=== PATIENT | female | born 1965 | race Caucasian/White ===

== ENCOUNTER 2024-01-05 16:17 | Inpatient (IN) | payer SELFPAY ==
[2024-01-05] VITALS (20 sets, daily range): BP systolic 107–159; BP diastolic 61–99
[~2024-01-05] VITALS: Ht 170.2 cm; Wt 88.8 kg
--- NOTE | 2024-01-05 16:17 | NUR ---
PT TO ER ROOM 10 VIA EMS. PT IS VERY DROWNY. PT RESPONDS TO VERBAL STIMULI AND ANSWERS YES OR NO. PT IS COVED IN FECES, HAS A TOILET BRUSH IN HER HAIR, AND FECES IN HER MOUTH. EMS STATES PT WAS FOUND IN THE BATHROOM FLOOR. FULL BED BATH GIVEN TO PATIENT. VSS. UPON PALPATION PT WINCES WHEN RLQ IS PRESSED ON.
[2024-01-05] MEDS ORDERED: SODIUM CHLORIDE 0.9% 1,000 ML IV ONE ×3 (16:30→19:05)
[2024-01-05] MEDS ORDERED: INSULIN REGULAR (HUMAN) 100 UNIT/ML INJ IV ONE (16:30)
[2024-01-05] MEDS ORDERED: ONDANSETRON HCl 4 MG/2 ML SDV IV ONE (17:00)
[2024-01-05] MEDS ORDERED: NALOXONE HCL 1 MG/ML SYR IV ONE (17:00)
[2024-01-05 17:06] LABS: HEMATOCRIT 51.4 % (37.0-47.0); HEMOGLOBIN 17.9 g/dl (12.0-16.0); IMMATURE GRANULOCYTES 0.3 % (0.0-5.0); LYMPH% 5.4 % (15-41); MEAN CELL VOLUME 87.1 fL CALC (80.0-100.0); MEAN CORPUSCULAR HGB 30.3 pG CALC (26.0-32.0); MEAN CORPUSCULAR HGB CONC 34.8 g/dL CAL (32.0-36.0); MONO% 8.3 % (2-13); NEUT# 21.52 thou/uL (2.00-7.15); RED BLOOD COUNT 5.9 mill/uL (4.20-5.60); RED CELL DISTRI WIDTH 12.4 % (11.5-15.5)
--- NOTE | 2024-01-05 17:21 | NUR ---
PTS SON AT SIDE. PT SON NOTIFIES THIS NURSE THAT PT IS SEVER FOOD ALLERGY TO SEAFOOD. SON STATES PT GOES INTO ANAPHYLLACSIS JUST BY TOUCHING SEAFOOD. MD IS MADE AWARE.
[2024-01-05 17:54] LABS: ALBUMIN 4.6 g/dL (3.2-5.0); BILIRUBIN, TOTAL 0.9 mg/dL (0.02-1.3); CREATININE 1.1 mg/dL (0.5-1.0)
[2024-01-05 18:07] LABS: URINE BILIRUBIN - DIPSTICK Negative (NEGATIVE); URINE BLOOD DIPSTICK Trace-lysed (NEGATIVE); URINE GLUCOSE - DIPSTICK >=1000 mg/dL (NEGATIVE); URINE KETONE Trace mg/dL (NEGATIVE); URINE LEUK ESTERASE Negative (NEGATIVE); URINE NITRITE - DIPSTICK Negative (Negative); URINE PH 5.5 (4.5-8.0); URINE PROTEIN - DIPSTICK Negative (NEG-TRACE); URINE UROBILINOGEN - DIPSTICK 0.2 E.U./dL (0.2)
[2024-01-05 18:08] LABS: URINE COLOR Yellow
[2024-01-05] MEDS ORDERED: CEFEPIME HYDROCHLORIDE 2 GM in SODIUM CHLORIDE 0.9% 100 ML IV ONE (18:45)
--- NOTE | 2024-01-05 19:49 | NUR ---
REPORT CALLED TO ICU/[facility]
--- NOTE | 2024-01-05 20:18 | NUR ---
DR. WHITTAKER NOTIFIED OF LA OF 4.0. WILL PUT IN ADDITIONAL ORDERS WHEN HE GETS TO A COMPUTOR.
--- NOTE | 2024-01-05 20:20 | NUR ---
Chana. FAXED TO [facility].
--- NOTE | 2024-01-05 20:30 | NUR ---
PT RESTING. FAMILY AT BEDSIDE. PT A/O AT THIS TIME. NOONAN. VSS. READIED FOR TRANSPORT TO ICU.
--- NOTE | 2024-01-05 20:45 | NUR ---
PATIENT TRASPORTED TO ICU BED 6 BY Mar BANEGAS RN.
[2024-01-05] MEDS ORDERED: SODIUM CHLORIDE 0.9% 1,000 ML IV PRN ×2 (21:10→22:15)
[2024-01-05] MEDS ORDERED: ACETAMINOPHEN 325 MG/TAB PO PRN (21:10)
[2024-01-05] MEDS ORDERED: MAGNESIUM HYDROXIDE 30 ML UDC PO PRN (21:10)
[2024-01-05] MEDS ORDERED: DEXTROSE 250 ML IV PRN (21:15)
--- NOTE | 2024-01-05 23:00 | NUR ---
58 yr old white female admitted icu6 per stretcher from er. er nurse notfied of need for orders. transferred x3 assists to bed. bed weight obtained. analytical technician shows sinus tach pvcs. oriented to room. iv's x2 replaced. bolus given. history obtained per er record. unable to obtain covid or pneumonia vaccine history as pt is VERY lethargic. pt is incont. pure wick cath & diaper placed. bed alarm activated. fall precautions initiated.
[2024-01-06] VITALS (22 sets, daily range): BP systolic 134–166; BP diastolic 65–91
--- NOTE | 2024-01-06 00:01 | NUR ---
eyes closed. no distress. state fire marshal shows sinus tach.
--- NOTE | 2024-01-06 02:00 | NUR ---
resting quietly. resps even & unlabored. no apparent distress.
--- NOTE | 2024-01-06 04:15 | NUR ---
lab here. blood drawn.
[2024-01-06 05:01] LABS: HEMATOCRIT 42.8 % (37.0-47.0); HEMOGLOBIN 14.4 g/dl (12.0-16.0); MEAN CORPUSCULAR HGB 31.3 pG CALC (26.0-32.0); MEAN CORPUSCULAR HGB CONC 33.6 g/dL CAL (32.0-36.0); RED BLOOD COUNT 4.6 mill/uL (4.20-5.60); RED CELL DISTRI WIDTH 12.8 % (11.5-15.5)
[2024-01-06 05:02] LABS: BILIRUBIN, TOTAL 0.6 mg/dL (0.02-1.3); CREATININE 0.6 mg/dL (0.5-1.0); MAGNESIUM 2.1 mg/dL (1.6-2.3); POTASSIUM 4.1 mmol/l (3.5-5.1)
[2024-01-06 05:03] LABS: ALBUMIN 3.5 g/dL (3.2-5.0); TOTAL PROTEIN 6.3 g/dL (6.3-8.2)
--- NOTE | 2024-01-06 06:00 | NUR ---
eyes closed. environmental monitoring technician shows sinus rhythm pvcs.
[2024-01-06] MEDS ORDERED: CEFEPIME HYDROCHLORIDE 2 GM in SODIUM CHLORIDE 0.9% 100 ML IV SCH (07:00)
[2024-01-06] MEDS ORDERED: INSULIN LISPRO 100 UNITS/ML ML SC SCH (07:00)
--- NOTE | 2024-01-06 07:44 | NUR ---
REPORT RECEIVED FROM NIGHT RN. PT IS DROWSY, ORIENTED ONLY TO PERSON (FIRST NAME ONLY). DOES NOT TRACK WITH GAZE. RIGHT HELP DESK INTERN WEAKER THAN LEFT. RIGHT AND LEFT ARM DRIFT. LUNG SOUNDS CLEAR; PT IS ON RA. NO SOB NOTED. PT DID COUGH AFTER DRINKING WATER. PT NOT GIVEN BREAKFAST DUE TO RISK OF ASPIRATION. HEART SOUNDS S1S2; NSR ON MONITOR. BS ACTIVE. PT HAS LARGE OVARIAN MASS SHOWN ON CT. SKIN W/D/I. PULSES STRONG ALL EXTREMETIES. DR. SHAH NOTIFIED OF FINDINGS FROM INITIAL ASSESSMENT AND CT BRAIN ORDERED. DR. SHAH AT BEDSIDE TO DO ASSESSMENT.
--- NOTE | 2024-01-06 08:30 | NUR ---
STAT CT COMPLETED. PT TAKEN BACK TO UNIT BY HOSPITAL BED. TOLERATED WELL.
[2024-01-06] MEDS ORDERED: VANCOMYCIN HCL 1 GM in SODIUM CHLORIDE 0.9% 250 ML IV SCH (09:00)
--- NOTE | 2024-01-06 09:06 | NUR ---
STROKE ALERT CALLED.
[2024-01-06] MEDS ORDERED: DEXTROSE 250 ML IV PRN (09:15)
[2024-01-06] MEDS ORDERED: ASPIRIN 300 MG/SUP RE SCH (09:30)
--- NOTE | 2024-01-06 09:30 | NUR ---
PT BACK FROM CT. TELE-NEUROLOGY CONSULT COMPLETED. PT STABLE. FAMILY AT BEDSIDE.
--- NOTE | 2024-01-06 11:30 | NUR ---
PT TAKEN TO MRI BY HOSPITAL BED. DUE TO UNCERTAINTY OF POSSIBLE FOREIGN BODY IN R LEG, ORDER FOR XRAY OBTAINED AND PERFORMED. PT'S SON AT BEDSIDE IN MRI TO GIVE CONSENT ON PT'S BEHALF.
--- NOTE | 2024-01-06 12:55 | NUR ---
UPON ENTERING PT ROOM, PT WAS SOMEWHAT TEARFUL AND COMPLAINING OD HEADACHE. PT SAID IT WAS THE WORST HEADACHE SHE HAS EVER HAD AND CAME ON SUDDNELY. ANOTHER STROKE ALERT CALLED AND PT TAKEN TO CT BY HOSPITAL BED.
--- NOTE | 2024-01-06 13:45 | NUR ---
PT BACK FROM CT. REPEAT CT COMPLETED. TELE-NEUROLOGY CONSULT COMPLETED IN PT ROOM WITH FAMILY AT BEDSIDE. PT CAN ANSWER SOME QUESTIONS; MILD DYSARTHRIA. DRIFT NOTED IN RIGHT LEG. VSS.
--- NOTE | 2024-01-06 14:08 | NUR ---
S: WENDIE ISBELL is a 58 F who presents with sepsis and ovarian mass. She has a history of arthritis and cerebrovascular accident. All medications in patient's chart were reviewed. O: VS: BP:147/72 mmHg, P:108 beats/minute, RR:16 breaths per minute,T:97.4F W:87.401kg, HT:162.56, Scr=0.6,CrCl= 113.2ml/min A: Blood culture is pending. P: Patient is on cefepime HCl 2 GM IV Q12H. Vancomycin ordered for pharmacy to dose. Start Vancomycin 1 GM IV Q8H. Vancomycin trough is drawn before the 4th dose on 01/07/2024 at 0830. Vancomycin goal trough is between <10-20 mcg/ml>. Pharmacy will follow and or advise on antibiotics use as needed.
--- NOTE | 2024-01-06 15:45 | NUR ---
PT ASSISTED TO BEDPAN TO TRY TO HAVE A BM. PT DID NOT HAVE ANY BM BUT DID VOID. LINEN AND BRIEF CHANGED AND PT REPOSITIONED. FAMILY AT BEDSIDE. MOUTH CARE PROVIDED.
--- NOTE | 2024-01-06 17:00 | NUR ---
NO CHANGES TO PT STATUS. NO FAMILY AT BEDSIDE. PT ASLEEP IN BED.
[2024-01-06] MEDS ORDERED: LABETALOL HCL 20 MG/ 4 ML CARTRG IV PRN (17:30)
[2024-01-06] MEDS ORDERED: Pantoprazole Sodium 40 MG VIAL (Protonix) IV SCH (17:35)
--- NOTE | 2024-01-06 18:21 | NUR ---
PT ASLEEP IN BED. CALL LIGHT IN REACH. VSS.
[2024-01-06] MEDS ORDERED: ENOXAPARIN SODIUM 40 MG/0.4 ML SYR SC SCH (21:00)
--- NOTE | 2024-01-06 21:00 | NUR ---
recieved report from Fiona ZARAGOZA at 2100, NIH =8 done at 2130. next NIH at 0000 and 0400, Pt assessed , cleaned new sheets pads, blanket new purewick, mouth cleaned and moisturizer appled. call rueda within reach.
--- NOTE | 2024-01-06 22:00 | NUR ---
pt resting comfortably. call rueda within reach all safety measures in place.
--- NOTE | 2024-01-06 22:30 | NUR ---
spoke to DR. Shelby after NIH performed to go over NIH=8 exam , aware of exam and reviewed MRI findings with RN. MD number [phone]. aware pt does not track. This RN stated pt had Rondanielle which is new and suspected silent aspiration of oral secretions. Md stated she would expect that based on MRi findings. will monitor closely.
[2024-01-07] VITALS (21 sets, daily range): BP systolic 119–185; BP diastolic 71–133
--- NOTE | 2024-01-07 | NUR ---
pt respositioned. NIH =8 call rueda within reach . All needs met. IVF going at 80cc/hr, purewick in place.
--- NOTE | 2024-01-07 02:00 | NUR ---
pt repositioned. mini neuro assess. same as before. pt cleaned new gown new bedding sheets , pericare mouth cleaned. bath. IVF maintained at 80cc/hr of NS. all monitors on , bed alarm. call rueda within reach.
--- NOTE | 2024-01-07 04:00 | NUR ---
pt assessed no change in NIH =8 , pt lethargic when woke up , no change pt cannot follow finger. when asked if pain pt states no. pt speach is still garbled but able to make out some words. pt incontinenet new purewick. given warm blankets. IV Fluids at 80cc/hr. all monitors on and call rueda within reach. semiflowlers positione pulled up in bed pt can participate to assist with pulling up. LLLeg is still not able to hold off the bed and is also ataxix in the LLLeg.
[2024-01-07 04:54] LABS: HEMATOCRIT 40.8 % (37.0-47.0); HEMOGLOBIN 13.5 g/dl (12.0-16.0); MEAN CELL VOLUME 92.3 fL CALC (80.0-100.0); MEAN CORPUSCULAR HGB 30.5 pG CALC (26.0-32.0); MEAN CORPUSCULAR HGB CONC 33.1 g/dL CAL (32.0-36.0); RED BLOOD COUNT 4.42 mill/uL (4.20-5.60); RED CELL DISTRI WIDTH 12.8 % (11.5-15.5)
[2024-01-07 05:08] LABS: ALBUMIN 3.2 g/dL (3.2-5.0); CREATININE 0.5 mg/dL (0.5-1.0); POTASSIUM 3.9 mmol/l (3.5-5.1); TOTAL PROTEIN 5.7 g/dL (6.3-8.2)
[2024-01-07 05:24] LABS: BILIRUBIN, TOTAL 0.9 mg/dL (0.02-1.3)
[2024-01-07] MEDS ORDERED: LABETALOL HCL 100 MG/20 ML VIAL IV PRN (08:30)
[2024-01-07] MEDS ORDERED: SODIUM CHLORIDE 0.9% 250 ML IV ONE (08:53)
[2024-01-07 10:43] LABS: CHOLESTEROL HDL RATIO 4.7 (<4.4 (CALC))
--- NOTE | 2024-01-07 10:51 | NUR ---
S: WENDIE ISBELL is a 58yo F who presents with sepsis. She has a history of hypertension, CVA, diabetes, and arthritis. All medications in patient's chart were reviewed. O: VS: BP 119/99 mmHg, P 85 bpm, RR 21 breaths/min, T 99 F W 86.7 kg, HT 67 in, Scr= 0.5,CrCl= 112.7 ml/min A: Blood culture is pending. P: Patient is on cefepime 2 g IV Q12H. Vancomycin ordered for pharmacy to dose. Current dose Vancomycin 1gm IV q8h, trough prior to 4th dose = 8. Increase dose to Vancomycin 1500 mg IV Q8H. Next Vancomycin trough will be drawn before the dose on 01/09/24 @ 1630. Vancomycin goal trough is between 15-20 mcg/ml. Pharmacy will follow and or advise on antibiotics use as needed.
--- NOTE | 2024-01-07 11:00 | NUR ---
assessment unchabged from previous assessment therapies at bedside for eval. breathing even and unlabored.denies any pain at this time
--- NOTE | 2024-01-07 13:30 | NUR ---
PT TAKEN TO MRI BY HOSPITAL BED. PT'S SON PRESENT TO GIVE CONSENT.
--- NOTE | 2024-01-07 14:42 | NUR ---
PT GIVEN PRN LABETOLOL PER JUL. FAMILY AT BEDSIDE. PT IS SITTING UP, MORE ALERT AND COMMUNICATING BETTER WITH FAMILY USING SMALL WORDS.
--- NOTE | 2024-01-07 16:05 | NUR ---
12F NG TUBE PLACED IN PT'S R NARES. 16F WOULD NOT PASS. PT TOLERATED. AWAITING XRAY FOR PLACEMENT CONFIRMATION. PT HAS VISITOR AT BEDSIDE.
[2024-01-07] MEDS ORDERED: VANCOMYCIN HCL 1,500 MG in SODIUM CHLORIDE 0.9% 470 ML IV SCH (17:00)
--- NOTE | 2024-01-07 18:00 | NUR ---
NO CHANGES TO PT STATUS. PT IS ASLEEP IN BED. VISITOR REMAINS AT BEDSIDE. CALL LIGHT IN REACH. VSS.
[2024-01-07] MEDS ORDERED: IPRATROPIUM-Albuterol 0.5MG-2.5MG/3 ML NEB PRN (18:10)
--- NOTE | 2024-01-07 20:00 | NUR ---
PT ASSESSMENT COMPLETE. LUNGS ARE COARSE, RHONCHI. PT IS ALERT, ABLE TO NOD TO ANSWER QUESTIONS. WEAK IN ALL EXTREMITIES, NOTIBILY MORE ON R SIDE EXTREMS. FAMILY IS @ BEDSIDE. NEW IV 20G PLACED IN RFA. BP ELEVATED 173/84. FAMILY EDUCATED ON NPO STATUS, PT FAILED SWALLOW EVALS. WARM BLANKET PROVIDED, CALL LIGHT IN REACH
--- NOTE | 2024-01-07 22:00 | NUR ---
PT RESTING, NO COMPLAINTS. NO CHANGE IN BASELINE. WARM BLANKET PROVIDED. NS @ 80 ML/HR. CALL LIGHT IN REACH
[2024-01-08] VITALS (27 sets, daily range): BP systolic 113–208; BP diastolic 71–187
--- NOTE | 2024-01-08 | NUR ---
PT RESTING COMFORTABLY. HAS NO COMPLAINTS. PT BP IS ELEVATED, HR IS 94. NO CHANGES NOTED. CALL LIGHT IN REACH
--- NOTE | 2024-01-08 02:10 | NUR ---
PT GIVEN LABETALOL PER ORDERS FOR BP. PT RESTING COMFORTABLY, NO COMPLAINTS. CALL LIGHT IN REACH
--- NOTE | 2024-01-08 04:09 | NUR ---
PT RESTING COMFORTABLY, HAS NO COMPLAINTS. NO CHANGE IN STATUS, BP IS STABLE. CALL LIGHT IN REACH
[2024-01-08 04:55] LABS: HEMATOCRIT 38.4 % (37.0-47.0); HEMOGLOBIN 13.2 g/dl (12.0-16.0); MEAN CELL VOLUME 91.6 fL CALC (80.0-100.0); MEAN CORPUSCULAR HGB 31.5 pG CALC (26.0-32.0); MEAN CORPUSCULAR HGB CONC 34.4 g/dL CAL (32.0-36.0); RED BLOOD COUNT 4.19 mill/uL (4.20-5.60); RED CELL DISTRI WIDTH 12.3 % (11.5-15.5)
[2024-01-08 05:07] LABS: ALBUMIN 3.1 g/dL (3.2-5.0); CREATININE 0.5 mg/dL (0.5-1.0); MAGNESIUM 1.8 mg/dL (1.6-2.3); POTASSIUM 3.4 mmol/l (3.5-5.1); TOTAL PROTEIN 5.6 g/dL (6.3-8.2)
--- NOTE | 2024-01-08 05:54 | NUR ---
PT RESTING COMFORTABLY, NO COMPLAINTS. NO CHANGES NOTED. LUNGS REAIN COARSE, RHONCHI UPON AUSCULTATION. NS @ 80 ML/HR. CALL JIA MORA
--- NOTE | 2024-01-08 08:00 | NUR ---
REPORT RECEIVED FROM NIGHT RN. PT HAD UNEVENTFUL NIGHT. PT ASLEEP IN BED. AWOKEN FOR ASSESSMENT. PT REMAINS SLIGHTLY APHASIC, CAN SPEAK BUT NOT IN FULL SENTENCES. REMAINS WEAK ON RIGHT LOWER EXTREMETY. NG TUBE IN PLACE AND SECURE. SKIN W/D/I. AFEBRILE. CALL LIGHT IN REACH. VSS.
[2024-01-08] MEDS ORDERED: POTASSIUM CHLORIDE 20MEQ 100 ML IV SCH (08:30)
[2024-01-08] MEDS ORDERED: amLODIPine BESYLATE 5 MG/TAB PO SCH (09:00)
[2024-01-08] MEDS ORDERED: ASPIRIN EC 81 MG/TAB VT SCH (09:30)
[2024-01-08] MEDS ORDERED: CLOPIDOGREL BISULFATE 75 MG/TAB TAB VT SCH (09:30)
--- NOTE | 2024-01-08 10:07 | NUR ---
pt resting in bed on left side;son present at bedside; offers no complaints; call light within reach; will continue to monitor
--- NOTE | 2024-01-08 11:19 | NUR ---
FAMILY AT BEDSIDE. NO CHANGES TO PT STATUS.
--- NOTE | 2024-01-08 13:00 | NUR ---
NO CHANGES TO PT STATUS. PT REMAINS APHASIC, USING SINGLE WORDS TO REPLY. PT'S FAMILY MEMBER AT BEDSIDE. CALL LIGHT IN REACG. VSS.
--- NOTE | 2024-01-08 14:00 | NUR ---
PT ASLEEP IN BED. FAMILY AT BEDSIDE. VSS.
--- NOTE | 2024-01-08 15:00 | NUR ---
PT'S TEMPERATURE SLIGHTLY ELEVATED AT 99.3 TEMPORAL. EXTRA BLANKETS REMOVED AND SOME COOL PACKS PLACED ON PT. FAMILY REMAINS AT BEDSIDE. ALL OTHER VSS.
[2024-01-08] MEDS ORDERED: DILTIAZEM HCL 125 MG in SODIUM CHLORIDE 0.9% 100 ML IV PRN (16:15)
--- NOTE | 2024-01-08 16:25 | NUR ---
PT'S HR ELEVATED UP TO 170'S. STAT EKG ORDERED AND SHOWED AFIB RVR. DR. SHAH NOTIFIED AND ORDERS RECEIVED TO START CARDIZEM GTT WITHOUT BOLUS. PT'S CURRENT HR 151. FAMILY AT BEDSIDE. UPDATED ON PROGRESS. ORDERS FROM DR. SHAH TO HOLD BLOOD THINNERS.
--- NOTE | 2024-01-08 16:28 | NUR ---
S: WENDIE ISBELL is a 58 F who presents with SEPSIS OF UNKNOWN ORIGIN. All medications in patient's chart were reviewed. O: VS: BP 165/96, P 142, RR 25,T 99.3 W 88kg, HT 68in, Scr= 0.5,CrCl= 113ml/min TROUGH = 17 A: Blood culture is pending P: Patient is on CEFEPIME 2GM IV Q12H AND VANCOMYCIN 1.5GM IV Q8H. Vancomycin ordered for pharmacy to dose. continue Vancomycin 1.5G IV Q8H. Vancomycin trough is drawn before the 3RD dose on 01/09/24 @0830. Early trough -3rd dose- due to pharmacy closing @1500 and trough after that -4th- dose would be @1430 Vancomycin goal trough is between 15-20 mcg/ml. Pharmacy will follow and or advise on antibiotics use as needed.
--- NOTE | 2024-01-08 16:31 | NUR ---
[facility] called per designer writer for update; awaiting bed
--- NOTE | 2024-01-08 16:58 | NUR ---
call received from Rose[facility] Jeronimo; pt to transfer to [address] [place] [address] bed 566-B; accepting MD Evy Obando
--- NOTE | 2024-01-08 17:03 | NUR ---
return call placed to [facility]; updated on Afib RVR with skyla gtt; bed assignment will be cancel, pt requires a different bed d/t walter; awaiting return call
--- NOTE | 2024-01-08 17:28 | NUR ---
PT'S HR REMAINS ELEVATED IN 150'S AND MAXED ON CARDIZEM GTT. DR. SHAH NOTIFIED AND ORDER RECEIVED FOR STAT CARDIOLOGY CONSULT.
--- NOTE | 2024-01-08 17:41 | NUR ---
SPOKE WITH CHECKMAN DR. MIRANDA. ORDERS RECEIVED TO GIVE DIGOXIN.
--- NOTE | 2024-01-08 17:57 | NUR ---
call received from [facility] transfer center [place] pt to be transferred to [address] room 591-A; pt HR will need to less than 120 prior to transfer per hospitalist
[2024-01-08] MEDS ORDERED: DIGOXIN 0.5 MG/2 ML AMP IV SCH (18:00)
--- NOTE | 2024-01-08 18:53 | NUR ---
cardiology TeleHealth consult completed with Dr Abbott
--- NOTE | 2024-01-08 19:57 | NUR ---
PT RESTING, HAS NO COMPLAINTS. HR IS 153, A-FIB RVR. PT ON 15 MG/HR OF CARDIZEM. PT HAS ORDERS TO TRANSPORT TO [facility], THEY WANT HR CONTROLLED AT <120 BEFORE TANSPORT. LUNGS ARE COARSE, RHONCHI NOTED. FAMILY @ BEDSIDE. CALL LIGHT IN REACH
[2024-01-08] MEDS ORDERED: METOPROLOL TARTRATE 50 MG/TAB PO SCH (21:00)
[2024-01-08] MEDS ORDERED: ACETAMINOPHEN 1,000 MG/100 ML VIAL IV SCH (21:45)
[2024-01-08] MEDS ORDERED: METOPROLOL TARTRATE 5 MG/5 ML VIAL IV SCH (22:30)
--- NOTE | 2024-01-08 22:47 | NUR ---
[facility] WAS NOTIFIED PT NEEDED HIGHER LEVEL OF CARE. AFTER COUPLE PHONE CALLS, THEY ARE PLACING PT IN NEURO ICU, BED 5B, 05/A. IV TYLENOL WAS GIVEN PER DR. WHITTAKER FOR TEMP TO SEE IF HELPS HR. IV METOPROLOL WAS ALSO GIVEN PER DR. WHITTAKER. HR IS CURRENTLY 149. [facility] CONTACTED FOR PT TRANSPORT TO [facility]. FAMILY AND PT NOTIFIED
--- NOTE | 2024-01-08 23:32 | NUR ---
APPROX. 2322 [facility] PICKED PT UP FOR TRANSPORT TO [facility]. REPORT WAS CALLED @ 2332 TO [facility] AT [facility]. PT HR WAS 149, BP 123/77. PT REMAINED ON CARDIZEM @ 15 MG/HR. PT GOING TO NEURO ICU BED 5B /A.
[2024-01-09] MEDS ORDERED: DIGOXIN 0.5 MG/2 ML AMP IV SCH
== END 2024-01-08 23:22 | disposition short-term general hospital (02) | DRG 64 ==
LOC: ED 16:17 → ED-I 18:30 → ED 19:01 → ICU 19:02
PROVIDERS: Family Medicine; Psychiatry & Neurology Neurology; ADMIT Internal Medicine; ATTEND Internal Medicine
DX: I63.443 Cerebral infarction due to embolism of bilateral cerebellar arteries (principal); A41.9 Sepsis, unspecified organism; I63.19 Cerebral infarction due to embolism of other precerebral artery; R65.20 Severe sepsis without septic shock; C56.1 Malignant neoplasm of right ovary; I69.351 Hemiplegia and hemiparesis following cerebral infarction affecting right dominant side; I63.411 Cerebral infarction due to embolism of right middle cerebral artery; I63.81 Other cerebral infarction due to occlusion or stenosis of small artery; R29.810 Facial weakness; R29.713 NIHSS score 13; R47.1 Dysarthria and anarthria; R53.1 Weakness; C44.319 Basal cell carcinoma of skin of other parts of face; I10 Essential (primary) hypertension; E11.9 Type 2 diabetes mellitus without complications; J40 Bronchitis, not specified as acute or chronic; R09.02 Hypoxemia; I48.91 Unspecified atrial fibrillation; F17.210 Nicotine dependence, cigarettes, uncomplicated; Z88.8 Allergy status to other drugs, medicaments and biological substances
CPT/HCPCS: A9579; J0131; J0692; J1160; J1650; J2470; J3370

== ENCOUNTER 2024-01-22 16:53 | Inpatient (IN) | payer SELFPAY ==
[~2024-01-22] VITALS: Ht 170.2 cm; Wt 65.1 kg
[2024-01-22] MEDS ORDERED: ACETAMINOPHEN 325 MG/TAB PO PRN (17:30)
[2024-01-22] MEDS ORDERED: MAGNESIUM HYDROXIDE 30 ML UDC VT PRN (17:30)
--- NOTE | 2024-01-22 17:30 | NUR ---
Patient arrived from [facility] as a direct admit via medical transport. Patient is A&O to self, on room air, VS WNL, NSR on tele monitor, J tube in place, rectal tube in place. Patient is able to move both upper extremities, R is weaker than left, when legs are lifted they both drift to bed, R more than left. All needs addressed at this time. Skin in intact, coccyx area is red and excoriated. Reached out to Dr Jimenez for orders.
[2024-01-22] MEDS ORDERED: CLARIFY DOSE PO PRN ×2 (17:55→18:55)
[2024-01-22 18:00] VITALS: BP 149/74
[2024-01-22] MEDS ORDERED: DEXTROSE 250 ML IV PRN (18:45)
[2024-01-22 19:00] VITALS: BP 126/76
[2024-01-22 20:00] VITALS: BP 131/82
--- NOTE | 2024-01-22 20:00 | NUR ---
pt assessed. Alox1, not able to answer questions of place and time. just nodded to her name. pt repositioned.,J tube intact. rectal tube and brief intact purewick in place drainaing dark urine. call rueda within reach. pt rounded on Q1 hr.
[2024-01-22 21:00] VITALS: BP 138/71
[2024-01-22] MEDS ORDERED: APIXABAN BASE 2.5 MG/TAB TAB PO SCH (21:00)
[2024-01-22] MEDS ORDERED: INSULIN LISPRO 100 UNITS/ML ML SC SCH (21:00)
[2024-01-22] MEDS ORDERED: ATORVASTATIN CALCIUM 40 MG/TAB VT SCH (21:00)
[2024-01-22 22:00] VITALS: BP 151/78
[2024-01-22] MEDS ORDERED: METOPROLOL TARTRATE 25 MG/TAB VT SCH (22:00)
--- NOTE | 2024-01-22 22:00 | NUR ---
pt assessment unchanged, meds crushed and given via J tube , flushed with 200 water pt NPO, no orders at this time for TF. pt opens eyes and will nod to questions asked. pt s abdomen distenede and soft , BSx4. pt clean rectal tube in place and dainaing . pt in c diff precautions. contact. call rueda within reach pt on monitor NSr. on rom air. all safety measures in place.
[2024-01-22 23:00] VITALS: BP 136/76
[2024-01-23] VITALS (25 sets, daily range): BP systolic 104–152; BP diastolic 51–90
--- NOTE | 2024-01-23 | NUR ---
pt assessed no change in assesssment. pt resting comfortbaly on her side , pt repositioned herself inh bed. call rueda within rech. on monitor NSR . all needs met.
--- NOTE | 2024-01-23 02:00 | NUR ---
pt rounded on , resting comfortably, clean dry , call rueda within reach all needs met.
--- NOTE | 2024-01-23 04:00 | NUR ---
pt rounde don , resting comfortbaly , emp taken afebrile. clean , rectaseala dn purewick intackt. call rueda wtihin reach . monitor on all needs met.
[2024-01-23 05:41] LABS: BASO% 1.4 % (0-3); EOS% 1.4 % (0-8); IMMATURE GRANULOCYTES 0.2 % (0.0-5.0); LYMPH% 32.5 % (15-41); MEAN CORPUSCULAR HGB CONC 34.5 g/dL CAL (32.0-36.0); MONO% 10.8 % (2-13); NEUT# 5.07 thou/uL (2.00-7.15); NEUT% 53.7 % (42-76); RED BLOOD COUNT 5.19 mill/uL (4.20-5.60)
[2024-01-23 05:47] LABS: HEMATOCRIT 46.7 % (37.0-47.0); HEMOGLOBIN 16.1 g/dl (12.0-16.0)
--- NOTE | 2024-01-23 06:00 | NUR ---
pt bathed , pt able to help move her slef up in bed, follows commands, new gown pads and brief. new purewick. flexiseal in place, am meds given with 200cc of water. all monitors on, al safety measures in palce, call rueda within reach all needs met.
[2024-01-23 06:12] LABS: BILIRUBIN, TOTAL 1.2 mg/dL (0.02-1.3); CREATININE 0.5 mg/dL (0.5-1.0); MAGNESIUM 1.8 mg/dL (1.6-2.3)
[2024-01-23 06:15] LABS: POTASSIUM 4.6 mmol/l (3.5-5.1); TOTAL PROTEIN 7.6 g/dL (6.3-8.2)
--- NOTE | 2024-01-23 08:00 | NUR ---
PT I SRESTING IN BED. TEMP OF 97.2. FLUSHED AND MILKED RECTAL TUBE. FLUSHED PEG TUBE WITH 30 ML. PT IS ORIENTED TO SELF.
[2024-01-23] MEDS ORDERED: ASPIRIN 81 MG/TAB PO SCH (09:00)
--- NOTE | 2024-01-23 10:00 | NUR ---
PT IS AWAKE AND RESTING IN BED WITH A FRIEND AT THE BEDSIDE. ORAL CARE PROVIDED.
--- NOTE | 2024-01-23 12:00 | NUR ---
PATIENT IS SLEEPING IN BED. PATIENT IS IN REGULAR SINUS RYTHEM AT 86 BPM.
--- NOTE | 2024-01-23 14:00 | NUR ---
PATIENT IS SLEEPING IN BED, AROUSABLE WITH SPEECH. PATIENT IS 89 BPM ON TELEMETRY.
--- NOTE | 2024-01-23 15:00 | NUR ---
ORAL CARE PROVIDED
--- NOTE | 2024-01-23 15:05 | NUR ---
TUBE FEEDINGS STARTED AT 10 mL/HR WITH JEVITY 1.5 PER PROVIDER'S ORDER.
--- NOTE | 2024-01-23 16:00 | NUR ---
PATIENT IS RELAXING IN BED. TUBE FEED IS ON WITH 14 ML GIVEN. PATIENT HAS TURNED THEMSELVES TO LEAN ON THEIR RIGHT SIDE.
[2024-01-23] MEDS ORDERED: BOUDREAUX'S BUTT PASTE ZINC OXIDE 57 G PASTE EX PRN (16:30)
--- NOTE | 2024-01-23 17:40 | NUR ---
PATIENT DECLINED REPOSITIONING. PATIENT PROVIDED CLEAN PUREWICK AND BRIEF. TOLERATING TUBE FEEDING WELL. DENIES ISSUES OR CONCERNS AT THIS TIME. NO APPARENT DISTRESS NOTED. WILL CONTINUE WITH PLAN OF CARE.
--- NOTE | 2024-01-23 18:00 | NUR ---
PT IS AWAKE IN BED WITH A FRIEND AT THE BEDSIDE. TOLERATING TUBE FEEDING.
--- NOTE | 2024-01-23 20:00 | NUR ---
pt assessed and cleaned , new purewick and small amount of bm arround suzanne. cleaned and barrier appled and new brief. new pads , pt bathed and new gown. new sheets all linens. pt on quality assurance monitor chassis on. call rueda within reach all needs. met.
--- NOTE | 2024-01-23 22:00 | NUR ---
pt turned pt does move her self also, on monitor assessment unchanged, all needs met. TF continued at 40cc/hr tolerating well.
[2024-01-24] VITALS (23 sets, daily range): BP systolic 117–156; BP diastolic 73–116
--- NOTE | 2024-01-24 | NUR ---
assessment unchaned. pt resting comfortably, TF going at 40cc/hr all needs met.
--- NOTE | 2024-01-24 02:00 | NUR ---
assessment unchanged. TF going no issues no residual. call rueda within reach.
--- NOTE | 2024-01-24 04:00 | NUR ---
assessment unchanged. pt turned herself. TF going at 40 no residual. all needs met. call marybeth pelletier reach
--- NOTE | 2024-01-24 06:00 | NUR ---
assessment unchanged, pt resting comfortaly. purewick emptied. 550, call rueda within reach. all needs met. all monitors on , metoprolol given . pt clean at this time. all safety measures in place all night .
[2024-01-24 06:09] LABS: BASO% 1.5 % (0-3); EOS% 1.6 % (0-8); HEMATOCRIT 45.5 % (37.0-47.0); IMMATURE GRANULOCYTES 0.1 % (0.0-5.0); LYMPH% 33.1 % (15-41); MEAN CELL VOLUME 89.2 fL CALC (80.0-100.0); MEAN CORPUSCULAR HGB 31.4 pG CALC (26.0-32.0); MEAN CORPUSCULAR HGB CONC 35.2 g/dL CAL (32.0-36.0); MONO% 13.4 % (2-13); NEUT# 4.01 thou/uL (2.00-7.15); NEUT% 50.3 % (42-76); RED BLOOD COUNT 5.1 mill/uL (4.20-5.60); RED CELL DISTRI WIDTH 12.9 % (11.5-15.5)
[2024-01-24 06:26] LABS: ALBUMIN 4.1 g/dL (3.2-5.0); BILIRUBIN, TOTAL 1.1 mg/dL (0.02-1.3); CREATININE 0.5 mg/dL (0.5-1.0); MAGNESIUM 1.8 mg/dL (1.6-2.3); POTASSIUM 4.5 mmol/l (3.5-5.1); TOTAL PROTEIN 7.5 g/dL (6.3-8.2)
[2024-01-24] MEDS ORDERED: DEXTROSE 250 ML IV PRN (06:40)
[2024-01-24] MEDS ORDERED: INSULIN LISPRO 100 UNITS/ML ML SC SCH (07:00)
--- NOTE | 2024-01-24 08:09 | NUR ---
PT IS SLEEPING IN BED, AROUSABLE WITH STABLE VITALS. TEMP OF 98.6.
--- NOTE | 2024-01-24 10:00 | NUR ---
PT IS IN BED AWAKE AND LETHARGIC WITH A FRIEND AT THE BEDSIDE. NO COMPLAINTS OF PAIN. TOLERATING TUBE FEED. RIGHT FOREARM IV PATENT.
--- NOTE | 2024-01-24 12:00 | NUR ---
PT IS SLEEPING IN BED, WAKES EASILY. VITALS ARE STABLE.
--- NOTE | 2024-01-24 13:00 | NUR ---
PT HAS COMPLETE LINEN CHANGE AND PERICARE COMPLETED WITH PUREWICK REPLACED.
--- NOTE | 2024-01-24 13:01 | NUR ---
ORAL CARE PROVIDED
--- NOTE | 2024-01-24 14:00 | NUR ---
PT IS SLEEPING IN BED WITH STABLE VITALS. EASILY AROUSABLE.
--- NOTE | 2024-01-24 16:00 | NUR ---
PT IS RESTING IN BED AWAKE. BRIEF AND PUREWICK CHANGED. PERICARE PERFORMED.
--- NOTE | 2024-01-24 18:00 | NUR ---
PT IS AWAKE IN BED WITH FRIEND AT THE BEDSIDE.
--- NOTE | 2024-01-24 18:56 | NUR ---
CRITICAL FINDING RECEIVED FROM MICHELLE WITH [facility] AT 1846. BRAIN CT RESULTS CALLED TO DR. WADE AT 1850. NO ADDITIONAL ORDERS.
--- NOTE | 2024-01-24 20:40 | NUR ---
PT RESTING IN BED WATCHING TV, NO S/S OF DISTRESS NOTED. BREATHING IS EVEN AND UNLABORED. PT IS SOFT SPOKEN AND IS HARD TO UNDERSTAND WHAAT SHE SAYS AT TIME. PT HAS A RECTAL TUBE IN PLACE, TU IRRIGATED. PEG TUBE IN PLACE WITH CONTINUES FEEDING. TELE IN PLACE HR IN THE HIGH 90. PT DENIES PAIN OR DISCOMFORT.
[2024-01-25] VITALS (26 sets, daily range): BP systolic 114–160; BP diastolic 72–120
--- NOTE | 2024-01-25 00:43 | NUR ---
PT IN BED RESTING WITH EYES CLOSED BREATHING IS EVEN AND UNLABORED. NO S/S OF DISTRESS NOTED CALL LIGHT IN REACH AND BED IN LOWSET POSITION.
--- NOTE | 2024-01-25 04:58 | NUR ---
PT IN BED RESTING WITH EYES CLOSED BREATHING IS EVEN AND UNLABORED. NO S/S OF DISTRESS NOTED. CALL LIGHT IN REACH AND BED IN THE LOWSET POSITION.
[2024-01-25 05:28] LABS: BASO% 1.4 % (0-3); EOS% 1.4 % (0-8); HEMATOCRIT 47.6 % (37.0-47.0); HEMOGLOBIN 16.4 g/dl (12.0-16.0); IMMATURE GRANULOCYTES 0.2 % (0.0-5.0); LYMPH% 31.1 % (15-41); MEAN CELL VOLUME 89.5 fL CALC (80.0-100.0); MEAN CORPUSCULAR HGB 30.8 pG CALC (26.0-32.0); MEAN CORPUSCULAR HGB CONC 34.5 g/dL CAL (32.0-36.0); MONO% 11.8 % (2-13); NEUT# 5.09 thou/uL (2.00-7.15); NEUT% 54.1 % (42-76); RED BLOOD COUNT 5.32 mill/uL (4.20-5.60)
[2024-01-25 05:40] LABS: ALBUMIN 4.1 g/dL (3.2-5.0); CREATININE 0.5 mg/dL (0.5-1.0); MAGNESIUM 1.8 mg/dL (1.6-2.3); POTASSIUM 4.9 mmol/l (3.5-5.1); TOTAL PROTEIN 7.6 g/dL (6.3-8.2)
[2024-01-25 06:29] LABS: C. DIFFICILE TOXIN A&B NEGATIVE (NEGATIVE)
--- NOTE | 2024-01-25 08:00 | NUR ---
REPORT RECEIVED FROM NIGHT RN. PT SENT BACK FROM [facility]. PT IS VERY DROWSY AND LETHARGIC. NOT ANSWERING QUESTIONS. PT REPOSITIONED. TUBE FEEDINGS SET AT 40ML/H WITH 200ML FLUSH Q6H. PEG PLACEMENT CONFIRMED BY AUSCULTATION; NO RESIDUAL. PT AT 45 DEGREE. LUNGS CLEAR/DIMINISHED. PT IS ON RA. NSR ON MONITOR. BS ACTIVE. PULSES STRONG UPPER, WEAK LOWER EXTREMETIES. SKIN W/D; SCAB/GROWTH ON R CHEEK. RECTAL TUBE IN PLACE. STOL SAMPLE FOR CDIFF NEGATIVE THIS MORNING. CALL LIGHT IN REACH. VSS.
--- NOTE | 2024-01-25 10:40 | NUR ---
PT'S SON AT BEDSIDE. NO CHANGES TO PT STATUS AT THIS TIME.
--- NOTE | 2024-01-25 13:30 | NUR ---
PT REPOSITIONED IN BED. STILL DROWSY AND LETHARGIC; NOT ANSWERING QUESTIONS.
--- NOTE | 2024-01-25 14:30 | NUR ---
PT REPOSITIONED IN BED, BRIEF AND PURWIK CHANGED. PT REMAINS MINIMALLY RESPONSIVE TO STAFF. VSS.
--- NOTE | 2024-01-25 18:00 | NUR ---
PT REPOSITIONED IN BED. BRIEF CHANGED AND RECTAL TUBE REMOVED PER MD. NO OTHER CHANGES TO PT STATUS.
--- NOTE | 2024-01-25 19:15 | NUR ---
awakens easily. pt attempts to speak but can't. obeys commands:move rt leg, straighten up in bed, touch this writers hand. grocery supervisor shows sinus rhythm. saline lock in place. peg tube feeding infusing well. no residual. pure wick cath in place. urine light charles. no diarrhea @ present. requires total assist with all care. bed alarm conts.
[2024-01-26] VITALS (21 sets, daily range): BP systolic 116–155; BP diastolic 72–93
--- NOTE | 2024-01-26 00:01 | NUR ---
eyes closed. no distress. software test specialist shows sinus rhythm.
--- NOTE | 2024-01-26 04:00 | NUR ---
environmental monitoring specialist shows sinus rhythm.
--- NOTE | 2024-01-26 04:30 | NUR ---
lab here. blood drawn.
[2024-01-26 05:23] LABS: BASO% 1.2 % (0-3); EOS% 1.8 % (0-8); HEMATOCRIT 45.8 % (37.0-47.0); HEMOGLOBIN 15.8 g/dl (12.0-16.0); IMMATURE GRANULOCYTES 0.2 % (0.0-5.0); LYMPH% 32.4 % (15-41); MEAN CELL VOLUME 89.6 fL CALC (80.0-100.0); MEAN CORPUSCULAR HGB 30.9 pG CALC (26.0-32.0); MEAN CORPUSCULAR HGB CONC 34.5 g/dL CAL (32.0-36.0); MONO% 12.1 % (2-13); NEUT# 4.85 thou/uL (2.00-7.15); NEUT% 52.3 % (42-76); RED BLOOD COUNT 5.11 mill/uL (4.20-5.60); RED CELL DISTRI WIDTH 12.9 % (11.5-15.5)
[2024-01-26 05:29] LABS: ALBUMIN 3.9 g/dL (3.2-5.0); CREATININE 0.4 mg/dL (0.5-1.0); MAGNESIUM 1.8 mg/dL (1.6-2.3); POTASSIUM 4.4 mmol/l (3.5-5.1); TOTAL PROTEIN 7.2 g/dL (6.3-8.2)
--- NOTE | 2024-01-26 08:00 | NUR ---
REPORT RECEIVED FROM NIGHT NURSE. PATIENT AXO X3. S1S2 HEARD, NORMAL SINUS ON TELE. LUNG SOUNDS CLEAR IN UPPER LOBES AND DIMINISHED IN LOWER, NO COUGH OR SOB NOTED. ABDOMEN SOFT, NON-DISTENDEDED, NON-TENDER, WITH ACTIVE BOWEL SOUNDS. UPPER PULSES STRONG, LOWER WEAK. PEG TUBE IN LEFT ABDOMEN, NO SIGNS OF INFECTION. SKIN WARM AND DRY. REDNESS NOTED ON BUTTOX. TUBE FEEDINGS SET AT 40ML/HR. WITH 200ML FLUSH EVERY 6 HOURS. CALL LIGHT IN REACH. VSS.
--- NOTE | 2024-01-26 12:00 | NUR ---
PATIENT LAYING IN BED RESTING. FAMILY AT BEDSIDE. ALL NEEDS MET. CALL LIGHT IN REACH. VSS.
--- NOTE | 2024-01-26 13:35 | NUR ---
pt transferred to MRI via stretcher accompanied by staff x2;
--- NOTE | 2024-01-26 16:00 | NUR ---
PATIENT LAYING DOWN IN BED RESTING. BERKOWITZ IN PLACE. ALL NEEDS MET. CALL LIGHT IN REACH. VSS.
--- NOTE | 2024-01-26 19:30 | NUR ---
PT RESTING IN BED NO DISTRESS NOTED ON ASSESSMENT. PT DROWSY BUT ABLE TO RESPOND WHEN SPOKEN TO HER. NO PAIN REPORTED AT THIS TIME. VS WNL ON RA LUNGS CLEAR. BS ACTIVE PEG TUBE WORKING PROPERLY ONGOING FEEDS. IV SITE ON RFA FLUSHED WORKING PROPERLY. BERKOWITZ HAS NO KINKS CLEAR YELLOW URINE OUTPUT. SCATTERED BRUISING WITH SOME REDNESS AROUND ANUS DUE TO WATERY STOOL DARK BROWN. PT CLEAN UP AND BARRIER CREAM APPLIED. PT HAS NO EDEMA MICHAEL HOSES APPLIED TO BLE AND ELEVATED BLE. PT ABLE TO SELF TURN. PT REPOSITIONED AND PLACED HEAD OF BED TO 30 DEGREES ANGLE AND RESTARTED FEEDS AFTER WASHING UP PT. CALL LIGHT WITHIN REACH. BED ALARM ON. PLAN OF CARE ONGOING.
--- NOTE | 2024-01-26 20:45 | NUR ---
PT RESTING TEMP CHECKED NO RUNNING A FEVER. NIGHT MEDICATION PROVIDED THROUGH PEG TUBE.
--- NOTE | 2024-01-26 22:00 | NUR ---
PT RESTING NO DISTRESS NOTED ON EXAM. VS WNL ON RA BREATHING EVENLY. ONGOING FEEDINGS THROUGH PEG TUBE WORKING PROPERLY. PT REPOSITIONED. CALL LIGHT WITHIN REACH. PLAN OF CARE ONGOING.
[2024-01-27] VITALS (22 sets, daily range): BP systolic 101–155; BP diastolic 52–130
--- NOTE | 2024-01-27 00:14 | NUR ---
PT RESTING NO DISTRESS NOTED ON EXAM. PT ALERT REPORTS NO PAIN AT THIS TIME. VS WNL ON RA. PEG TUBE RESIDUAL CHECKED 10ML THEN FLUSHED WITH 10ML AND CONTINOURS FEEDING RESTARTED. [place] BAG CHECKED FOR KINKS WORKING PROPERLY. ORAL CARE DONE AND WASHED PT'S FACE. PT REPOSITIONED CALL LIGHT WITHIN REACH. PLAN OF CARE ONGOING.
--- NOTE | 2024-01-27 02:24 | NUR ---
PT RESTING NO DISTRESS NOTED BREATHING EVENLY. [place] CHECKED NO KINKS. PEG TUBE CHECKED WORKING PROPERLY. CALL LIGHT WITHIN REACH. PLAN OF CARE ONGOING.
--- NOTE | 2024-01-27 04:05 | NUR ---
PEG TUBE RESIDUAL CHECKED 15ML AND FLUSHED BACK IN WITH 10ML. PEG TUBE WORKING PROPERLY.
--- NOTE | 2024-01-27 05:12 | NUR ---
PT REPOSITIONED AND CHECKED TO SEE IF SHE NEEDED TO BE CLEAN UP AT THIS TIME PT IS CLEAN FROM BM. CALL LIGHT WITHIN REACH. PLAN OF CARE ONGOING.
[2024-01-27 05:15] LABS: BASO% 1.2 % (0-3); EOS% 2.8 % (0-8); HEMATOCRIT 43.7 % (37.0-47.0); HEMOGLOBIN 15.2 g/dl (12.0-16.0); IMMATURE GRANULOCYTES 0.2 % (0.0-5.0); LYMPH% 35.9 % (15-41); MEAN CELL VOLUME 89.4 fL CALC (80.0-100.0); MEAN CORPUSCULAR HGB 31.1 pG CALC (26.0-32.0); MEAN CORPUSCULAR HGB CONC 34.8 g/dL CAL (32.0-36.0); NEUT# 3.98 thou/uL (2.00-7.15); NEUT% 47.9 % (42-76); RED BLOOD COUNT 4.89 mill/uL (4.20-5.60); RED CELL DISTRI WIDTH 12.9 % (11.5-15.5)
[2024-01-27 05:48] LABS: ALBUMIN 3.6 g/dL (3.2-5.0); BILIRUBIN, TOTAL 0.7 mg/dL (0.02-1.3); CREATININE 0.5 mg/dL (0.5-1.0); MAGNESIUM 1.8 mg/dL (1.6-2.3); POTASSIUM 3.9 mmol/l (3.5-5.1); TOTAL PROTEIN 6.7 g/dL (6.3-8.2)
--- NOTE | 2024-01-27 08:00 | NUR ---
REPORT RECEIVED FROM NIGHT NURSE. PATIENT AXO X3. PATIENT IS DROWSY. LUNGS CLEAR THROUGHOUT, NO COUGH OR SOB NOTED. S1S2 NOTED, NORMAL SINUS ON TELE. ABDOMENT SOFT, NON-DISTENDED, NON-TENDER WITH ACTIVE BOWEL SOUNDS. PEG TUBE IN PLACE VERIFIED BY AUSCULTATION, NO RESIDUAL. NO SIGNS OF INFECTION AT INSERTION SITE. UPPER PULSES STRONG, LOWER WEAK. BERKOWITZ IN PLACE. CALL LIGHT IN REACH. VSS.
[2024-01-27 08:02] LABS: URINE BILIRUBIN - DIPSTICK Negative (NEGATIVE); URINE BLOOD DIPSTICK Negative (NEGATIVE); URINE GLUCOSE - DIPSTICK Negative (NEGATIVE); URINE KETONE Negative (NEGATIVE); URINE NITRITE - DIPSTICK Negative (Negative); URINE PROTEIN - DIPSTICK Negative (NEG-TRACE); URINE SPECIFIC GRAVITY 1.025; URINE UROBILINOGEN - DIPSTICK 0.2 E.U./dL (0.2)
[2024-01-27 08:03] LABS: URINE COLOR Yellow; URINE LEUK ESTERASE Small (NEGATIVE)
[2024-01-27 08:22] LABS: URINE BACTERIA FEW hpf; URINE SQUAMOUS EPITHELIAL CELL RARE EPI/hpf (0-FEW); URINE YEAST FEW hpf
[2024-01-27 08:23] LABS: URINE TRANSITIONAL EPI. CELLS RARE hpf
--- NOTE | 2024-01-27 10:15 | NUR ---
PATIENT SITTING UP IN BED RESTING. PATIENT'S FAMILY AT BEDSIDE. CALL LIGHT IN REACH. VSS.
--- NOTE | 2024-01-27 12:00 | NUR ---
PATIENT LAYING DOWN IN BED RESTING. ALL NEEDS MET. CALL LIGHT IN REACH. VSS.
--- NOTE | 2024-01-27 13:20 | NUR ---
SPEECH THERAPIST AT BEDSIDE TO ASSESS PT.
--- NOTE | 2024-01-27 14:45 | NUR ---
PT AT BEDSIDE TO SEE PT.
--- NOTE | 2024-01-27 16:30 | NUR ---
OT WAS ABLE TO GET PT TO EDGE OF BED AND THEN REPOSITIONED IN BED.
--- NOTE | 2024-01-27 20:00 | NUR ---
RECEIVED REPORT ROM NURSE BETTY, PATIENT ALERT TO NAME ONLY, WHISPERS NAME, PATIENT ABLE TO CLOSE EYES AND SRIP IS WEAK, PATIENT ON NPO, SALINE LOCK NOTED ON RFA G 20 HOOKED ON PLASTIC SHEETING CUTTER, PATIENT ON CONTINUOUS FEED GLUCERNA AT 50CC/HR AND EVRY 4 HOUR FLUSHED, PATIENT BERKOWITZ CATH DRAINING YELLOW COLORED URINE, MOUTH CARE PROVIDED. CALL LIGHT IN REACHED.
--- NOTE | 2024-01-27 22:00 | NUR ---
PATIENT PEG TUBE DRESSING CHANGED.
[2024-01-28] VITALS (18 sets, daily range): BP systolic 103–156; BP diastolic 64–82
--- NOTE | 2024-01-28 00:30 | NUR ---
PATINET NOT IN DISTRESS, PARTIAL BED BATH GIVEN, PATIENT HAD A LOOSE LARGE BM, PATIENT PERICARE PROVIDED.
--- NOTE | 2024-01-28 02:00 | NUR ---
PATIENT BREATHING EVEN UNALBORED, NO DISCOMFORTS NOTED AT THIS TIME.
--- NOTE | 2024-01-28 04:15 | NUR ---
PAINET NOT IN DISTRESS, BREATHING UNLABORED, NO DISCOMFORTS NOTED AT THIS TIME.
[2024-01-28 05:50] LABS: EOS% 2.1 % (0-8); HEMATOCRIT 42.4 % (37.0-47.0); HEMOGLOBIN 14.7 g/dl (12.0-16.0); IMMATURE GRANULOCYTES 0.1 % (0.0-5.0); LYMPH% 29.8 % (15-41); MEAN CELL VOLUME 88.9 fL CALC (80.0-100.0); MEAN CORPUSCULAR HGB 30.8 pG CALC (26.0-32.0); MEAN CORPUSCULAR HGB CONC 34.7 g/dL CAL (32.0-36.0); MONO% 9.6 % (2-13); NEUT# 5.65 thou/uL (2.00-7.15); NEUT% 57.4 % (42-76); RED BLOOD COUNT 4.77 mill/uL (4.20-5.60); RED CELL DISTRI WIDTH 12.7 % (11.5-15.5)
[2024-01-28 06:05] LABS: ALBUMIN 3.7 g/dL (3.2-5.0); BILIRUBIN, TOTAL 0.7 mg/dL (0.02-1.3); CREATININE 0.4 mg/dL (0.5-1.0); MAGNESIUM 1.8 mg/dL (1.6-2.3); POTASSIUM 4.3 mmol/l (3.5-5.1); TOTAL PROTEIN 6.6 g/dL (6.3-8.2)
[2024-01-28] MEDS ORDERED: DEXTROSE 250 ML IV PRN ×2 (06:40→09:05)
--- NOTE | 2024-01-28 07:10 | NUR ---
RECEIVED PT IN BED ASLEEP AND EASILY AROUSABLE. NO ACUTE DISTRESS NOTED. GLUCERNA TUBE FEEDING INFUSING AT 50 ML/HR. WILL RETURN FOR FURTHER ASSESSMENT. NO ACUTE DISTRESS NOTED.
--- NOTE | 2024-01-28 08:28 | NUR ---
RECEIVED PT IN BED AAOX1. PT ABLE TO FOLLOW COMMANDS. GENERALIZED WEAKNESS NOTED ON ASSESSMENT. PT ABLE TO MOVE UPPER EXTREMITIES AND LEFT LOWER EXTREMITY. RT LOWER EXTREMITY WITH NOTED WITH GREATER WEAKNESS. PT DENIES ANY H/A OR DIZZINESS. NO C/O OF CHEST PAIN OR SOB. HOB ELEVATED AND GLUCERNA TF INFUSING AT 50 ML/HR. DISCUSSED PLAN OF CARE WITH PT. PT STATES OK. NO S/S OF INCREASED DECREASE IN NEURO STATUS. CONTINUE TO MONITOR PT.
--- NOTE | 2024-01-28 08:38 | NUR ---
PHYSICAL THERAPIST IN WITH PT PROVIDING THERAPY. PT TOLERATING PROCEDURE. PT PLACED IN BEDSIDE CHAIR. PT REMAINS ON NPO STATUS. CONTINUE TO MONITOR PT FOR ANY CHANGE IN NEURO STATUS. SAFETY AND COMFORT MEASURES PROVIDED.
[2024-01-28] MEDS ORDERED: INSULIN DETEMIR 100 UNITS/ML SC SCH (09:00)
--- NOTE | 2024-01-28 10:05 | NUR ---
PT REMAINS OUT OF BED AT THIS TIME. NO S/S OF DECREASE IN CEREBRAL OR TISSUE PERFUSION. PT FOLLOWING COMMANDS AND MOVING EXTREMITIES WITH EFFORT. GENERALIZED WEAKNESS NOTED ON ASSESSMENT. BERKOWITZ CATH DRAINING CLEAR YELLOW URINE AND GLUCERNA TUBE FEEDING INFUSING AT 50 ML/HR. G-TUBE SITE CLEAN AND INTACT. NO DRAINAGE NOTED TO AREA. SAFETY PRECAUTIONS MAINTAINED.
[2024-01-28] MEDS ORDERED: SULFAMETHOXAZOLE-TRIMETHOPRIM 200 MG-40 MG/5 ML UDC VT SCH (11:00)
[2024-01-28] MEDS ORDERED: INSULIN LISPRO 100 UNITS/ML ML SC SCH (11:00)
--- NOTE | 2024-01-28 12:00 | NUR ---
PT PLACED BACK IN BED AND TUBE FEEDING REMAIN INFUSING @ 50 ML/HR. PT HAD LARGE BROWN BM @ THIS TIME. PT CLEANED AND LINEN CHANGED. SAFETY MEASURES MAINTAINED.
--- NOTE | 2024-01-28 14:30 | NUR ---
PT IN BED WITH HOB ELEVATED >30 AND NEW TUBE FEEDING STARTED @50 ML PER HOUR WITH 200 ML H20 FLUSH EVERY 4 HOURS. PT STABKLE AND PENDING TRANSFER TO MED/TELE FLOOR. NO ACUTE DISTRESS NOTED. PT SLEEPING IN INTERVALS AND EASILY AROUSABLE. SAFETY PREAUTIONS AND COMFORT MEASURES MAINTAINED.
--- NOTE | 2024-01-28 16:25 | NUR ---
NO CHANGE IN PT NEURO STATUS FROM FROM PREVIOUS ASSESSMENT. PT HAS FAMILY MEMBER AT BEDSIDE. GLUCERNA INFUSING @ 50 ML/HR. PT STABLE AND PENDING TRANSFER TO FLOOR. NO S/S OF DECREASE IN CARDIAC OUT PUT OR TISSUE PERFUSION.
--- NOTE | 2024-01-28 17:41 | NUR ---
REPORT GIVEN TO TENA AT THIS TIME. PT PENDING TRANSFER TO ROOM 269. NO ACUTE DISTRESS NOTED.
--- NOTE | 2024-01-28 17:50 | NUR ---
PT ARRIVED TO THE UNIT VIA BED, PT ALERT AND ORIENT NAME AND , TUB FEEDING INFUSING AT PRESCIBED RATE, ACTIVE BOWEL SOUNDS, BERKOWITZ CATH IN PLACE, MICHAEL HOSE ON, SKIN INTACT, PT ORIENTED TO THE ROOM AND CALL GRIGGS SYSTEM,CALL GRIGGS WITHIN REACH
--- NOTE | 2024-01-28 17:55 | NUR ---
PT TRANSPORTED TO ROOM 269 WITH TELE MONITOR AND RN @ SIDE. NO ACUTE DISTRESS NOTED.
--- NOTE | 2024-01-28 20:00 | NUR ---
BEDSIDE SHIFT REPORT COMPLETED. JEVITY INFUSING VIA PEG. NO RESIDUAL NOTED. HEAD O0F BED UP 35 DEGREES. CALL LIGHT IN REACH.
[2024-01-29] VITALS (8 sets, daily range): BP systolic 132–149; BP diastolic 61–91
--- NOTE | 2024-01-29 | NUR ---
HOB UP 35 DEGREES. GLUCERNA INFUSING AT 50 CC/HR. BERKOWITZ CATH PATENT DRAINING YELLOW URINE. TURNED OFTEN FOR SKIN CARE.
--- NOTE | 2024-01-29 04:00 | NUR ---
RESTING IN BED. ALL NEEDS ANTICIPATED BY STAFF. NPO. MOUTHCARE PROVIDED. GLUCERNA INFUSING AT 50 CC/HR ORDERED. NO S/S OF SHORTNESS OF BREATH.
[2024-01-29 05:33] LABS: BASO% 1.4 % (0-3); EOS% 2.1 % (0-8); HEMATOCRIT 43.9 % (37.0-47.0); HEMOGLOBIN 15.1 g/dl (12.0-16.0); IMMATURE GRANULOCYTES 0.2 % (0.0-5.0); MEAN CELL VOLUME 89.6 fL CALC (80.0-100.0); MEAN CORPUSCULAR HGB 30.8 pG CALC (26.0-32.0); MEAN CORPUSCULAR HGB CONC 34.4 g/dL CAL (32.0-36.0); MONO% 10.3 % (2-13); NEUT# 4.45 thou/uL (2.00-7.15); RED BLOOD COUNT 4.9 mill/uL (4.20-5.60); RED CELL DISTRI WIDTH 12.8 % (11.5-15.5)
[2024-01-29 05:52] LABS: ALBUMIN 3.9 g/dL (3.2-5.0); BILIRUBIN, TOTAL 0.6 mg/dL (0.02-1.3); CREATININE 0.5 mg/dL (0.5-1.0); POTASSIUM 4.4 mmol/l (3.5-5.1)
--- NOTE | 2024-01-29 08:50 | NUR ---
patient resting in bed; room air; breathing unlabored and even; no s/s of distress at this time; patient is NPO; patient laying semi felder postion in bed; tube feeding going per program; davidson bag intact and working with yellow urine output; tele leads are intact; iv site clean and intact saline locked with noissues; DISTRICT SUPERINTENDENT in room assisting patient to turn on right side; call light within reach, personal items within reach, bed in lowest postion; bed alarm activated
--- NOTE | 2024-01-29 12:55 | NUR ---
patient sitting low semi felder postion in bed; room air; breathing unlabored and even; no s.s of distress or pain ; tele leads intact; davidson bag working with no issue; feeding pump working with no issues; no issues at this time; call ight within reach, personal items within reach, bed in lowest postion; bed alarm activated
--- NOTE | 2024-01-29 16:45 | NUR ---
patient in bed; resting on right side; room air breathing unlabored and even; no s/s of distress; tube feeding working with no issues; iv site clean and intact saline locked; tele leads intact; davidson bag attached and working with no issues; patient on Q2 turns; call light within reach, bed in lowest postion ;bed alarm actiivated
--- NOTE | 2024-01-29 19:25 | NUR ---
PATIENT IN BED RESTING IN BED. BED SIDE ASSESMENT COMPLETE. PATIENT IS A&O. CLEAR BREATH SOUNDS. PATIENT IS ON CONTINUOUS TUBE FEEDING AT 50CC/HR. TUBE SITE IS INTAC AND CLEAN. BOWEL SOUNDS PRESENT. BERKOWITZ BAG IS IN TACT AND CLEAN WITH CLEAR OUTPUT. BED AT LOWEST POSITION. CALL LIGHT WITH IN REACH.
--- NOTE | 2024-01-29 22:25 | NUR ---
PATIENT IN BED RESTING. BED SIDE ASSESMENT COMPLETE. PATIENT IS A&O. PATIENT IS ON CONTINUOUS TUBE FEEDING AT 50CC/HR. PATIENT HAS CLEAR LUNG SOUNDS. PATIENT HAS BERKOWITZ CATHETER INTACT AND WORKING WITH CLEAR URINE OUTPUT. BOWEL SOUNDS PRESENT. PATIENT HAS REDDEND AREA ON LOWER BUTTOCKS, REDDEND ARIA ON LEFT INNER KNEE. PICTUES TAKEN. BED AT LOWEST POSITION CALL LIGHT WITH IN REACH.
--- NOTE | 2024-01-30 00:02 | NUR ---
PATIENT IS IN BED ASLEEP. PATIENT RERSPONDS TO VERBAL STIMULI, PATIENT IS SOFT SPOKEN RESPONDS TO QUESTIONS ASKED. PATIENT IS ON TUBE FEEDING IS STILL INFUSING AT 50CC/HR WHILE LAYING SEMIFOWLER. PATIENT BED AT LOWEST POSITION. CALL LIGHT WITH IN REACH.
--- NOTE | 2024-01-30 04:18 | NUR ---
PATIENT IN BED RESTING WITH EYES CLOSED.PATIENT OBSERVED TO HAVE EQUAL UNLABORED BREATHING. PATIENT WILL NOD OR WISPER TO QUESTIONS ASKED. NO VISUAL SIGNS OF DISTRESS. PATIENT REMAINS ON TUBE FEED CONTINUOUS 50 ML/HR. BED AT LOWEST POSITION. CALL LIGHT WITHIN REACH.
[2024-01-30 04:29] VITALS: BP 133/70
[2024-01-30 05:16] LABS: BASO% 1.5 % (0-3); EOS% 4.2 % (0-8); HEMATOCRIT 41.6 % (37.0-47.0); HEMOGLOBIN 14.5 g/dl (12.0-16.0); IMMATURE GRANULOCYTES 0.3 % (0.0-5.0); LYMPH% 36.3 % (15-41); MEAN CELL VOLUME 89.7 fL CALC (80.0-100.0); MEAN CORPUSCULAR HGB 31.3 pG CALC (26.0-32.0); MEAN CORPUSCULAR HGB CONC 34.9 g/dL CAL (32.0-36.0); MONO% 9.5 % (2-13); NEUT# 3.75 thou/uL (2.00-7.15); NEUT% 48.2 % (42-76); RED BLOOD COUNT 4.64 mill/uL (4.20-5.60); RED CELL DISTRI WIDTH 12.9 % (11.5-15.5)
[2024-01-30 05:26] LABS: ALBUMIN 3.7 g/dL (3.2-5.0); BILIRUBIN, TOTAL 0.6 mg/dL (0.02-1.3); CREATININE 0.5 mg/dL (0.5-1.0); MAGNESIUM 1.9 mg/dL (1.6-2.3); POTASSIUM 4.5 mmol/l (3.5-5.1); TOTAL PROTEIN 6.7 g/dL (6.3-8.2)
[2024-01-30 07:13] VITALS: BP 142/74
--- NOTE | 2024-01-30 07:13 | NUR ---
pt is sleepy at this time, respirations are even and unlabored, lungs are clear, bowel sounds are active, pedal pulses are weak but palpable to touch. pt nods when asked if she was cold. covered pt, readjusted positioning. pt resting comfortably at this time.
--- NOTE | 2024-01-30 10:22 | NUR ---
PT AWAKE AND FOLLOWING COMMANDS, INTERACTING WITH FRIEND AT BEDSIDE.
[2024-01-30 10:39] VITALS: BP 134/70
[2024-01-30 14:16] VITALS: BP 144/69
[2024-01-30 16:10] VITALS: BP 149/74
--- NOTE | 2024-01-30 16:13 | NUR ---
PT SLEEPY BUT ABLE TO BE AROUSED WITH VERBAL STIMULATION. PT IN HIGH FLOWER POSITION WITH FRIENDS AT BEDSIDE VISITING AT THIS TIME.
[2024-01-30 18:31] VITALS: BP 139/77
--- NOTE | 2024-01-30 19:33 | NUR ---
PATIENT IN BED WITH EYES CLOSED. BEDSIDE ASSESSMENT COMPLETE. PATIENT IS A&O X1 TO SELF. PATIENT RESPONDS TO VERBAL STIMULI WITH SLIGHT WHISPER RESPONSE OF YES OR NODS. PATIENT REMAINS ON TUBE FEED CONTINUOUS 50ML/HR. PATIENT OBSERVED TO HAVE EQUAL UNLABORED BREATHING. BOWEL SOUNDS PRESENT. PERIPHERAL PULSES PALPABLE. NO VISUAL SIGNS OF DISTRESS. BED AT LOWEST POSITION. CALL GRIGGS WITH IN REACH.
--- NOTE | 2024-01-30 23:40 | NUR ---
PATIENT IN BED RESTING IN BED WITH EYES CLOSED AT HIGH FOWLERS. PATIENT RESPONDS TO VERBAL STIMULI WITH A NOD TO QUESTIONS ASKED. PATIENT HAS EQUAL UNLABORED BREATHING. PATIENT REMAINS ON CONTINUOUS TUBE FEED AT 50 ML/HR. NO VISUAL SIGNS OF DISTRESS. BED AT LOWEST POSITION. CALL LIGHT WITH IN REACH.
[2024-01-31] VITALS (7 sets, daily range): BP systolic 129–155; BP diastolic 68–86
--- NOTE | 2024-01-31 00:20 | NUR ---
PATIENT IN ROOM RESTING IN BED WITH EYES CLOSED. PATIENT RESPONDS TO VERBAL STIMULI. PATIENT OBSERVED TO HAVE EQUAL UNLABORED BREATHING. PATIENT REMAINS ON TUBE FEED AT 50ML/HR. PATIENT HAS NO VISUAL SIGNS OF DISTRESS. CALL LIGHT WITH IN REACH. BED AT LOWEST POSITION.
[2024-01-31 04:35] LABS: BASO% 1.3 % (0-3); EOS% 2.9 % (0-8); HEMATOCRIT 45.5 % (37.0-47.0); HEMOGLOBIN 15.5 g/dl (12.0-16.0); IMMATURE GRANULOCYTES 0.1 % (0.0-5.0); LYMPH% 33.6 % (15-41); MEAN CELL VOLUME 88.9 fL CALC (80.0-100.0); MEAN CORPUSCULAR HGB 30.3 pG CALC (26.0-32.0); MEAN CORPUSCULAR HGB CONC 34.1 g/dL CAL (32.0-36.0); MONO% 10.4 % (2-13); NEUT# 3.86 thou/uL (2.00-7.15); NEUT% 51.7 % (42-76); RED BLOOD COUNT 5.12 mill/uL (4.20-5.60); RED CELL DISTRI WIDTH 12.8 % (11.5-15.5)
[2024-01-31 04:40] LABS: BILIRUBIN, TOTAL 0.6 mg/dL (0.02-1.3); CREATININE 0.6 mg/dL (0.5-1.0); POTASSIUM 4.5 mmol/l (3.5-5.1); TOTAL PROTEIN 7.3 g/dL (6.3-8.2)
--- NOTE | 2024-01-31 07:05 | NUR ---
REPORT GIVEN BY NIGHT CARD SETTER. PATIENT RESTING WITH EYES CLOSED. NO S/S OF DISTRESS NOTED. FALL AND SAFTEY PRECAUTIONS IN PLACE. TUBE FEEDING INFUSING PER MD ORDERS. RESP EVEN AND UNLABORED.
--- NOTE | 2024-01-31 12:00 | NUR ---
FAMILY AT BEDSIDE.
[2024-01-31] MEDS ORDERED: FLUTICASONE PROPIONATE (Nasal) 50MCG/SPRAY INH SCH (13:00)
--- NOTE | 2024-01-31 18:26 | NUR ---
PATIENT PULLED BERKOWITZ OUT
--- NOTE | 2024-01-31 20:00 | NUR ---
PT RESTING IN BED NO DISTRESS NOTED ON ASSESSMENT. PT WAS LYING SIDEWAYS SO NURSE AND MEDICAL RECORDS TECH REPOSITIONED PT. VS WNL ON RA LUNGS CLEAR BUT DIMINISHED. IV SITE FLUSHED WORKING PROPERLY SL. BEKROWITZ CATHETER CHECKED FOR KINKS AND EMPTIED. PEG TUBE CHECKED RESIDUAL 10ML CONTINUOUS FEED ONGOING WORKING PROPERLY. SCATTERED BRUISING WITH REDNESS ON BUTTOCKS AND CESAR AREA. CALL LIGHT WITHIN REACH. BED ALARM ON. PLAN OF CARE ONGOING.
[2024-02-01] VITALS (9 sets, daily range): BP systolic 115–158; BP diastolic 41–86
--- NOTE | 2024-02-01 | NUR ---
PT RESTING NO DISTRESS NOTED ON EXAM. PT NOTED TO BE SLIGHTLY DIAPHORETIC NURSE WASHED PT FACED WITH COOL WASH CLOTH. BERKOWITZ CATHETER CHECKED WORKING PROPERLY. PEG TUBE CHECKED RESIDUAL LESS THAN 10ML FEEDS CONTINUED. CALL LIGHT WITHIN REACH. BED ALARM ON. PLAN OF CARE ONGOING.
--- NOTE | 2024-02-01 04:00 | NUR ---
PT RESTING NO DISTRESS NOTED ON EXAM. PEG TUBE RESIDUAL CHECKED 10ML FEEDING CONTINUED. BERKOWITZ CATHETER CHECKED NO KINKS NOTED AND EMPTIED. PT REPOSITIONED. CALL LIGHT WITHIN REACH. BED ALARM ON. PLAN OF CARE ONGOING.
[2024-02-01 05:27] LABS: BASO% 1.2 % (0-3); EOS% 2.2 % (0-8); HEMATOCRIT 44.6 % (37.0-47.0); HEMOGLOBIN 15.3 g/dl (12.0-16.0); IMMATURE GRANULOCYTES 0.2 % (0.0-5.0); LYMPH% 30.7 % (15-41); MEAN CELL VOLUME 90.8 fL CALC (80.0-100.0); MEAN CORPUSCULAR HGB 31.2 pG CALC (26.0-32.0); MEAN CORPUSCULAR HGB CONC 34.3 g/dL CAL (32.0-36.0); MONO% 10.2 % (2-13); NEUT# 4.55 thou/uL (2.00-7.15); NEUT% 55.5 % (42-76); RED BLOOD COUNT 4.91 mill/uL (4.20-5.60); RED CELL DISTRI WIDTH 12.9 % (11.5-15.5)
[2024-02-01 05:33] LABS: ALBUMIN 4.2 g/dL (3.2-5.0); BILIRUBIN, TOTAL 0.6 mg/dL (0.02-1.3); CREATININE 0.5 mg/dL (0.5-1.0); POTASSIUM 4.3 mmol/l (3.5-5.1); TOTAL PROTEIN 7.4 g/dL (6.3-8.2)
--- NOTE | 2024-02-01 08:55 | NUR ---
PT WORKING WITH PT AT THIS TIME, GETTING UP OUT OF BED AND INTO THE CHAIR.
[2024-02-01 10:20] LABS: URINE BILIRUBIN - DIPSTICK Negative (NEGATIVE); URINE BLOOD DIPSTICK Large (NEGATIVE); URINE CLARITY Clear; URINE GLUCOSE - DIPSTICK Negative (NEGATIVE); URINE KETONE Negative (NEGATIVE); URINE LEUK ESTERASE Trace (Negative); URINE NITRITE - DIPSTICK Negative (Negative); URINE PROTEIN - DIPSTICK 30 mg/dL (NEG-TRACE); URINE SPECIFIC GRAVITY >=1.030; URINE UROBILINOGEN - DIPSTICK 0.2 E.U./dL (0.2)
[2024-02-01 10:22] LABS: URINE COLOR Yellow
[2024-02-01 10:38] LABS: URINE SQUAMOUS EPITHELIAL CELL FEW EPI/hpf (0-FEW); URINE WBC 50-100 WBC/hpf (0-5); URINE YEAST MODERATE hpf
--- NOTE | 2024-02-01 12:29 | NUR ---
MANAGER SIX SIGMA ATTEMPTED VISIT FOR ONGOING DYSPHAGIA TX AT 1049. PT UNABLE TO BE AROUSED DESPITE VERBAL AND TACTILE STIMULI. MANAGER SIX SIGMA TO ATTEMPT AGAIN AT A LATER TIME.
--- NOTE | 2024-02-01 16:12 | NUR ---
PT IS SLEEPY BUT RESPONDS TO VERBAL STIMULI, ORIENTED TO SENF, NOT PLACE, NOT TIME, PT DENIES PAIN AT THIS TIME, PT IS RESTING IN BED ON HER SIDE. RESPIRATIONS ARE EVEN AND UNLABORED, LUNGS ARE CLEAR, BOWEL SOUNDS ARE ACTIVE, PEDAL PULSES PALPABLE TO TOUCH.
--- NOTE | 2024-02-01 20:20 | NUR ---
REPORT RECEIVED FROM [facility] NURSETAMMI RN. PT RESTING IN BED, APPEARS COMFORTABLE. PT DOES NOT OFFER ANY COMPLAINTS AT THIS TIME. PT IS A&O X3, AND ABLE TO MAKE NEEDS KNOWN. BED ALARM IS ON AT THIS TIME. NO S&S OF DISTRESS NOTED FROM PT. PT IS ON ROOM AIR. TELE MONITOR REMAINS IN PLACE. DRESSING AROUND G TUBE IS CDI. CONTINUOUS FEED GOING PER ORDERS. RESIDUAL CHECKED AT THIS TIME. RESIDUAL MINIMAL, AND REPLACED. BERKOWITZ CATHETER NOTED. PT DENIES ANY BURNING IN CESAR AREA OR WHEN ATTEMPTING TO URINATE. MOUTH CARE GIVEN AT THIS TIME, PT TOLERATED WELL WITH NO COMPLAINTS VOICED. IV SITE CLEAN AND INTACT. MICHAEL HOSE NOTED TO BLE. BOWEL SOUNDS ACTIVE X4 QUADRANTS. LUNG SOUNDS CLEAR UPON AUSCULTATION. PT EDUCATED ON POC AND MEDICATION SCHEDULE. CALL LIGHT IN REACH, AND SAFETY PRECAUTIONS IN PLACE.
[2024-02-02] MEDS ORDERED: INSULIN LISPRO 100 UNITS/ML ML SC SCH
--- NOTE | 2024-02-02 00:05 | NUR ---
PT RESTING IN BED WITH EYES CLOSED. RESPIRATIONS ARE EVEN AND UNLABORED. PT IS EASILY AROUSABLE. TELE MONITOR REMAINS IN PLACE. CONTINOUS FEED GOING PER ORDERS. NO S&S OF DSITRESS NOTED. BED ALARM REMAINS ON AT THIS TIME. NO COMPLAINTS OFFERED. CALL LIGHT IN REACH, AND SAFETY PRECAUTIONS IN PLACE.
[2024-02-02 03:48] VITALS: BP 142/78
--- NOTE | 2024-02-02 04:15 | NUR ---
PT RESTING IN BED WITH EYES CLOSED. RESPIRATIONS ARE EVEN AND UNLABORED, PT IS EASILY AROUSABLE. CONTINUOUS FEEDING TUBING CHANGED AT THIS TIME. NO COMPLAINTS VOICED FROM PT AT THIS TIME. TELE MONITOR REMAINS IN PLACE. NO S&S OF DISTRESS NOTED. BED ALARM REMAINS ON. CALL LIGHT IN REACH, AND SAFETY PRECAUTIONS IN PLACE.
[2024-02-02 07:20] VITALS: BP 136/80
--- NOTE | 2024-02-02 07:30 | NUR ---
Report received from tire service supervisor nurse. Patient is resting in bed, denies any pain. Patient is A&O to self/place at this time, on room air, NSR on tele monitor, davidson in place, tube feeds running via PEG tube as ordered, VS WNL. All needs addressed, call light within reach.
[2024-02-02] MEDS ORDERED: CEFEPIME HYDROCHLORIDE 2 GM in SODIUM CHLORIDE 0.9% 100 ML IV SCH (11:00)
[2024-02-02 11:04] VITALS: BP 136/82
--- NOTE | 2024-02-02 12:00 | NUR ---
Patient is resting in bed, denies any pain. A&O to self and place, on room air, NSR on tele monitor, VS WNL, tube feeds running as ordered via PEG tube. All needs addressed, call light within reach.
[2024-02-02 15:25] VITALS: BP 133/78
--- NOTE | 2024-02-02 16:00 | NUR ---
Patient is resting in bed, denies any pain. A&O to self and place, on room air, NSR on tele monitor, VS WNL, tube feeds running as ordered via PEG tube, davidson in place. All needs addressed, call light within reach.
[2024-02-02 18:59] VITALS: BP 137/73
--- NOTE | 2024-02-02 20:00 | NUR ---
REPORT RECIEVED FROM [facility] NURSE. BEN DEAN. PT RESTING IN BED WATCHING TELEVISION. PT DOES NOT OFFER ANY COMPLAINTS AT THIS TIME. PT IS A&O X2, TO SELF AND PLACE. NO S&S OF DISTRESS NOTED. IV SITE TO (R) UPPER ARM NOTED, DRESSING CLEAN AND INTACT, FLUSHING WELL. BERKOWITZ NOTED, PERINEAL AREA INTACT. YELLOW CLEAR URINE IN BAG. TELE MONITOR IN PLACE. PT REMAINS ON ROOM AIR. BOWEL SOUNDS ACTIVE X4 QUADRANTS. LUNG SOUNDS CLEAR UPON AUSCULTATION. PEG TUBE SITE CLEAN, DRESSING CDI. CONTINIOUS FEEDING GOING PER ORDERS. PT TOLERATING WELL. MICHAEL HOSE IN PLACE TO BLE. PT EDUCATED ON POC AND MEDICATION SCHEDULE. CALL LIGHT IN REACH, AND SAFETY PRECAUTIONS IN PLACE.
--- NOTE | 2024-02-02 23:00 | NUR ---
THIS TRUCK DRIVER HELPER AND ASSIGNED CONFERENCE SERVICES COORDINATOR COMPLETED A COMPLETE BED LINEN CHANGE, AND PROVIDED PERINEAL AND BERKOWITZ CARE TO PT. BOTTOM SLIGHTLY RED, CREAM APPLIED. PT TOLERATED WELL WITH NO COMPLAINTS VOICED. MOUTH CARE ALSO PROVIDED AT THIS TIME. WILL CONTINUE TO MONITOR.
[2024-02-02 23:38] VITALS: BP 139/84
[2024-02-03] VITALS (12 sets, daily range): BP systolic 121–149; BP diastolic 71–84
--- NOTE | 2024-02-03 | NUR ---
PT RESTING IN BED WITH EYES CLOSED. RESPIRATIONS ARE EVEN AND UNLABORED. PT IS EASILY AROUSABLE. TELE REMAINS IN PLACE. PT REMAINS ON ROOM AIR. BED ALARM REMAINS ON. CONTINIOUS FEED GOING PER ORDERS. NO COMPLAINTS OFFERED. NO S&S OF DISTRESS NOTED. CALL LIGHT IN REACH, AND SAFETY PRECAUTIONS IN PLACE.
--- NOTE | 2024-02-03 04:00 | NUR ---
PT RESTING IN BED WATCHING TELEVISION. PT APPEARS COMFORTABLE. NO S&S OF DISTRESS NOTED. TELE MONITOR REMAINS IN PLACE. PT REMAINS ON ROOM AIR. CONTINIOUS FEED GOING PER ORDERS. NO COMPLAINTS OFFERED. BED ALARM REMAINS ON. CALL LIGHT IN REACH, AND SAFETY PRECAUTIONS IN PLACE.
--- NOTE | 2024-02-03 07:26 | NUR ---
PT IS SLEEPY BUT WAKES TO VERBAL STIMULATION, ORIENTED TO SELF, CURRENT YEAR, AND CURRENT STATE, NOT CITY, NOT PLACE. PT FOLLOWING FINGER WITH HER EYES, SQEEZING BOTH HANDS, LIFTS LEFT LEG HIGHER THAN RIGHT. LUNGS ARE CLEAR, BOWEL SOUNDS ACTIVE, PEDAL PULSES PALPABLE TO TOUCH. PT DENIES PAIN AT THIS TIME.
--- NOTE | 2024-02-03 09:20 | NUR ---
REMOVED BERKOWITZ, PERFORMED CESAR CLEANING, APPLIED PROTECTIVE BARRIER CREAM AND MEPALEX TO PROTECT COCCYX, TECH SETTING UP PUREWICK AT THIS TIME. PT TOLERATED WITH NO COMPLAINTS.
--- NOTE | 2024-02-03 09:35 | NUR ---
PT WORKING WITH PT AT THIS TIME.
--- NOTE | 2024-02-03 09:45 | NUR ---
PT UP OUT OF BED INTO CHAIR WITH HELP OF PT.
[2024-02-03] MEDS ORDERED: YEAST (S. BOULARDII)(S. CEREVI 250 MG CAP PO SCH (10:00)
--- NOTE | 2024-02-03 10:00 | NUR ---
PT SITTING UP IN CHAIR WITH OLDEST SON VISITING AT BEDSIDE.
--- NOTE | 2024-02-03 12:40 | NUR ---
PEG TUBE TUBING CHANGED, NEW TUBING HUNG.
--- NOTE | 2024-02-03 13:02 | NUR ---
PT BECAME EMOATIONAL WHILE SON IS VISITING. SPOKE WITH PT ABOUT DOING PT AND BECOMING STRONGER. PT SMILED AND AGREED WITH DOING PT TO BECOME STRONGER.
--- NOTE | 2024-02-03 13:26 | NUR ---
BLADDER SCANNED PT. PT CURRENTLY WITH 774 ML/HR.
--- NOTE | 2024-02-03 13:30 | NUR ---
NOTIFIED YARED HUTTON OF PT'S BLADDER SCANNED RESULTS OF 774. VERBAL ORDER TAKEN TO INSERT BERKOWITZ.
--- NOTE | 2024-02-03 13:45 | NUR ---
INSERTED BERKOWITZ 18F, PT TOLERATED WITH NO COMPLAINTS, APON INSERTION 200ML OF YELLOW URINE CAME OUT.
--- NOTE | 2024-02-03 19:49 | NUR ---
PT RESTING NO DISTRESS NOTED ON ASSESSMENT. VS WNL ON RA LUNGS CLEAR NO PAIN REPORTED AT THIS TIME. SKIN INTACT SLIGHTLY PINK NOTED ON BUTTOCKS BUT BLANCHABLE NO EDEMA NOTED. BS ACTIVE LAST BM 02/01. TUBE FEED CONTINUOUS THROUGH A PEG TUBE AT GOAL REDUAL CHECKED 10ML. IV FLUSHED WORKING PROPERLY SL. BERKOWITZ CHECKED FOR KINKS CLEAR YELLOW URINE NOTED. CALL LIGHT WITHIN REACH. BED ALARM ON. PLAN OF CARE ONGOING.
--- NOTE | 2024-02-03 23:00 | NUR ---
REPORT RECEIVED FROM MELVA DEAN. PT RESTING IN BED WATCHING TELEVISION. NO COMPLAINTS OFFERED AT THIS TIME. PT IS A&O X3, AND ABLE TO MAKE NEEDS KNOWN. NO S&S OF DISTRESS NOTED. TELE MONITOR REMAINS IN PLACE. PT IS ON ROOM AIR. LUNG SOUNDS CLEAR UPON AUSCULTATION. PADMINI URINE NOTED IN BERKOWITZ BAG. PEG TUBE IN PLACE UPON CHECKING OF PLACEMENT, WITH CONTINIOUS FEED GOING PER ORDERS. DRESSING AROUND TUBE CDI. BUTTOCKS SLIGHTLY DISCOLORED; PINK. BOWEL SOUNDS ACTIVE. PT EDUCATED ON POC AND MEDICATION SCHEDULE. CALL LIGHT IN REACH, AND SAFETY PRECAUTIONS IN PLACE.
[2024-02-04] VITALS (8 sets, daily range): BP systolic 127–149; BP diastolic 68–78
--- NOTE | 2024-02-04 00:45 | NUR ---
PT COMPLAING OF HEADACHE, MEDICATED PER EMAR. PT REMAINS A&O X2. CONCRETE ENGINEER STRENGTH AT PT NORMAL. NO FURTHER COMPLAINTS VOICED FROM PT. VSS. NO S&S OF DISTRESS NOTED. PT MEDICATED PER SLIDING SCALE FOR BLOOD GLUCOSE OF 186. TELE MONITOR REMAINS IN PLACE. RESIDUAL CHECKED AT THIS TIME: 0. CALL LIGHT IN REACH, AND SAFETY PRECAUTIONS IN PLACE.
--- NOTE | 2024-02-04 04:10 | NUR ---
PT RESTING IN BED WITH EYES CLOSED. RESPIRATIONS ARE EVEN AND UNLABORED. PT IS EASILY AROUSABLE. NO S&S OF DISTRESS NOTED. TELE MONITOR REMAINS IN PLACE. CONTINIOUS FEED GOING PER ORDERS. PT DOES NOT VOICE ANY CONCERNS AT THIS TIME. BERKOWITZ BAG NOTED WITH PADMINI URINE. CALL LIGHT IN REACH, AND SAFETY PRECAUTIONS IN PLACE.
--- NOTE | 2024-02-04 07:44 | NUR ---
PT IS SLEEPY, ORIENTED TO SELF, THE CURRENT YEAR, THE STATE, RESPIRATIONS ARE EVEN AND UNLABORED, LUNGS ARE CLEAR, BOWEL SOUNDS ACTIVE, PEDAL PULSES PALPABLE TO TOUCH, PEG TUB FEEDING SITE IS CLEAN, DRY, INTACT, PT DENIES PAIN AT THIS TIME.
[2024-02-04 10:12] LABS: URINE BILIRUBIN - DIPSTICK Negative (NEGATIVE); URINE BLOOD DIPSTICK Negative (NEGATIVE); URINE GLUCOSE - DIPSTICK Negative (NEGATIVE); URINE KETONE Negative (NEGATIVE); URINE LEUK ESTERASE Moderate (Negative); URINE NITRITE - DIPSTICK Negative (Negative); URINE PROTEIN - DIPSTICK Negative (NEG-TRACE); URINE UROBILINOGEN - DIPSTICK 0.2 E.U./dL (0.2)
--- NOTE | 2024-02-04 10:13 | NUR ---
PEG TUBE DRESSING CHANGES, FEEDING TUBING/BAGS CHANGED, MEPALEX DRESSING CHANGED, MOUTH CARE PERFORMED. PT TOLERATED WITH NO COMPLAINTS.
[2024-02-04 10:15] LABS: URINE BACTERIA FEW hpf; URINE CLARITY Slightly Cloudy; URINE COLOR Yellow; URINE EPITHELIAL CELLS RARE EPI/hpf (0-FEW)
--- NOTE | 2024-02-04 11:12 | NUR ---
PT VERY SLEEPY, VISITORS WERE CONCERNED, YARED HUTTON IS AT BEDSIDE EXPLAINING POST STROKE PROCESSES TO VISITORS.
--- NOTE | 2024-02-04 12:15 | NUR ---
PT STILL SLEEPY BUT DID TELL NURSE SHE IS IN "HOSPITAL" ALSO WAS ABLE TO GIVE CURRENT YEAR AND STATE BEING "[place]". WHEN ASKED PT IF SHE WOULD LIKE TO GET INTO THE CHAIR TO WATCH TV PT REPLIED "NO"
--- NOTE | 2024-02-04 15:51 | NUR ---
PT MORE AWAKE, COMMUNICATING WITH SON AND FRIEND THAT ARE VISITING. PT SITTING UP IN BED, RESPIRATIONS ARE EVEN AND UNLABORED, LUNGS CLEAR, PEG TUBE FEEDING RUNNING AT THE 50ML/HR WITH 200ML FLUSH Q4 HRS. PT TOLERATEING WITH NO COMPLAINTS.
--- NOTE | 2024-02-04 19:45 | NUR ---
PT RESTING IN BED NO DISTRESS NOTE. VS WNL ON RA LUNGS CLEAR NO PAIN REPORTS AT THIS TIME. SKIN INTACT. NO EDEMA NOTED. PEGTUBE FEEDING ONGOING, RESIDUAL CHECKED, 2MLS. DRESSING CDI. BERKOWITZ CATHETER BELOW BLADDER. NO KINKS NOTED. IV FLUSHED WORKING PROPERLY, SALINE LOCKED. CALL LIGHT WITHIN REACH. BED ALARM ON. PLAN OF CARE ONGOING.
--- NOTE | 2024-02-04 19:53 | NUR ---
ER CALLED STATING PT HAD A 9 BEAT RUN OF VTACH 3 SEC PT ASYMPTOMATIC.
[2024-02-05] VITALS (8 sets, daily range): BP systolic 127–146; BP diastolic 70–85
--- NOTE | 2024-02-05 | NUR ---
PT RESTING NO DISTRESS NOTED ON EXAM BREATHING EVEN NON LABORED EASILY AROUSABLE. PEG TUBE FEEDINGS GOING. CALL LIGHT WITHIN REACH BED ALARMON. PLAN OF CARE ONGOING.
--- NOTE | 2024-02-05 04:00 | NUR ---
PT RESTING NO DISTRESS NOTED ON EXAM. PT EASILY AROUSABLE. NO PAIN REPORTED AT THIS TIME. CALL LIGHT WITHIN REACH. FALL PRECAUTIONS IN PLACE. BED ALARM ON. PLAN OF CARE ONGOING.
[2024-02-05 05:45] LABS: BASO% 1.7 % (0-3); EOS% 3.1 % (0-8); HEMATOCRIT 41.9 % (37.0-47.0); HEMOGLOBIN 14.5 g/dl (12.0-16.0); IMMATURE GRANULOCYTES 0.2 % (0.0-5.0); LYMPH% 37.4 % (15-41); MEAN CELL VOLUME 90.5 fL CALC (80.0-100.0); MEAN CORPUSCULAR HGB 31.3 pG CALC (26.0-32.0); MEAN CORPUSCULAR HGB CONC 34.6 g/dL CAL (32.0-36.0); MONO% 10.2 % (2-13); NEUT# 3.82 thou/uL (2.00-7.15); NEUT% 47.4 % (42-76); RED BLOOD COUNT 4.63 mill/uL (4.20-5.60)
[2024-02-05 06:01] LABS: ALBUMIN 3.8 g/dL (3.2-5.0); BILIRUBIN, TOTAL 0.7 mg/dL (0.02-1.3); CREATININE 0.4 mg/dL (0.5-1.0); MAGNESIUM 1.9 mg/dL (1.6-2.3); POTASSIUM 4.3 mmol/l (3.5-5.1); TOTAL PROTEIN 6.7 g/dL (6.3-8.2)
--- NOTE | 2024-02-05 07:36 | NUR ---
BEDSIDE REPORT RECEIVED FROM OFF GOING NURSE. PATIENT ASLEEP IN BED AT THIS TIME WITH VISITOR AT BEDSIDE. VISITOR STATES THAT HE IS DEAF BUT TALKATIVE AND PLEASANT. VISITOR STATES THAT PATIENT DOESN'T TALK. PATIENT MOUTHED HER NAME WHEN ASKED BUT DID NOT VERBALIZE. RESPIRATIONS EVEN AND UNLABORED ON ROOM AIR. LUNGS CLEAR BILATREALLY. DENIES PAIN OR DISCOMFORT. PATIENT IS NPO AND HAS CONTINUOUS FEEDING IN PLACE. IV SITE TO ELVIA SALINE LOCKED. SAFETY MEASURES IN PLACE. CALL LIGHT WITHIN REACH.
--- NOTE | 2024-02-05 11:43 | NUR ---
PATIENT HAS A VISITOR AT BEDSIDE. CONTINUES TO SIT IN RECLINER CHAIR. PATIENT HAD A BOWEL MOVEMENT AND WAS CLEANED UP BY STAFF. CONTINUES ON CONTINOUS FEEDING WITH SCHEDULED FLUSHES. NO SIGNS OF DISTRESS NOTED. CALL LIGHT WITHIN REACH.
--- NOTE | 2024-02-05 14:45 | NUR ---
PATIENT ASSITED BACK TO BED WITH ASSIST OF 2 STAFF. NO SIGNS OF DISTRESS NOTED. REMAINS NPO WITH PEG TUBE IN PLACE. CONTINUOUS FEEDING IN PLACE. CALL LIGHT WITHIN REACH.
--- NOTE | 2024-02-05 17:46 | NUR ---
PATIENT AWAKE IN BED WHILE VISITORS AT BEDSIDE. MOUTH CARE COMPLETED AND LIPS MOISTURIZED. RESPIRATIONS EVEN AND UNLABORED ON ROOM AIR. DENIES PAIN OR DISCOMFORT. VERBALIZED MORE DURING VISIT WITH FAMILY. REPOSITIONED IN BED AND KEPT EYES OPEN FOR LONGER PERIOD OF TIME. NO SIGNS OF DISTRESS NOTED. SAFETY MEASURES IN PLACE.
--- NOTE | 2024-02-05 19:30 | NUR ---
REPORT RECIEVED. PT A/OX3, VERY SOFT SPOKEN. ASSESSMENT COMPLETED. RR EVEN AND UNLABORED ON ROOM AIR. TELE MONITORING IN PLACE, SR. #22 ELVIA PATENT. SKIN INTACT. PEG TUBE TO LLQ, FEEDING PER ORDER. GRIMICING WHEN TURNING. TO BE MEDICATED AND RESPOSITIONED FOR COMFORT. [place] CATH IN PLACE. SAFETY PRECAUTIONS ARE IN PLACE WITH CALL LIGHT IN REACH.
[2024-02-06] VITALS (7 sets, daily range): BP systolic 115–145; BP diastolic 67–82
--- NOTE | 2024-02-06 00:10 | NUR ---
PT SLEEPING IN SEMI FOWLERS POSITION. RR EVEN AND UNLABORED ON ROOM AIR. TELE MONITORING IN PLACE. TUBE FEEDING PER ORDER, PT TOLERATED WELL. HOB >35 DEGREES. GLUCOSE RESULTING IN 163, COVERAGED PER ORDER. NO S/S DISTRESS. ALL SAFETY PRECAUTIONS ARE IN PLACE WITH CALL LIGHT IN REACH
--- NOTE | 2024-02-06 03:46 | NUR ---
PT SLEEPING IN SEMI FOWLERS POSITION. HOB >35 DEGREES. RR EVEN AND UNLABORED ON ROOM AIR. TELE MONITORING IN PLACE. [place] CATH DRAINING PER GRAVITY. TUBE FEEDING PER ORDER. NO S/S OF DISTRESS. ALL SAFETY PRECAUTIONS ARE IN PLACE WITH CALL LIGHT IN REACH
--- NOTE | 2024-02-06 07:26 | NUR ---
PATIENT SITTING UP IN RECLINER GETTING HAIR CARE FROM [facility]. PATIENT A&O. BREATHING UNLABORED ON ROOM AIR. TELE INTACT. IV IN ELVIA SL;SITE CLEAN AND INTACT. BERKOWITZ IN PLACE. PEG TUBE INTACT. ASSESSMENT COMPLETED. PT DENIES ANY PAIN OR N/D/V AT THIS TIME. CALL LIGHT WITHIN REACH;PT EDUCATED ON USE.
[2024-02-06] MEDS ORDERED: Fluconazole 200 mg Premix 100 ML IV SCH (11:00)
--- NOTE | 2024-02-06 12:05 | NUR ---
PATIENT LYING IN BED WITH EYES CLOSED. NO SIGNS OF DISTRESS NOTED. BED IN LOWEST POSITION. BED IN LOWEST POSITION. CALL LIGHT WITHIN REACH. NO NEEDS AT THIS TIME.
--- NOTE | 2024-02-06 16:23 | NUR ---
PATIENT LYING IN BED, FAMILY AT BEDSIDE. BREATHING UNLABORED ON ROOM AIR. NO SIGNS OF DISTRESS NOTED. NO C/O. BED IN LOWEST POSITION. CALL LIGHT WITHIN REACH. NO NEEDS AT THIS TIME.
--- NOTE | 2024-02-06 20:00 | NUR ---
PATIENT RESTING IN BED WITH HOB ELEVATED-CONT GLUCERNA PEG TUBE FEEDING ORDERED AT 50CC/HR WITH Q4H [id number]. BERKOWITZ CATH PATENT AND DRAINING YELLOW URINE. SALINE LOCK TO RIGHT UPPER ARM. CALL LIGHT IN REACH. WILL CONT TO MONITOR.
--- NOTE | 2024-02-06 21:45 | NUR ---
PATIENT RESTING IN BED-INCONT OF MODERATE AMT OF BROWN STOOL. PROVIDED PATIENT WITH CESAR-CARE AND BERKOWITZ CATH CARE USING SOAP AND WATER. TOTAL LINEN CHANGE WAS DONE. PATIENT WAS TURNED AND REPOSITIONED IN THE BED. AQUACEL FOAM DRESSING IN PLACE TO THE COCCYX AREA.SOME REDNESS NOTED IN THE GROIN FOLDS AND AREA WAS CLEANED AND POWDER APPLIED. ORAL HYGEINE WAS PROVIDED. PATIENT DOES RESPOND WHEN SPOKEN TOO-SPEAKS VERY SOFTLY. FACE WAS WASHED. HOB IS ELEVATED AND PEG TUBE FEEDING IN PROGRESS ORDERED. MEDS WERE GIVEN VIA PEG TUBE WITH H20 AFTER. GLUCERNA 1.5 TUBE FEEDING CONT ORDERED AT 50CC/HR WITH Q4HOUR WATER FLUSH-200CC. DRESSING AROUND G-TUBE CDI. PLACEMENT WAS CHECKED BY AUSCULTATION AND NO RESIDUAL WAS PRESENT. BERKOWITZ PATENT AND DRAINING YELLOW URINE. SALINE LOCK TO RIGHT UPPER ARM INTACT. BED ALARM IN PLACE FOR PATIENT SAFETY. FEET ELEVATED OF MATTRESS USING PILLOWS. CALL LIGHT IN REACH. WILL CONT TO MONITOR.
[2024-02-07] VITALS (8 sets, daily range): BP systolic 118–159; BP diastolic 56–85
--- NOTE | 2024-02-07 01:00 | NUR ---
PATIENT RESTING IN BED WITH HOB ELEVATED. GLUCERNA TUBE FEEDING IN PROGRESS ORDERED.BERKOWITZ PATENT AND DRAINING YELLOW URINE. TELE MONITOR IN PLACE. BED ALARM IN PLACE FOR PATIENT SAFETY. CALL LIGHT IN REACH. WILL CONT TO MONITOR.
--- NOTE | 2024-02-07 05:00 | NUR ---
PATIENT RESTING IN BED-HOB ELEVATED-TUBE FEEDING ORDERED. BERKOWITZ CATH DRAINING YELLOW URINE. TELE MONITOR IN P[LACE. CALL LIGHT IN REACH. WILL CONT TO MONITOR.
--- NOTE | 2024-02-07 12:22 | NUR ---
PATIENT AWAKE IN BED. FAMILY AT BEDSIDE. BREATHING UNLABORED ON ROOM AIR. TELE INTACT. NO SIGNS OF DISTRESS NOTED. BERKOWITZ IN PLACE. TUBE FEEDING ONGOING. BED IN LOWEST. CALL LIGHT WITHIN REACH. NO NEEDS AT THIS TIME.
--- NOTE | 2024-02-07 16:05 | NUR ---
PATIENT LYING SEMI-FOWLERS IN BED AWAKE. BREATHING UNLABORED ON ROOM AIR. TELE INTACT. FAMILY AT BEDSIDE. NO SIGNS OF DISTRESS NOTED. NO NEEDS AT THIS TIME. BED IN LOWEST POSITION. CALL LIGHT WITHIN REACH.
--- NOTE | 2024-02-07 20:05 | NUR ---
REPORT RECEIVED FROM [facility] NURSE. JER ZARAGOZA. PT RESTING IN BED, APPEARS COMFORTABLE. PT IS A&OX3 AND ABLE TO MAKE NEEDS KNOWN. FAMILY AT BEDSIDE. TELE MONITOR IN PLACE. PT REMAINS ON ROOM AIR. MICHAEL HOSE APPLIED TO BLE AT THIS TIME. PEDAL PULSES WEAK. CONTINIOUS FEEDING GOING PER ORDERS VIA PEG TUBE. RESIDUAL CHECKED, AT THIS TIME 40 ML. NO S&S OF DISTRESS NOTED FROM PT. DRESSING AROUND TUBE CDI. BED ALARM IS ON AT THIS TIME. BERKOWITZ NOTED, CESAR AREA INTACT. PADMINI URINE NOTED IN BAG. DRESSING NOTED TO COCCYX AREA, CDI. BUTTOCKS AND COCCYX AREA SLIGHTLY PINK. NO COMPLAINTS OFFERED AT THIS TIME. LOWER LOBES DIMINISHED UPON AUSCULTATION OF LUNG SOUNDS. BOWEL SOUNDS ACTIVE X4 QUADRANTS. PT EDUCATED ON POC AND MEDICATION SCHEDULE. CALL LIGHT IN REACH, AND SAFETY PRECAUTIONS IN PLACE.
--- NOTE | 2024-02-07 22:09 | NUR ---
BLOOD SUGAR 268, PATIENT NOT ON ANY SLIDING SCALE, PROCESS DESIGNER MICEHLLE MADE AWARE THAT PATIENT BLOOD SUGAR VALUE AND PATINET ON DECADRON, NEW ORDERS MADE SENT TO PHARMACY.
--- NOTE | 2024-02-07 22:35 | NUR ---
DRESSING TO COCCYX CHANGED AT THIS TIME. OLD DRESSING REMOVED, AREA CLEANED WITH SOAP AND WATER. NEW MEPILEX APPLIED. CREAM APPLIED TO BUTTOCKS PER EMAR. NO S&S OF DISTRESS. WILL CONTINUE TO MONITOR.
--- NOTE | 2024-02-08 00:10 | NUR ---
PT RESTING IN BED WITH EYES CLOSED. RESPIRATIONS ARE EVEN AND UNLABORED. PT IS EASILY AROUSABLE. CONTINIOUS FEEDING GOING PER ORDERS. NO S&S OF DISTRESS NOTED. TELE MONITOR REMAINS IN PLACE. CALL LIGHT IN REACH, AND SAFETY PRECAUTIONS IN PLACE. BED ALARM REMAINS ON.
[2024-02-08 02:26] VITALS: BP 149/80
--- NOTE | 2024-02-08 04:05 | NUR ---
PT RESTING IN BED WITH EYES CLOSED. RESPIRATIONS ARE EVEN AND UNLABORED. CONTINIOUS FEEDING GOING PER ORDERS. PT IS EASILY AROUSABLE. NO COMPLAINTS OFFERED AT THIS TIME. NO S&S OF DISTRESS. BED ALARM REMAINS ON. CALL LIGHT IN REACH, AND SAFETY PRECAUTIONS IN PLACE.
[2024-02-08 07:07] VITALS: BP 152/76
[2024-02-08 11:14] VITALS: BP 141/73
[2024-02-08 14:06] VITALS: BP 158/81
[2024-02-08 16:19] VITALS: BP 142/81
[2024-02-08 19:47] VITALS: BP 141/79
--- NOTE | 2024-02-08 20:05 | NUR ---
REPORT RECEIEVED FROM [facility] NURSE. MARIA LUISA DEAN. PT RESTING IN BED WATCHING TELEVISION. PT DOES NOT OFFER ANY COMPLAINTS AT THIS TIME. PT IS A&OX3, AND ABLE TO MAKE NEEDS KNOWN. MICHAEL LACY NOTED TO BLE. CONTINIOUS FEED GOING PER ORDER. TUBE PLACEMENT CHECK, TUBE IN PLACE. RESIDUAL AT THIS TIME IS 0. IV SITE CLEAN AND INTACT, FLUSHING WELL. VSS. TELE MONITOR IN PLACE. PT IS ON ROOM AIR. BERKOWITZ IN PLACE, CLEAR YELLOW URINE NOTED IN BAG. PERINEAL AREA INTACT. DRESSING NOTED TO COCCYX, CDI. NO S&S OF DISTRESS NOTED. LUNG SOUNDS CLEAR UPON AUSCULTATION. BOWEL SOUNDS ACTIVE X4 QUADRANTS. RELAXATION TECHNIQUES TAUGHT. COMFORT MEASURES IN PLACE. PT REPOSITIONED AT THIS TIME. PT EDUCATED ON POC AND MEDICATION SCHEDULE. CALL LIGHT IN REACH, AND SAFETY PRECAUTIONS IN PLACE.
[2024-02-09] VITALS (8 sets, daily range): BP systolic 120–166; BP diastolic 71–83
--- NOTE | 2024-02-09 00:05 | NUR ---
PT RESTING IN BED WITH EYES CLOSED. RESPIRATIONS ARE EVEN AND UNLABORED. PT IS EASIY AROUSBALE. TELE MONITOR IN PLACE. NO S&S OF DISTRESS NOTED. BED ALARM ON AT THIS TIME. PT REMAINS ON ROOM AIR. CONTINIOUS FEED GOING PER ORDERS. CALL LIGHT IN REACH, AND SAFETY PRECAUTIONS IN PLACE.
--- NOTE | 2024-02-09 04:05 | NUR ---
PT RESTING IN BED WITH EYES CLOSED. RESPIRATIONS ARE EVEN AND UNLABORED. PT IS EASILY AROUSABLE. TELE MONITOR IN PLACE. PT ON ROOM AIR. CONTINIOUS FEED GOING PER ORDER. NO COMPLAINTS VOICED. BED ALARM ON. NO S&S OF DISTRESS NOTED. CALL LIGHT IN REACH, AND SAFETY PRECAUTIONS IN PLACE. PT IN MID FOWLERS POSITION.
--- NOTE | 2024-02-09 07:32 | NUR ---
PATIENT LYING IN BED. ASSESSMENT COMPLETED (SEE INTERVENTIONS). PATIENT ALERT AND ORIENTED X 3. DENIES PAIN. LUNGS CLEAR TO ASCULTATION. BREATHING EVEN AND UNLABORED ON ROOM AIR. PATIENT RECEIVING CONTINUOUS TUBE FEEDS PER ORDER, NOTED TO BE LYING FLAT IN BED. PATIENT DECLINED RAISING HOB AT THIS TIME. SAFETY MEASURES IN PLACE INCLUDING BED IN LOW POSITION AND CALL LIGHT RESTING NEXT TO L HAND. NO APPARENT DISTRESS NOTED. WILL CONTINUE WITH PLAN OF CARE.
--- NOTE | 2024-02-09 12:34 | NUR ---
PATIENT UP TO CHAIR RESTING WITH EYES CLOSED. NO APPARENT DISTRESS NOTED. WILL CONTINUE WITH PLAN OF CARE.
--- NOTE | 2024-02-09 16:00 | NUR ---
PATIENT LYING IN BED RESTING WITH EYES CLOSED. PATIENT STATES THAT SOMESTIMES SHE FEELS DIZZY, STATED THIS HAS BEEN GOING ON SINCE SHE HAS HAD THE SECOND STROKE. WILL NOTIFY PROVIDER. PATIENT DENIES FEELING DIZZY AT THIS MOMENT. NO OTHER CONCERNS AT THIS TIME. WILL CONTINUE WITH PLAN OF CARE.
--- NOTE | 2024-02-09 20:00 | NUR ---
REPORT RECEIVED FROM [facility] NURSE. NIGHAT DEAN. PT RESTING IN BED WATCHING TELEVISION. PT APPEARS COMFORTABLE. PT IS A&O X3. NO COMPLAINTS VOICED AT THIS TIME. PT DENIES PAIN. NO N/V/D NOTED. IV SITE CLEAN AND INTACT, FLUSHING WELL. MICHAEL HOSE IN PLACE TO BLE. PT IS ON ROOM AIR. TELE MONITOR REMAINS IN PLACE. BED ALARM ACTIVE AT THIS TIME. PEG TUBE NOTED TO ABDOMEN, DRESSING SURROUNDING CDI. TUBE PLACEMENT CHECKED, TUBE IN PLACE. RESIDUAL AT THIS TIME IS 40 ML. CONTINIOUS FEED RESUMED, GOING PER ORDERS. PEDAL PULSES WEAK. LOWER LOBES DIMINISHED UPON AUSCULTATION OF LUNG SOUNDS. BERKOWITZ NOTED, CLEAR YELLOW URINE IN BAG. CESAR AREA INTACT. MEPILEX NOTED TO COCCYX, CDI. BUTTOCKS SLIGHTLY PINK, BUTT PASTE APPLIED. PT EDUCATED ON POC AND MEDICATION SCHEDULE. CALL LIGHT IN REACH, AND SAFETY PRECAUTIONS IN PLACE.
[2024-02-10] VITALS (12 sets, daily range): BP systolic 123–151; BP diastolic 63–86
--- NOTE | 2024-02-10 | NUR ---
PT RESTING IN BED WITH EYES CLOSED. RESPIRATIONS ARE EVEN AND UNLABORED. PT IS EASILY AROUSABLE. TELE MONITOR REMAINS IN PLACE. PT REMAINS ON ROOM AIR. NO S&S OF DISTRESS NOTED. BED ALARM ON AT THIS TIME. CONTINUOUS FEED GOING PER ORDERS. CALL LIGHT IN REACH, AND SAFETY PRECAUTIONS IN PLACE.
--- NOTE | 2024-02-10 04:00 | NUR ---
PT RESTING IN BED WITH EYES CLOSED. RESPIRATIONS ARE EVEN AND UNLABORED. NO S&S OF DISTRESS NOTED. PT IS EASILY AROUSABLE. TELE MONITOR REMAINS IN PLACE. PT IS ON ROOM AIR. BED ALARM REMAINS ON. CONTINIOUS FEED GOING PER ORDERS. NO COMPLAINTS OFFERED AT THIS TIME. CALL LIGHT IN REACH, AND SAFETY PRECAUTIONS IN PLACE.
--- NOTE | 2024-02-10 06:20 | NUR ---
DRESSING TO ABDOMEN SURROUNDING PEG TUBE CHANGED AT THIS TIME. PT TOLERATED WELL. NO COMPLAINTS VOICED, CALL LIGHT IN REACH, AND SAFETY PRECAUTIONS IN PLACE.
--- NOTE | 2024-02-10 07:15 | NUR ---
Report received from mold shifter nurse. Patient is resting in bed, does not appear to be in any distress. On room air, VS WNL, NSR on tele monitor, stuart in place. All needs addressed at this time, call light within reach.
--- NOTE | 2024-02-10 12:00 | NUR ---
Patient is sitting in recliner chair, denies any pain. A&O to self, on room air, VS WNL, NSR on tele monitor, davidson in place. Tube feeds running via PEG tube. All needs addressed, call light within reach.
--- NOTE | 2024-02-10 16:00 | NUR ---
Patient is resting in bed, denies any pain. A&O to self only. On room air, NSR on tele monitor, VS WNL, davidson in place, tube feeds running via PEG tube. All needs addressed, call light within reach.
--- NOTE | 2024-02-10 22:06 | NUR ---
ASSESSMENT COMPLETE. PT HAD LARGE BM. BED BATH COMPLETED, LINENS CHANGED. BERKOWITZ CARE COMPLETED. PT IS AROUSABLE, CAN ANSWER SIMPLE YES/NO QUESTIONS. PT ABLE TO ASSIST TURNING. NO CHANGE IN BASELINE NOTED. V/S STABLE. CALL LIGHT IN REACH
[2024-02-11] VITALS (8 sets, daily range): BP systolic 129–154; BP diastolic 74–81
--- NOTE | 2024-02-11 | NUR ---
PT RESTING, READJUSTED IN BED. PT HAS NO COMPLAINTS. V/S STABLE, CALL LIGHT IN REACH
--- NOTE | 2024-02-11 04:06 | NUR ---
PT RESTING. NO CHANGES. ASSISTED PT UP IN BED W/ MANAGER ENVIRONMENTAL. CONTINUOUS FEEDS RUNNING. V/S STABLE. CALL LIGHT IN REACH
--- NOTE | 2024-02-11 08:02 | NUR ---
SHFIT CHANGE REPORT, SLEEPING BUT AWAKENS TO VERBAL STIMULI, NO C/O DISCOMFORT, SPEECH CLEAR BUT VERY SOFT, REPOSITIONED AT THIS TIME, PEG TUBE IN PLACE WITH JEVITY 1.5 FEED INFUSING. TELE MONITOR IN PLACE, BERKOWITZ CATHETER IN PLACE WITH PADMINI URINE DRAINING, CALL GRIGGS IN REACH AND BED LOCKED IN LOWEST POSITION.
--- NOTE | 2024-02-11 08:45 | NUR ---
ASSISTED WITH AMBULATION FROM RECLINER TO END OF ROOM WITH PT X 2 THEN SETTLED IN RECLINER, CALL GRIGGS PLACED IN REACH.
--- NOTE | 2024-02-11 10:50 | NUR ---
C/O LEFT HIP PAIN @ 5/10 AT THIS TIME, JUST ASSISTED BACK TO BED BY PT.
--- NOTE | 2024-02-11 10:54 | NUR ---
PT ASKED WHETHER SHE WOULD LIKE STRONGER MED THAN TYLENOL BUT STATES SHE WOULD HAVE THE TYLENOL.
--- NOTE | 2024-02-11 13:58 | NUR ---
BACK TO BED AND RESTING AT TTHIS TIME, BERKOWITZ CATHETER STRAP PLACED.
[2024-02-12] VITALS (7 sets, daily range): BP systolic 97–168; BP diastolic 57–78
[2024-02-12 05:25] LABS: BASO% 1.4 % (0-3); EOS% 1.7 % (0-8); HEMATOCRIT 43.7 % (37.0-47.0); HEMOGLOBIN 14.2 g/dl (12.0-16.0); IMMATURE GRANULOCYTES 0.2 % (0.0-5.0); LYMPH% 37.1 % (15-41); MEAN CELL VOLUME 94.4 fL CALC (80.0-100.0); MEAN CORPUSCULAR HGB 30.7 pG CALC (26.0-32.0); MEAN CORPUSCULAR HGB CONC 32.5 g/dL CAL (32.0-36.0); MONO% 11.2 % (2-13); NEUT# 4.36 thou/uL (2.00-7.15); NEUT% 48.4 % (42-76); RED BLOOD COUNT 4.63 mill/uL (4.20-5.60); RED CELL DISTRI WIDTH 13.1 % (11.5-15.5)
[2024-02-12 05:50] LABS: ALBUMIN 3.8 g/dL (3.2-5.0); BILIRUBIN, TOTAL 0.7 mg/dL (0.02-1.3); CREATININE 0.4 mg/dL (0.5-1.0); MAGNESIUM 2.1 mg/dL (1.6-2.3); POTASSIUM 4.4 mmol/l (3.5-5.1); TOTAL PROTEIN 6.7 g/dL (6.3-8.2)
--- NOTE | 2024-02-12 08:00 | NUR ---
REPORT RECEIVED FROM NIGHT NURSE. PATIENT AXO X4. PATIENT IS DROWSY. S1S2 NOTED, NORMAL SINUS ON TELE. LUNG SOUNDS CLEAR THROUGHOUT, NO COUGH OR SOB NOTED. PULSES STRONG IN ALL EXTREMITIES. ABDOMEN SOFT, NON DISTENDED, NON TENDER, WITH ACTIVE BOWEL SOUNDS. SKIN WDI. GI TUBE PLACEMENT VERIFIED VIA AUSCULTATION, NO RESIDUAL NOTED. ALL NEEDS MET. CALL LIGHT IN REACH. VSS.
--- NOTE | 2024-02-12 10:35 | NUR ---
PT AMBULATED USING WALKER FROM CHAIR, AROUND TO BED WITH ASSISTANCE OF PT. PT TOLERATED WELL BUT WAS FATIGUED FROM EFFORT.
--- NOTE | 2024-02-12 12:00 | NUR ---
PATIENT SITTING UP IN BED WITH EYES CLOSED. DENIES NEEDS AT THIS TIME. CALL LIGHT IN REACH. VSS.
--- NOTE | 2024-02-12 16:00 | NUR ---
PATIENT LAYING IN BED ASLEEP. ALL NEEDS MET. CALL LIGHT IN REACH. VSS.
--- NOTE | 2024-02-12 21:00 | NUR ---
PATIENT SITTING UP IN BED AT THIS TIME. GLUCERNA TUBE FEEDING IN PROGRESS ORDERED. GLUCERNA AT 50CC/HR VIA PEG TUBE CONT WITH 200CC H20 FLUSH Q4H. PLACEMENT WAS CHECKED AND NO RESIDUAL AT THIS TIME. PM MEDS GIVEN PEG TUBE ORDERED WITH H2O FLUSH. INCONT OF MODERATE AMT OF BROWN STOOL. PROVIDED WITH CESAR-CARE AND BERKOWITZ CATH CARE USING SOAP AND WATER. COMPLETE LINEN CHANGE WAS DONE. TURNED AND REPOSITIONED IN PLACE. PROVIDED PATIENT WITH MOUTH CARE USING TOOTHETTE SPONGES. BERKOWITZ PATENT AND DRAINING YELLOW URINE. BED ALARM IN PLACE FOR PATIENT SAFETY. CALL LIGHT IN REACH. WILL CONT TO MONITOR.
[2024-02-13] VITALS (9 sets, daily range): BP systolic 149–171; BP diastolic 70–88
--- NOTE | 2024-02-13 01:05 | NUR ---
PATIENT RESTING IN BED WITH EYES CLOSED-HOB IS ELEVATED AND GLUCERNA TUBE FEEDING IN PROGRESS VIA LEFT ABD FEEDING TUBE,TELE MONTIOR IN PLACE WITH LAST REAING SR-77. BERKOWITZ PATENT AND DRAINING YELLOW URINE. BLOOD SUGAR AT MN WAS 149-NO COVERAGE PROVIDED. CALL LIGHT IN REACH. WILL CONT TO MONITOR
--- NOTE | 2024-02-13 04:30 | NUR ---
PATIENT RESTING IN BED WITH HOB ELEVATED. BERKOWITZ CATH PATENT AND DRAINING YELLOW URINE. GLUCERNA TUBE FEEDING IN PROGRESS ORDERED VAI LEFT ABD PEG TUBE. SALINE LOCK TO LEFT WRIST INTACT. BED ALARM IN PLACE FOR PATIENT SAFETY. CALL LIGHT IN REACH. WILL CONT TO MONITOR.
--- NOTE | 2024-02-13 06:55 | NUR ---
REPORT RECEIVED FROM JERMAINE DIXON
--- NOTE | 2024-02-13 08:40 | NUR ---
PT RESTING IN SIDE LAYING POSITION, RE-POSITIONED FOR COMFORT;PT ALERT, ANSWERS QUESTIONS APPROPRIATELY WITH SOFT SPOKEN VOICE OR HEAD NOD.PT DENIES AND CURRENT PAIN OR DISCOMFORTS,PAIN SCALE AND REPORTING EDUCATED;RESPIRATIONS SHALLOW ON RA,CLEAR/DIMINISHED LUNG SOUNDS;ABDOMEN SOFT ON PALPATION AND ACTIVE IN ALL 4 QUADRANTS;PEG TUBE NOTED TO BE INFUSING CONTINUOUSLY @ 50 ML/HR WITH A 200CC FLUSH Q4 HOURS;WEAK PEDAL PULSES;SKIN INTACT;TELE MONITORING IN PLACE;BERKOWITZ CATHETER DRAINING TO GRAVITY WITH EASE, LEG STRAP NOTED TO RIGHT THIGH;#20G TO RW FLUSHED AND PATENT,SITE APPEARS HEALTHY;ACCUCHECK 166;PT DENIES ANY ADDITIONAL NEEDS;ENCOURAGED TO CALL FOR ASSISTANCE IF NEEDED NEEDED;ALL SAFETY PRECAUTIONS REMAIN IN PLACE WITH BED IN THE LOWEST POSITION AND BED ALARM ON FOR SAFETY;CALL LIGHT IN REACH;FREQUENT ROUNDS MADE.
--- NOTE | 2024-02-13 08:50 | NUR ---
VANI AMBROCIO ATTEMPTING TO BATHE PATIENT. WHILE RE-POSITIONING FEEDING TUBE BEGAN LEAKING. PUMP PAUSED. UNABLE TO FLUSH PEG TUBE OR GET ANY RESIDUAL.JERMAINE NOWAK ALSO ATTEMPTED TO FLUSH TUBE, UNSUCCESSFUL. ANJELICA,DIRECTOR OF ARCHIVES AT BEDSIDE. NOTIFIED.
--- NOTE | 2024-02-13 11:07 | NUR ---
AT BEDSIDE DISCUSSING POC WITH PT.
--- NOTE | 2024-02-13 12:25 | NUR ---
PT LEFT SIDE LAYING IN BED, DROWSY BUT AWAKES WITHOUT DIFFICULTY;RESPIRATIONS EVEN AND UNLABORED ON RA;PT DENIES ANY CURRENT PAIN OR NEEDS;TELE MONITORING IN PLACE;IV SITE TO RW PATENT;PEG TUBE FEEDINGS REMAIN STOPPED AT THIS TIME DUE TO CLOGGED TUBE, AWARE;ACCUCHECL 141, NO COVERAGE NEEDED;BERKOWITZ CATHETER DRAINING WITH EASE;SAFETY PRECAUTIONS REMAIN IN PLACE WITH BED ALARM ON FOR SAFETY;FREQUENT ROUNDS MADE.
[2024-02-13] MEDS ORDERED: DEXTROSE 5% / 0.9% NACL 1,000 ML IV PRN (12:30)
[2024-02-13] MEDS ORDERED: METOPROLOL TARTRATE 5 MG/5 ML VIAL IV PRN (13:50)
--- NOTE | 2024-02-13 14:04 | NUR ---
PT BP ELEVATED AT 171/88 HR 91, PT TO BE MEDICATED WITH PRN LOPRESSOR 5MG SLOW IVP BY JERMAINE NOWAK. FREQUENT ROUNDS MADE.
--- NOTE | 2024-02-13 16:10 | NUR ---
PT RESTING IN SEMI FOWLERS POSITION, CRYING AND EMOTIONAL. PT DENIES ANY CURRENT PAIN BUT REPORTS THAT SHE GETS EMOTIONAL ABOUT HER HEALTH ISSUES.PT RE-ASSURED. RESPIRATIONS EVEN AND UNLABORED ON RA;ORAL CARE PROVIDED;PEG TUBE REMAINS CLOGGED AND CLAMPED AT THIS TIME;TELE MONITORING IN PLACE;#20G TO LW NOTED TO BE INFILTATED, SITE REMOVED WITH CATHETER INTACT. NEW #22G STARTED TO RH ON 1 ST ATTEMPT [place] THIS DIRECTOR ASSET.BERKOWITZ CATHETER DRAINING TO GRAVITY WITH EASE;PT TO BE TRANSPORTED TO [facility].
--- NOTE | 2024-02-13 16:15 | NUR ---
PT TRANSPORTED TO [facility] IN STABLE CONDITION VIA HOSPITAL BED ACCOMPANIED BY VANI AMBROCIO.
--- NOTE | 2024-02-13 16:33 | NUR ---
PT TRANSPORTED BACK TO MED/SURG ROOM 263 IN STABLE CONDITION
--- NOTE | 2024-02-13 20:00 | NUR ---
BEDSIDE SHIFT REPORT COMPLETED. RESP EVEN AND UNLABORED. WAS GIVEN IN REPORT PEG TUBE WAS CLOGGED AND UNABLE TO FLUSH. WAS ABLE TO UNCLOG TUBE, FLUSHES WELL NOTIFIED DR. WADE WHO STATED HE WOULD PUT ORDERS BACK IN.
[2024-02-13] MEDS ORDERED: ENOXAPARIN SODIUM 80 MG/0.8 ML SYR SC SCH (21:00)
[2024-02-13] MEDS ORDERED: METOPROLOL TARTRATE 25 MG/TAB VT SCH (22:00)
[2024-02-14] VITALS (11 sets, daily range): BP systolic 103–141; BP diastolic 62–82
--- NOTE | 2024-02-14 | NUR ---
JEVITY 1.5 INFUSING AT 50CC/HR PER ORDER WITH 200CC WATER FLUSH EVERY FOUR HOURS. PEG PLACEMENT CHECKED, NO RESIDUAL. COMPLETE BED CHANGE AND BED BATH DUE TO BM. NO S/S OF PAIN.
--- NOTE | 2024-02-14 08:00 | NUR ---
PATIENT LYING IN BED WITH EYES CLOSED. PATIENT EASILY AROUSED . ASSESSMENT COMPLETED. REPOSITIONED TO TO R SIDE. PATIENT ALERT AND ORIENTED X 2. LUNGS CLEAR/DIMINISHED TO ASCULTATION. BREATHING EVEN AND UNLABORED ON ROOM AIR. DENIES PAIN OR DISCOMFORT AT THIS TIME. SAFETY MEASURES IN PLACE INCLUDING BED IN LOW POSITION AND CALL LIGHT RESTING NEXT TO R HAND. NO APPARENT DISTRESS NOTED. WILL CONTINUE WITH PLAN OF CARE.
[2024-02-14] MEDS ORDERED: YEAST (S. BOULARDII)(S. CEREVI 250 MG CAP PO SCH (09:00)
[2024-02-14] MEDS ORDERED: APIXABAN BASE 2.5 MG/TAB TAB PO SCH (09:00)
--- NOTE | 2024-02-14 12:00 | NUR ---
PATIENT APPEARS TO BE RESTING WITH EYES CLOSED. NO APPARENT DISTRESS NOTED. WILL CONTINUE WITH PLAN OF CARE
[2024-02-14] MEDS ORDERED: MORPHINE SULFATE 4 MG/ML VIAL IV SCH (12:30)
--- NOTE | 2024-02-14 12:39 | NUR ---
PATIENT LYING IN BED RESTING. FRIEND AT BEDSIDE. PATIENT C/O ABDOMINAL PAIN/DISCOMFORT. WILL DISCUSS WITH PROVIDER. PATIENT DENIES ADDITIONAL CONCERNS AT THIS TIME. WILL CONTINUE TO MONITOR
[2024-02-14] MEDS ORDERED: MORPHINE SULFATE 4 MG/ML VIAL IV PRN (14:30)
--- NOTE | 2024-02-14 16:00 | NUR ---
PATIENT APPEARS TO BE RESTING WITH EYES CLOSED. NO APPARENT DDISTRESS NOTED. WILL CONTINUE WITH PLAN OF CARE.
--- NOTE | 2024-02-14 20:00 | NUR ---
BEDSIDE SHIFT REPORT COMPLETED. RESP EVNE AND UNLABORED. CALL LIGHT IN REACH HOB UP 30 DEGREES.
[2024-02-14] MEDS ORDERED: ATORVASTATIN CALCIUM 40 MG/TAB VT SCH (21:00)
--- NOTE | 2024-02-15 | NUR ---
INC CARE PROVIDED, VERY RESTLESS IN BED, MEDICATED WITH PRN MORPHINE WITH GOOD RESULTS. PEG FLUSHES WELL. NEW COLLECTION BAG HUNG. MEDS GIVEN VIA PEG TUBE WITH NO RESISTANCE.
[2024-02-15 02:43] VITALS: BP 128/75
[2024-02-15 03:35] VITALS: BP 128/75
[2024-02-15 04:54] LABS: BASO% 1.4 % (0-3); EOS% 1.9 % (0-8); HEMATOCRIT 42.8 % (37.0-47.0); HEMOGLOBIN 14.4 g/dl (12.0-16.0); IMMATURE GRANULOCYTES 0.1 % (0.0-5.0); LYMPH% 37.6 % (15-41); MEAN CELL VOLUME 91.3 fL CALC (80.0-100.0); MEAN CORPUSCULAR HGB 30.7 pG CALC (26.0-32.0); MEAN CORPUSCULAR HGB CONC 33.6 g/dL CAL (32.0-36.0); MONO% 9.6 % (2-13); NEUT# 3.8 thou/uL (2.00-7.15); NEUT% 49.4 % (42-76); RED BLOOD COUNT 4.69 mill/uL (4.20-5.60)
[2024-02-15 05:07] LABS: ALBUMIN 3.8 g/dL (3.2-5.0); BILIRUBIN, TOTAL 0.6 mg/dL (0.02-1.3); CREATININE 0.4 mg/dL (0.5-1.0); MAGNESIUM 1.9 mg/dL (1.6-2.3); POTASSIUM 4.3 mmol/l (3.5-5.1); TOTAL PROTEIN 6.6 g/dL (6.3-8.2)
--- NOTE | 2024-02-15 05:39 | NUR ---
BEDSIDE SHIFT REPORT COMPLETED. RESP EVEN AND UNLABORED. GLUCERNIA INFUSING VIA PEG AT 50CC/HR. NO RESIDUALS NOTED. HOB UP AT ALL TIMES. HAS TO BE PUILLED UP FREQUENTLY DUE TO SLIDING DOWN IN BED.
[2024-02-15 07:07] VITALS: BP 139/49
[2024-02-15 10:53] VITALS: BP 145/76
--- NOTE | 2024-02-15 11:21 | NUR ---
Pt ID verified. Clinician attempted OT intervention. Pt seated in recliner with son offering ice chips. Son stated that she has a meeting at 11:00 and wanted her to save her strength for that and to come back later. Safety measures in place, call rueda, tray table within reach, non-skid socks on, son attending to pt.
--- NOTE | 2024-02-15 12:09 | NUR ---
PATIENT LYING SEMI-FOWLERS IN BED WITH EYES CLOSED RESTING. BREATHING UNLABORED ON ROOM AIR. TELE INTACT. IV IN RIGHT HAND SL;SITE CLEAN AND INTACT. NO SIGNS OF DISTRESS/PAIN NOTED. CONTINOUS FEEDING STILL GOING;PEG SITE CLEAN AND INTACT. BED IN LOWEST POSITION. CALL LIGHT WITHIN REACH. BED ALARM ACTIVE. NO NEEDS AT THIS TIME.
[2024-02-15 15:24] VITALS: BP 173/86
--- NOTE | 2024-02-15 16:05 | NUR ---
PATIENT LYING SEMI-FOWLERS IN BED RESTING WITH EYES CLOSED. FAMILY AT BEDSIDE. TELE INTACT. IV IN RIGHT HAND FOUND DISLODGED;CATHETER STILL INTACT. CONTINOUS FEEDING ONGOING PER CHART. BED IN LOWEST POSITION. BED ALARM ACTIVE. CALL LIGHT WITHIN REACH. PT DENIES ANY PAIN OR N/D/V. NO NEEDS AT THIS TIME.
--- NOTE | 2024-02-15 17:20 | NUR ---
Pt ID verified. Clinician second attempt to provide OT intervention. Upon entering the room pt in a position in bed with covers pulled up. Clinician attempted to rouse pt repeatedly without success. Pt opened her eyes momentarily, but would not respond to clinician. Left with safety measures in place; call rueda, tray table within reach, bed in low, non-skid socks on.
--- NOTE | 2024-02-15 20:00 | NUR ---
PATIENT RESTING IN BED WITH EYES CLOSED. EASY TO AROUSE-FAMILY WAS IN TO VISIT EARLIER. PATIENT WITH TUBE FEEDING IN PROGRESS TO LEFT ABD [id number] 1.5 INFUSING AT 50CC/HR WITH 200CC H20 FLUSH Q4H. ALL TUBING WAS CHANGED PER PROTOCOL. NO RESIDUAL WHEN CHECKED. REMAINS NPO AT THIS TIME. MOUTH CARE WAS DONE-MOUTH IS VERY DRY. BERKOWITZ CATH PATENT AND DRAINING YELLOW URINE. TELE MONITOR IN PLACE WITH LAST READING SR-81. HOB IS ELEVATED FOR FEEDING. CALL LIGHT IN REACH. WILL CONT TO MONITOR.
[2024-02-15 20:54] VITALS: BP 174/84
--- NOTE | 2024-02-15 21:00 | NUR ---
PATIENT INCONT OF LARGE AMT OF BROWN STOOL. PATIENT PROVIDED WITH CESAR AND BERKOWITZ CATH CARE USING SOAP AND WATER. COMPLETE LINEN CHANGE WAS PROVIDED. TURNED AND REPOSITIONED. HOIB ELEVATED FOR CONT TUBE FEEDING ORDERED. BERKOWITZ CONT TO DRTAIN YELLOW URINE. CALL LIGHT IN REACH. WILL CONT TO MONITOR.
[2024-02-16] VITALS (8 sets, daily range): BP systolic 138–187; BP diastolic 65–85
--- NOTE | 2024-02-16 00:30 | NUR ---
RESTING IN BED WITH HOB ELEVATED. BLOOD SUGAR WAS 154-COVERED WITH HUMALOG 1UNIT SQ PER HUMALOG SS COVERAGE PROTOCOL. TUBE FEEDING CONT ORDERED. BERKOWITZ PATENT AND DRAING YELLOW URINE. TELE MONITOR IN PLACE WITH LAST READING SR-84. CALL LIGHT IN REACH. WILL CONT TO MONITOR.
--- NOTE | 2024-02-16 01:15 | NUR ---
RESTING IN BED-BP RECHECKED AND WAS 146/65. HR-89 AND O2 SAT OF 99%. WILL CONT TO MONITOR.
--- NOTE | 2024-02-16 04:11 | NUR ---
PATIENT INCONT OF MODERATE AMT OF BROWN STOOL-PROVIDED WITH PERICARE WITH SOAP AND WATER. LINENS WERE CHANGED. PATIENT WAS REPOSITIONED IN BED. HOB IS ELEVATED FOR CONT GLUCERNA TUBE FEEDING. TELE MONTIOR IN PLACE READING SR-80'S. [place] DRAINING YELLOW URINE. CALL LIGHT IN REACH. BED ALARM IN PLACE FOR PATIENT SAFETY. WILL CONT TO MONITOR.
--- NOTE | 2024-02-16 07:45 | NUR ---
PATIENT LYING ON HER RIGHT SIDE IN BED WITH EYES CLOSED RESTING. TELE INTACT. CONTINOUS FEEDING ONGOING. PT STATES TO NOT HAVE ANY PAIN NOR ANY N/D/V AT THIS TIME. BED IN LOWEST POSITION. ASSESSMENT COMPLETED. CALL LIGHT WITHIN REACH. NO NEEDS AT THIS TIME.
[2024-02-16] MEDS ORDERED: LISINOPRIL 10 MG/TAB VT SCH (09:00)
[2024-02-16] MEDS ORDERED: PHENOL 1.4 %/BTL MT PRN (12:25)
--- NOTE | 2024-02-16 12:39 | NUR ---
PATIENT SITTING UP IN RECLINER. BREATHING UNLABORED ON ROOM AIR. TELE INTACT. FAMILY MEMEBER AT BEDSIDE. PT DENIES ANY PAIN BUT STATES HER THROAT HURTS;MEDICATION REVIEWED. DENIES ANY N/D/V AT THIS TIME. CONTINOUS FEEDING ONGOING. PERSONAL ITEMS WITHINN REACH WELL CALL LIGHT. NO OTHER NEEDS AT THIS TIME.
--- NOTE | 2024-02-16 16:10 | NUR ---
PATIENT RESTING ON RIGHT SIDE WITH EYES CLOSED. BREATHING UNLABORED ON ROOM AIR. TELE INTACT. NO SIGNS OF DISTRESS NOTED. FAMILY MEMBER AT BEDSIDE. BED IN LOWEST POSITION. CALL LIGHT WITHIN REACH. NO NEEDS AT THIS TIME.
--- NOTE | 2024-02-16 20:00 | NUR ---
PATIENT IS RESTING IN BED WITH EYES CLOSED AND RESPS ARE EVEN AND UNLABORED. VS TAKEN AND RECORDED. AFEBRILE WITH O2 SAT OF 96% ON RA. TELE MONITOR IN PLACE AND READING SR-80. BERK[place]Z CATH PATENT AND DRAINING YELLOW URINE. SALINE LOCK TO LEFT HAND INTACT. PEG TUBE FEEDING IN PLACE ORDERED. GLUCERNA 1.5 AT 50CC/HR WITH 200CC H20 FLUSH Q4H. HOB IS ELEVATED. BED ALARM IN PLACE. CALL LIGHT IN REACH. WILL CONT TO MONITOR.
[2024-02-16] MEDS ORDERED: SODIUM CHLORIDE 0.9% 1,000 ML IV PRN (23:05)
[2024-02-17] VITALS (11 sets, daily range): BP systolic 120–161; BP diastolic 62–77
--- NOTE | 2024-02-17 | NUR ---
PEG TUBE IS CLOGGED AT THIS TIME-CALL PLACED TO MICHELLE MCCORD APRN AND ORDER RECEIVED TO HOLD TUBE FEEDING FOR TONIGHT AND START IVF NS AT 75CC/HR. IVF HUNG AND INFUSING VIA LEFT HAND SITE. REMAINS NPO AT THIS TIME. [place] PATENT AND DRAINING YELLOW URINE. TELE MONITOR IN PLACE WITH LAST READING SR-80'S. BED ALARM IN PLACE FOR PATIENT SAFETY. CALL LIGHT IN REACH. WILL CONT TO MONITOR.
--- NOTE | 2024-02-17 04:49 | NUR ---
PATIENT RESTING IN BED AT THIS TIME WITH EYES CLOSED. RESPS ARE EVEN AND UNLABORED. IVF NS PATENT AND INFUSING VIA LEFT HAND SITE AT 75CC/HR. TELE MONITOR IN PLACE. TUBE FEEDING ON HOLD AT THIS TIME ORDERED. TUBE IS CLOGGED. BED ALARM IN PLACE. CALL LIGHT IN REACH. WILL CONT TO MONITOR.
--- NOTE | 2024-02-17 07:15 | NUR ---
PT LAYING IN BED RESTING WITH EYES CLOSED, AROUSES EASILY TO VERBAL STIMULI, PT DENIES ANY PAIN AT THIS TIME, PUPILS PERRL, NORMAL S1 S2 HEART SOUNDS, RESP. EVEN AND UNLABORED, LUNG SOUNDS DIMINISHED IN BASES, 24G LH IV WITH FLUIDS INFUSING AT PRESCRIBED RATE, BLE MICHAEL HOSE IN PLACE, PEG TUB IN PLACE AND IS CLOGGED, STAFF IS ATTEMPTING TO UNCLOG PEG TUBE, MD IS AWARE, SAFETY MEASURES REINFORCED, CALL GRIGGS WITHIN REACH
[2024-02-17] MEDS ORDERED: SODIUM BICARBONATE 650 MG TAB PO SCH (14:30)
[2024-02-17] MEDS ORDERED: PANCREATIC ENZYMES 12 000 UNITS LIPASE PO SCH (14:30)
--- NOTE | 2024-02-17 16:00 | NUR ---
PT SITTING UP IN THE RECLINER, MOTHER AT BEDSIDE, PT VERBALIZED SHE WAS HAVING PAIN, PT WAS MEDICATED, ATTEMPT TO FLUSH PUG TUBE AGAIN WITH NO SUCCESS, MEDICATION PUT IN PEG TUBE TO ATTEMPT TO UNCLOG, SAFETY MEASURES REINFORCED, CALL GRIGGS WITHIN REACH
--- NOTE | 2024-02-17 19:30 | NUR ---
mother @ bedside. pt is tearful. peg tube in place. unable to irrigate. it infrastructure engineer shows sinus rhythm. pure wick cath in place. urine yellow. requires total care. fall precautions cont.
[2024-02-18] VITALS (10 sets, daily range): BP systolic 109–196; BP diastolic 52–97
--- NOTE | 2024-02-18 00:01 | NUR ---
telemetry shows sinus rhythm hr 90
--- NOTE | 2024-02-18 04:00 | NUR ---
telemetry shows sinus rhythm hr 86
--- NOTE | 2024-02-18 04:28 | NUR ---
attempted again to flush peg tube without success.
--- NOTE | 2024-02-18 08:00 | NUR ---
Pt is in room moved from bed to chair. pt is awake watching tv. pt is aox4 nocomplaints at this time, pt peg tube is still clogged will attempt to unclog.pt has call light in reach. fall socks and ankush hose on. pt breathing is normal unlabored heart rythm is sinus at 85
--- NOTE | 2024-02-18 09:30 | NUR ---
PT PEG TUBE IS NOW WORKING AND UNCLOGGED. PT WILL RESUME TUBE FEEDING.
[2024-02-18] MEDS ORDERED: DEXTROSE 5% w/NACL 0.45 1,000 ML IV PRN (10:05)
--- NOTE | 2024-02-18 12:00 | NUR ---
PT IS IN ROOM SON AT BEDSIDE VISITING. PT IS AWAKE IN CHAIR. PT HAS NO COMPLAINTS AT THIS TIME TUBE FEED IS GOING. PT PAIN IN HER STOMACH IS BETTER SINCE RESUMING TUBE FEED. PT HAS NO COMPLAINTS AT THIS TIME. PT HAS CALL LIGHT IN REACH.
--- NOTE | 2024-02-18 16:29 | NUR ---
HELPED LIQUOR COMMISSIONER MOVE PT FROM CHAIR TO STRECHER AT THIS TIME. PT SKIN IS INTACT, PTIS AOX4, NO COMPLAINTS AT THIS TIME. PT DID HAVE A BM AT THIS TIME PT WAS CLEANED UP. PT HAS CALL LIGHT IN REACH
--- NOTE | 2024-02-18 20:00 | NUR ---
REPORT RECEIVED FROM [facility] NURSE. HEATHER DEAN. PT RESTING IN BED WATCHING TELEVISION. PT IS A&OX3, AND ABLE TO MAKE NEEDS KNOWN. PT IS ON ROOM AIR. TELE MONITOR IN PLACE. NO S&S OF DISTRESS NOTED. PT DOES NOT OFFER ANY COMPLAINTS AT THIS TIME. PT REPOSITIONED AT THIS TIME. LUNG SOUNDS CLEAR UPON AUSCULTATION. CLINICAL NURSING COORDINATOR EQUAL ON BOTH UPPER EXTREMITIES. VSS. MICHAEL HOSE APPLIED TO BLE. NEW DRESSING APPLIED AROUND PEG TUBE, SITE CLEAN WITH NO S&S OF INFECTION. PERIPHERAL PULSES STRONG. BOWEL SOUNDS ACTIVE X4 QUADRANTS, ABDOMEN IS SOFT. IV SITE CLEAN AND INTACT, FLUHSING WELL. CONTINIOUS FEED GOING PER ORDERS. TUBE PLACEMENT CHECKED, TUBE IN PLACE. RESIDUAL AT THIS TIME IS 0 ML. INFUSION GOING PER ORDERS. PT EDUCATED ON POC AND MEDICATION SCHEDULE. CALL LIGHT IN REACH, AND SAFETY PRECAUTIONS IN PLACE.
[2024-02-19] VITALS (8 sets, daily range): BP systolic 115–158; BP diastolic 63–86
--- NOTE | 2024-02-19 00:20 | NUR ---
PT RESTING IN BED WITH EYES CLOSED. RESPIRATIONS ARE EVEN AND UNLABORED. PT IS EASILY AROUSABLE. NO S&S OF DISTRESS NOTED. INFUSION GOING PER ORDERS. CONTINIOUS FEED GOING PER ORDERS. NO COMPLAINTS VOICED AT THIS TIME. BERKOWITZ BAG NOTED WITH CLEAR YELLOW URINE. CALL LIGHT IN REACH, AND SAFETY PRECAUTIONS IN PLACE. TELE MONITOR REMAINS IN PLACE.
--- NOTE | 2024-02-19 04:20 | NUR ---
PT RESTING IN BED WITH EYES CLOSED. RESPIRATIONS ARE EVEN AND UNLABORED. PT IS EASILY AROUSABLE. CONTINIOUS FEED GOING PER ORDERS. IV INFUSION GOING PER ORDERS. NO S&S OF DISTRESS NOTED. TELE MONITOR IN PLACE. NO COMPLAINTS VOICED AT THIS TIME. CALL LIGHT IN REACH, AND SAFETY PRECAUTIONS IN PLACE.
[2024-02-19 06:25] LABS: BASO% 0.8 % (0-3); HEMATOCRIT 40.1 % (37.0-47.0); HEMOGLOBIN 13.4 g/dl (12.0-16.0); IMMATURE GRANULOCYTES 0.1 % (0.0-5.0); LYMPH% 26.8 % (15-41); MEAN CELL VOLUME 91.8 fL CALC (80.0-100.0); MEAN CORPUSCULAR HGB 30.7 pG CALC (26.0-32.0); MEAN CORPUSCULAR HGB CONC 33.4 g/dL CAL (32.0-36.0); MONO% 8.6 % (2-13); NEUT# 4.92 thou/uL (2.00-7.15); NEUT% 61.7 % (42-76); RED BLOOD COUNT 4.37 mill/uL (4.20-5.60); RED CELL DISTRI WIDTH 13.2 % (11.5-15.5)
[2024-02-19 06:44] LABS: ALBUMIN 3.5 g/dL (3.2-5.0); BILIRUBIN, TOTAL 0.7 mg/dL (0.02-1.3); CREATININE 0.3 mg/dL (0.5-1.0); MAGNESIUM 1.9 mg/dL (1.6-2.3); POTASSIUM 3.8 mmol/l (3.5-5.1); TOTAL PROTEIN 6.2 g/dL (6.3-8.2)
--- NOTE | 2024-02-19 19:25 | NUR ---
DURING CHART CHECK, NEW ORDER TO REMOVE BERKOWITZ ON PRIOR SHIFT. MD NOTIFIED, MD WANTS TO REMOVE BERKOWITZ AND PREFORM VOID TRIAL. WILL FOLLOW UP WITH REMOVING BERKOWITZ.
--- NOTE | 2024-02-19 20:00 | NUR ---
REPORT RECEIVED FROM [facility] NURSE. BRIELLE DEAN. PT RESTING IN BED WATCHING TELEVISION. PT IS A&OX3, AND ABLE TO MAKE NEEDS KNOWN. SPEECH IS SOFT, AND HESITANT. NO COMPLAINTS OFFERED AT THIS TIME. PT APPEARS COMFOTABLE. NO IV SITE AT THIS TIME, WILL ATTEMPT IV ACCESS. CONTINIOUS FEED GOING PER ORDERS. TUBE PLACEMENT CHECKED, TUBE IN PLACE. NO S&S OF DISTRESS NOTED. MICHAEL HOSE NOTED TO BLE. BERKOWITZ NOTED WITH CLEAR YELLOW URINE IN BAG. LUNG SOUNDS CLEAR UPON AUSCULTATION. BOWEL SOUNDS ACTIVE X4 QUADRANTS, ABDOMEN IS SOFT. PERIPHERAL PULSES STRONG. VSS. SKIN INTACT. PT EDUCATED ON POC AND MEDICATION SCHEDULE. CALL LIGHT IN REACH, AND SAFETY PRECAUTIONS IN PLACE.
--- NOTE | 2024-02-19 21:35 | NUR ---
THIS DISTANCE LEARNING PROGRAM COORDINATOR AND OTHER NURSE REMOVED BERKOWITZ AT THIS TIME. 900 CC CLEAR YELLOW URINE EMPTIED AT THIS TIME FROM BERKOWITZ BAG. PT TOLERATED WELL WITH NO COMPLAINTS VOICED. PUREWICK APPLIED. WILL REASSESS OUTPUT. CALL LIGHT IN REACH, AND SAFETY PRECAUTIONS IN PLACE.
--- NOTE | 2024-02-19 22:13 | NUR ---
TUBE NOT FLUSHING AT THIS TIME. NURSING ADAPTED PHYSICAL EDUCATION AIDE MADE AWARE. MD NOTIFIED. MD WANTS MEDICATIONS/FEEDING TO BE HELD AT THIS TIME. NO S&S OF DISTRESS FROM PT. VSS. WILL CONTINUE TO MONITOR.
[2024-02-20] VITALS (7 sets, daily range): BP systolic 124–147; BP diastolic 72–80
--- NOTE | 2024-02-20 00:15 | NUR ---
PT RESTING IN BED, APPEARS COMFORTABLE. ASSIGNED INDUSTRIAL DESIGN ENGINEER INFORMED THIS ASSISTANT WOMEN'S BASKETBALL COACH THAT PT HAD SMALL INCONTINENCE OF URINE IN BRIEF, CESAR CARE PROVIDED. BLADDER SCANNER AT THIS TIME SHOWS 687 CC. PER MD ORDERS, WILL FOLLOW UP WITH BERKOWITZ PLACEMENT. NO S&S OF DISTRESS NOTED. TELE MONITOR REMAINS ON. CALL LIGHT IN REACH, AND SAFETY PRECAUTIONS IN PLACE.
--- NOTE | 2024-02-20 00:45 | NUR ---
THIS BUSHING PRESS OPERATOR AND OTHER NURSE UNSUCCESSFUL ATTEMPTS AT PLACING BERKOWITZ CATHETER, NURSING HAND KISS SETTER MADE AWARE, AWAITING ANOTHER NURSE TO ATTEMPT.
--- NOTE | 2024-02-20 01:10 | NUR ---
AXEL DEAN SUCCUSSFULLY PLACED BERKOWITZ CATHETER. CLEAR YELLOW URINE DRAINING. WILL FOLLOW UP WITH AMOUNT OF OUTPUT. NO COMPLAINTS OFFERED AT THIS TIME. PT TOLERATED WELL. CALL LIGHT IN REACH, AND SAFETY PRECAUTIONS IN PLACE.
--- NOTE | 2024-02-20 03:40 | NUR ---
BERKOWITZ WAS PLACED AT 0110. 200 CC OUTPUT SINCE THEN. BLADDER SCAN PERFORMED AT THIS TIME, SHOWING 1314 CC URINE. NO DISTENTION UPON PALPATION. NO COMPLAINTS OFFERED FROM PT. NURSING FARMWORKER PULLET FARM MADE AWARE. WILL CONTINUE TO MONITOR.
--- NOTE | 2024-02-20 04:15 | NUR ---
PT RESTING IN BED WITH EYES CLOSED. RESPIRATIONS ARE EVEN AND UNLABORED. PT DOES NOT OFFER ANY COMPLAINTS AT THIS TIME. TELE MONITOR IN PLACE. BED ALARM REMAINS ON. CLEAR YELLOW URINE NOTED IN BAG. NO S&S OF DISTRESS NOTED. INFUSION GOING PER ORDERS. CALL LIGHT IN REACH, AND SAFETY PRECAUTIONS IN PLACE.
--- NOTE | 2024-02-20 07:45 | NUR ---
BEDSIDE REPORT RECEIVED FROM OFF GOING NURSE. PATIENT BEING CLEANED UP BY PULPWOOD BUYER AT THIS TIME. RESPIRATIONS EVEN AND UNLABORED ON ROOM AIR. PATIENT DENIES PAIN OR DISCOMFORT. SKIN INTACT. IV FLUIDS D5 1/2 NS @ 100 NL/HR. PEG TUBE CLOGGED AT THIS TIME BUT THIS NURSE ABLE TO UNCLOG TUBE. TUBE FEEDING RESUMED. NO SIGNS OF DISTRESS NOTED.SAFTEY MEASURES IN PLACE.
--- NOTE | 2024-02-20 08:46 | NUR ---
AFTER MORE EFFORT, TUBE CONTIUES TO BE CLOGGED. UNABLE TO ADMINISTER MEDICATION VIA TUBE OR CONTINUE WITH TUBE FEEDING. PROVIDER IN TO SEE PATIENT AND TUBE REMAINS CLOGGED. EXTERNAL TUBE CLEAR. IV FLUIDS CONTINUE.
--- NOTE | 2024-02-20 12:32 | NUR ---
called dr jarquin for consultation on this pt for the peg tube. stated ok thank you for letting me know.
--- NOTE | 2024-02-20 12:49 | NUR ---
PATIENT RESTING IN BED AT THIS TIME WITH EYES CLOSED. RESPIRATIONS EVEN AND UNLABORED ON ROOM AIR. NO SIGNS OF DISTRESS NOTED. CONTINUES ON IV FLUIDS. PEG TUBE CONTNUES TO BE CLOGGED. UNABLE TO PUSH AIR TO VERIFY PLACEMENT. PATIENT MOVED TO DIFFERENT POSITIONS DURING TUBE PLACEMENT VERIFICATION. PROVIDER AWARE AND HAS PLACED A SURGICAL CONSULT. PATIENT AWAKENS TO SPEECH. PATIENT RARELY VERBALIZES BUT ABLE TO STATE "NO" TO PAIN. SAFETY MEASURES IN PLACE. CALL LIGHT WITHIN REACH.
--- NOTE | 2024-02-20 20:00 | NUR ---
RECEIVED REPORT FROM NURSE PARKER, PATIENT RESTING IN BED, ALERT ORIENTED, WHISPERS WHEN TALKING, IV ION RT WRIST G 22 D51/2 NS @ 100CC/HR INFUSING WELLM ON TELEMETRY, PATIENT OBEYS COMMAND, PEG TUBE CLOGGED PER REPORT AWAITING DR. MARROQUIN, REMAINS NPO, PATIENT HAS INDWELLING BERKOWITZ CATH DRAINING YELLOW COLORED URINE, CALL LIGHT IN REACHED, BED ALARM IN PLACED.
--- NOTE | 2024-02-20 20:30 | NUR ---
DR. MARROQUIN IN ROOM ASSESSING PEG TUBE.
--- NOTE | 2024-02-20 23:11 | NUR ---
TUBE FEED RESTARTED INFUSING WELL, PLACEMENT CHECKED PRIOR TO RESTARTING.
[2024-02-21 00:17] VITALS: BP 156/73
--- NOTE | 2024-02-21 03:46 | NUR ---
PATINET RESTING IN BED, TUBE FEED INFUSING WELL, BREATHING EVEN UNLABORED CALL LIGHT WITHIN REACHED.
[2024-02-21 04:33] VITALS: BP 152/69
[2024-02-21 06:59] VITALS: BP 128/71
--- NOTE | 2024-02-21 07:26 | NUR ---
PATIENT LAYING IN BED RESTING QUIETLY. NO S/SX OF PAIN OR DISTRESS NOTED. WILL CONTINUE TO MONITOR.
[2024-02-21 11:00] VITALS: BP 127/74
--- NOTE | 2024-02-21 12:01 | NUR ---
PATIENT SLIGHTLY SITTING UP. NO S/SX OF PAIN OR DISTRESS NOTED. WILL CONTINUE TO MONITOR.
[2024-02-21 15:55] VITALS: BP 110/64
--- NOTE | 2024-02-21 16:17 | NUR ---
PATIENT LAYING IN BED. NO S/SX OF PAIN OR DISTRESS NOTED. WILL CONTINUE TO MONITOR.
[2024-02-21 18:55] VITALS: BP 137/69
--- NOTE | 2024-02-21 20:00 | NUR ---
RECEIVED REPORT FROM NURSE MOISÉS NOWAK RESTING IN BED, NOT IN DISTRESS, IV INFUSING RT WRIST D5 1/2 NS @ 50 CC/HR, ON TELEMETRY, ONGOING TUBE FEED GLUCERNA 1.5 AT 50CC/HR AND 200CC FLUSH INFUSING WELL VIA TUBE FEED PUMP, PATIENT INDWELLING BERKOWITZ DRAINING YELLOW CLEAR URINE. BED ALARM IN PLACED,CALL LIGHT WITHN REACHED, MAINTAINED NPO.
--- NOTE | 2024-02-21 23:22 | NUR ---
PATIENT RESTING IN BED. LEFT SIDE LYING POSITION, BREATHING EVEN UNLABORED, NO DISCOMFORTS NOTED AT THIS TIME.
[2024-02-22] VITALS (7 sets, daily range): BP systolic 107–161; BP diastolic 55–78
--- NOTE | 2024-02-22 03:32 | NUR ---
CHANGED FEEDING PUMP TUBING SET, PATIENT NNOT IN DISTRESS, BREATHING EVEN UNLABORED CALL LIGHT WITHIN REACHED.
--- NOTE | 2024-02-22 07:00 | NUR ---
PATIENT LAYING IN BED WITH EYES CLOSED BUT EASILY AROUSE. NO S/SX OF PAIN OR DISTRESS NOTED. WILL CONTINUE TO MONITOR.
--- NOTE | 2024-02-22 12:09 | NUR ---
PATIENT BACK IN BED. NO S/SX OF PAIN OF DISTRESS NOTED. WILL CONTINUE TO MONITOR.
--- NOTE | 2024-02-22 16:03 | NUR ---
PATIENT LAYING IN BED. NO S/SX OF PAIN OR DISTRESS NOTED. WILL CONTINUE TO MONITOR.
--- NOTE | 2024-02-22 22:26 | NUR ---
PT RESTING IN BED NO DISTRESS NOTED ON ASSESSMENT. IV FLUID INFUSION ONGOING WORKING PROPERLY. PT ALERT AND ORIENTATED. VS WNL ON RA LUNGS CLEAR NO PAIN REPORTED AT THIS TIME. PEG TUBE FEEDING ONGOING SKIN AROUND TUBE IS NOTED TO BE IRRITATED AND RED DRESSING IN PLACE NO DRAINAGE. BERKOWITZ CATHETER WORKING PROPERLY NO KINKS CLEAR YELLOW URINE. CALL LIGHT WITHIN REACH. BED ALARM ON. PLAN OF CARE ONGOING.
--- NOTE | 2024-02-23 01:30 | NUR ---
PT RESTING NO DISTRESS NOTED ON EXAM. PEG TUBE FEEDINGS ONGOING. IV FLUIDS ON GOING. CALL LIGHT WITHIN REACH. PLAN OF CARE ONGOING.1 UNIT OF INSULIN GIVEN FOR BG OF 182.
--- NOTE | 2024-02-23 04:00 | NUR ---
PT SLEEPING EASILY AROUSABLE NO PAIN REPORTED AT THIS TIME. IV SITE CHECKED WORKING PROPERLY. BERKOWITZ CATHETER HAS NOT KINKS. PEG TUBE FEEDING ONGOING. CALL LIGHT WITHIN REACH. PLAN OF CARE ONGOING.
[2024-02-23 05:11] VITALS: BP 121/69
[2024-02-23 07:28] VITALS: BP 111/62
--- NOTE | 2024-02-23 07:40 | NUR ---
LAYING IN BED RESTING WITH EYES CLOSED, AROUSES EASILY TO VERBAL STIMULI, PT A&O X 3, PUPILS PERRL BUT SLUGGISH, RESP. EVEN AND UNLABORED, LUNG SOUNDS ARE DIMINISHED, ABD SOFT AND DISTENDED WITH ACTIVE BOWEL SOUNDS, PEG TUBE REMAINS IN PLACE, TUBE PLACEMENT VERIFIED, NO RESIDUALS, RECONNECTED TUBE FEEDINGS, TUBE FEEDING AND FLUSH RUN AT PRESVRIBED RATE, 22G RW IV SL, NORMAL S1 S2 HEART SOUNDS, TELE IN PLACE, BERKOWITZ CATH IN PLACE DRAINING CLEAR YELLOW URINE, SAFETY MEASURES REINFORCED, CALL GRIGGS WITHIN REACH
[2024-02-23 10:41] VITALS: BP 117/59
--- NOTE | 2024-02-23 12:00 | NUR ---
PT LAYING IN BED ON HER LEFT SIDE, PT DENIES ANY PAIN AT THIS TIME, PT IS DROUSEY BUT AROUSES EASILY TO VERBAL STIMULI, SAFETY MEASURES REINFORCED, CALL GRIGGS WITHIN REACH
[2024-02-23 15:58] VITALS: BP 115/56
--- NOTE | 2024-02-23 16:00 | NUR ---
PT LAYING IN BED LOOKING AROUND THE ROOM, PT DENIES ANY PAIN, PUG TUBE CHECKED FOR PLACEMENT AND RESIDUALS, PT TOLERATED WELL, CALL GRIGGS WITHIN REACH
[2024-02-23 19:15] VITALS: BP 147/73
--- NOTE | 2024-02-23 20:37 | NUR ---
NURSE CALLED PROVIDER TO INFORM HIM THAT PEG TUBE IS CLOGGED. NURSE ATTEMPTED TO UNCLOG PEG TUBE FOR 30 MINUTES PRIOR TO CALLING PROVIDER AND INFORM PROCESS DEVELOPMENT ASSOCIATE. NEW ORDER RECEIVED FOR MAINTANCE FLUIDS WITH D5.
[2024-02-23] MEDS ORDERED: DEXTROSE 5% w/NACL 0.45 1,000 ML IV PRN (20:55)
[2024-02-24] VITALS (8 sets, daily range): BP systolic 106–137; BP diastolic 62–98
--- NOTE | 2024-02-24 04:00 | NUR ---
PT RESTING NO DISTRESS NOTED ON EXAM. VS WNL ON RA NO PAIN REPORTED. IV FLUIDS ONGOIG. NURSE TRIED TO FLUSHED PEG TUBE AGAIN WITHOUT SUCCESS. NEW DRESSING APPLIED TO PEG TUBE. BERKOWITZ CHECKED FOR KINKS AND PROPER PLACEMENT WORKING PROPERLY. PT REPOSITIONED. CALL LIGHT WITHIN REACH. BED ALARM ON. PLAN OF CARE ONGOING.
--- NOTE | 2024-02-24 07:27 | NUR ---
PATIENT LYING SUPINE IN BED RESTING WITH EYES CLOSED. BREATHING UNLABORED ON ROOM AIR. TELE INTACT. IV IN RIGHT WRIST INFUSING FLUIDS PER EMAR;SITE CLEAN AND INTACT. BERKOWITZ IN PLACE. ASSESSMENT COMPLETED. NO SIGNS OF DISTRESS NOTED. BED IN LOWEST POSITION. BED ALARM ACTIVE. CALL LIGHT WITHIN REACH. NO NEEDS AT THIS TIME. POC ONGOING.
--- NOTE | 2024-02-24 08:46 | NUR ---
ATTEMPTED TO FLUSH PT PEG TUBE; UNABLE TO FLUSH. YARED LEYVA NOTIFIED AND STATED "FIND A SENIOR NURSE" TO UNCLOG TUBE. RODGER ASKED AND STATED SHE WOULD ATTEMPT. MEDS HELD AT THIS MOMENT. POC ONGOING.
--- NOTE | 2024-02-24 09:51 | NUR ---
talked to Yee DEAN to see if she can help flush patient PEG tube; patient PEG tube was not flushable this am with Kayleen ZARAGOZA, sharifa attempted to flush twise and was unable to flush, if Yee DEAN unable to flush will notify Sanjuanita RN and Papi RN for assistance with PEG Tube; Kait MAYBERRY and Dr. Jimenez notfied and aware of situation
--- NOTE | 2024-02-24 10:16 | NUR ---
Sanjuanita DEAN helped unclogged PEG tube; was able to flushed two times after that, admin medication and flushed fully and prior and after after medication, reattached feeding tube
--- NOTE | 2024-02-24 10:45 | NUR ---
and Kayleen ZARAGOZA assited patient back in bed; currently looking for a conector for feeding tube; patient laying semi felder in bed; family in room with patient; no complaints
--- NOTE | 2024-02-24 10:49 | NUR ---
YARED LEYVA AND IN ROOM WITH PT DISCUSSING POC.
[2024-02-24] MEDS ORDERED: traMADol HCL 50 MG/TAB PO PRN (12:25)
--- NOTE | 2024-02-24 12:29 | NUR ---
PATIENT LYING ON HER RIGHT SIDE IN BED WITH EYES CLOSED RESTING. BREATHING UNLABORED ON ROOM AIR. IV IN RIGHT WRIST SL;SITE CLEAN AND INTACT. TUBE FEEDING STILL ON HOLD DUE TO MISSING PIECE FOR TUBE FEED. AND YARED LEYVA AWARE. TELE INTACT. NO SIGNS OF DISTRESS NOTED. BED IN LOWEST POSITION. BED ALARM ACTIVE. CALL LIGHT WITHIN REACH. NO NEEDS AT THIS TIME.
[2024-02-24] MEDS ORDERED: SERTRALINE HCL 25 MG/TAB PO SCH (14:00)
--- NOTE | 2024-02-24 14:21 | NUR ---
STILL AWAITING MISSING PIECE TO START TUBE FEEDING. HEATHER AWARE AND SEARCHING. EVENING MEDS GIVEN WITH NO ISSUES; FLUSHED WITH WARM WATER BEFORE AND AFTER. POC ONGOING.
--- NOTE | 2024-02-24 14:43 | NUR ---
GIVEN A NEW PIECE FOR FEEDING TUBE BY HEATHER; OLD PIECE DISCARDED PER REQUEST. TUBE FEEDING CONNECTED TO PT AND ONGOING CONTINOUSLY AT ORDERED RATE. NO OTHER NEEDS AT THIS TIME. POC ONGOING.
--- NOTE | 2024-02-24 16:09 | NUR ---
PATIENT LYING SEMI-FOWLERS IN BED AWAKE. ASSISTED SAMPLE WRAPPER WITH CHANGE AND REPOSITION; PT HAD A BM. TELE INTACT. BREATHING UNLABORED ON ROOM AIR. BERKOIWTZ IN PLACE;CHECKED FOR KINKS. IV IN RIGHT WRIST SL;SITE CLEAN AND INTACT. TUBE FEEDING ONGOING WITH NO ISSUES. PT DENIES ANY PAIN OR N/D/V AT THIS TIME. NO SIGNS OF DISTRESS NOTED. BED IN LOWEST POSITION. BED ALARM ACTIVE. CALL LIGHT WITHIN REACH. NO NEEDS AT THIS TIME. POC ONGOING.
[2024-02-24] MEDS ORDERED: ONDANSETRON HCl 4 MG/2 ML SDV IV PRN (20:00)
--- NOTE | 2024-02-24 20:00 | NUR ---
RECEIVED REPORT FROM NURSE JER, PATIENT RESTING IN BED, ONGOING TUBE FEED, FRIEND IN ROOM, PATIENT WAS C/O PAIN ON LLQ PS 12/01, WILL MEDICATE, PATIENT ALERT ORIENTED, VERBAL WHISPERS WHEN ASWERING, SALINE LOCK NOTED ON RT WRIST PATENT FLUSHES WELL, ON TELEMETRY. ACTIVE BOWEL SOUNDS, C/O NAUSEA PRN ZOFRAN ORDERED,HAS INDWELLING BERKOWITZ CATH DRAINING YELLOW COLORED URINE, BREATHING EVEN UNALBORED CALL LIGHT IN REACHED.
[2024-02-25] VITALS (8 sets, daily range): BP systolic 96–141; BP diastolic 42–77
--- NOTE | 2024-02-25 00:14 | NUR ---
PATIENT RESTING IN BED, NOT IN DISTRESS, BS OBTAINED 151 DUE INSULIN GIVEN, PATIENT REMAINS ON TUBE FEEDING, PEG TUBE DRESSING CHANGED.
--- NOTE | 2024-02-25 03:21 | NUR ---
PATIENT RESTING WITH EYES CLOSED, NO DISCOMFORTS NOTED AT THIS TIME, CALL LIGHT WITHIN REACHED, BED ALARM IN PLACED.
--- NOTE | 2024-02-25 07:41 | NUR ---
PATIENT LYING SUPINE IN BED WITH EYES CLOSED RESTING. BREATHING UNLABORED ON ROOM AIR. TELE INTACT. IV IN RIGHT WRIST SL; SITE CLEAN AND INTACT. BERKOWITZ IN PLACE WITH NO KINKS. TUBE FEEDING ONGOING WITH NO ISSUES AT ORDERED RATE. NO SIGNS OF DISTRESS NOTED. ASSESSMENT COMPLETED. BED IN LOWEST POSITION. BED ALARM ACTIVE. CALL LIGHT WITHIN REACH. NO NEEDS AT THIS TIME. POC ONGOING.
--- NOTE | 2024-02-25 08:30 | NUR ---
MORNING MEDS ADMINISTERED WITH NO ISSUES. FLUSHED BEFORE AND AFTER WITH WARM WATER. TUBE FEEDING REATTCHED AND ONGOING CONTINOUSLY AT ORDERED RATE. POC ONGOING.
--- NOTE | 2024-02-25 10:52 | NUR ---
PHYSICAL THERAPY CAME AND ATTEMPTED TO GET PT UP TO AMBULATE TO THE RECLINER HOWEVER, PT REFUSED.
--- NOTE | 2024-02-25 12:25 | NUR ---
PATIENT LYING SEMI-FOWLERS IN BED WITH EYES CLOSED RESTING. BREATHING UNLABORED ON ROOM AIR. TELE INTACT. IV IN RIGHT WRIST SL:SITE CLEAN AND INTACT. BERKOWITZ IN PLACE WITH NO KINKS. PT DENIES ANY PAIN, STATED TO HAVE SOME NAUSEA; ZOFRAN ADMINISTERED PER EMAR. NO OTHER NEEDS AT THIS TIME. BED IN LOWEST POSITION. BED ALARM ACTIVATED. CALL LIGHT WITHIN REACH. POC ONGOING.
--- NOTE | 2024-02-25 16:15 | NUR ---
PATIENT LYING SEMI-FOWLERS IN BED WITH EYES CLOSED RESTING. BREATHING UNLABORED ON ROOM AIR. TELE INTACT. IV IN RIGHT WRIST SL;SITE CLEAN AND INTACT. NO SIGNS OF DISTRESS NOTED. PEG TUBE FEEDING ONGOING CONTINOUSLY AT ORDERED RATE WITH NO ISSUES. BED IN LOWEST POSITION. CALL LIGHT WITHIN REACH. NO NEEDS AT THIS TIME. POC ONGOING.
--- NOTE | 2024-02-25 20:00 | NUR ---
PT SLEEPING EASILY AROUSABLE NO DISTRESS NOTED. VS WNL ON RA NO PAIN REPORTED AT THIS TIME. IV FLUSHED WORKING PROPERLY SL. PEG TUBE RESIDUAL CHECKED 0ML. CONTINUES FEEDING ONGOING AT GOAL. BERKOWITZ WITH NO KINKS WITH YELLOW URINE WORKING PROPERLY. CALL LIGHT WITHIN REACH. PLAN OF CARE ONGOING. BED ALARM ON.
--- NOTE | 2024-02-25 21:50 | NUR ---
MEDICATIONS GIVEN THROUGH PEG TUBE. PEG TUBE FLUSHED BEFORE AND AFTER MEDICATIONS GIVEN.
--- NOTE | 2024-02-26 00:15 | NUR ---
PT SLEEPING EASILY AROUSABLE INSULIN GIVEN. PEG TUBE RESIDUAL CHECKED 0ML AND FLUSHED WORKING PROPERLY. CALL LIGHT WITHIN REACH. BED ALARM ON. PLAN OF CARE ONGOING.
[2024-02-26 03:43] VITALS: BP 131/74
--- NOTE | 2024-02-26 04:00 | NUR ---
PT RESTING NO DISTRESS NOTED ON EXAM EASILY AROUSABLE. PEG TUBE FEEDING WORKING PROPERLY AND FLUSHED. CALL LIGHT WITHIN REACH. BED ALARM ON. PLAN OF CARE ONGOING.
[2024-02-26 05:36] LABS: BASO% 0.7 % (0-3); HEMATOCRIT 39.5 % (37.0-47.0); HEMOGLOBIN 13.7 g/dl (12.0-16.0); IMMATURE GRANULOCYTES 0.2 % (0.0-5.0); LYMPH% 20.7 % (15-41); MEAN CELL VOLUME 91.2 fL CALC (80.0-100.0); MEAN CORPUSCULAR HGB 31.6 pG CALC (26.0-32.0); MEAN CORPUSCULAR HGB CONC 34.7 g/dL CAL (32.0-36.0); MONO% 9.6 % (2-13); NEUT# 8.28 thou/uL (2.00-7.15); NEUT% 67.8 % (42-76); RED BLOOD COUNT 4.33 mill/uL (4.20-5.60); RED CELL DISTRI WIDTH 13.4 % (11.5-15.5)
[2024-02-26 05:52] LABS: ALBUMIN 3.7 g/dL (3.2-5.0); BILIRUBIN, TOTAL 0.9 mg/dL (0.02-1.3); CREATININE 0.5 mg/dL (0.5-1.0); POTASSIUM 4.3 mmol/l (3.5-5.1); TOTAL PROTEIN 6.5 g/dL (6.3-8.2)
[2024-02-26 06:43] VITALS: BP 134/66
[2024-02-26] MEDS ORDERED: SODIUM CHLORIDE 0.9% 1,000 ML IV SCH (08:00)
--- NOTE | 2024-02-26 08:15 | NUR ---
PATIENT A/O X3; ROOM AIR; BREATHING UNLABORED AND EVEN; STATES SHE IS HAVING SOME PAIN IN ABD AREA, MEDICATED PER EMAR; TELE LEADS ARE ATTACHED AND WORKING WITH NOISSUES; BERKOWITZ ATTACHED WITH CLEAR YELLOW URINE OUTPUT; PEG TUBE ATTACHEH, HAD SOME ISSUES WTH FLUSHING PEG TUBE PRIOR TO MEDICATION ADMIN, CLEARED CLOGGED AREA INTUBE, AND WAS ABLE TO FLUSH WITH WATER PRIOR MEDICATION WITH MEDICATION AND AFTER MEDICATION WITH NOISSUES AFTER THAT; TUEB FEEDING IS WORKING WITH NOISSUES; COMPLETED ASSESSMENT ON PATIENT; APPLIED BARRIER CREAM ON BUTTOCKS; ASSITED PATIENT IN A BETTER POSTION IN HIGH SEMI BRAVO POSTION IN BED; IV SITE CLEAN AND INTACT, STARTED A NEW BAG OF NS @80 PER EMAR WITH NEW LINING; PATIENT TOLERATED MEDICATION WITH NOISSUES CALL LIGHT WITHIN REACH, BED IN LOWEST POSTION; PERSONAL ITEMS IWTHIN REACH, SAFTEY MEASURES IN PLACE
--- NOTE | 2024-02-26 10:03 | NUR ---
PATIENT VOMITED ON GOWN, NOTIFIED DR. WADE AND TOAN ANRP HOW THE CONTEXT LOOKED AND MEDICATED PATIENT WITH ZOFRAN, SAFETY MEASURES IN PLACE
[2024-02-26 11:05] VITALS: BP 117/64
--- NOTE | 2024-02-26 12:22 | NUR ---
ASSSITED PATIENT BACKL IN BED; TALKED TO DR. WADE AND WAS TOLD TO STOP FEEDING AND START BOLUS FEEDING, FIRST FEEDING WILL START AT 1600, IV SITE CLEAN AND INTACT RUNNING WITH NS @80; TELE LEADS ARE ATTACHED AND WORKING WITH NOISSUES; NO S.S OF DISTESS WHEN PLACED IN BED; BERKOWITZ BAG WORKING WITH CLEAR YELLOW URINE; CALL LIGHT WITHIN REACH, PERSONAL ITEMS WITHIN REACH, BED IN LOWEST POSTION; SAFTEY MEASURES IN PLACE
--- NOTE | 2024-02-26 16:35 | NUR ---
patient in bed resting; room air; breathing unlabored and even; denied any pain; denied any n/d/v at this time; no s/s of distress at this time; tele leads are intact and working with no issues; PEG tube closed off with no issues; call light within reach, bedin lowest postion; personal items iwthin reach,safety measures in place
--- NOTE | 2024-02-26 16:53 | NUR ---
completed bolus feeding at this time with no issues, flushed prior and after feeding with no issues
[2024-02-26 18:08] VITALS: BP 137/67
[2024-02-26 18:23] VITALS: BP 137/67
--- NOTE | 2024-02-26 20:00 | NUR ---
PT RESTING NO DISTRESS NOTED ON EXAM. VS WNL ON RA NO PAIN REPORTED AT THIS TIME. IV FLUSHED WORKING PROPERLY FLUIDS ONGOING. BERKOWITZ CHECKED NO KINKS YELLOW CLEAR URINE. PEG TUBE CLAMPED DRESSING CHANGED. PT REPOSITIONED. CALL LIGHT WIITHIN REACH. BED ALARM ON. PLAN OF CARE ONGOING.
--- NOTE | 2024-02-26 21:33 | NUR ---
PEG TUBE RESIDUAL WAS CHECKED WHICH SHOWED 70CC AT THIS TIME WILL ONLY GIVE NIGHT TIME MEDICATIONS WILL HOLD OFF BOLUS TUBE FEED.
--- NOTE | 2024-02-26 23:45 | NUR ---
PEG TUBE RESIDUAL CHECKED IT WAS 0CC. NURSE GAVE ONE BOTTLE OF JEVITY. PEG TUBE WAS FLUSHED BEFORE AND AFTER.
[2024-02-27] VITALS (11 sets, daily range): BP systolic 94–145; BP diastolic 38–73
--- NOTE | 2024-02-27 04:08 | NUR ---
PT SLEEPING EASILY AROUSABLE NO DISTRESS NOTED. NO PAIN REPORTED AT THIS TIME. IV SITE CHECKED FLUID INFUSION ONGOING. BERKOWITZ HAS NO KINKS WORKING PROPERLY WITH CLEAR YELLOW URINE. CALL LIGHT WITHIN REACH. BED ALARM ON. PLAN OF CARE ONGOING.
--- NOTE | 2024-02-27 05:51 | NUR ---
NURSE CHECKED PEG TUBE RESIDUAL WHICH SHOWED 0CC. NURSE ADMINISTERED PEG TUBE FEED AND MEDICATION. PT HAVING UPSET STOMACH DISCOMFORT TOWARDS THE END OF ADMINISTRATING PEG TUBE FEEDING. NURSE WILL INFORM DAY TIME NURSE SO THAT NURSE CAN INFORM PROVIDER.
[2024-02-27 05:53] LABS: ALBUMIN 3.6 g/dL (3.2-5.0); BILIRUBIN, TOTAL 0.8 mg/dL (0.02-1.3); CREATININE 0.4 mg/dL (0.5-1.0); POTASSIUM 4.3 mmol/l (3.5-5.1); TOTAL PROTEIN 6.5 g/dL (6.3-8.2)
--- NOTE | 2024-02-27 07:10 | NUR ---
REPORT RECEIVED FROM GELYRN
--- NOTE | 2024-02-27 09:15 | NUR ---
PT RESTING IN SEMI FOWLERS POSITION, A&O X3- HX OF CVA, SOFT SPOKEN SPEECH OR NODS HEAD WHEN RESPONDING;PT REPORTS ABDOMINAL PAIN WITH BOLUS FEEDINGS- NOTIFIED AND NO NEW ORDERS RECEIVED. PT MEDICATED WITH PRN ULTRAM 50MG FOR ABDOMINAL PAIN AND ZOFRAN 4MG IVP FOR NAUSEA PER REQUEST;ASSESSMENT COMPLETED;RESPIRATIONS EVEN AND UNLABORED ON RA,CLEAR LUNG SOUNDS;ABDOMEN SOFT ON PALPATION AND ACTIVE IN ALL 4 QUADRANTS, PEG TUBE NOTED WITH 0 RESIDUAL;STRONG PEDAL PULSES;BERKOWITZ CATHETER DRAINING CLEAR/YELLOW URINE TO GRAVITY WITH EASE, STAT LOCK NOTED TO RIGHT THIGH;#22G TO RW INFUSING NS @ 80ML/HR,SITE APPPEARS HEALTHY;TELE MONITORING IN PLACE;ACCUCHECK 178;PT RE-POSITIONED FOR COMFORT;PT DENIES ANY ADDITIONAL NEEDS AND IS ENCOURAGED TO CALL FOR ASSISTANCE IF NEEDED;FALL PRECAUTIONS IN PLACE WITH BED IN THE LOWEST POSITION AND CALL LIGHT IN REACH;FREQUENT ROUNDS MADE.
--- NOTE | 2024-02-27 11:18 | NUR ---
AT BEDSIDE DISCUSSING POC WITH PT.
--- NOTE | 2024-02-27 11:20 | NUR ---
PT RESTING IN SEMI FOWLERS POSITION;REPORTS NAUSEA AND ABDOMINAL PAIN HAVE SUBSIDED;IV SITE TO RW REMAINS PATENT;TELE MONITORING IN PLACE;PEG TUBE PATENT AND PER BOLUS FEEDS TO BE HELD TODAY 02/27/24 AND RESUME TOMORROW 02/28/24. Q5 80CC FLUSH TO STILL BE PROVIDED AND ORDERED MEDICATIONS;BERKOWITZ CATHETER REMAINS PATENT DRAINING TO GRAVITY WITH EASE;ALL SAFETY PRECAUTIONS IN PLACE;CALL LIGHT IN REACH;FREQUENT ROUNDS MADE.
--- NOTE | 2024-02-27 12:15 | NUR ---
80CC FLUSH PROVIDED AT THIS TIME TO PEG TUBE. 0 RESIDUAL NOTED PRIOR. HOB ELEVATED 45.PT TOLERATED WELL.
[2024-02-27] MEDS ORDERED: DEXTROSE 5% / 0.9% NACL 1,000 ML IV PRN (13:00)
--- NOTE | 2024-02-27 13:35 | NUR ---
PT MEDICATED WITH PRN ZOFRAN 4MG IVP FOR NAUSEA PER REQUEST.
--- NOTE | 2024-02-27 15:10 | NUR ---
PT RESTING IN RIGHT SIDE LAYING POSITION;RESPIRATIONS REMAIN EVEN AND UNLABORED ON RA;PT REPORTS NAUSEA HAS SUBSIDED SINCE PRN ZOFRAN ADMINISTRATION;PT DENIES ANY CURRENT PAIN OR DISCOMFORTS;TELE MONITORING IN PLACE;#22G TO RW INFUSING D5 NS @80ML/HR;BERKOWITZ CATHETER CONTINUES TO DRAIN TO GRAVITY WITH EASE;CALL LIGHT IN REACH;FREQUENT ROUNDS MADE.
--- NOTE | 2024-02-27 16:54 | NUR ---
FLUSH TO PEG TUBE PROVIDED AT THIS TIME. 0 RESIDAL NOTED PRIOR. PT TOLERATED 80CC. HOB TO REMAIN ELEVATED.
--- NOTE | 2024-02-27 18:30 | NUR ---
HIEU PELAEZA REPORTED ELEVATED TEMP. PT REPORTING THAT SHE DOES NOT FEEL WELL. RECTAL TEMP CHECKED RESULTING IN 102.6. NOTIFIED AND NEW ORDER RECEIVED FOR TYLENOL 650MG VT Q4HR PRN FEVER.FREQUENT ROUNDS MADE
[2024-02-27] MEDS ORDERED: ACETAMINOPHEN 325 MG/TAB PO PRN (18:45)
--- NOTE | 2024-02-27 18:52 | NUR ---
PT MEDICATED WITH PRN TYLENOL 650MG VT FOR RECTAL TEMP OF 102.6. COOL CLOTH PROVIDED TO FOREHEAD. AC LOWERED AND BLACKETS REMOVED.
--- NOTE | 2024-02-27 19:41 | NUR ---
RECEIVED REPORT FROM [facility] NURSE ADITYA ZARAGOZA. UPON ENTERING ROOM, VOMIT NOTED ON PT, LINENS AND FLOOR. VEGETABLE FARM MANAGER AND MULTIPLE TUBE WINDING MACHINE OPERATOR CLEANED PT UP, CHANGED LINENS, AND APPLIED ICE PACKS UNDER PT ARMS TO HELP WITH FEVER. MICHAEL HOSE NOTED TO BILAT LOWER EXTREMETIES, READJUSTED AND FIXED CREASES. BERKOWITZ NOTED WITH DARK YELLOW CLEAR URINE PRESENT. PT ON RM AIR AND TELE MONITOR IN PLACE. PEG TUBE NOTED TO LUQ. PT IS A/OX3, VERY SOFT SPOKEN AND COMMUNICATES MOSTLY BY NODDING HEAD YES OR NO. PT DOES STILL C/O FEELING NAUSEOUS. WILL FOLLOW UP PER EMAR. NURSING ASSESSMENT COMPLETED, IV SITE APPEARS HEALTHY AND INTACT WITH IVF RUNNING PER EMAR. EDUCATED PT ON PLAN OF CARE AND MED SCHEDULE. CALL LIGHT WITHIN REACH AND SAFETY PRECAUTIONS IN PLACE.
[2024-02-27] MEDS ORDERED: PROMETHAZINE HCL 25 MG/ML AMP IV ONE (20:45)
[2024-02-27 21:21] LABS: URINE BILIRUBIN - DIPSTICK Negative (NEGATIVE); URINE BLOOD DIPSTICK Small (NEGATIVE); URINE GLUCOSE - DIPSTICK Negative (NEGATIVE); URINE KETONE Negative (NEGATIVE); URINE PROTEIN - DIPSTICK 30 mg/dL (NEG-TRACE); URINE SPECIFIC GRAVITY 1.025; URINE UROBILINOGEN - DIPSTICK 0.2 E.U./dL (0.2)
[2024-02-27] MEDS ORDERED: PROMETHAZINE HCL 25 MG/ML AMP IV PRN (21:25)
[2024-02-27 21:26] LABS: URINE COLOR Yellow; URINE NITRITE - DIPSTICK Positive (Negative)
[2024-02-27 21:27] LABS: URINE LEUK ESTERASE Small (NEGATIVE)
[2024-02-27 21:28] LABS: URINE BACTERIA FEW hpf; URINE SQUAMOUS EPITHELIAL CELL FEW EPI/hpf (0-FEW)
--- NOTE | 2024-02-27 22:32 | NUR ---
pt still c/o unrelived nausea after medication per emar was adminsitered. pegtube placement checked using stethescope, risidual checked with 0cc noted. flushed pt peg tube with 80cc, adminsitered schedule medication per emar and flushed with 80cc again after adminsitration. pt tolerated flush well, did show some signs of facial grimacing during second flush. repostioned pt fowlers in bed. call light within reach and safety precautions in place.
[2024-02-28] VITALS (9 sets, daily range): BP systolic 93–161; BP diastolic 54–77
--- NOTE | 2024-02-28 02:45 | NUR ---
RESIDUAL CHECKED IN PT PEGTUBE, ZERO NOTED. FLUSHED WITH 80CC WATER, PT TOLERATED WELL BUT DOES STILL C.O NAUSEA. VSS. NO S/S OF DISTRESS. CALL LIGHT WITHIN REACH AND SAFETY PRECAUTIONS IN PLACE. WILL FOLLOW UP WITH NAUSEA MED PER EMAR.
--- NOTE | 2024-02-28 03:01 | NUR ---
PT HAS ELEVATED TEMP 101.1F TAKEN ORALLY AND C/O NAUSEA AND PAIN IN LEGS. MEDICATIONS PER EMAR ADMINISTERED FOR NAUSEA AND TEMP. RMEOVED ONE BLANKET FROM PT AND APPLIED ICE PACKS TO UNDER ARMS TO HELP WITH TEMP. REPOSITIONED PT SITTING UP FOWLERS IN BED. PILLOW APPLIED TO UNDERNEATH LEGS FOR COMFORT. CALL LIGHT WITHIN REACH AND SAFETY PRECAUTIONS IN PLACE.
--- NOTE | 2024-02-28 04:28 | NUR ---
REASSESSED PT TEMP, RECTAL TEMP RECEIVED OF 102.5F. TEMP HAS INCREASED AND PT CONTINUES TO C/O NAUSEA. PHYSICIAN INFORMED OF PT STATUS AND VERBAL ORDER GIVEN AND FAXED TO PHARMACY AWAITING VERIFICATION. PT GIVEN ONLY A SHEET AND ICE PACKS WERE REAPPLIED. CALL LIGHT WITHIN REACH AND SAFETY PRECAUTIONS IN PLACE.
[2024-02-28] MEDS ORDERED: IBUPROFEN 600 MG/TAB PO SCH (04:45)
[2024-02-28 04:58] LABS: BASO% 0.6 % (0-3); EOS% 0.1 % (0-8); HEMATOCRIT 36.6 % (37.0-47.0); HEMOGLOBIN 12.6 g/dl (12.0-16.0); IMMATURE GRANULOCYTES 0.2 % (0.0-5.0); LYMPH% 8.4 % (15-41); MEAN CELL VOLUME 91.5 fL CALC (80.0-100.0); MEAN CORPUSCULAR HGB 31.5 pG CALC (26.0-32.0); MEAN CORPUSCULAR HGB CONC 34.4 g/dL CAL (32.0-36.0); MONO% 5.1 % (2-13); NEUT# 7.33 thou/uL (2.00-7.15); NEUT% 85.6 % (42-76); RED CELL DISTRI WIDTH 13.2 % (11.5-15.5)
[2024-02-28 05:17] LABS: ALBUMIN 3.3 g/dL (3.2-5.0); BILIRUBIN, TOTAL 1.3 mg/dL (0.02-1.3); CREATININE 0.4 mg/dL (0.5-1.0); MAGNESIUM 1.7 mg/dL (1.6-2.3); POTASSIUM 3.7 mmol/l (3.5-5.1)
[2024-02-28] MEDS ORDERED: cefTRIAXone SODIUM 2 GM in SODIUM CHLORIDE 0.9% 100 ML IV SCH (05:30)
[2024-02-28] MEDS ORDERED: VANCOMYCIN HCL 1 GM in SODIUM CHLORIDE 0.9% 250 ML IV SCH (06:00)
[2024-02-28] MEDS ORDERED: Levofloxacin 750 mg Premix 150 ML IV SCH (06:00)
--- NOTE | 2024-02-28 08:28 | NUR ---
REPORT GIVEN BY TANIYA. PATIENT RESTING IN BED WITH EYES CLOSED. RESP EVEN AND UNLABORED. NO S/S OF DISTRESS NOTED. FALL AND SAFTEY PRECAUTIONS IN PLACE. BERKOWITZ DRAINING PADMINI COLORED URINE.
[2024-02-28] MEDS ORDERED: KETOROLAC TROMETHAMINE 15 MG/ML SDV IV PRN (09:15)
--- NOTE | 2024-02-28 09:46 | NUR ---
PATIENT AT CT AND X-RAY
--- NOTE | 2024-02-28 11:41 | NUR ---
CRITIAL FINDINGS ON CT ABD/PELVIS. NOTIFIED
[2024-02-28] MEDS ORDERED: METOCLOPRAMIDE HCL 10 MG/2 ML SDV IV ONE (15:55)
--- NOTE | 2024-02-28 16:17 | NUR ---
CALLED FOR ADDTIONAL NAUSEA MEDICATION. PATIENT VOMITING
[2024-02-28] MEDS ORDERED: METOCLOPRAMIDE HCL 10 MG/2 ML SDV IV PRN (16:45)
--- NOTE | 2024-02-28 22:00 | NUR ---
PT LAYING IN BED SEMI FOLWERS. PT PRESENTING FLUSHED, SKIN FEVERISH, C/O NAUSEA. BUTT WELDER PERFORMED RECTAL TEMPT, READING 103.3F. MEDICATION ADMINSITERED PER EMAR FOR FEVER, ALL BLANKETS REMOVED FROM PT, ICE PACK AND COLD WASH CLOTHS APPLIED. ADMINSITERED MEDICAITON FOR NAUSEA PER EMAR. PT LAYING IN BED FOWLERS WITH LEGS ELEVATED. CALL LIGHT WITHIN REACH AND SAFETY PRECAUTIONS IN PLACE.
--- NOTE | 2024-02-28 22:00 | NUR ---
PT PEG TUBE WAS FLUSHED PER PROTOCOL. 80CC FLUSHED WITHOUT DIFFICULTY. PT TOLERATED WELL AND SHOWS NO SIGNS OF PAIN.
--- NOTE | 2024-02-28 23:45 | NUR ---
REASSESSED PT TEMP, DOWN TO 99.0F. PT STILL C/O NAUSEA HOWEVER AT THIS TIME. WILL FOLLOW UP PER EMAR. PT DENIES ANY PAIN. SHEET GIVEN TO COVER PT SINCE TEMP DECREASED. VSS. NO S/S OF DISTRESS. CALL LIGHT WITHIN REACH AND SAFETY PRECAUTIONS IN PLACE.
[2024-02-29 00:11] VITALS: BP 93/59
--- NOTE | 2024-02-29 03:38 | NUR ---
pt repositioned in bed. residual checked in pegtube, able to draw back 10cc of yellow gastric content. pt tube flushed with 80cc per order.
[2024-02-29 04:57] VITALS: BP 129/79
[2024-02-29 05:01] LABS: BASO% 0.5 % (0-3); EOS% 0.2 % (0-8); HEMATOCRIT 35.4 % (37.0-47.0); HEMOGLOBIN 11.8 g/dl (12.0-16.0); IMMATURE GRANULOCYTES 0.1 % (0.0-5.0); LYMPH% 21.1 % (15-41); MEAN CELL VOLUME 93.4 fL CALC (80.0-100.0); MEAN CORPUSCULAR HGB 31.1 pG CALC (26.0-32.0); MEAN CORPUSCULAR HGB CONC 33.3 g/dL CAL (32.0-36.0); MONO% 11.3 % (2-13); NEUT# 5.73 thou/uL (2.00-7.15); NEUT% 66.8 % (42-76); RED BLOOD COUNT 3.79 mill/uL (4.20-5.60)
[2024-02-29 05:09] LABS: CREATININE 0.4 mg/dL (0.5-1.0); MAGNESIUM 1.9 mg/dL (1.6-2.3); POTASSIUM 3.3 mmol/l (3.5-5.1); TOTAL PROTEIN 5.8 g/dL (6.3-8.2)
--- NOTE | 2024-02-29 07:35 | NUR ---
PT LAYING IN BED RESTING WITH EYES CLOSED, AROUSES EASILY TO VERBAL STIMULI, PT A&O X3, RESP. EVEN AND UNLABORED, LUNG SOUNDS ARE CLEAR, NORMAL NORMAL S1 S2 HEART SOUNDS, TELE MONITOR IN PLACE, ABD SOFT AND DISTENDED WITH ACTIVE BOWEL SOUNDS, 22G IV IN R WRIST FOUND DISLODGED, IV REMOVED AND NEW IV STARTED, STRONG RADIAL PULSES, WEAK PEDAL PULSES, SAFETY MEASURES REINFORCED, CALL GRIGGS WITHIN REACH
--- NOTE | 2024-02-29 11:01 | NUR ---
PRELIMINARY BLOOD CULTURE SHOWS GRAM NEGATIVE RODS IN 1/4 VIALS. RESULTS REPORTED TO TOAN PEREZ AND DR SHAH. CEFEPIME ADDED.
[2024-02-29 11:53] VITALS: BP 96/59
--- NOTE | 2024-02-29 12:00 | NUR ---
PT LAYING IN BED RESTING WITH EYES CLOSED, AROUSES EASILY TO VERBAL STIMULI, TEMP. RECHECKED AT THIS TIME 98.9, PT DENIES ANY PAIN AT THIS TIME, CALL GRIGGS WITHIN REACH
[2024-02-29] MEDS ORDERED: CEFEPIME HYDROCHLORIDE 2 GM in SODIUM CHLORIDE 0.9% 100 ML IV SCH (14:00)
--- NOTE | 2024-02-29 16:00 | NUR ---
PT LAYING IN BED RESTING WITH EYES CLOSED, AROUSES EASILY TO VERBAL STIMULI, PT'S TEMP CHECKED RECTALLY, PT DENIES ANY PAIN AT THIS TIME, SAFETY MEASURES REINFORCED, CALL GRIGGS WITHIN REACH
[2024-02-29 16:17] VITALS: BP 105/62
[2024-02-29 19:20] VITALS: BP 131/74
--- NOTE | 2024-02-29 20:00 | NUR ---
RECEIVED REPORT FROM [facility] NURSE TENA ZARAGOZA. PT NOTED SITTING UP FOWLERS IN BED, RM AIR, A/OX3. PT STATES FEELING BETTER AND PRESENTS IN BETTER HEALTH. PT DENIES ANY N/V/P. NURSING ASSESSMENT COMPELTED, BERKOWITZ CATHETER NOTED WITH DARK PADMINI CLOUDY URINE, TELE MONITOR PLACE. IV SITE APPEARS HEALTHY AND INTACT WITH IVF RUNNING PER EMAR. VSS. NO S/S OF DISTRESS. CALL LIGHT WITHIN REACH AND SAFETY PRECAUTIONS IN PLACE.
--- NOTE | 2024-02-29 22:00 | NUR ---
PEG TUBE RESIDUAL CHECKED, <10CC OF YELLOW STOMACH BILE. FLUSHED WITH 80CC PER PHYSICIAN ORDER. MEDICATIONS PER EMAR ADMINISTERED THROUGH PEG TUBE PER PROTOCOL AND FLUSHED AGAIN WITH 80CC. PT TOLAREATED WELL. PT DID C/O NAUSEA, ADMINISTERED NAUSEA MED PER EMAR. REPOSITIONED PT IN BED. NO S/S OF DISTRESS. CALL LIGHT WITHIN REACH AND SAFETY PRECAUTIONS IN PLACE.
[2024-03-01] VITALS (10 sets, daily range): BP systolic 115–162; BP diastolic 52–80
--- NOTE | 2024-03-01 | NUR ---
PT GLUCOSE CHECKED, WNL AT THIS TIME. PT LAYING IN BED SEMI FOWELRS, TV ON HOWEVER PT RESTING COMFORTABLY. NO S/S OF DISTRESS. VSS. CALL LIGHT WITHIN REACH AND SAFETY PRECAUTIONS IN PLACE.
--- NOTE | 2024-03-01 03:41 | NUR ---
PT PEGTUBE RESIDUAL CHECKED, NO RESIDUAL PRESENT. PT DENIES ANY N/V/P. FLUSHED WITH 80CC PER PHYSICIAN ORDER. PT TOLERATED WELL. PT LAYING IN BED SEMI FOWLERS, RESTING COMFORTABLY. VSS. NO S/S OF DISTRESS. CALL LIGHT WITHIN REACH AND SAFETY PRECAUTIONS IN PLACE.
[2024-03-01 04:26] LABS: ALBUMIN 2.8 g/dL (3.2-5.0); BILIRUBIN, TOTAL 0.7 mg/dL (0.02-1.3); CREATININE 0.4 mg/dL (0.5-1.0); MAGNESIUM 1.8 mg/dL (1.6-2.3); POTASSIUM 3.1 mmol/l (3.5-5.1); TOTAL PROTEIN 5.5 g/dL (6.3-8.2)
[2024-03-01 04:33] LABS: BASO% 0.5 % (0-3); HEMATOCRIT 34.2 % (37.0-47.0); HEMOGLOBIN 11.7 g/dl (12.0-16.0); IMMATURE GRANULOCYTES 0.2 % (0.0-5.0); LYMPH% 21.4 % (15-41); MEAN CORPUSCULAR HGB 30.8 pG CALC (26.0-32.0); MEAN CORPUSCULAR HGB CONC 34.2 g/dL CAL (32.0-36.0); MONO% 12.3 % (2-13); NEUT# 4.2 thou/uL (2.00-7.15); NEUT% 65.6 % (42-76); RED BLOOD COUNT 3.8 mill/uL (4.20-5.60); RED CELL DISTRI WIDTH 13.1 % (11.5-15.5)
[2024-03-01] MEDS ORDERED: D5NS W/KCL 20MEQ 1000ML 1,000 ML IV PRN (07:35)
--- NOTE | 2024-03-01 07:45 | NUR ---
PT LAYING IN BED RESTING WITH EYES CLOSED, AROUSES EASILY TO VERBAL STIMULI, PT IS A & O X3, PUPILS PERRL AND SLUGGISH, RESP. EVEN AND UNLABORED, LUNG SOUNDS CLEAR, ABD SOFT AND DISTENDED WITH ACTIVE BOWEL SOUNDS, NORMAL S1 S2 HEART SOUNDS, STRONG RADIAL AND PEDAL PULSES, BERKOWITZ CATH IN PLACE DRAINING CLOUDY PADMINI COLORED URINE, 22G RW IV WITH FLUIDS INFUSING AT PRESCRIBED RATE, SAFETY MEASURES REINFORCED, CALL GRIGGS WITHIN REACH
[2024-03-01] MEDS ORDERED: Levofloxacin 750 mg Premix 150 ML IV SCH (09:00)
--- NOTE | 2024-03-01 09:51 | NUR ---
BOOKED AN INFECTIOUS DISEASE CONSULT WITH DR DE LA FUENTE VIA THE [employer] [facility] AT 0951 HRS.
--- NOTE | 2024-03-01 10:15 | NUR ---
ATTEMPTED BOLUS FEEDING, PT DID NOT TOLERATE, PT VOMITED, NAUSEA MEDICATION GIVEN, PT GIVEN A BED BATH AND LINENS CHANGED, PT DENIES ANY NAUSEA AT THIS TIME
--- NOTE | 2024-03-01 12:00 | NUR ---
PT RESTING WITH EYES CLOSED, AROUSES EASILY TO VERBAL STIMULI, PT SHOWS NO SIGNS OF DISTRESS AT THIS TIME
--- NOTE | 2024-03-01 16:00 | NUR ---
PT LAYING IN BED WATCHING TV, PT DENIES ANY NAUSEA OR PAIN AT THIS TIME, SAFETY MEASURES REINFORCED, CALL GRIGGS WITHIN REACH
--- NOTE | 2024-03-01 20:00 | NUR ---
RECEIVED REPORT FROM [facility] NURSE. PT NOTED LAYING IN BED SEMI FOWLERS. PT IS A/OX3, RM AIR, SOFT SPOKEN. PT DENIES ANY N/V/P AT THIS TIME. BERKOWITZ NOTED WITH CLOUDY PADMINI COLORED URINE. NURSING ASSESSMENT COMPLETED AND IV SITE APPEARS HEALTHY AND INTACT WITH IVF RUNNING PER EMAR. VSS. NO S/S OF DISTRESS. EDUCATED ON PLAN OF CARE AND MED SCHEDULE. CALL LIGHT WITHIN REACH AND SAFETY PRECAUTIONS IN PLACE.
--- NOTE | 2024-03-01 22:00 | NUR ---
PT PEGTUBE ASSESSED. RESIDUAL <10CC YELLOW BILE, FLUSHED TUBE WITH 80CC AND THEN ADMINISTERED MEDICATIONS PER EMAR AND FLUSHED WITH ANOTHER 80CC. PT TOLERATED WELL BUT DID C/O NAUSEA. ADMINSITERED MEDICATION PER EMAR FOR NAUSEA. PT REPOSITIONED FOWLERS IN BED, TV IS ON. NO S/S OF DISTRESS. CALL LIGHT WITHIN REACH AND SAFETY PRECAUTIONS IN PLACE.
[2024-03-02] VITALS (7 sets, daily range): BP systolic 137–176; BP diastolic 76–92
--- NOTE | 2024-03-02 00:30 | NUR ---
PT LAYING IN BED SEMI FOWLERS, RESTING COMFORTABLY. VSS. DENIES ANY N/V/P AT THIS TIME. NO S/S OF DISTRESS. CALL LIGHT WITHIN REACH AND SAFETY PRECAUTIONS IN PLACE.
--- NOTE | 2024-03-02 03:10 | NUR ---
PT PEGTUBE CHECKED. <10CC RESIDUAL, YELLOW STOAMCH BILE. FLUSHED WITH 80CC PER ORDER, PT TOLERATED WELL. PT LAYING IN BED FOWLERS, RESTING COMFORTABLY, NO S/S OF DISTRESS. CALL LIGHT WITHIN REACH AND SAFETY PRECAUTIONS IN PLACE.
[2024-03-02 04:59] LABS: BASO% 0.9 % (0-3); EOS% 1.5 % (0-8); HEMATOCRIT 35.7 % (37.0-47.0); HEMOGLOBIN 12.1 g/dl (12.0-16.0); IMMATURE GRANULOCYTES 0.2 % (0.0-5.0); LYMPH% 26.4 % (15-41); MEAN CELL VOLUME 90.8 fL CALC (80.0-100.0); MEAN CORPUSCULAR HGB 30.8 pG CALC (26.0-32.0); MEAN CORPUSCULAR HGB CONC 33.9 g/dL CAL (32.0-36.0); MONO% 12.5 % (2-13); NEUT# 3.9 thou/uL (2.00-7.15); NEUT% 58.5 % (42-76); RED BLOOD COUNT 3.93 mill/uL (4.20-5.60); RED CELL DISTRI WIDTH 13.1 % (11.5-15.5)
[2024-03-02 05:17] LABS: ALBUMIN 2.7 g/dL (3.2-5.0); BILIRUBIN, TOTAL 0.7 mg/dL (0.02-1.3); CREATININE 0.3 mg/dL (0.5-1.0); MAGNESIUM 1.9 mg/dL (1.6-2.3); POTASSIUM 3.1 mmol/l (3.5-5.1); TOTAL PROTEIN 5.4 g/dL (6.3-8.2)
[2024-03-02] MEDS ORDERED: POTASSIUM CHLORIDE 20 MEQ/PKT POWDER PO SCH (09:00)
[2024-03-02] MEDS ORDERED: SERTRALINE HCL 50 MG/TAB PO SCH (09:00)
--- NOTE | 2024-03-02 09:47 | NUR ---
PATIENT LAYING IN BED. PATIENT A&OX3, PEG TUBE INTACT AND FLUSHES WELL. NO S/SX OF PAIN OR DISTRESS NOTED. WILL CONTINUE TO MONITOR.
--- NOTE | 2024-03-02 12:44 | NUR ---
PATIENT LAYING IN BED. NO S/SX OF PAIN OR DISTRESS NOTED. WILL CONTINUE TO MONITOR.
[2024-03-02] MEDS ORDERED: SODIUM CHLORIDE 0.9% IV PRN (14:30)
[2024-03-02] MEDS ORDERED: DEXTROSE IV PRN (14:30)
[2024-03-02] MEDS ORDERED: POTASSIUM CHLORIDE IV PRN (14:30)
--- NOTE | 2024-03-02 16:02 | NUR ---
PATIENT LAYING IN BED WITH EYES CLOSED BUT EASILY AROUSE. NO S/SX OF PAIN OR DISTRESS NOTED. WILL CONTINUE TO MONITOR.
[2024-03-02] MEDS ORDERED: VANCOMYCIN 25 MG/ML VT SCH (17:00)
--- NOTE | 2024-03-02 19:04 | NUR ---
PT BP WAS ELEVATED WITH SYS >170. JERMAINE MONTALVO ADMINISTERED MEDICATION PER EMAR FOR ELEVATED BP. WILL REASSESS ACCORDINGLY.
--- NOTE | 2024-03-02 19:39 | NUR ---
RECEIVED REPORT FROM [facility] NURSE ELIU DEAN. PT NOTED LAYING IN BED SEMI FOWLERS, RESTING COMFORTABLY W/ EYES CLOSED. AROUSABLE TO SPEECH. PT IS A/OX3, ON RM AIR. PT DENIES ANY N/V/P. NURSING ASSESSMENT COMPLETED, BERKOWITZ STILL IN PLACE WITH URINE NOTED. TELE MONITORING. IV SITE APPEARS HEALTHY AND INTACT WITH IVF RUNNING PER EMAR. EDUCATED PT ON PLAN OF CARE AND MED SCHEDULE. VSS. NO S/S OF DISTRESS. CALL LIGHT WITHIN REACH AND SAFETY PRECAUTIONS IN PLACE.
--- NOTE | 2024-03-02 21:51 | NUR ---
PT C/O NAUSEA WHEN ADMINISTERING MEDICATIONS VIA PEGTUBE, FACIAL GRIMACING AND PT DID C/O PAIN WHEN FLUSHING. ADMINISTERED NAUSEA MEDICATION PER EMAR. PT REPOSITIONED IN BED HIGH FOWLERS AND EMESIS BAG OFFERED. CALL LIGHT WITHIN REACH AND SAFETY PRECAUTIONS IN PLACE.
[2024-03-03] VITALS (9 sets, daily range): BP systolic 141–186; BP diastolic 65–90
--- NOTE | 2024-03-03 01:57 | NUR ---
RESIDUAL CHECKED FROM PT PEGTUBE, <5CC PRESENT. FLUSHED TUBE WITH 80CC PER ORDER AND PT TOLERATED WELL. PT DENIES AND N/V/P AT THIS TIME. CALL LIGHT WITHIN REACH AND SAFETY PRECAUTIONS IN PLACE.
--- NOTE | 2024-03-03 04:52 | NUR ---
PT BP IS ELEVATED AT THIS TIME, WITH A SYSTOLIC >180. RN ALONZO MONTALVO TO ADMINSITER MEDICAITON PER EMAR FOR BP. RESIDUAL CHECKED FROM PT PEG TUBE, 0CC. FLUSHED WITH 80CC AND PT TOLERATED WELL. DENIES ANY N/V/P AT THIS TIME. REPOSITIONED TO FOWLERS IN BED. TELE MONITOR IN PLACE. NO S/S OF DISTRESS. CALL LIGHT WITHIN REACH AND SAFETY PRECAUTIONS IN PLACE.
--- NOTE | 2024-03-03 06:56 | NUR ---
PATIENT LAYING IN BED WITH EYES CLOSED EASILY AROUSE. PATIENT A&OX3. PEG TUBE FLUSHES WELL. NO S/SX OF PAIN OR DISTRESS NOTED. WILL CONTINUE TO MONITOR.
[2024-03-03] MEDS ORDERED: POTASSIUM CHLORIDE 20MEQ 100 ML IV SCH (11:00)
--- NOTE | 2024-03-03 12:20 | NUR ---
PATIENT SITTING SEMI-FOWLERS IN BED WITH EYES CLOSED RESTING. BREATHING UNLABORED ON ROOM AIR. TELE INTACT. IV IN RIGHT WRIST INFUSING FLUIDS PER EMAR;SITE CLEAN AND INTACT. NO SIGNS OF DISTRESS NOTED. BED IN LOWEST POSITION. CALL LIGHT WITHIN REACH. NO OTHER NEEDS AT THIS TIME. POC ONGOING.
--- NOTE | 2024-03-03 13:05 | NUR ---
NEW BERKOWITZ CATHETER PLACED BY MELVA DEAN.
--- NOTE | 2024-03-03 16:12 | NUR ---
PATIENT LYING ON HER RIGHT SIDE IN BED. BREATHING UNLABORED ON ROOM AIR. TELE INTACT. IV IN RIGHT HAND INFUSING FLUIDS PER EMAR;SITE CLEAN AND INTACT. PT DENIES ANY PAIN OR N/D/V AT THIS TIME. BERKOWITZ IN PLACE OUTPUTING CLEAR, YELLOW URINE. BED IN LOWEST POSITION. CALL LIGHT WIHTIN REACH. NO NEEDS AT THIS TIME. POC ONGOING.
--- NOTE | 2024-03-03 19:59 | NUR ---
RECEIVED REPORT FROM [facility] NURSE. PT NOTED SITTING UP FOWLERS IN BED WITH VISITORS AT BEDSIDE. PT IS A/OX3, DENIES ANY PAIN BUT C/O NAUSEA. ADMINISTERED NAUSEA MED PER EMAR. NURSING ASSESSMENT COMPLETED, IV SITE APPEARS HEALTHY AND INTACT, FLUSHES WITHOUT DIFFICULTY. BERKOWITZ NOTED, AND TELE MONITOR IN PLACE. EDUCATED PT ON PLAN OF CARE, FEEDS, AND MED SCHEDULE FOR TONIGHT. CALL LIGHT WITHIN REACH AND SAFETY PRECAUTIONS IN PLACE.
--- NOTE | 2024-03-03 22:00 | NUR ---
PT FEEDING WAS COMPLETED. PT WAS POSITIONED HIGH FOWLERS IN BED, PT WAS STILL C/O MILD NAUSEA BEFORE FEED SO FEED WAS CUT IN HALF TO DETERMINE PT TOLERANCE. PEGTUBE RESIDUAL 0CC, FLUSHED WITH 80CC, 125CC JEVITY 1.5 ADMINISTERED AND TUBE FLUSHED WITH 80CC. PT TOLERATED FEEDING WELL. PT STAYING IN HIGH FOLWERS POSITION PER FEEDING PROTOCOL. EMESIS BAG WAS PROVIDED PRECAUTION. CALL LIGHT WITHIN REACH AND SAFETY PRECAUTIONS IN PLACE.
[2024-03-04] VITALS (10 sets, daily range): BP systolic 128–177; BP diastolic 55–81
--- NOTE | 2024-03-04 00:33 | NUR ---
PT LAYING IN BED SEMI FOWLERS, RESTING COMFORTABLY. PT DENIES ANY N/V/P AT THIS TIME. TOLERATED FEED WELL. VSS. NO S/S OF DISTRESS. CALL LIGHT WITHIN REACH AND SAFETY PRECAUTIONS IN PLACE.
--- NOTE | 2024-03-04 00:39 | NUR ---
PT RESTING IN BED NO DISTRESS NOTED. PEG TUBE RESIDUAL 0ML. BOLOUS FEED GIVEN WITH 150ML FLUSH. CALL LIGHT WITHIN REACH. PLAN OF CARE ONGOING.
--- NOTE | 2024-03-04 03:09 | NUR ---
REPOSITIONED PT IN BED TO HIGH FOWLERS. RESIDUAL CHECKED FROM PEG TUBE, 0CC. FLUSHED WITH 80CC PER ORDER AND ADMINISTERED 125CC BOLUS OF JEVITY 1.5 THEN FLUSHED WITH ANOTHER 80CC. PT TOLERATED FEEL WELL, DENIED ANY N/V/P WHEN FEEDING. WILL KEEP PT IN HIGH FOWLERS PER PROTOCOL. CALL LIGHT WITHIN REACH AND SAFETY PRECAUTIONS IN PLACE.
[2024-03-04 05:31] LABS: BASO% 0.7 % (0-3); HEMOGLOBIN 12.6 g/dl (12.0-16.0); IMMATURE GRANULOCYTES 0.3 % (0.0-5.0); LYMPH% 26.2 % (15-41); MEAN CELL VOLUME 90.2 fL CALC (80.0-100.0); MEAN CORPUSCULAR HGB 30.7 pG CALC (26.0-32.0); MEAN CORPUSCULAR HGB CONC 34.1 g/dL CAL (32.0-36.0); MONO% 9.3 % (2-13); NEUT# 5.27 thou/uL (2.00-7.15); NEUT% 61.5 % (42-76); RED BLOOD COUNT 4.1 mill/uL (4.20-5.60)
[2024-03-04 05:53] LABS: BILIRUBIN, TOTAL 0.7 mg/dL (0.02-1.3); CREATININE 0.3 mg/dL (0.5-1.0); MAGNESIUM 1.8 mg/dL (1.6-2.3); POTASSIUM 3.3 mmol/l (3.5-5.1); TOTAL PROTEIN 5.7 g/dL (6.3-8.2)
--- NOTE | 2024-03-04 08:30 | NUR ---
completed feeding, no issues, patient tolerated
--- NOTE | 2024-03-04 08:30 | NUR ---
patient a/o x3; room air; breathing unlabored and even; stated some pain, medicated per EMAR: iv site clean anad intact running with fluids; tele leads intact and working with no issues; denied any v/d; completed first feeding, patient tolerated well with noissues; no s/s of distress at this time; patient laying semi felder in bed; call light within reach, bed in lowest postion; bed alarm activated
[2024-03-04] MEDS ORDERED: 0.9% NaCL W/KCL 20 MEQ 1,000 ML IV SCH (09:00)
--- NOTE | 2024-03-04 12:22 | NUR ---
Pts OT treatment will be on hold week of 03/07- due to clinician out of town. OT treatment to resumed the following week.
--- NOTE | 2024-03-04 12:39 | NUR ---
PATIENT A/O X3; ROOM AIR; BREATHING UNLABORED AND EVEN; DENIED ANY N/D/V AT THIS TIME; DENIED NEEDING ANYTHING AT THIS TIME; TELE LEADS ARE INTACT AND WORKING; IV SITE CLEAN AND INTACT RUNNING WITH FLUIDS @50; NO S/S OF DISTRESS AT THIS TIME; MEDICATION REVIEWED; PATIENT FAMILY IN THE ROOM WITH PATIENT; CALL LIGHT WITHIN REACH,VERBALIZED UNDERSTANDING ON HOW TO USE, PERSONAL ITEMS WITHIN REACH, BED IN LOWEST POSTION; SAFTEY MEASURES IN PLACE
--- NOTE | 2024-03-04 13:30 | NUR ---
COMPLETED FEEDING AT THIS TIME, PATIENT TOLERATED FEEDING WITH NO ISSUES
--- NOTE | 2024-03-04 16:34 | NUR ---
PATIENT A/O X3; [place] AIR BREATHING UNLABORED AND EVEN; PATIENT SITTING IN CHAIR NEXT TO BED; DENEID ANY PAIN ; DENIED ANY N/D/V AT THIS TIME; FAMILY FRIEND IN ROOM WITH PATIENT; TELE LEAD INTACT AND WORKING; IV SITE CLEAN AND INTACT RUNNING WITH NS/K @50; NO COMPLAINST AT THIS TIME; BERKOWITZ WORKING WITH NO ISSUES; PEG TUBE INTACT WITH NO ISSUES; CALL LIGT WITHIN REACH,BED IN LOWEST POSTION ;PERSONAL ITEMS WITHIN REACH, SAFTEY MEASURES IN PLACE
--- NOTE | 2024-03-04 18:04 | NUR ---
COMPLETED FEEDING WITH NO ISSUES, PATIENT TOLERATED WITH NO ISSUES, FLUSHED PRIOR AND AFTER
--- NOTE | 2024-03-04 20:00 | NUR ---
PT RESTING IN CHAIR NO DISTRESS NOTED. IV FLUSHED WORKING PROPERLY. BERKOWITZ WITH NO KINKS. PEG TUBE WITH CLEAN DRESSING. NO EDEMA NOTED ON EXAM. NO PAIN REPORTED AT THIS TIME. IV MEDICATION GIVEN FOR ELEVATED BP. CALL LIGHT WITHIN REACH. PLAN OF CARE GOING.
[2024-03-05] VITALS (8 sets, daily range): BP systolic 136–177; BP diastolic 64–81
--- NOTE | 2024-03-05 04:00 | NUR ---
PT SLEEPING EASILY AROUSABLE NO DISTRESS NOTED. IV ABX GIVEN. CALL LIGHT WITHIN REACH. NO PAIN REPORTED AT THIS TIME. BED ALARM ON. PLAN OF CARE ONGOING.
--- NOTE | 2024-03-05 06:00 | NUR ---
PT TOLERATED PEG TUBE FEED WHOLE CONTAINER WITH 150 FLUSH.
--- NOTE | 2024-03-05 07:35 | NUR ---
PATIENT LYING SUPINE IN BED WITH EYES CLOSED RESTING. BREATHING UNLABORED ON ROOM AIR. TELE INTACT. IV IN RIGHT HAND SL;SITE CLEAN AND INTACT. BERKOWITZ IN PLACE AND OUTPUTING URINE. NO SIGNS OF DISTRESS OR PAIN NOTED. BED IN LOWEST POSITION. CALL LIGHT WITHIN REACH. NO NEEDS AT THIS TIME. POC ONGOING.
--- NOTE | 2024-03-05 09:40 | NUR ---
ASSISTED PT TO RECLINER WITH VANI JACKSON VIA WALKER. PT AMBULATED WELL WITH NO ISSUES. POC ONGOING.
[2024-03-05 10:05] LABS: BASO% 0.9 % (0-3); EOS% 3.2 % (0-8); HEMATOCRIT 37.8 % (37.0-47.0); HEMOGLOBIN 12.8 g/dl (12.0-16.0); IMMATURE GRANULOCYTES 0.2 % (0.0-5.0); LYMPH% 29.8 % (15-41); MEAN CELL VOLUME 90.2 fL CALC (80.0-100.0); MEAN CORPUSCULAR HGB 30.5 pG CALC (26.0-32.0); MEAN CORPUSCULAR HGB CONC 33.9 g/dL CAL (32.0-36.0); MONO% 8.7 % (2-13); NEUT# 4.86 thou/uL (2.00-7.15); NEUT% 57.2 % (42-76); RED BLOOD COUNT 4.19 mill/uL (4.20-5.60); RED CELL DISTRI WIDTH 13.1 % (11.5-15.5)
--- NOTE | 2024-03-05 10:11 | NUR ---
IN ROOM WITH PT DISCUSSING POC.
[2024-03-05 10:17] LABS: BILIRUBIN, TOTAL 0.5 mg/dL (0.02-1.3); CREATININE 0.3 mg/dL (0.5-1.0); POTASSIUM 3.7 mmol/l (3.5-5.1); TOTAL PROTEIN 5.7 g/dL (6.3-8.2)
--- NOTE | 2024-03-05 11:48 | NUR ---
NO JEVITY 1.5 ON MS. CALLED DIETARY WAS TOLD THEIR WAS NOT ANYMORE. MD NOTIFIED AND STATES TO USE THE GLUCERNA INSTEAD. DURING FEED PT ONLY TOLERATED 50MLS OF THE GLUCERNA AND THEN STARTED FEELING NAUSEOUS. HELD FEED AND ADMINISTERED A DOSE OF PRN REGLEN PER EMAR. PT CURRENTLY SITTING UP AT 45 DEGREE ANGLE IN BED. WILL REASSESS NAUSEA.
--- NOTE | 2024-03-05 12:18 | NUR ---
PATIENT SITTING UP IN BED WITH EYES CLOSED RESTING. BREATHING UNLABORED ON ROOM AIR. IV IN RIGHT HAND INFUSING FLUIDS PER EMAR;SITE CLEAN AND INTACT. PT DENIES ANYMORE NAUSEA AT THIS TIME. TUBE FEEDING FINISHED WITH NO ISSUES. PT DENIES ANY PAIN WELL. BERKOWITZ IN PLACE WITH NO KINKS;425CC EMPTIED OUT AT THIS TIME. TELE INTACT. BED IN LOWEST POSITION. CALL LIGHT WITHIN REACH. NO NEEDS AT THIS TIME. POC ONGOING.
--- NOTE | 2024-03-05 16:07 | NUR ---
PATIENT LYING ON LEFT SIDE IN BED WITH EYES CLOSED RESTING. BREATHING UNLABORED ON ROOM AIR. TELE INTACT. NO SIGNS OF DISTRESS OR PAIN NOTED. IV IN RIGHT HAND INFUSING FLUIDS PER EMAR;SITE CLEAN AND INTACT. BED IN LOWEST POSITION. CALL LIGHT WITHIN REACH. NO NEEDS AT THIS TIME. POC ONGOING.
--- NOTE | 2024-03-05 20:00 | NUR ---
PT RESTING IN BED NO DISTRESS NOTED. VS WNL LUNGS SOUNDS CLEAR. NO PAIN REPORTED AT THIS TIME. NO SKIN ISSUES NOTED. IV FLUSHED WORKING PROPERLY. BERKOWITZ CATHETER WITH NO KINKS CLEAR YELLOW URINE. PEG TUBE DRESSING INTACT AND CLEAN. CALL LIGHT WITHIN REACH. BED ALARM ON. PLAN OF CARE ONGOING.
--- NOTE | 2024-03-05 21:45 | NUR ---
PEG TUBE RESIDUAL CHECKED 25C. MEDICATIONS GIVEN THRU PEG TUBE AND FLUSHED WITH 80CC.
--- NOTE | 2024-03-06 | NUR ---
PT RESTING NO DISTRESS NOTED ON EXAM. PEG TUBE FEEDING PROVIDED WORKING PROPERLY AND FLUSHED WITH 100CC. BERKOWITZ WITH NO KINKS CLEAR YELLOW URINE. PT REPORTS NO NAUSEA. CALL LIGHT WITHIN REACH. PLAN OF CARE ONGOING. BED ALARM ON.
--- NOTE | 2024-03-06 04:00 | NUR ---
PT SLEEPING EASILY AROUSABLE NO DISTRESS NOTED ON EXAM. IV ABX ONGOING. CALL LIGHT WITHIN REACH. BED ALARM ON. PLAN OF CARE ONGOING.
[2024-03-06 04:13] VITALS: BP 127/63
--- NOTE | 2024-03-06 06:05 | NUR ---
PEG TUBE FEED GIVEN WHOLE CONTAINER WITH 400CCC FLUSH. PT TOLERATED WITH WITHOUT ANY ISSUES.
[2024-03-06 07:17] VITALS: BP 168/82
--- NOTE | 2024-03-06 08:30 | NUR ---
MORNING MEDS PASSED VIA PEG. PATIENT VOMITTED A SMALL AMOUNT OF GOMEZ LIQUID, THAT SMELLED LIKE TUBE FEEDING. RESIDUAL OF 50 ML WHEN ASPIRATED PEG TUBE. LAST TUBE FEEDING DONE AROUND 0530. MEDICATED FOR NAUSEA. MICHELLE MCCORD APRN NOITIFIED.
[2024-03-06 10:48] VITALS: BP 160/81
--- NOTE | 2024-03-06 11:30 | NUR ---
PEG TUBE FEDDING DONE WITH WATER FLUSH
[2024-03-06 15:19] VITALS: BP 169/84
--- NOTE | 2024-03-06 16:38 | NUR ---
TUBE FEED AND FLUSH PERFORMED
[2024-03-06 18:41] VITALS: BP 149/66
--- NOTE | 2024-03-06 20:00 | NUR ---
PT RESTING NO DISTRESS NOTED ON ASSESSMENT. VS WNL ON RA LUNGS CLEAR. IV FLUSHED WORKING PROPERLY SL. PEG TUBE RESIDUAL CHECKED 0CC. [place] WITH NO KINKS. NO EDEMA NOTED SKIN INTACT. CALL LIGHT WITHIN REACH. PLAN OF CARE ONGOING. BED ALARM ON.
[2024-03-06 23:27] VITALS: BP 168/76
--- NOTE | 2024-03-06 23:40 | NUR ---
PT RESTING NO DISTRESS NOTED ON EXAM. PEG TUBE FEED PROVIDED WHOLE CONTAINER WITH 160CC FLUSH. [place] CHECKED NO KINKS. CALL LIGHT WITHIN REACH. PT REPORTED NO NAUSE. BED ALARM ON. PLAN OF CARE ONGOING.
[2024-03-07] VITALS (12 sets, daily range): BP systolic 122–180; BP diastolic 65–82
--- NOTE | 2024-03-07 04:00 | NUR ---
PT RESTING IN BED NO DISTRESS NOTED. IV ABX STARTED. IV FLUSHED WITHOUT ISSUES. [place] WITHOUT KINKS. CALL LIGHT WITHIN REACH. BED ALARM ON. PLAN OF CARE ONGOING.
[2024-03-07 05:19] LABS: HEMATOCRIT 38.6 % (37.0-47.0); HEMOGLOBIN 13.1 g/dl (12.0-16.0); MEAN CELL VOLUME 91.7 fL CALC (80.0-100.0); MEAN CORPUSCULAR HGB 31.1 pG CALC (26.0-32.0); MEAN CORPUSCULAR HGB CONC 33.9 g/dL CAL (32.0-36.0); RED BLOOD COUNT 4.21 mill/uL (4.20-5.60); RED CELL DISTRI WIDTH 13.3 % (11.5-15.5)
[2024-03-07 05:25] LABS: ALBUMIN 3.3 g/dL (3.2-5.0); BILIRUBIN, TOTAL 0.6 mg/dL (0.02-1.3); CREATININE 0.3 mg/dL (0.5-1.0); POTASSIUM 4.1 mmol/l (3.5-5.1); TOTAL PROTEIN 6.1 g/dL (6.3-8.2)
--- NOTE | 2024-03-07 05:50 | NUR ---
PEG TUBE FEEDING GIVEN A WHOLE CONTAINER AND FLUSHED WITH 160CC TOTAL. PT TOLERATED FEED NO NAUSEA REPORTED.
--- NOTE | 2024-03-07 06:54 | NUR ---
PATIENT LYING SEMI-FOWLERS IN BED WITH EYES CLOSED RESTING. BREATHING UNLABORED ON ROOM AIR. TELE INTACT. BERKOWITZ IN PLACE WITH NO KINKS. IV IN LFA SL;SITE CLEAN AND INTACT. ASSESSMENT COMPLETED. NO SIGNS OF DISTRESS OR PAIN NOTED. BED IN LOWEST POSITION. CALL LIGHT WITHIN REACH. BED ALARM ACTIVE. NO NEEDS AT THIS TIME. POC ONGOING.
--- NOTE | 2024-03-07 08:04 | NUR ---
AT BEDSIDE WITH PT DISCUSSING POC.
--- NOTE | 2024-03-07 12:23 | NUR ---
PATIENT LYING SEMI-FOWLERS IN BED RESTING WITH EYES CLOSED. BREATHING UNLABORED ON ROOM AIR. TELE INTACT. IV IN LFA SL;SITE CLEAN AND INTACT. NO SIGNS OF DISTRESS OR PAIN NOTED. BERKOWITZ IN PLACE WITH NO KINKS. BED IN LOWEST POSITION. CALL LIGHT WITHIN REACH. POC ONGOING.
--- NOTE | 2024-03-07 16:22 | NUR ---
PATIENT LYING SEMI-FOWLERS IN BED. BREATHING UNLABORED ON ROOM AIR. IV IN LFA INFUSING FLUIDS PER EMAR;SITE CLEAN AND INTACT. BERKOWITZ IN PLACE WITH NO KINKS. PT DENIES ANY PAIN OR N/D/V AT THIS TIME. TELE INTACT. BED IN LOWEST POSITION. CALL LIGHT WITHIN REACH. POC ONGOING.
--- NOTE | 2024-03-07 20:00 | NUR ---
PT RESTING IN BED NO DISTRESS NOTED ON ASSESSMENT. VS WNL ON RA LUNGS CLEAR. SKIN INTACT NO EDEMA NOTED. IV FLUSHED SL WORKING PROPERLY. [place] CATHETER WITH NO KINKS YELLOW CLEAR URINE. CALL LIGHT WITHIN REACH. PLAN OF CARE ONGOING. BED ALARM ON.
--- NOTE | 2024-03-07 22:06 | NUR ---
PEG TUBE FEEDING GIVEN WHOLE CONTAINER WITH 200ML FLUSH TOTAL. PT REPORTS NO NAUSEA.
[2024-03-08] VITALS (8 sets, daily range): BP systolic 112–152; BP diastolic 66–76
--- NOTE | 2024-03-08 | NUR ---
PT SLEEPING EASILY AROUSABLE NO DISTRESS NOTED ON EXAM. [place] CATHETER WITH NO KINKS. CALL LIGHT WITHIN REACH. BED ALARM ON. PLAN OF CARE ONGOING.
--- NOTE | 2024-03-08 04:00 | NUR ---
PT RESTING NO DISTRESS NOTED. PROVIDED CESAR CARE AFTER A BM. PEG TUBE FEEDING GIVEN NO NAUSEA REPORTED. IV FLUSHED AND ABX STARTED. [place] WITH NO KINKS. CALL LIGHT WITHIN REACH. PLAN OF CARE ONGOING.
--- NOTE | 2024-03-08 14:09 | NUR ---
PATIENT RESTING COMFORTABLY IN BED. DENIES PAIN OR DISCOMFORT. G TUBE PATENT AND PLACEMENT VERIFIED. ASSISTED TO REPOSITION. MEDICATIONS ADMINISTERED PER ORDER. SAFETY MEASURES IN PLACE.
--- NOTE | 2024-03-08 19:45 | NUR ---
PT RESTING IN BED NO DISTRESS NOTED ON ASSESSMENT. VS WNL ON RA LUNGS CLEAR. NO PAIN REPORTED AT THIS TIME. IV FLUSHED WORKING PROPERLY SL. PT HAS A BM AND RECEIVED CESAR CARE. NO SKIN ISSUES NOTED NO EDEMA. BERKOWITZ CATHETER WITH NO KINKS CLEAR YELLOW URINE. CALL LIGHT WITHIN REACH. PLAN OF CARE ONGOING.
--- NOTE | 2024-03-08 22:00 | NUR ---
PEG TUBE RESIDUAL CHECKED 0ML AND BOLOUS FEED PROVIDED. PT REPORTS NO NAUSEA AT THIS TIME. HOB AT 45% INFORM HEM INSPECTOR THAT IT SHOULD STAY FOR AT LEAST [address]
[2024-03-09] VITALS (8 sets, daily range): BP systolic 107–175; BP diastolic 55–93
--- NOTE | 2024-03-09 | NUR ---
PT RESTING NO DISTRESS NOTED ON EXAM. BERKOWITZ CATHERE NO KINKS. INSULIN GIVEN 3 UNITS. CALL LIGHT WITHIN REACH. PLAN OF CARE ONGOING.
--- NOTE | 2024-03-09 03:55 | NUR ---
PT RESTING NO DISTRESS NOTED ON EXAM. NO PAIN REPORTED AT THIS TIME. IV FLUSHED WORKING PROPERLY AND ABX STARTED. BERKOWITZ CATHETER EMPTIED CLEAR YELLOW URINE NO KINKS. CALL LIGHT WITHIN REACH. BED ALARM ON. PLAN OF CARE ONGOING.
--- NOTE | 2024-03-09 04:22 | NUR ---
PEG TUBE FEEDING DONE. PT TOLERATED WHOLE CONTAINER WITH 200ML FLUID. NO NAUSEA REPORTED. PT MAINTAINED HOB AT 45% DURING FEEDING AND WILL LEAVE HER LIKE THAT FOR AT LEAST 45 MINUTES.
[2024-03-09 05:15] LABS: BASO% 1.4 % (0-3); EOS% 1.7 % (0-8); HEMATOCRIT 41.3 % (37.0-47.0); HEMOGLOBIN 13.8 g/dl (12.0-16.0); IMMATURE GRANULOCYTES 0.3 % (0.0-5.0); LYMPH% 33.7 % (15-41); MEAN CELL VOLUME 93.4 fL CALC (80.0-100.0); MEAN CORPUSCULAR HGB 31.2 pG CALC (26.0-32.0); MEAN CORPUSCULAR HGB CONC 33.4 g/dL CAL (32.0-36.0); MONO% 11.3 % (2-13); NEUT# 5.14 thou/uL (2.00-7.15); NEUT% 51.6 % (42-76); RED BLOOD COUNT 4.42 mill/uL (4.20-5.60); RED CELL DISTRI WIDTH 13.3 % (11.5-15.5)
[2024-03-09 05:25] LABS: ALBUMIN 3.5 g/dL (3.2-5.0); BILIRUBIN, TOTAL 0.7 mg/dL (0.02-1.3); CREATININE 0.4 mg/dL (0.5-1.0); POTASSIUM 4.9 mmol/l (3.5-5.1); TOTAL PROTEIN 6.3 g/dL (6.3-8.2)
--- NOTE | 2024-03-09 12:41 | NUR ---
VSS. NO C/O CP OR SOB. PT REMIANS IN CHAIR. NAD NOTED. HOURLY ROUNDING DONE. WILL CONTINUE TO MONITOR
--- NOTE | 2024-03-09 16:39 | NUR ---
VSS. NO PT COMPLAINTS. NAD NOTED. PT ASSISTED BACK TO BED. BED IN LOW LOCKED POSITION. CALL GRIGGS WITHING REACH. BED ALARM ON. PT TOLERATED 1030 AND 1530FEEDING W/O ISSUE. FLUSHE WITH 80ML WATER POST BOLUS FEED.
--- NOTE | 2024-03-09 21:30 | NUR ---
PEG TUBE FEEDING GIVEN WHOLE CONTAINER A TOTAL OF 200CC WATER GIVEN. REGLAN PROVIDED SEEN PT REPORTED NAUSEA AFTER FEED.
--- NOTE | 2024-03-09 22:12 | NUR ---
PT RESTING NO DISTRESS NOTED ON ASSESSMENT. VS WNL ON RA LUNGS CLEAR. IV FLUSHED WORKING PROPERLY. BERKOWITZ WITH NO KINKS CLEAR YELLOW URINE. SKIN INTACT NO EDEMA NOTED. CALL LIGHT WITHIN REACH. PLAN OF CARE ONGOING. BED ALARM ON.
[2024-03-10] VITALS (11 sets, daily range): BP systolic 97–153; BP diastolic 53–75
--- NOTE | 2024-03-10 00:32 | NUR ---
PT SLEEPING EASILY AROUSABLE. NO PAIN REPORTED OR NAUSEA. INSULIN GIVEN PER ORDER. CALL LIGHT WITHIN REACH.
--- NOTE | 2024-03-10 04:07 | NUR ---
PEG TUBE FEED GIVEN TOLERATED WITHOUT ANY NAUSEA REPORTED. WHOLE CONTAINER GIVEN. NEW IV PLACED DUE TO LAST ONE LEAKING.
--- NOTE | 2024-03-10 07:02 | NUR ---
PATIENT LYING SUPINE IN BED WITH EYES CLOSED RESTING. BREATHING UNLABORED ON ROOM AIR. TELE INTACT. IV IN RFA SL;SITE CLEAN AND INTACT. BERKOWITZ IN PLACE WITH NO KINKS. NO SIGNS OF DISTRESS OR PAIN NOTED. BED IN LOWEST POSITION. CALL LIGHT WITHIN REACH. NO NEEDS AT THIS TIME. POC ONGOING.
--- NOTE | 2024-03-10 12:24 | NUR ---
PATIENT LYINGSEMI-FOWLERS IN BED WITH EYES CLOSED RESTING. BREATHING UNLABORED ON ROOM AIR. TELE INTACT. IV IN RFA SL;SITE CLEAN AND INTACT. NO SIGNS OF DISTRESS OR PAIN NOTED. BERKOWITZ IN PLACE WITH NO KINKS OUTPUTING CLEAR,YELLOW URINE. BED IN LOWEST POSITION. CALL LIGHT WITHIN REACH. NO NEEDS AT THIS TIME. POC ONGOING.
--- NOTE | 2024-03-10 13:00 | NUR ---
PER YARED STRIP MACHINE OPERATOR- NO VITALS ARE TO BE TAKEN AT NIGHTTIME AND BOLUS FEEDING SCHEDULE WILL BE; 8AM, 11AM, 2PM, 5PM AND 8PM; FOLLOWED WITH 80CC FLUSH BEFORE/AFTER FEED.
--- NOTE | 2024-03-10 16:05 | NUR ---
PATIENT LYING SEMI-FOWLERS IN BED WITH EYES CLOSED RESTING. BREATHING UNLABORED ON ROOM AIR. TELE INTACT. IV IN RFA INFUSING FLUIDS PER EMAR;SITE CLEAN AND INTACT. NO SIGNS OF DISTRESS OR PAIN NOTED. BED IN LOWEST POSITION. CALL LIGHT WITHIN REACH. NO NEEDS AT THIS TIME. POC ONGOING.
--- NOTE | 2024-03-10 19:35 | NUR ---
PATIENT IN ROOM RESTING IN BED SEMI FOWLERS NODS TO VERBAL QUESTIONS. BEDSIDE ASSESSMENT COMPLETE. UNLABORED RESPIRATIONS. NO VISUAL SIGNS OF DISTRESS. BERKOWITZ IN PLACE WITH NO KINKS. SAFTY PRECAUTIONS IN PLACE, BED AT THE LOWEST POSITION. CALL LIGHT WITH IN REACH.
--- NOTE | 2024-03-10 23:50 | NUR ---
PATIENT IN ROOM RESTING IN BED ON LEFT SIDE WITH EYES CLOSED. EQUAL UNLABORED RESP, NO VISUAL SIGNS OF DISTRESS. BED AT LOWEST POSITION. CALL LIGHT WITH IN REACH.
[2024-03-11 04:06] VITALS: BP 124/72
--- NOTE | 2024-03-11 04:40 | NUR ---
PATIENT IN ROOM RESTING IN BED WITH EYES CLOSED. PATIENT RESPONDS TO VERBAL STIMULI. NI VISUAL SIGNS OF DISTRESS. BED AT LOWEST POSITION. CALL LIGHT WITH IN REACH.
[2024-03-11 05:46] LABS: EOS% 1.9 % (0-8); HEMATOCRIT 40.6 % (37.0-47.0); HEMOGLOBIN 13.7 g/dl (12.0-16.0); IMMATURE GRANULOCYTES 0.3 % (0.0-5.0); LYMPH% 32.8 % (15-41); MEAN CELL VOLUME 92.9 fL CALC (80.0-100.0); MEAN CORPUSCULAR HGB 31.4 pG CALC (26.0-32.0); MEAN CORPUSCULAR HGB CONC 33.7 g/dL CAL (32.0-36.0); MONO% 10.9 % (2-13); NEUT# 5.66 thou/uL (2.00-7.15); NEUT% 53.1 % (42-76); RED BLOOD COUNT 4.37 mill/uL (4.20-5.60); RED CELL DISTRI WIDTH 13.4 % (11.5-15.5)
[2024-03-11 05:57] LABS: ALBUMIN 3.6 g/dL (3.2-5.0); BILIRUBIN, TOTAL 0.8 mg/dL (0.02-1.3); CREATININE 0.4 mg/dL (0.5-1.0); MAGNESIUM 2.2 mg/dL (1.6-2.3); POTASSIUM 4.8 mmol/l (3.5-5.1); TOTAL PROTEIN 6.4 g/dL (6.3-8.2)
[2024-03-11 06:41] VITALS: BP 138/79
[2024-03-11 12:45] VITALS: BP 133/68
[2024-03-11 15:08] VITALS: BP 130/74
[2024-03-11 18:50] VITALS: BP 146/79
--- NOTE | 2024-03-11 19:30 | NUR ---
PATIENT RESTING IN BED WITH HOB ELEVATED. PATIENT WITH EYES CLOSED AND RESPS EVEN AND UNLABORED. TELE MONTIOR IN PLACE AND READING SR-70'S. BERKOWITZ PATENT AND DRAINING YELLOW URINE. PEG TUBE-CLAMPED AT THIS TIME-TUBE FEEDINGS ON HOLD FOR NOW. SALINE LOCK TO RIGHT FOREARM INTACT. BED ALARM IN PLACE FOR PATIENT SAFETY. CALL LIGHT IN REACH. WILL CONT TO MONITOR.
--- NOTE | 2024-03-11 22:45 | NUR ---
PATIENT FOUND WITH GREEN EMESIS ON HER LINENS AND GOWN-PROVIDED WITH PERSONEL CARE AND LINENS WERE CHANGED. PATIENT WAS MEDICATED WITH HS MEDS EARLIER VIA PEG TUBE WITH NO RESIDUAL WHEN CHECKED. PATIENT IS C/O NAUSEA AND MEDICATED WITH REGLAN 10MG IVP ORDERED VIA RIGHT FOREARM SITE. PATIENT IN SEMI-FOWLERS POSITION. CALL LIGHT IN REACH. WILL CONT TO MONITOR.
[2024-03-11 23:40] VITALS: BP 110/56
--- NOTE | 2024-03-12 00:33 | NUR ---
PATIENT RESTING IN BED WITH HOB ELEVATED. EYES ARE CLOSED AND RESPS ARE EVEN AND UNLABORED. BLOPOD SUGAR IS 159 BUT PATIENT TUBE FEEDINGS SRE ON HOLD UNTIL SEEN BY THE DOCTOR IN THE MORNING. BERKOWITZ CATH PATENT AND DRIANING YELLOW URINE. NO FURTHER C/O NAUSEA AT THIS TIME OR VOMITTING. TELE MONITOR IN PLACE. SALINE LOCK TO RIGHT FOREARM INTACT. BED ALARM IN PLACE FOR PATIENT SAFETY. CALL LIGHT IN REACH, WILL CONT TO MONITOR.
[2024-03-12 04:32] VITALS: BP 134/77
--- NOTE | 2024-03-12 06:00 | NUR ---
PATIENT RESTING IN BED POSITIONED ON LEFT SIDE-BLOOD SUGAR WAS 169-TUBE FEEDING STILL ON HOLD AND HUMALOG HELD WELL. BERKOWITZ PATENT AND DRAINING YTELLOW URINE. TELE MONITOR IN PLACE. SALINE LOCK TO RIGHT FORFEARM. BED ALRM IN PLACE. CALL LIGHT INR EACH. WILL CONT TO MONITOR.
--- NOTE | 2024-03-12 07:05 | NUR ---
REPORT RECEIVED FROM JERMAINE DIXON
[2024-03-12 07:12] VITALS: BP 121/67
--- NOTE | 2024-03-12 09:05 | NUR ---
PT RESTING IN LEFT SIDE LAYING POSITION, WAKES TO VERBAL STIMULI.CVA HX- PT RESPONDS SOFTLY WHEN SPOKE TO OR NODS HEAD APPROPRIATELY, A&O X3;ASSESSMENT COMPLETED;DENIES ANY PAIN;RESPIRATIONS EVEN AND UNLABORED ON RA,CLEAR LUNG SOUNDS;ABDOMEN SOFT ON PALPATION AND ACTIVE IN ALL 4 QUADRANTS;PEG TUBE NOTED TO LUQ- 0 RESIDUAL NOTED. FEEDING HELD AT THIS TIME PER MD. BERKOWITZ CATHETER DRAINING CLEAR/YELLOW URINE TO GRAVITY WITH EASE;STRONG PEDAL PULSES;SKIN INTACT;#22G TO RFA FLUSHED AND PATENT,SITE APPEARS HEALTHY;TELE MONITORING IN PLACE;ACCUCHECK 159;PT REPORTS NAUSEA AND IS MEDICATED WITH PRN REGLAN 10MG SLOW IVP, EMESIS BAG PROVIDED;PT DENIES ANY ADDITIONAL NEEDS AND IS ENCOURAGED TO CALL FOR ASSISTANCE IF NEEDED;FALL PRECAUTIONS IN PLACE WITH BED IN THE LOWEST POSITION AND CALL LIGHT IN REACH;FREQUENT ROUNDS MADE.
[2024-03-12 11:07] VITALS: BP 131/64
[2024-03-12] MEDS ORDERED: DEXTROSE 5% / 0.9% NACL 1,000 ML IV PRN (11:15)
--- NOTE | 2024-03-12 11:52 | NUR ---
AT BEDSIDE DISCUSSING POC WITH PT AND SISTER.
--- NOTE | 2024-03-12 12:40 | NUR ---
PT RESTING IN SEMI FOWLERS POSITION WITH SISTER AT BEDSIDE;RESPIRATIONS EVEN AND UNLABORED ON RA;PT DENIES PAIN BUT REPORTS NAUSEA-PER EMAR TO EARLY TO ADMINISTER PRN REGLAN AND PT VERBALIZES UNDERSTANDING;IV SITE TO RFA PATENT AND D5 NS STARTED AT 75ML/HR PER ORDER;TELE MONITORING IN PLACE;PEG TUBE PATENT TO LUQ WITH 0 RESIDUAL NOTED;BERKOWITZ CATHETER CONTINUES TO DRAIN TO GRAVITY WITH EASE;ACCUCHECK 215, PT COVERED WITH SLIDING SCALE INSULIN PER ORDER;PT AND SISTER DENIES ANY ADDITIONAL NEEDS AND IS ENCOURAGED TO CALL FOR ASSISTANCE IF NEEDED;CALL LIGHT REMAINS IN PLACE;FREQUENT ROUNDS MADE.
[2024-03-12 14:09] VITALS: BP 153/69
--- NOTE | 2024-03-12 14:58 | NUR ---
PT MEDICATED WITH PRN REGLAN 10MG SLOW IVP FOR NAUSEA AT THIS TIME.
--- NOTE | 2024-03-12 15:35 | NUR ---
PT RESTING WITH EYES CLOSED ON LEFT SIDE LAYING POSITION;RESPIRATIONS EVEN AND UNLABORED ON RA;NO S/S OF DISTRESS NOTED;TELE MONITORING IN PLACE;IV SITE TO RFA REMAINS PATENT INFUSING D5 NS PER ORDER;BERKOWITZ CATHETER DRAINING TO GRAVITY WITH EASE-UA WAS COLLECTED AND SENT TO LAB.TELE MONITORING IN PLACE;ALL SAFETY PRECAUTIONS IN PLACE WITH CALL LIGHT IN REACH;FREQUENT ROUNDS.
[2024-03-12 15:36] VITALS: BP 150/63
[2024-03-12 16:16] LABS: URINE BILIRUBIN - DIPSTICK Negative (NEGATIVE); URINE BLOOD DIPSTICK Moderate (NEGATIVE); URINE GLUCOSE - DIPSTICK Negative (NEGATIVE); URINE KETONE Negative (NEGATIVE); URINE LEUK ESTERASE Trace (NEGATIVE); URINE NITRITE - DIPSTICK Negative (Negative); URINE PROTEIN - DIPSTICK 30 mg/dL (NEG-TRACE); URINE UROBILINOGEN - DIPSTICK 0.2 E.U./dL (0.2)
[2024-03-12 16:17] LABS: URINE COLOR Yellow; URINE SQUAMOUS EPITHELIAL CELL FEW EPI/hpf (0-FEW); URINE WBC 0-2 WBC/hpf (0-5)
[2024-03-12 18:44] VITALS: BP 134/66
--- NOTE | 2024-03-12 19:30 | NUR ---
PATIENT IN ROOM RESTING IN BED WATCHING TV. BED SIDE ASSESSMENT COMPLETE. PATIENT RESPONDS WITH NODS. A&O X3. NO COMPLAINTS OF PAIN AT THIS TIME. RESPIRATIONS EVEN AND UNLABORED. ABDOMEN SOFT. PEG TUBE IN PLACE. FOLY CATHETER IN PLACE WITH NO KINKS WITH CLEAR YELLOW URINE. PEDAL PULSE EQUAL AND STRONG. BED AT LOWEST POSITION. CALL LIGHT WITH IN REACH.
[2024-03-13] VITALS (7 sets, daily range): BP systolic 96–156; BP diastolic 48–86
--- NOTE | 2024-03-13 00:04 | NUR ---
PATIENT IN ROOM RESTING IN BED WITH EYES CLOSED ON RIGHT SIDE. UNLABORED RESP, NO VISUAL SIGNS OF DISTRESS. BED AT LOWEST POSITION. CALL LIGHT WIT HIN REACH.
--- NOTE | 2024-03-13 03:50 | NUR ---
PATIENT RESTING IN BED WIT HEYES CLOSED. PATIENT RESPONDS TO VERBAL STIMULI. EQUAL UNLABORED RESP. BED AT LOWEST POSITION. CALL LIGHT WITH IN REACH.
[2024-03-13 05:34] LABS: EOS% 1.6 % (0-8); HEMATOCRIT 39.4 % (37.0-47.0); HEMOGLOBIN 13.3 g/dl (12.0-16.0); IMMATURE GRANULOCYTES 0.1 % (0.0-5.0); LYMPH% 33.4 % (15-41); MEAN CELL VOLUME 92.9 fL CALC (80.0-100.0); MEAN CORPUSCULAR HGB 31.4 pG CALC (26.0-32.0); MEAN CORPUSCULAR HGB CONC 33.8 g/dL CAL (32.0-36.0); MONO% 10.3 % (2-13); NEUT# 4.72 thou/uL (2.00-7.15); NEUT% 53.6 % (42-76); RED BLOOD COUNT 4.24 mill/uL (4.20-5.60); RED CELL DISTRI WIDTH 13.3 % (11.5-15.5)
[2024-03-13 05:47] LABS: ALBUMIN 3.4 g/dL (3.2-5.0); BILIRUBIN, TOTAL 0.8 mg/dL (0.02-1.3); CREATININE 0.5 mg/dL (0.5-1.0); TOTAL PROTEIN 6.2 g/dL (6.3-8.2)
--- NOTE | 2024-03-13 07:16 | NUR ---
REPORT GIVEN BY BENIGNO. PATIENT RESTING IN BED WITH EYES CLOSED. RESP EVEN AND UNLABORED. NO S/S OF DISTRESS NOTED. FALL AND SAFTEY PRECAUTIONS IN PLACE. BERKOWITZ IN PLACE, DRAINING CLEAR YELLOW URINE. PATIENT INFORMED TO CALL WITH ANY QUESTIONS OR CONERNS.
--- NOTE | 2024-03-13 08:30 | NUR ---
PATIENT WAS FOUND ON HER KNEES AT THE BEDSIDE, FOUND BY NURSING STUDENTS AND STAFF. PATIENT PLACED BACK INTO BED BY STAFF. A SET OF VITALS AND BLOOD GLUCOSE TAKEN AT THIS TIME BOTH WITHIN NORMAL LIMITS. CALLED AND UPDATED. NEW ORDERS GIVEN FOR EKG, TROP, AND BLOOD CULTURES.
--- NOTE | 2024-03-13 10:26 | NUR ---
SON CALLED AND UPDATED ON PATIENT'S CONDITION AND FALL FROM THIS MORNING.
[2024-03-13] MEDS ORDERED: VANCOMYCIN HCL 1 GM in SODIUM CHLORIDE 0.9% 250 ML IV SCH (12:30)
--- NOTE | 2024-03-13 20:00 | NUR ---
RESTING IN BED, ALERT, ORIENTED TO PERSON. RESP EVEN AND UNLABORED. DENIES PAIN OR DISCOMFORT. BEDSIDE SHIFT REPORT COMPLETED.
[2024-03-14] VITALS (8 sets, daily range): BP systolic 133–177; BP diastolic 58–93
--- NOTE | 2024-03-14 | NUR ---
RESTING IN BED WITH EYES CLOSED, RESP EVEN AND UNLABORED. TUBE FEEDINGS STILL ON HOLD DUE TO NAUSEA AND VOMITING. NO EPISODES OF EITHER ON THIS SHIFT. BERKOWITZ CATH PATENT, DRAINING WELL. CALL LIGHT IN REACH.
--- NOTE | 2024-03-14 05:06 | NUR ---
NO C/O THROUGHOUT THE NIGHT. RESP EVEN AND UNLABORED. CALL LIGHT IN REACH.
--- NOTE | 2024-03-14 12:25 | NUR ---
PT RESTING IN BED. VSS. NAD NOTED. PT SON UPDATED. BED IN LOW, LOCKED POSITION. CALL GRIGGS WITHIN REACH. BED ALARM ON. WILL CONTINUE TO MONITOR.
--- NOTE | 2024-03-14 16:44 | NUR ---
VSS. NAD NOTED. PT LAYING ON LEFT SIDE. BED IN LOW, LOCKED POSITION WITH BED ALARM ON. CALL GRIGGS WITHIN REACH. WILL CONTINUE TO MONITOR.
--- NOTE | 2024-03-14 20:35 | NUR ---
PATIENT RESTING IN SEMI BRAVO'S POSITION. ORIENTED TO PERSON AND BIRTHDATE. VITAL SIGNS ARE WITHIN NORMAL LIMITS AT THIS TIME. LUNGS SOUNDS ARE CLEAR TO AUSCULTATION IN ALL FOUR QUADARNTS. TELE MONITOR IN PLACE-SINUS RHYTHM (60'S) ABDOMEN IS SOFT ON PALPATION. BOWEL SOUNDS ARE ACTIVE IN ALL QUADRANTS. LAST BOWEL MOVEMENT STATED IT WAS 03/14/24. GI TUBE IN PLACE, NO EDEMA. SKIN IS WARMTH, DRY AND INTACT. BERKOWITZ IN PLACE WITH CLOUDY URINE. 22 IV GAUGE ON RIGHT WRIST APPEARS HEALTHY AND INTACT AT THIS TIME. IV FLUIDS INSUSING AT 75 ML/HR. STRONG PERIPHERAL PULSES. CALL LIGHT IS WITHIN REACH, SAFETY PRECAUTIONS IN PLACE.
--- NOTE | 2024-03-14 22:10 | NUR ---
PT RESTING IN BED. PEG TUBE RESIDUAL CHECK-THERE WAS NONE- PEG TUBE PLACEMENT CHECK USING STETHOSCOPE TO AUSCULTATE. MEDICATIONS GIVEN FOLLOWED WITH WATER FLUSH. HOB IS ELEVATED. CALL LIGHT IS WITHIN REACH AND SAFETY PRECAUTIONS IN PLACE.
[2024-03-15] VITALS (8 sets, daily range): BP systolic 127–166; BP diastolic 63–74
--- NOTE | 2024-03-15 | NUR ---
PT RESTIMG IN BED IV FLUIDS RECEIVED DUE TO LOW BLOOD PRESSURE. BED BATH COMPLETE AND BED LINENS CHANGED. PT TRANSFERRED TO A NEW BED DUE TO MALFUNCTION. COLOSTOMY EMPITIED. PLACED NEW DRESSING IN HIS PENIES DUE TO OLD BLOODY PAD. CALL LIGHT WITHIN REACH AND SAFETY PRECAUTIONS IN PLACE.
--- NOTE | 2024-03-15 00:30 | NUR ---
BLOOD SUGAR 126 AT THIS TIME. PATIENT RECEIVED COMPLETE BED BATH AND LINEN CHANGE. BERKOWITZ CATH CARE DONE WITH SOAP AND WATER. BERKOWITZ DRAINING CLOUDY YELLOW URINE. PEG TUBE INTACT AND CLAMPED AT THIS TIME. IVF D5NS PATENT AND INFUSING VIA LEFT FOREARM AT 75CC/HR. BED ALARM IN PLACE FOR PATIENT SAFETY. CALL LIGHT IN REACH. WILL CONT TO MONITOR.
--- NOTE | 2024-03-15 04:00 | NUR ---
PATIENT RESTING IN SUPINE POSITION. DENIES ANY NEEDS AT THIS TIME. NO SIGNS OF DISTRESS. CALL LIGHT WITHIN REACH AND SAFETY PRECAUTION IN PLACE. WILL CONTINUE TO MONITOR.
[2024-03-15 05:45] LABS: BASO% 1.5 % (0-3); EOS% 1.7 % (0-8); HEMATOCRIT 38.2 % (37.0-47.0); HEMOGLOBIN 13.1 g/dl (12.0-16.0); IMMATURE GRANULOCYTES 0.2 % (0.0-5.0); LYMPH% 32.8 % (15-41); MEAN CORPUSCULAR HGB 31.2 pG CALC (26.0-32.0); MEAN CORPUSCULAR HGB CONC 34.3 g/dL CAL (32.0-36.0); MONO% 11.3 % (2-13); NEUT# 3.42 thou/uL (2.00-7.15); NEUT% 52.5 % (42-76); RED BLOOD COUNT 4.2 mill/uL (4.20-5.60)
[2024-03-15 06:08] LABS: ALBUMIN 3.2 g/dL (3.2-5.0); BILIRUBIN, TOTAL 0.7 mg/dL (0.02-1.3); CREATININE 0.3 mg/dL (0.5-1.0); POTASSIUM 3.4 mmol/l (3.5-5.1); TOTAL PROTEIN 5.9 g/dL (6.3-8.2)
--- NOTE | 2024-03-15 07:32 | NUR ---
patient resting in semi felder postion in bed; room air; breathing unlabored and even; PEG tube clamped and closed; davidson bag working with no issues with clear yellow urine; tele leads intact and working with noissues; patient NPO; sign on butch; iv site clean and intact runnijng with ns @75; call lighty within reach, bed in lowest postion; bed alarm activated; safety measures in place
--- NOTE | 2024-03-15 10:12 | NUR ---
COMPLETED FEEDING WITH PATIENT WITH NO ISSUES, FEED PATIENT HALF OF JEVITY 4ML, AND FLUSHED PRIOR AND AFTER FEEDING; PATIENT DECLINED ANY PAIN DURNING FEEDING AND DENIED ANY N/V/ BEFORE,DURNING AND AFTER FEEDING, WRITTER CLEANED PATIENT PRIOR TO FEEDING AND ASSISTED WITH PLACING PATIENT IN CHAIR, PRIOR TO FEEDING, PATIENT IS CURRENTLY IN CHAIR AT THIS TIME TO ALLOW TIME TO TOLERATE
--- NOTE | 2024-03-15 12:11 | NUR ---
patient a/o x3; room air; breathing unlabored and even; patient sitting in chiar next to bed; family in room; denied any pain; denied needing anything; denied any n/d/v at this time; no s.s of distress at this time; tele leads intact; iv site clean and intact running with fluids; call ilght within reach, verbalized understanding on how to use, personal items within reach, bed in lowest postionl; bed alarm activated; safety measures in place
--- NOTE | 2024-03-15 16:44 | NUR ---
patient resting in bed; room air; breathiing unlabored; denied any pain; denied any n/d/v at this time; iv site clean and intact running with fluids; tele leads intact and working; no s.s of distress at this time; PEG tube clamped with no issues; call light within reach, verbalized understanding on how to use, personal items within reach, bed inlowest postion; bed alarm actiavted; safety meaures in place
--- NOTE | 2024-03-15 17:45 | NUR ---
FED PATEINT 4ml OF JEVITY, FLUSHED PRIOR AND AFTER FEEDING AND PATINET TOLERATED; PATEINT WAS SITTING HIGH SEMI FOLWER DURNING AND AFETR FEEDING;PATIENT TOLERATED FEEDING WITH NO ISSUES
--- NOTE | 2024-03-15 20:00 | NUR ---
PATIENT RESTING IN BED IN SEMI BRAVO'S POSITION WATCHING TV AT THIS TIME. ALERT AND ORIENTED X3. VITAL SIGNS ARE WITHIN NORMAL LIMITS. BREATHING IS EVEN AND UNLABORED; NO SIGNS OF DISTRESS. LUNGS SOUNDS CLEAR TO AUSCULATATION. TELE MONITOR IN PLACE WITH SINUS RHYTHM (65). PEG TUBE IN PLACE NO SIGNS OF ANY LEAKING AT THIS TIME. DRESSING LOOKS CLEAN. ABDOMEN IS SOFT AND BOWEL SOUNDS ARE ACTIVE IN ALL QUADARANTS. SKIN IS WARMTH, DRY AND INTACT. NO SIGNS OF EDEMA. IV SITE APPEARS HEALTHY AND CLEAN. IV FLUIDS INFUSING AT 75 ML/HR. STRONG PRIPHERAL PULSES. BERKOWITZ CATHETER IN PLACE WITH CLOUDY URINE -NO SIGNS OF LEAKING AT THIS TIME. CALL LIGHT IS WITHIN REACH , BED IN LOWEST POSITION AND SAFETY PRECAUTIONS IN PLACE. BED ALARM IN PLACE FOR PATIENT SAFETY
--- NOTE | 2024-03-15 22:30 | NUR ---
PATIENT RECEIVED A BED BATH AND LINENS CHANGE, BERKOWITZ CATHETER CARE DONE-DRAINING WITH CLOUDY URINE. PT HAD A BOWEL MOVEMENT WITH LOOSE YELLOW STOOLS. CALL LIGHT IS WITHIN REACH AND SAFETY PRECAUTIONS IN PLACE.BED ALARM PT IN HIGH BRAVO'S POSITION. PEG TUBE RESIDUAL CHECKED THERE WAS 20 CC. PEG TUBE PLACEMENT USING AN STETHOSCOPE. BEFORE FEEDING PT WAS MEDICATED WITH REGLAN FOR NAUSEA. TOLERATED THE FEEDING, TUBE FLUSHED BEFORE AND AFTER THE FEEDING WITH WATER SITTING UP IN HIGH FOWLERS POSITION BOTH BEFORE AND FOR AT LEAST AN HOUR AFTER FEEDING. DENIES ANY ADDITIONAL NEEDS. BED ALARM IN PLACE FOR PATIENT SAFTY. CALL LIGHT IN REACH. WILL CONT TO MONITOR
[2024-03-16] VITALS: BP 135/67
--- NOTE | 2024-03-16 00:15 | NUR ---
PT RESTING IN BED IN SUPINE POSITION. NO SIGNS OF DISTRESS. BREATHING IS EVEN AND UNLABORED. CALL LIGHT WITHIN REACH AND BED ALARM FOR PATIENT SAFETY.
[2024-03-16 04:00] VITALS: BP 179/73
--- NOTE | 2024-03-16 04:00 | NUR ---
PATIENT IS RESTING IN SEMI BRAVO'S POSITION. TV IS TURNED ON. SAFETY SOCKS IN PLACE. CALL LIGHT IS WITHIN REACH AND BED ALARM FOR SAFETY PATIENT.
[2024-03-16 04:33] VITALS: BP 179/73
--- NOTE | 2024-03-16 05:02 | NUR ---
PATIENT FED IN HIGH BRAVO'S POSITION WITH JEVITY FORMULA 4 OZ (120 MLS). RESIDUAL CHECKED-THERE WAS 25 CC. TUBE FLUSHED AFTER THE FEEDING WITH WATER SITTING UP IN HIGH BRAVO'S POSITION. DENIES ANY NAUSEA DURING THE FEEDING. AT THIS TIME DENIES ANY ADDITIONAL NEEDS. CALL LIGHT IS WITHIN REACH AND BED ALARM IN PLACE FOR PATIENT SAFETY. SAFETY PRECAUTIONS IN PLACE.
--- NOTE | 2024-03-16 06:26 | NUR ---
PATIENT RECEIVED 2 UNITS OF HUMALOG PER COVERAGE PROTOCOL. BLOOD SUGAR WAS 221 MG/DL. CALL LIGHT IS WITHIN REACH AND SAFETY PRECAUTIONS IN PLACE.
--- NOTE | 2024-03-16 07:40 | NUR ---
PT LAYING IN BED RESTING WITH EYES CLOSED, AROUSES EASILY TO VERBAL STIMULI, PT A&O X3, NORMAL S1 S2 HEART SOUNDS, TELE MONITOR IN PLACE, ACTIVE BOWEL SOUNDS, LUNG SOUNDS CLEAR, 20G LFA IV WITH FLUIDS INFUSING AT PRESCRIBED RATE, STRONG RADIAL AND PEDAL PULSES, SAFETY MEASURES REINFORCED, CALL GRIGGS WITHIN REACH
[2024-03-16 07:46] VITALS: BP 147/74
--- NOTE | 2024-03-16 11:18 | NUR ---
PHYSICAL THERAPY WORKING WITH PT, PHYSICAL THERAPY TOOK PT OUTSIDE VIA WC, PT RETURNED TO THE UNIT SHORTLY AFTER COMPLAINING OF NAUSEA, PT AMBULATED FROM THE WC TO THE RECLINER WTIH A SLOW UNSTEADY GAIT, PT MEDICATED AND RESTING IN THE RECLINER
--- NOTE | 2024-03-16 16:00 | NUR ---
PT RESTING WITH EYES CLOSED, AROUSES EASILY, PT DENIES ANY PAIN AT THIS TIME, CALL GRIGGS WITHIN REACH
[2024-03-16 19:14] VITALS: BP 151/74
--- NOTE | 2024-03-16 20:00 | NUR ---
RECEIVED REPORT FROM NURSE SAVI, PATIENT RESTING IN BED, ON SEMI FOWLERS PSITION, WHISPERS WHEN TALKING, SALINE LOCK NOTED ON LFA G 20 PATENT FLUSHES WELL, PEG TUBE DRESSING CHANGED, LUNG SOUNDS CLEAR, PATIENT TUBE FEED GIVEN, 40Z JEVITY FLUSHED 200CC WATER, PEG TUBE CHECKED FOR PATENCY AND PLACEMENT PRIOR TO FEED 5CC RESIDUAL NOTED, PATIENT PLACED ON HIGH FOWLERS DURING FEED, PATIENT TOLERATED.BED ALARM IN PLACED.
[2024-03-16] MEDS ORDERED: INSULIN LISPRO 100 UNITS/ML ML SC SCH (21:00)
[2024-03-16 22:22] VITALS: BP 166/78
[2024-03-17] VITALS (7 sets, daily range): BP systolic 130–176; BP diastolic 59–84
--- NOTE | 2024-03-17 00:13 | NUR ---
PATIENT RESTING WITH EYES CLOSED, BREATHING EVEN UNLABORED, BED ALARM IN PLACED.
--- NOTE | 2024-03-17 04:00 | NUR ---
MOISÉS RESTING IN BED, EYES CLOSED, RESTING ON LEFT SIDE, BREATHING UNLABORED CALL LIGHT WITHIN REACHED.
[2024-03-17 04:57] LABS: BASO% 1.4 % (0-3); EOS% 1.7 % (0-8); HEMATOCRIT 37.1 % (37.0-47.0); HEMOGLOBIN 11.9 g/dl (12.0-16.0); IMMATURE GRANULOCYTES 0.2 % (0.0-5.0); LYMPH% 41.9 % (15-41); MEAN CELL VOLUME 94.2 fL CALC (80.0-100.0); MEAN CORPUSCULAR HGB 30.2 pG CALC (26.0-32.0); MEAN CORPUSCULAR HGB CONC 32.1 g/dL CAL (32.0-36.0); MONO% 9.4 % (2-13); NEUT# 2.97 thou/uL (2.00-7.15); NEUT% 45.4 % (42-76); RED BLOOD COUNT 3.94 mill/uL (4.20-5.60); RED CELL DISTRI WIDTH 13.3 % (11.5-15.5)
[2024-03-17 05:32] LABS: BILIRUBIN, TOTAL 0.6 mg/dL (0.02-1.3); CREATININE 0.4 mg/dL (0.5-1.0); MAGNESIUM 1.9 mg/dL (1.6-2.3); POTASSIUM 3.3 mmol/l (3.5-5.1); TOTAL PROTEIN 5.5 g/dL (6.3-8.2)
--- NOTE | 2024-03-17 07:28 | NUR ---
PATIENT LYING SEMI-FOWLERS IN BED WITH EYES CLOSED RESTING. BREATHING UNLABORED ON ROOM AIR. IV IN LFA SL;SITE CLEAN AND INTACT. BERKOWITZ IN PLACE WITH NO KINKS. ASSESSMENT COMPLETED. NO SIGNS OF DISTRESS OR PAIN NOTED. BED IN LOWEST POSITION. CALL LIGHT WITHIN REACH. NO NEEDS AT THIS TIME. POC ONGOING.
[2024-03-17] MEDS ORDERED: POTASSIUM CHLORIDE 20 MEQ/PKT POWDER PO ONE (07:50)
[2024-03-17] MEDS ORDERED: LISINOPRIL 20 MG/TAB VT SCH (09:00)
--- NOTE | 2024-03-17 11:45 | NUR ---
PATIENT AMBULATED AND WENT OUTSIDE WITH PT. UPON ARRIVAL BACK PT VOMITTED NUMEROUS TIMES AND C/O OF NAUSEA. NAUSEA MEDICATION ADMINISTERED AND 11AM FEEDING HELD.
--- NOTE | 2024-03-17 12:55 | NUR ---
PATIENT SITTING IN RECLINER WITH EYES CLOSED RESTING. BREATHING UNLABORED ON ROOM AIR. IV IN RIGHT HAND SL;SITE CLEAN AND INTACT. NO SIGNS OF PAIN OR DISTRESS NOTED. NO MORE EPISODES OF N/V SINCE MEDICATION ADMINISTERING. EMESIS BAG WITHIN REACH. NO NEEDS AT THIS TIME. CALL LIGHT WITHIN REACH. POC ONGOING.
--- NOTE | 2024-03-17 16:03 | NUR ---
PATIENT SITTING UP IN BED WATCHING TV. BREATHING UNLABORED ON ROOM AIR. IV IN RIGHT HAND SL;SITE CLEAN AND INTACT. PT DENIES ANY PAIN OR N/D/V AT THIS TIME. BED IN LOWEST POSITION. CALL LIGHT WITHIN REACH. NO NEEDS AT THIS TIME. POC ONGOING.
--- NOTE | 2024-03-17 20:53 | NUR ---
PT AWAKE, ALERT, OBEYS COMMANDS. RESIDUAL OF 40 CC. MEDS GIVEN CRUSHED THROUGH PEG TUBE. 80 CC FLUSH BEFORE AND AFTER BOLUS FEEDING PER ORDERS. DRESSING CHANGED ON PEG TUBE, INITAL AND DATE ON DRESSING. PT HAS NO COMPLAINTS, DENIES PAIN. NO INSULIN COVERAGE NEEDED, GLUCOSE OF 140. V/S STABLE. CALL LIGHT IN REACH
[2024-03-17] MEDS ORDERED: guaiFENesin 200 MG/10 ML UDC VT PRN (22:05)
[2024-03-18 05:12] LABS: BASO% 1.2 % (0-3); EOS% 1.7 % (0-8); HEMATOCRIT 35.6 % (37.0-47.0); HEMOGLOBIN 12.1 g/dl (12.0-16.0); IMMATURE GRANULOCYTES 0.1 % (0.0-5.0); LYMPH% 44.2 % (15-41); MEAN CELL VOLUME 91.5 fL CALC (80.0-100.0); MEAN CORPUSCULAR HGB 31.1 pG CALC (26.0-32.0); MONO% 8.7 % (2-13); NEUT# 3.17 thou/uL (2.00-7.15); NEUT% 44.1 % (42-76); RED BLOOD COUNT 3.89 mill/uL (4.20-5.60); RED CELL DISTRI WIDTH 13.2 % (11.5-15.5)
[2024-03-18 05:27] LABS: BILIRUBIN, TOTAL 0.6 mg/dL (0.02-1.3); CREATININE 0.4 mg/dL (0.5-1.0); MAGNESIUM 1.8 mg/dL (1.6-2.3); POTASSIUM 3.3 mmol/l (3.5-5.1); TOTAL PROTEIN 5.5 g/dL (6.3-8.2)
[2024-03-18 06:26] VITALS: BP 184/78
--- NOTE | 2024-03-18 07:19 | NUR ---
PATIENT LYING ON LEFT SIDE IN BED WITH EYES CLOSED RESTING. BREATHING UNLABORED ON ROOM AIR. IV IN LEFT HAND SL;SITE CLEAN AND INTACT. BERKOWITZ IN PLACE WITH NO KINKS. NO SIGNS OF DISTRESS OR PAIN NOTED. BED IN LOWEST POSITION. CALL LIGHT WITHIN REACH. NO NEEDS AT THIS TIME. POC ONGOING.
[2024-03-18] MEDS ORDERED: POTASSIUM CHLORIDE 20 MEQ/PKT POWDER VT SCH (09:00)
--- NOTE | 2024-03-18 12:33 | NUR ---
PATIENT SITTING UP IN BED WITH FAMILY MEMBERS AT BEDSIDE. PATIENT A&O. BREATHING UNLABORED ON ROOM AIR. IV IN LEFT HAND SL;SITE CLEAN AND INTACT. PT DENIES ANY N/D/V AT THIS TIME. STATES TO HAVE A HEADACHE;MEDICATION REVIEWED. NO OTHER NEEDS AT THIS TIME. BED IN LOWEST POSITION. CALL LIGHT WITHIN REACH. POC ONGOING.
--- NOTE | 2024-03-18 16:03 | NUR ---
PATIENT SITTING SEMI-FOWLERS IN BED WITH EYES CLOSED RESTING. BREATHING UNLABORED ON ROOM AIR. IV IN LEFT HAND SL;SITE CLEAN AND INTACT. NO SIGNS OF DISTRESS OR PAIN NOTED. BED IN LOWEST POSITION. CALL LIGHT WITHIN REACH. BERKOWITZ IN PLACE WITH NO KINKS. NO NEEDS AT THIS TIME. POC ONGOING.
[2024-03-18 16:54] VITALS: BP 166/79
[2024-03-18 18:41] VITALS: BP 113/71
[2024-03-18] MEDS ORDERED: APIXABAN BASE 5 MG TAB PO SCH (21:00)
--- NOTE | 2024-03-19 00:07 | NUR ---
PT SLEEPING BREATHING EVEN NO DISTRESS NOTED ON EXAM. CALL LIGHT WITHIN REACH. PLAN OF CARE ONGOING.BED ALARM ON.
--- NOTE | 2024-03-19 04:53 | NUR ---
PT SLEEPING EASILY AROUSABLE NO DISTRESS NOTED. CALL LIGHT WITHIN REACH. PLAN OF CARE ONGOING.
--- NOTE | 2024-03-19 07:25 | NUR ---
PT LAYING IN BED RESTING WITH EYES CLOSED, PT AROUSES EASILY TO VERBAL STIMULI, PT DENIES ANY PAIN AT THIS TIME, PT A&O X3, PUPILS PERRL, RESP. EVEN AND UNLABORED, LUNG SOUNDS ARE CLEAR, ABD SOFT AND DISTENDED, ACTIVE BOWEL SOUNDS, PEG TUB REMAINS IN PLACE, 20G LA SL, STRONG RADIAL PULSES AND WEAK PEDAL PULSES, BERKOWITZ CATH IN PLACE DRAINING CLEAR YELLOW URINE, SAFETY MEASURES REINFORCED, CALL GRIGGS WITHIN REACH
[2024-03-19 07:34] VITALS: BP 155/67
--- NOTE | 2024-03-19 09:20 | NUR ---
DR SHAH AND MICHELLE AT BEDSIDE DISCUSSING PLAN OF CARE
[2024-03-19] MEDS ORDERED: POTASSIUM CHLORIDE 20 MEQ/PKT POWDER PO SCH (09:30)
[2024-03-19 11:03] VITALS: BP 129/64
--- NOTE | 2024-03-19 12:00 | NUR ---
PT SITTING UP IN BED WATCHING TV, PT DENIES ANY NEEDS AT THIS TIME, SAFETY MEASURES REINFORCED, CALL GRIGGS WITHIN REACH
[2024-03-19 15:54] VITALS: BP 143/73
--- NOTE | 2024-03-19 16:00 | NUR ---
VISITORS AT BEDSIDE, NO S/S OF DISTRESS, CALL GRIGGS WITHIN REACH
[2024-03-19 18:45] VITALS: BP 143/72
--- NOTE | 2024-03-19 20:00 | NUR ---
RECEIVED REPORT FROM NURSE SAVI, PATIENT RESTING IN BED, ALERT ORIENTED, SALINE LOCK NOTED ON LFA PATENT FLUSHES WELL, NO DISCOMFORTS NOTED AT THIS TIME, INDWLLING BERKOWITZ CATH DRAINING YELLOW COLOR URINE, DRESSING ON PEG TUBE CHANGED, CALL LIGHT IN REACHED, BED ALARM IN PLACED.
--- NOTE | 2024-03-19 20:50 | NUR ---
PATIENT HAS A DUE TUBE FEED, RESIDUAL VOULUME IS 50CC, SALES AND DISTRIBUTION CLERK MADE AWARE ORDER TO HOLD FEED FOR AN HOUR AND GIVE DUE FEED.
[2024-03-19 21:55] VITALS: BP 167/85
--- NOTE | 2024-03-20 00:16 | NUR ---
PATIENT RSETING IN BED, BREATHING EVEN UNLABORED, NOT IN DISTRESS, NO DISCOMFORTS NOTED AT THIS TIME, BED ALARM IN PLACED.
--- NOTE | 2024-03-20 03:43 | NUR ---
PATINET RESTING IN BED, EYES CLOSED, BREATHING EVEN UNLABORED, SAFETY PRECAUTION IN PLACED.
[2024-03-20 05:09] VITALS: BP 182/88
[2024-03-20 05:35] LABS: ALBUMIN 3.4 g/dL (3.2-5.0); BILIRUBIN, TOTAL 0.7 mg/dL (0.02-1.3); CREATININE 0.4 mg/dL (0.5-1.0); TOTAL PROTEIN 6.1 g/dL (6.3-8.2)
[2024-03-20 05:41] LABS: HEMATOCRIT 40.3 % (37.0-47.0); HEMOGLOBIN 13.6 g/dl (12.0-16.0); MEAN CORPUSCULAR HGB 31.1 pG CALC (26.0-32.0); MEAN CORPUSCULAR HGB CONC 33.7 g/dL CAL (32.0-36.0); RED BLOOD COUNT 4.38 mill/uL (4.20-5.60); RED CELL DISTRI WIDTH 13.5 % (11.5-15.5)
[2024-03-20 06:01] LABS: POTASSIUM 4.6 mmol/l (3.5-5.1)
--- NOTE | 2024-03-20 06:21 | NUR ---
BP ELEVATED 182/88, DUE LOPRESSOR GIVEN VIA GTUBE, WILL RECHECK BP.
--- NOTE | 2024-03-20 07:22 | NUR ---
PATIENT LYING SEMI-FOWLERS IN BED AWAKE WATCHING TV. BREATHING UNLABORED ON ROOM AIR. IV IN LFA SL;SITE CLEAN AND INTACT. PT DENIES ANY PAIN OR N/D/V AT THIS TIME. BED IN LOWEST POSITION. CALL LIGHT WIHTIN REACH. BERKOWITZ IN PLACE WITH NO KINKS. BED ALARM ACTIVE. NO NEEDS AT THIS TIME. POC ONGOING.
[2024-03-20 07:38] VITALS: BP 163/88
--- NOTE | 2024-03-20 08:46 | NUR ---
IN ROOM WITH PT.
[2024-03-20] MEDS ORDERED: LISINOPRIL 20 MG/TAB VT SCH (10:00)
--- NOTE | 2024-03-20 12:32 | NUR ---
PATIENT LYING SEMI-FOWLERS IN BED WATCHING TV. BREATHING UNLABORED ON ROOM AIR. IV IN LFA SL;SITE CLEAN AND INTACT. PT DENIES ANY PAIN OR N/D/V AT THIS TIME. BERKOWITZ IN PLACE WITH NO KINKS. BED IN LOWEST POSITION. NO OTHER NEEDS AT THIS TIME. CALL LIGHT WITHIN REACH. POC ONGOING.
--- NOTE | 2024-03-20 13:11 | NUR ---
PT GETTING CHEST X-RAY DONE IN ROOM.
[2024-03-20 13:57] VITALS: BP 115/78
[2024-03-20 14:40] VITALS: BP 115/78
--- NOTE | 2024-03-20 16:25 | NUR ---
PATIENT LYING IN BED AWAKE WATCHING TV. BREATHING UNLABORED ON ROOM AIR. IV IN LFA SL;SITE CLEAN AND INTACT. PT STATES TO NOT HAVE ANY PAIN BUT FEELS BAD OVERALL. STILL WITH COUGH; PRN COUGH MEDICATION GIVEN X2 TODAY. DENIES ANY N/D/V DURING FEEDS. NO VOMITING. BED IN LOWEST POSITION. CALL LIGHT WITHIN REACH. NO NEEDS AT THIS TIME. POC ONGOING.
[2024-03-20 19:03] VITALS: BP 116/60
--- NOTE | 2024-03-20 19:30 | NUR ---
RECEIVED REPORT FROM NURSE JER, PATIENT RESTING IN BED, AWAKE, IV ON LFA G 22 PATENT FLUSHES WELL, SITE DUE TO BE CAHNGED, LUNG SOUNDS DIMINISHED, PEG TUBE CHECKED FOR PATENCY, BERKOWITZ DRAINING YELLOW COLORED URINE, NO RESIDUAL NOTED FROM THE PEG TUBE. OCCASIONAL COUGHING NOTED CALL LIGHT WITHIN REACHED, SAFTY PRECAUTION IN PLACED.
--- NOTE | 2024-03-20 19:54 | NUR ---
IV SITE DUE TO BE REPLACED. NEW IV SITE INSERTED ON RT WRIST G 22, PATENT AND FLUSHES WELL, OLD IV ON LFA REMOVED, IV CATHETER INTACT.
[2024-03-21] VITALS (8 sets, daily range): BP systolic 101–141; BP diastolic 63–80
--- NOTE | 2024-03-21 00:07 | NUR ---
PATIENT RESTING IN BED, WITH EYES CLOSED, BREATHING EVEN UNLABORED.BED IN LOW POSITION, BED ALARM IN PLACED.
--- NOTE | 2024-03-21 03:45 | NUR ---
PATINET RESTING IN BED, NOT IN DISTRESSM, BREATHING EVEN UNLABORED SAFETY PRECAUTION IN PLACED, CALL LIGHT WITHIN REACHED.
[2024-03-21 05:34] LABS: HEMATOCRIT 40.5 % (37.0-47.0); HEMOGLOBIN 13.7 g/dl (12.0-16.0); MEAN CELL VOLUME 92.3 fL CALC (80.0-100.0); MEAN CORPUSCULAR HGB 31.2 pG CALC (26.0-32.0); MEAN CORPUSCULAR HGB CONC 33.8 g/dL CAL (32.0-36.0); RED BLOOD COUNT 4.39 mill/uL (4.20-5.60); RED CELL DISTRI WIDTH 13.5 % (11.5-15.5)
[2024-03-21 05:47] LABS: ALBUMIN 3.6 g/dL (3.2-5.0); BILIRUBIN, TOTAL 0.9 mg/dL (0.02-1.3); CREATININE 0.4 mg/dL (0.5-1.0); POTASSIUM 4.4 mmol/l (3.5-5.1); TOTAL PROTEIN 6.4 g/dL (6.3-8.2)
--- NOTE | 2024-03-21 07:00 | NUR ---
SHIFT CHANGE REPORT, PT AWAKE AND ALERT, NO SIGN C/O DISCOMFORT, BERKOWITZ CATHETER IN PLACE, CALL GRIGGS IN REACH AND BED LOCKED IN LOWEST POSITION
[2024-03-21] MEDS ORDERED: LOSARTAN Potassium 50 MG/TAB PO SCH (09:00)
[2024-03-21] MEDS ORDERED: LISINOPRIL 20 MG/TAB VT SCH (09:00)
--- NOTE | 2024-03-21 09:49 | NUR ---
0800 FEED NOT GIVEN, RESIDUAL = 40CC WITH BOTH FEED AND LARGE AMT PHLEGM, MANAGER CUSTOMER SERVICE NOTIFIED
--- NOTE | 2024-03-21 10:37 | NUR ---
SHIP SURVEYOR REPORTED PT FELL IN SHOWER WHILE ASSISTING TO GET HE OUT WITH AID OF NURSING STUDENTS. STAFF MEMBERS CAME AND ASSISTED PT UP TO W/C THEN TO BED. PT DENIES AND PAIN AT THIS TIME,ROM NORMAL FOR CONDITION, VITAL SIGNS MEASURED. INCIDENT EPORTED TO MANUFACTURING MANAGER AND SUPERVISORS.
--- NOTE | 2024-03-21 14:43 | NUR ---
RESIDUAL AT THIS TIME IS GREATER THAN 60CC, FEED HELD, WILL RECHECK IN 1 HOUR.
--- NOTE | 2024-03-21 16:00 | NUR ---
CONTINUES TO DENY PAIN/DISCOMFORT, RESTING COMFORTABLY IN BED
--- NOTE | 2024-03-21 21:00 | NUR ---
PT RESTING IN BED NO DISTRESS NOTED ON ASSESSMENT. VS WNL ON RA LUNGS COARSE AND DIMINISHED AT TIMES HAS A COUGH NON PRODCUTIVE AT THIS TIME BUT SHE HAS EPISODES OF PRODUCTIVE COUGHS. PT WAS GIVEN PEG TUBE FEED AFTER RESIDUAL WAS CHECKED 10CC. PT TOLERATED FEED WITHOUT NAUSEA OR VOMITING. PT PERIAREA IS RED BUT INTACT WITH A BERKOWITZ IN PLACE WITH NO KINKS CLEAR PADMINI URINE NOTED. PT'S HEAD OF BED LEFT AT 45 DEGREE AFTER FEED. WILL LOWER AFTER AN HOUR. CALL LIGHT WITHIN REACH. BED ALARM ON. PLAN OF CARE ONGOING.
--- NOTE | 2024-03-22 00:12 | NUR ---
PT SLEEPING NO DISTRESS NOTED BREATHING EVEN. CALL LIGHT WITHIN REACH. PLAN OF CARE ONGOING. BED ALARM ON.
--- NOTE | 2024-03-22 04:35 | NUR ---
PT SLEEPING NO DISTRESS NOTED BREATHING EVEN. PT REPOSITIONED AND BED ALARM ON. CALL LIGHT WITHIN REACH. PLAN OF CARE ONGOING.
[2024-03-22 06:58] VITALS: BP 130/62
--- NOTE | 2024-03-22 07:00 | NUR ---
SHIFT CHANGE REPORT, PT SLEEPING IN SUPINE POSITION, BREATHING EVEN AND NON-LABORED, BERKOWITZ CATHETER IN PLACE WITH YELLOW URINE, CALL GRIGGS IN REACH AND BED LOCKED IN LOWEST POSITION WITH ALARM ACTIVATED.
--- NOTE | 2024-03-22 09:40 | NUR ---
PEG TUBE CHECKED, 0 RESIDUAL, PT ASSISTED TO RECLINER WITH PHYSICAL THERAPIST AID. FED 0800 MEAL, HAD PROJECTILE VOMITTING BRINGING UP ALL THAT WAS FED TO HER INCLUDING MEDICATIONS.
--- NOTE | 2024-03-22 10:47 | NUR ---
SON DEDRA REQUESTED TO TAKE PT OUTSIDE SUPERVISORS CONTACTED FOR VERIFICATION BUT MARKETING PROGRAM MANAGER GAVE CONSENT, SO PT WAS TAKEN BY SON THEN BROUGHT BACK TO ROOM AND TRANSFERRED TO RECLINER. CALL GRIGGS PLACED IN REACH.
--- NOTE | 2024-03-22 12:34 | NUR ---
SITTING UP IN RECLINER AND FED IN CHAIR, PREMEDICATED WITH REGLAN BEFORE FEED, MONITORING ON TOLERANCE IN PROGRESS.
[2024-03-22 13:19] VITALS: BP 133/65
--- NOTE | 2024-03-22 13:25 | NUR ---
RESTLESS IN RECLINER AND WANTS TO GET BACK IN BED, ASSISTED BACK TO BED WITH ASSIST OF 2 STAFF, CALL GRIGGS IN REACH.
--- NOTE | 2024-03-22 14:35 | NUR ---
PT HAS GREATER THAN 60 CC RESIDUAL AT THIS ITME, 1400 FEED HELD.
--- NOTE | 2024-03-22 17:00 | NUR ---
RESIDUAL = 10CC, FEED GIVEN AFTER PREMEDICATING WITH REGLAN, PT TOLERATING.
[2024-03-22 17:04] VITALS: BP 116/72
[2024-03-22 19:01] VITALS: BP 116/72
--- NOTE | 2024-03-22 21:30 | NUR ---
PT RESTING NO DISTRESS NOTED ON ASSESSMENT. VS WNL ON RA LUNGS CLEAR. BS ACTIVE PEG TUBE FLUSHE AND FEED GIVEN WITH MEDICATION. RESIDUAL CHECKED BEFORE WHICH WAS 10CC. PT REPORTED NO NAUSEA AND HOB AT 45 DEGREES. INFORMED PT THAT THE HOB WILL STAY AT 45 DEGREES FOR AT LEAST 45 MINUTES. IV FLUSHED WORKING PROPERLY SL. SKIN INTACT SCATTERED BRUISES NO EDEMA. BERKOWITZ WORKING PROPERLY NO KINKS. CALL LIGHT WITHIN REACH. BED ALARM ON. PLAN OF CARE ONGOING.
[2024-03-23] VITALS (7 sets, daily range): BP systolic 114–148; BP diastolic 55–77
--- NOTE | 2024-03-23 | NUR ---
PT RESTING NO DISTRESS NOTED ON EXAM. CALL LIGHT WITHIN REACH. PLAN OF CARE ONGOING.
--- NOTE | 2024-03-23 04:41 | NUR ---
PT SLEEPING NO DISTRESS NOTED. CALL LIGHT WITIN REACH. PLAN OF CARE ONGOING.
[2024-03-23 06:03] LABS: ALBUMIN 3.7 g/dL (3.2-5.0); BILIRUBIN, TOTAL 0.9 mg/dL (0.02-1.3); CREATININE 0.5 mg/dL (0.5-1.0); POTASSIUM 4.3 mmol/l (3.5-5.1); TOTAL PROTEIN 6.4 g/dL (6.3-8.2)
--- NOTE | 2024-03-23 07:18 | NUR ---
PATIENT LYING IN BED WITH EYES CLOSED RESTING. BREATHING UNLABORED ON ROOM AIR. IV IN RW SL;SITE CLEAN AND INTACT. BERKOWITZ IN PLACE WITH NO KINKS. NO SIGNS OF DISTRESS OR PAIN NOTED. BED IN LOWEST POSITION. BED ALARM ACTIVE. CALL LIGHT WITHIN REACH. NO NEEDS AT THIS TIME. POC ONGOING.
--- NOTE | 2024-03-23 08:15 | NUR ---
DURING 8AM FEED, PT PROJECTILE VOMITTED. PT WAS ASKED DURING FEED IF SHE WAS NAUSEAS AT ALL;PT DENIES EVERYTIME. WHEN ASKED IF SHE WAS NAUSEOUS WHEN SHE VOMITTED PT STATED SHE WAS NOT IT JUST HAPPENED. YARED LEYVA INFORMED AWARE. PT MEDICATED. POC ONGOING.
--- NOTE | 2024-03-23 12:08 | NUR ---
PATIENT SITTING UP IN RECLINER. BREATHING UNLABORED ON ROOM AIR. IV IN RIGHT WRIST SL;SITE CLEAN AND INTACT. PT STATES TO BE NAUSEOUS. DENIES ANY PAIN. YARED LEYVA NOTIFIED AND AWARE. 11AM FEEDING HELD. BERKOWITZ IN PLACE WITH NO KINKS. CALL LIGHT WITHIN REACH. POC ONGOING.
--- NOTE | 2024-03-23 14:15 | NUR ---
ATTEMPTED TO GIVE PT HER 2PM FEED, PT HAD C/O OF NAUSEA. UNABLE TO PROVIDE NAUSEA MEDICINE DUE TO IT BEING GIVEN EARLIER. YARED LEYVA NOTIFIED AND AWARE. 2PM FEEDING HELD. POC ONGOING.
--- NOTE | 2024-03-23 16:35 | NUR ---
PATIENT BACK IN BED. BREATHING UNLABORED ON ROOM AIR. IV IN RIGHT WRIST SL;SITE CLEAN AND INTACT. STILL REPORTS FEELING NAUSEOUS; PT ALREADY MEDICATED. DENIES ANY PAIN. BED IN LOWEST POSITION. CALL LIGHT WITHIN REACH. BERKOWITZ IN PLACE WITH NO KINKS. NO NEEDS AT THIS TIME. POC ONGOING.
--- NOTE | 2024-03-23 17:45 | NUR ---
PATIENT STILL REPORTS FEELING NAUSEOUS. 5PM FEEDING HELD. POC ONGOING.
--- NOTE | 2024-03-23 21:30 | NUR ---
PT RESTING IN BED NO DISTRESS NOTED ON ASSESSMENT. PT REPOSITIONED HOB AT 45 DEGREES AN HOUR PRIOR TO PEG TUBE FEED WITH MEDICATION. ONLY 150CC OF THE JEVITY GIVEN AND 200C FLUSH TOTAL GIVEN. VS WNL ON RA LUNGS COARSE AND DIMINISHED. SCATTERED BRUISING NO EDEMA. BERKOWITZ CATHETER WITH PADMINI COLOR URINE WITH NO KINKS. CALL LIGHT WITHIN REACH. BED ALARM ON. PLAN OF CARE ONGOING.
[2024-03-24 06:49] VITALS: BP 147/83
--- NOTE | 2024-03-24 07:30 | NUR ---
PT LAYING IN BED RESTING WITH EYES CLOSED, AROUSES EASILY TO VERBAL STIMULI, PT IS A&O X 3, PUPILS PERRL, NORMAL S1 S2 HEART SOUNDS, RESP EVEN AND UNLABORED, COARSE LUNG SOUNDS IN UPPER LOBES AND DIMINISHED IN THE BASES, ABD DISTENDED AND SOFT WITH ACTIVE BOWEL SOUNDS, 22G RW IV SL, BERKOWITZ CATH IN PLACE DRAINING PADMINI COLOR URINE, SAFETY MEASURES REINFORCED, CALL GRIGGS WITHIN REACH
[2024-03-24 09:58] VITALS: BP 116/67
--- NOTE | 2024-03-24 10:00 | NUR ---
PT FED VIA TUBE FEED, PT TOLERATED WELL, PT DENIES ANY NAUSEA, CALL GRIGGS WITHIN REACH
--- NOTE | 2024-03-24 11:40 | NUR ---
Pt ID verified. Clinician attempted to provide OT treatment. Upon enterung pt's room observed pt sleeping in bed in position. Attempted multiple times to wake pt with no success. Safety measures in place - call rueda, tray table within reach, bed in low, non skid socks on.
--- NOTE | 2024-03-24 12:30 | NUR ---
PT LAYING IN BED RESTING WITH EYES CLOSED, AROUSES EASILY TO VERBAL STIMULI, PT REFUSED FEEDING AT THIS TIME, SAFETY MEASURES REINFORCED, CALL GRIGGS WITHIN REACH
[2024-03-24 14:08] VITALS: BP 109/56
--- NOTE | 2024-03-24 15:45 | NUR ---
PT REPOSITIONED IN THE BED FOR FEEDING, PT TOLERATED WELL, PT DENIES ANY NAUSEA AT THIS TIME, PT REMINDED TO CALL FOR ASSISTANCE, CALL GRIGGS WITHIN REACH
--- NOTE | 2024-03-24 17:20 | NUR ---
PT RESTING WITH EYES CLOSED, AROUSES EASILY TO VERBAL STIMULI, PT REFUSED FEEDING, SAFETY MEASURES REINFORCED, CALL GRIGGS WITHIN REACH
[2024-03-24 19:11] VITALS: BP 148/69
--- NOTE | 2024-03-24 20:00 | NUR ---
BEDSIDE SHIFT REPORT COMPLETED. RESP EVEN AND UNLABORED. CALL LIGHT IN REACH. DENIES NEEDS AT CURRENT TIME.
--- NOTE | 2024-03-24 22:00 | NUR ---
REFUSED 2100 BOLUS JEVITY. STATED SHE DIDNT WANT IT. MEDICATIONS GIVEN. DENIES PAIN. CALL LIGHT IN REACH.
[2024-03-25 04:12] VITALS: BP 138/62
[2024-03-25 04:53] LABS: ALBUMIN 3.7 g/dL (3.2-5.0); BILIRUBIN, TOTAL 1.1 mg/dL (0.02-1.3); CREATININE 0.5 mg/dL (0.5-1.0); POTASSIUM 4.2 mmol/l (3.5-5.1); TOTAL PROTEIN 6.5 g/dL (6.3-8.2)
[2024-03-25 05:53] VITALS: BP 122/52
[2024-03-25 05:57] VITALS: BP 122/55
--- NOTE | 2024-03-25 08:30 | NUR ---
Patient lying on right side in bed with ROOM SERVICE ASSOCIATE giving bath and complete linen change after patient vomited in bed. Patient awake and alert with no c/o nausea or pain. Initial assessment as noted. Dr. Jimenez notified of patient vomiting. Patient refusing tube feed bolus for am.
--- NOTE | 2024-03-25 13:24 | NUR ---
Patient lying in bed comfortably. Patient refusing bolus feed.
[2024-03-25 15:57] VITALS: BP 115/63
--- NOTE | 2024-03-25 16:42 | NUR ---
patient a/o x2; room, air; breathing unlabored and even; deneid any pain; denied needing anything; stated discomfort in her abd area; ivsite clean and intact saline locked at this time; davidson bag working with no issues; call light within reach, saftey measures in place; got report from RN nurse
[2024-03-25 17:50] VITALS: BP 127/64
[2024-03-25 19:24] VITALS: BP 127/64
--- NOTE | 2024-03-25 19:30 | NUR ---
PATIENT RESTING IN BED ON LEFT SIDE. BED SIDE ASSESSMENT COMPLETE. RESP EVEN AND UNLABORED. ABD SOFT. BOWEL SOUNDS PRESENT. BERKOWITZ CATH IN PLACE DRAINING CLEAR YELLOW URINE. BED AT LOWEST POSITION. CALL LIGHT WITH IN REACH.
--- NOTE | 2024-03-25 23:00 | NUR ---
PATIENT VOMITED IN BED. ASSISSTED TELECOMMUNICATIONS SPECIALIST WITH COMPLETE BED CHANGE. PATIENT COMPLAINS OF NAUSIA. WILL REFER TO EMAR FOR MEDICATION.
--- NOTE | 2024-03-26 00:14 | NUR ---
PATIENT IN ROOM RESTING IN BED WITH EYES CLOSED. EQUAL UNLABORED RESP. BERKOWITZ CATH IN PLACE WITH YELLOW CLEAR URINE. BED AT LOWEST POSITION. CALL LIGHT WITH IN REACH.
[2024-03-26 04:06] VITALS: BP 110/66
--- NOTE | 2024-03-26 04:08 | NUR ---
PATIENT IN BED RESTING WITH EYES CLOSED. EQUAL UNLABORED RESP, NO VISUAL SIGNS OF DISTRESS. BED AT LOWEST POSITION. CALL LIGHT WITH IN REACH.
[2024-03-26] MEDS ORDERED: ONDANSETRON HCl 4 MG/2 ML SDV IV SCH (07:00)
[2024-03-26] MEDS ORDERED: SCOPOLAMINE 1.5 MG DIS TD SCH (09:30)
--- NOTE | 2024-03-26 09:30 | NUR ---
PT RESTING IN BED WITH NO SIGNS OF DISTRESS; AWAKENS TO VERBAL STIMULI. ORIENTED TO PERSON, BUT VERY SOFT SPOKEN AND DIFFICULTY TO HEAR; OFTEN DOES NOT ANSWER QUESTIONS VERBALY AND SOMETIMES USES HAND SIGNALS. SHE DENIES PAIN; C/O NAUSEA. IV ZOFRAN ADMINSITERED AND NEW ORDER RECEIVED FOR NAUSEA PATCH; APPLIED BEHIND RIGHT EAR. IV SITE APPEARS HEALTHY AND FLUSHES WELL. 16F BERKOWITZ DRAINING DARK PADMINI URINE WITH SEDIMENT; SECURED WITH LEG STRAP TO RIGHT THIGH; BERKOWITZ PLACED ON 03/03. PEG TUBE TO LUQ OF ABDOMEN; PT DECLINED 0800 BOLUS FEED DUE TO NAUSEA; PLACEMENT VERIFIED WITH AIR ADMINISTRATION AND MEDICATIONS GIVEN VIA PEG TUBE; PT TOLERATED WELL SAFETY MEASURES IN PLACE INCLUDING BED ALARM; NEEDS ANTICIPATED BY STAFF.
--- NOTE | 2024-03-26 10:45 | NUR ---
FRIEND AT BEDSIDE; BED BATH GIVEN BY GUILLOTINE TRIMMER. DR. WADE INFORMED OF URINE QUALITY; NEW ORDERS RECEIVED TO OBTAIN AN OTHER U/A AND BEGIN IV FLUIDS.
[2024-03-26] MEDS ORDERED: LACTATED RINGER'S 1,000 ML IV PRN (12:25)
--- NOTE | 2024-03-26 14:45 | NUR ---
TOLERATED BOLUS FEED WELL; HAD MILD NAUSEA PRIOR TO FEED THAT DID NOT WORSEN. UA OBTAINED FROM BERKOWITZ CATEHTER PORT USING STERILE TECHNIQUE. WILL CONTINUE TO MONITOR.
[2024-03-26 15:45] LABS: URINE BLOOD DIPSTICK Trace-intact (NEGATIVE); URINE GLUCOSE - DIPSTICK Negative (NEGATIVE); URINE KETONE 40 mg/dL (NEGATIVE); URINE LEUK ESTERASE Trace (NEGATIVE); URINE NITRITE - DIPSTICK Negative (Negative); URINE PH 5.5 (4.5-8.0); URINE PROTEIN - DIPSTICK Negative (NEG-TRACE); URINE UROBILINOGEN - DIPSTICK 0.2 E.U./dL (0.2)
[2024-03-26 15:46] LABS: URINE COLOR Yellow
--- NOTE | 2024-03-26 16:09 | NUR ---
PATIENT WITH INCREASED COUGHING, WET RESPIRATIONS, COURSE/CRACKLES THROUGHOUT LUNG SHABAZZ, AND SPO2 88% ON ROOM AIR. IV FLUIDS STOPPED, OXYGEN 2L VIA NC APPLIED, AND DR. WADE NOTIFIED. FAMILY AT BEDSIDE.
[2024-03-26] MEDS ORDERED: FUROSEMIDE 40 MG/4 ML SDV IV ONE (16:30)
--- NOTE | 2024-03-26 16:35 | NUR ---
RADIOLOGY AT BEDSIDE FOR CHEST XRAY.
--- NOTE | 2024-03-26 17:00 | NUR ---
PT'S BREATHING HAS IMPROVED; SPO2 REMAINS OVER 90% ON ROOM AIR. FAMILY REQUESTED TO TAKE PT DOWNSTAIRS VIA WHEELCHAIR. EXPLAINED THAT THERE WERE A FEW ORDERS TO COMPLETE REGARDING HER RESPIRATORY STATUS. FAMILY MEMBER INSISTED THAT THEY WOULD ONLY BE GONE FOR ABOUT 5 MINUTES AND COULD COMPLETE THE LAB WORK AND MEDICATION WHEN THEY RETURNED. PT LEFT UNIT WITH FAMILY IN STABLE CONDITION.
--- NOTE | 2024-03-26 17:30 | NUR ---
PT ARRIVED BACK TO ROOM IN STABLE CONDITION AND ASSISTED BACK INTO BED. LASIX GIVEN PER ORDERS AND LAB AT BEDSIDE TO COLLECT BLOOD WORK. BERKOWITZ DRAINING CLEAR, YELLOW URINE IN ADEQUATE AMOUNTS. FAMILY REMAINS AT BEDSIDE. SAFETY MEASURES IN PLACE; CALL LIGHT WITHIN REACH.
[2024-03-26 18:01] LABS: HEMATOCRIT 41.5 % (37.0-47.0); MEAN CELL VOLUME 89.4 fL CALC (80.0-100.0); MEAN CORPUSCULAR HGB 30.2 pG CALC (26.0-32.0); MEAN CORPUSCULAR HGB CONC 33.7 g/dL CAL (32.0-36.0); RED BLOOD COUNT 4.64 mill/uL (4.20-5.60); RED CELL DISTRI WIDTH 13.8 % (11.5-15.5)
[2024-03-26 18:09] LABS: CREATININE 0.6 mg/dL (0.5-1.0); POTASSIUM 4.1 mmol/l (3.5-5.1)
[2024-03-26 18:43] VITALS: BP 148/79
[2024-03-27] VITALS (7 sets, daily range): BP systolic 67–161; BP diastolic 41–95
[2024-03-27 05:42] LABS: BASO% 0.3 % (0-3); EOS% 0.7 % (0-8); HEMATOCRIT 42.6 % (37.0-47.0); HEMOGLOBIN 13.7 g/dl (12.0-16.0); IMMATURE GRANULOCYTES 0.1 % (0.0-5.0); LYMPH% 34.1 % (15-41); MEAN CELL VOLUME 93.8 fL CALC (80.0-100.0); MEAN CORPUSCULAR HGB 30.2 pG CALC (26.0-32.0); MEAN CORPUSCULAR HGB CONC 32.2 g/dL CAL (32.0-36.0); MONO% 9.7 % (2-13); NEUT# 6.1 thou/uL (2.00-7.15); NEUT% 55.1 % (42-76); RED BLOOD COUNT 4.54 mill/uL (4.20-5.60); RED CELL DISTRI WIDTH 13.8 % (11.5-15.5)
[2024-03-27 05:56] LABS: ALBUMIN 4.1 g/dL (3.2-5.0); BILIRUBIN, TOTAL 0.9 mg/dL (0.02-1.3); CREATININE 0.7 mg/dL (0.5-1.0); MAGNESIUM 2.1 mg/dL (1.6-2.3); POTASSIUM 3.9 mmol/l (3.5-5.1)
--- NOTE | 2024-03-27 07:30 | NUR ---
SHIFT CHANGE REPORT, PT RESTING IN BED IN SUPINE POSITION, DENIES PAIN AT THIS TIME, BERKOWITZ CATHETER IN PLACE WITH PADMINI URINE, CALL GRIGGS IN REACH AND BED LOCKED IN LOWEST POSITION WITH ALARM ACTIVATED.
--- NOTE | 2024-03-27 08:00 | NUR ---
REFUSED 0800 MEAL THIS AM BUT AM MEDS WERE GIVEN WITH 200ML H2O FLUSH.
--- NOTE | 2024-03-27 11:30 | NUR ---
ASSISTED TO RECLINER WITH ASSIST OF 2 STAFF, PREMEDICATED EARLIER WITH REGLAN, FED 1100 MEAL, WILL MONITOR FOR TOLERANCE.
--- NOTE | 2024-03-27 15:10 | NUR ---
BP ABNORMALLY LOW AT THIS TIME- 68/40 MANUALLY, 67/[address] WADE NOTIFIED AND GAVE ORDERS.
[2024-03-27] MEDS ORDERED: SODIUM CHLORIDE 0.9% 500 ML IV PRN (15:25)
--- NOTE | 2024-03-27 15:39 | NUR ---
PT HAS > 60ML RESIDUAL FOR 1400 FEED, HELD TO RECHECK LATER
--- NOTE | 2024-03-27 18:13 | NUR ---
BP IMPROVED AFTER GIVING 500ML 0.9NS BOLUS ( FROM 68/40-100/60). NO RESIDUAL FOR 1700 FEED, FED.
--- NOTE | 2024-03-27 19:58 | NUR ---
PATIENT OBSERVED TO BE RESTING IN BED SEMI FOWLERS. EQUAL UNLABORED RESP. NO VISUAL SIGNS OF DISTRESS. BERKOWITZ CATHETER IN PLACE WITH YELLOW URINE. SAFTY PRECAUTIONS IN PLACE. BED AT LOWEST POSITION. CALL LIGHT WITH IN REACH.
--- NOTE | 2024-03-28 00:20 | NUR ---
PATIENT RESTING IN BED WITH EYES CLOSED. UNLABORED RESP. NO VISUAL SIGNS OF DISTRESS. SAFTY PRECAUTIONS IN PLACE. BED AT LOWEST POSITION. CALL LIGHT WITH IN REACH.
--- NOTE | 2024-03-28 04:15 | NUR ---
PATIENT OBSERVED TO BE AWAKE. PATIENT RESPONDS TO VERBAL STIMULI. NO VISUAL SIGNS OF DISTERESS. SAFTY PRECAUTIONS IN PLACE. BED AT LOWEST POSITION. CALL LIGHT WITH IN REACH.
[2024-03-28 05:46] LABS: HEMATOCRIT 39.6 % (37.0-47.0); MEAN CELL VOLUME 93.4 fL CALC (80.0-100.0); MEAN CORPUSCULAR HGB 30.7 pG CALC (26.0-32.0); MEAN CORPUSCULAR HGB CONC 32.8 g/dL CAL (32.0-36.0); RED BLOOD COUNT 4.24 mill/uL (4.20-5.60); RED CELL DISTRI WIDTH 13.7 % (11.5-15.5)
[2024-03-28 05:52] LABS: CREATININE 0.7 mg/dL (0.5-1.0); MAGNESIUM 2.1 mg/dL (1.6-2.3); POTASSIUM 3.6 mmol/l (3.5-5.1)
[2024-03-28 06:49] VITALS: BP 98/55
--- NOTE | 2024-03-28 08:00 | NUR ---
PT IS LAYING IN BED AWAKE.
--- NOTE | 2024-03-28 11:00 | NUR ---
PT REFUSED PEG TUBE FEED DUE TO NAUSEA.
--- NOTE | 2024-03-28 12:05 | NUR ---
PT IS SLEEPING ON HER LEFT SIDE, EASILY AROUSABLE.
--- NOTE | 2024-03-28 14:00 | NUR ---
PT REFUSED TUBE FEED DUE TO NAUSEA
--- NOTE | 2024-03-28 16:03 | NUR ---
PT IS SLEEPING IN BED, EASILY AROUSABLE.
[2024-03-28 19:17] VITALS: BP 161/89
--- NOTE | 2024-03-28 20:00 | NUR ---
pt assessed. bedside report was done with pt, she was very tearful. pt was able to answer questions yes and no. This RN stated that this RN cared for her a long time ago when she was in the ICU and that she will be cared for very well tonight. pt was reasssured. pt had refused tube feed earlier per RN report. Pt educated by this RN to have tube feed and water flushes. pt agreed , Tube feed completed . pt PEG tube intact and flushed . pt alert to self and place. pt denies pain , pt able to use call rueda. davidson intact and drainaing dark urine. emptiued for 500 and charted .
--- NOTE | 2024-03-29 | NUR ---
pt assessed , no change in assessment , pt resting comfotbaly with eyes closed, davidson draianing, no dependent loops, bag attatched to bed off the floor. call [facility].
[2024-03-29 05:15] LABS: ALBUMIN 3.8 g/dL (3.2-5.0); BILIRUBIN, TOTAL 0.9 mg/dL (0.02-1.3); CREATININE 0.5 mg/dL (0.5-1.0); POTASSIUM 3.5 mmol/l (3.5-5.1); TOTAL PROTEIN 6.7 g/dL (6.3-8.2)
--- NOTE | 2024-03-29 05:49 | NUR ---
pt resting with eyes closed , assessment unchanged . davidson intact peg tube intact. call rueda within reach .
--- NOTE | 2024-03-29 06:57 | NUR ---
patinet resting in bed; room air; breathing unlabored and even; denied any pain; denied any n/d/v at this time; iv site clean and intact saline locked; davidson bag working with dark yellow urine output; glucose is 147, no coverage needed' peg tube in placed and clamped; no s.s of distress at this time; call light wihin reach,bedin lowest postion; bed alarm activted; safety measures in place
[2024-03-29 07:09] VITALS: BP 122/75
--- NOTE | 2024-03-29 09:30 | NUR ---
COMPLETED FEEDING WITH NO ISSUES
--- NOTE | 2024-03-29 12:39 | NUR ---
PATIENT RESTING IN BED; ROOM AIR; BREATHING UNLABORED AND EVEN; DENIED ANY PAIN; DENIED ANY N/D/V AT THIS TIME; PATIENT REFUSED TO SIT IN CHAIR; NO S.S OF DISTRESS; PEG TUBE CLEAN AND INTACTCLOSED; IV SITE CLEAN AND INTACT SALINE LOCKED; BERKOWITZ WORKING; CALL LIGHT WITHIN REACH, BED IN LOWEST POSTION; SAFETY MEASURES IN PLACE
--- NOTE | 2024-03-29 14:30 | NUR ---
patient refused bolus feeding educated on the importance of needing feeding
--- NOTE | 2024-03-29 14:55 | NUR ---
COMPLETED FEEDING WITH NO ISSUES
[2024-03-29 15:56] VITALS: BP 127/68
--- NOTE | 2024-03-29 16:16 | NUR ---
patient resting in bed; room air; breathing unlabored and even; denied any pain; denied any n/d/v at this time; iv site clean and intact saline locked; patient laying semi felder in bed; no s.s of distress at this time; no complaints; call light within reach, bed in lowest postion; bed alarm activated; safety meaures in place
[2024-03-29 18:20] VITALS: BP 146/80
[2024-03-29 18:30] VITALS: BP 146/80
--- NOTE | 2024-03-29 20:00 | NUR ---
pt assessed , resting comfortably. bsx4, davidson draINAING DARK YELLOW urine. pt calm and relaxed, iv intact. call rueda within reach pt can communicate yes and no to questiuons asked, all needs met.
--- NOTE | 2024-03-29 22:17 | NUR ---
PT MEDICATED , FED , AND FLUSHED HEAD UP FOR TF 45 DEG
--- NOTE | 2024-03-30 | NUR ---
assessment unchanged, resting comfortbaly, call rueda wtihin reach
--- NOTE | 2024-03-30 04:30 | NUR ---
pt assessed and repositioned in bed, davidson intact, pt reports she is ok, no issues.
--- NOTE | 2024-03-30 05:26 | NUR ---
rounded on pt , resting comfortably.
--- NOTE | 2024-03-30 06:55 | NUR ---
PT LAYING IN BED RESTING WITH EYES CLOSED, AROUSES EASILY TO VERBAL STIMULI, PT IS A&O X3, PUPILS PERRL, RESP. EVEN AND UNLABORED, LUNG SOUNDS DIMINISHED IN THE BASES, NORMAL S1 S2 HEART SOUNDS, ABD DISTENDED AND SOFT WITH ACTIVE BOWEL SOUNDS, PEG TUBE IN PLACE, BERKOWITZ CATH IN PLACE WITH CLEAR YELLOW URINE DRAINING, 22G RFA IV SL DRESSING CD&I, SAFETY MEASURES REINFORCED, CALL GRIGGS WITHIN REACH
[2024-03-30 07:33] VITALS: BP 133/81
--- NOTE | 2024-03-30 08:05 | NUR ---
PT IS A&O, PT'S SPEECH IS MORE CLEAR AND LOUDER THEN IT HAS BEEN, PT GRABBING FOR SOMETHING THAT IS NOT THERE, PROVIDER MADE AWARE AND ORDERS GIVEN
[2024-03-30 11:07] VITALS: BP 145/75
--- NOTE | 2024-03-30 13:20 | NUR ---
PT TO CT WITH NURSE AND FAMILY AND CONSUMER EDUCATION TEACHER IN BED 1325- PT RETURN TO FLOOR FROM CT WITH NURSE AND FAMILY AND CONSUMER EDUCATION TEACHER IN BED, FAMILY AT BEDSIDE, PT FED VIA TUBE FEEDING, PT TOLERATED WELL
--- NOTE | 2024-03-30 14:30 | NUR ---
COMPLETED ASSESSMENT OF PT, SON AND FRIENDS AT THE BEDSIDE.
--- NOTE | 2024-03-30 14:33 | NUR ---
2136 stroke alert called for increased confusion and right upper extremity sensation changes sudden. Last known well 1900 on 03/29/24 radiologist reports multiple new cerebellar focal regions. Patient is at her baseline other than decreased sensation to upper right extremity. Patient denies sensation loss on right face or right lower extremity. Patient alert and oriented times 3. Patient seen by Dr. Shannon NIHSS 8 recommends MRI, Telemetry monitoring and repeat echo. CYBER SPECIAL AGENT notified of MD recommendations and patient status.
[2024-03-30 15:03] LABS: BASO% 0.9 % (0-3); EOS% 1.7 % (0-8); HEMATOCRIT 41.7 % (37.0-47.0); HEMOGLOBIN 13.9 g/dl (12.0-16.0); IMMATURE GRANULOCYTES 0.3 % (0.0-5.0); LYMPH% 26.2 % (15-41); MEAN CORPUSCULAR HGB 30.3 pG CALC (26.0-32.0); MEAN CORPUSCULAR HGB CONC 33.3 g/dL CAL (32.0-36.0); MONO% 8.3 % (2-13); NEUT# 5.58 thou/uL (2.00-7.15); NEUT% 62.6 % (42-76); RED BLOOD COUNT 4.58 mill/uL (4.20-5.60); RED CELL DISTRI WIDTH 13.5 % (11.5-15.5)
[2024-03-30 15:06] LABS: BILIRUBIN, TOTAL 0.9 mg/dL (0.02-1.3); CREATININE 0.5 mg/dL (0.5-1.0); POTASSIUM 3.4 mmol/l (3.5-5.1); TOTAL PROTEIN 7.1 g/dL (6.3-8.2)
--- NOTE | 2024-03-30 16:00 | NUR ---
PT IS SLEEPING IN BED, EASILY AROUSABLE.
--- NOTE | 2024-03-30 17:30 | NUR ---
PT WAS GIVEN 1 UNIT OF INSULIN. EMAR WILL NOT LET ME SCAN IN THE INSULIN.
[2024-03-30 18:39] LABS: URINE BILIRUBIN - DIPSTICK Negative (NEGATIVE); URINE BLOOD DIPSTICK Negative (NEGATIVE); URINE GLUCOSE - DIPSTICK Negative (NEGATIVE); URINE KETONE Negative (NEGATIVE); URINE LEUK ESTERASE Trace (NEGATIVE); URINE NITRITE - DIPSTICK Negative (Negative); URINE PROTEIN - DIPSTICK Negative (NEG-TRACE); URINE UROBILINOGEN - DIPSTICK 0.2 E.U./dL (0.2)
[2024-03-30 18:40] LABS: URINE COLOR Yellow
[2024-03-30 18:42] VITALS: BP 109/53
--- NOTE | 2024-03-30 20:00 | NUR ---
RECEIVED REPORT FROM NURSE DIPAK, PATIENT RESTING IN BED, ALERT ORIENTED, LETHARGIC, BS 138, SALINE LOCK NOTED ON RFA G 22, ON TELEMETRY, LUNG SOUNDS CLEAR, BREATHING EVEN UNLABORED, BERKOWITZ CATH DRAINING YELLOW COLORED URINE, BED ALARM IN PLACED.
[2024-03-31] VITALS (7 sets, daily range): BP systolic 103–154; BP diastolic 56–90
--- NOTE | 2024-03-31 00:13 | NUR ---
PATIENT RESTING IN BED, WITH EYES CLOSED, BREATHING EVEN UNLABORED BED ALARM IN PLACED.
--- NOTE | 2024-03-31 03:49 | NUR ---
PATIENT RESTING IN BED, NOT IN DISRESS, REMAINS ON TELEMTRY NOT IN DISTRESS, CALL LIGHT IN REACHED, BED ALARM IN PLACED.
[2024-03-31 05:30] LABS: ALBUMIN 3.9 g/dL (3.2-5.0); BILIRUBIN, TOTAL 0.9 mg/dL (0.02-1.3); CREATININE 0.5 mg/dL (0.5-1.0); POTASSIUM 3.7 mmol/l (3.5-5.1); TOTAL PROTEIN 6.7 g/dL (6.3-8.2)
--- NOTE | 2024-03-31 07:56 | NUR ---
PT IS SLEEPY BUT WAKES TO VERBAL STIMULATION, ABLE TO GIVE HER NAME, NIH=11, RESPIRATTIONS ARE EVEN AND UNLABORED, LUNGS ARE DIM BUT CLEAR, BOWEL SOUNDS ARE ACTIVE, PEDAL PULSES ARE PALPABLE TO TOUCH. PT DENIES PAIN AT THIS TIME.
--- NOTE | 2024-03-31 08:24 | NUR ---
DR CANDELARIO AT BEDSIDE WITH PT AT THIS TIME.
--- NOTE | 2024-03-31 08:55 | NUR ---
NEURO AT BEDSIDE VIA [employer] AT THIS TIME.
--- NOTE | 2024-03-31 12:01 | NUR ---
pt returned to unit from testinG. NIH= 13, pt's son at bedside, pt did wake to hug son but unable to keep eyes open at this point.
--- NOTE | 2024-03-31 20:00 | NUR ---
BEDSIDE SHIFT REPORT COMPLETED. SON AT BEDSIDE. PATIENT IS AWAKE, ORIENTED TO PERSON AND PLACE. FOLLOWING COMMANDS. DENIES PAIN. CALL LIGHT IN REACH. SPONGE SWABS PROVIDED FOR MOUTH CARE PER SONS REQUEST.
--- NOTE | 2024-04-01 | NUR ---
RESP EVEN AND UNLABORED. TOLERATED BOLUS FEEDINGS WELL. NO RESIDUAL NOTED FROM PEG TUBE. HOB UP 90 DEGREES FOR 30 MINUTES AFTER FEEDING ORDERED.
--- NOTE | 2024-04-01 04:00 | NUR ---
VSS, SLEEPING WELL DURING NIGHT. SON AT BEDSIDE. RESP EVEN AND UNLABORED. DENIES PAIN OR DISCOMFORT. NO CHANGE IN NIH SCORE. MAINTAINS AT 11.
[2024-04-01 04:26] VITALS: BP 121/68
[2024-04-01 04:52] LABS: BASO% 0.8 % (0-3); HEMATOCRIT 38.6 % (37.0-47.0); HEMOGLOBIN 13.2 g/dl (12.0-16.0); IMMATURE GRANULOCYTES 0.1 % (0.0-5.0); LYMPH% 30.7 % (15-41); MEAN CELL VOLUME 90.4 fL CALC (80.0-100.0); MEAN CORPUSCULAR HGB 30.9 pG CALC (26.0-32.0); MEAN CORPUSCULAR HGB CONC 34.2 g/dL CAL (32.0-36.0); MONO% 8.6 % (2-13); NEUT# 4.99 thou/uL (2.00-7.15); NEUT% 57.8 % (42-76); RED BLOOD COUNT 4.27 mill/uL (4.20-5.60); RED CELL DISTRI WIDTH 13.5 % (11.5-15.5)
[2024-04-01 05:13] LABS: ALBUMIN 3.4 g/dL (3.2-5.0); BILIRUBIN, TOTAL 0.8 mg/dL (0.02-1.3); CREATININE 0.5 mg/dL (0.5-1.0); POTASSIUM 3.8 mmol/l (3.5-5.1); TOTAL PROTEIN 6.1 g/dL (6.3-8.2)
[2024-04-01 07:11] VITALS: BP 125/75
[2024-04-01 07:24] VITALS: BP 125/75
--- NOTE | 2024-04-01 08:00 | NUR ---
REPORT RECEIVED FROM NIGHT NURSE. PATIENT AXO X3. S1S2 NOTED, HR REGULAR. LUNG SOUNDS DIMINISHED, NO SOB NOTED. ABDOMEN SOFT, NON DISTENDED, NON TENDER, WITH ACTIVE BOWEL SOUNDS. GT TUBE IN PLACE WITH NO REDNESS OR SIGNS OF INFECTION. PULSES STRONG IN ALL EXTREMITIES. BERKOWITZ IN PLACE. SON AT BEDSIDE. CALL LIGHT IN REACH. VSS.
--- NOTE | 2024-04-01 08:25 | NUR ---
[facility] neuro consult completed
[2024-04-01 10:46] VITALS: BP 133/65
--- NOTE | 2024-04-01 12:00 | NUR ---
PATIENT SITTING UP IN BED ASLEEP. ALL NEEDS MET. CALL LIGHT IN REACH. VSS.
--- NOTE | 2024-04-01 13:30 | NUR ---
pt resting in bed with eyes closed; easily aroused; 20cc residual noted from GT; bolus feed and flushed as per orders; pt tolerated well; will continue to monitor
--- NOTE | 2024-04-01 16:00 | NUR ---
PATIENT SITTING UP IN BED. FAMILY AT BEDSIDE. ALL NEEDS MET. CALL LIGHT IN REACH. VSS.
[2024-04-01 16:02] VITALS: BP 133/70
[2024-04-01 18:20] VITALS: BP 139/77
--- NOTE | 2024-04-01 20:00 | NUR ---
BEDSIDE SHIFT REPORT COMPLETED. RESP EVEN AND UNLABORED. AWAKE ALERT. ABLE TO FOLLOW COMMANDS. ANSWERING QUESTIONS APPROPRIATELY. CALL LIGHT IN REACH.
--- NOTE | 2024-04-02 | NUR ---
RESTING IN BED, WITH EYES CLOSED. EASILY AWAKENS WITH NAME CALLED. TOLERATED BOLUS TUBE FEEDING. NO RESIDUAL FOUND. HOB UP 90 DEGREES FOR 30 MINUTES AFTER FEEDING. NO S/S OF NAUSEA. BERK[place]ITZ CATH PATENT. DRAINING DARK YELLOW URINE. DENIES NEEDS CURRENTLY.
--- NOTE | 2024-04-02 04:00 | NUR ---
SLEPT WELL DURING NIGHT. NO S/S OF DISTRESS. CONTINUES TO BE EASILY AROUSABLE, AND ABLE TO FOLLOW COMMANDS. CALL LIGHT IN REACH.
[2024-04-02 04:50] VITALS: BP 147/69
[2024-04-02 04:59] LABS: BASO% 1.2 % (0-3); EOS% 2.4 % (0-8); HEMATOCRIT 39.3 % (37.0-47.0); HEMOGLOBIN 12.9 g/dl (12.0-16.0); IMMATURE GRANULOCYTES 0.2 % (0.0-5.0); MEAN CORPUSCULAR HGB 30.9 pG CALC (26.0-32.0); MEAN CORPUSCULAR HGB CONC 32.8 g/dL CAL (32.0-36.0); MONO% 9.1 % (2-13); NEUT# 4.25 thou/uL (2.00-7.15); NEUT% 50.1 % (42-76); RED BLOOD COUNT 4.18 mill/uL (4.20-5.60); RED CELL DISTRI WIDTH 13.5 % (11.5-15.5)
[2024-04-02 05:17] LABS: ALBUMIN 3.3 g/dL (3.2-5.0); BILIRUBIN, TOTAL 0.8 mg/dL (0.02-1.3); CREATININE 0.5 mg/dL (0.5-1.0); POTASSIUM 3.9 mmol/l (3.5-5.1)
[2024-04-02 07:20] VITALS: BP 111/53
[2024-04-02 10:54] VITALS: BP 115/67
--- NOTE | 2024-04-02 12:00 | NUR ---
PATIENT LAYING IN BED. PATIENT DENIES ANY NEEDS AT THIS TIME. WILL CONTINUE TO MONITOR.
--- NOTE | 2024-04-02 16:00 | NUR ---
PATIENT LAYING IN BED. FAMILY AT BEDSIDE. WILL CONTINUE TO MONITOR.
[2024-04-02 16:11] VITALS: BP 144/77
[2024-04-02 19:24] VITALS: BP 140/64
--- NOTE | 2024-04-02 19:34 | NUR ---
BEDSIDE SHIFT REPORT COMPLETED. RESP EVEN AND UNLABORED. CALL LIGHT IN REACH. NO C/O PAIN OR DISCOMFORT. CURRENTLY AWAKE. WATCHING TV. DENIES PAIN.
[2024-04-03 03:32] VITALS: BP 139/64
--- NOTE | 2024-04-03 04:30 | NUR ---
RESTED WELL DURING NIGHT. NO C/O NOTED. CONTINUES TO AWAKEN EASILY, ANSWERS QUESTIONS APPROPRIATELY. DENIES PAIN.
[2024-04-03 05:25] LABS: HEMATOCRIT 39.7 % (37.0-47.0); HEMOGLOBIN 13.4 g/dl (12.0-16.0); MEAN CELL VOLUME 91.3 fL CALC (80.0-100.0); MEAN CORPUSCULAR HGB 30.8 pG CALC (26.0-32.0); MEAN CORPUSCULAR HGB CONC 33.8 g/dL CAL (32.0-36.0); RED BLOOD COUNT 4.35 mill/uL (4.20-5.60); RED CELL DISTRI WIDTH 13.4 % (11.5-15.5)
[2024-04-03 05:35] LABS: ALBUMIN 3.5 g/dL (3.2-5.0); BILIRUBIN, TOTAL 0.9 mg/dL (0.02-1.3); CREATININE 0.4 mg/dL (0.5-1.0); POTASSIUM 3.7 mmol/l (3.5-5.1); TOTAL PROTEIN 6.1 g/dL (6.3-8.2)
[2024-04-03 07:02] VITALS: BP 129/59
--- NOTE | 2024-04-03 07:26 | NUR ---
PATIENT SITTING HIGH FOWLERS IN BED AWAKE. PATIENT A&O. BREATHING UNLABORED ON ROOM AIR. TELE INTACT. IV IN RFA SL;SITE CLEAN AND INTACT. BERKOWITZ IN PLACE WITH NO KINKS. PT DENIES ANY PAIN OR N/D/V AT THIS TIME. BED IN LOWEST POSITION. ASSESSMENT COMPLETED. NO OTHER NEEDS AT THIS TIME. POC ONGOING.
--- NOTE | 2024-04-03 08:10 | NUR ---
PATIENT TOLERATED 8AM FEEDING WELL WITH NO ISSUES. POC ONGOING.
[2024-04-03 10:28] VITALS: BP 133/74
--- NOTE | 2024-04-03 11:08 | NUR ---
PATIENT REFUSED 11AM FEEDING. PT STATED SHE WOULD LIKE HER FEEDING AT 2PM INSTEAD. FRIEND AT BEDSIDE. POC ONGOING.
--- NOTE | 2024-04-03 12:17 | NUR ---
PATIENT LYING SEMI-FOWLERS IN BED AWAKE, WATCHING TV. BREATHING UNLABORED ON ROOM AIR. TELE INTACT. IV IN RFA SL;SITE CLEAN AND INTACT. BERKOWITZ IN PLACE WITH NO KINKS. PT DENIES ANY PAIN OR N/D/V AT THIS TIME. BED IN LOWEST POSITION. CALL LIGHT WITHIN REACH, SAFETY PRECAUTIONS IN PLACE. NO OTHER NEEDS AT THIS TIME. POC ONGOING.
[2024-04-03 14:00] VITALS: BP 114/62
--- NOTE | 2024-04-03 16:29 | NUR ---
PATIENT SITTING UP IN BED AWAKE. BREATHING UNLABORED ON ROOM AIR. TELE INTACT. IV IN RFA SL;SITE CLEAN AND INTACT. PT DENIES ANY PAIN OR N/D/V AT THIS TIME. BERKOWITZ IN PLACE WITH NO KINKS. NO OTHER NEEDS AT THIS TIME. BED IN LOWEST POSITION. SAFETY PRECAUTIONS IN PLACE. POC ONGOING.
--- NOTE | 2024-04-03 17:01 | NUR ---
PATIENT REFUSED 5PM FEEDING. PT STATED SHE WOULD LIKE HER 8PM FEEDING INSTEAD. NO OTHER NEEDS AT THIS TIME.POC ONGOING.
[2024-04-03 19:04] VITALS: BP 144/77
--- NOTE | 2024-04-03 22:00 | NUR ---
REFUSED BEDTIME FEEDING. IS TEARFUL. DID NOT WANT TO DISCUSS WHAT WAS BOTHERING HER. MEDICATIONS GIVEN VIA PEG TUBE. NO RESIDUAL NOTED. DENIES PAIN.
--- NOTE | 2024-04-04 05:00 | NUR ---
SLEPT WELL DURING NIGHT. ALERT ORIENTED X4. RESP EVEN AND UNLABORED. NO C/O NOTED.
--- NOTE | 2024-04-04 06:43 | NUR ---
PATIENT LYING IN BED WITH EYES CLOSED BUT EASILY AROUSED. NO S/SX OF PAIN OR DISTRESS. WILL CONTINUE TO MONITOR.
[2024-04-04 07:07] VITALS: BP 153/82
[2024-04-04 10:27] VITALS: BP 150/76
[2024-04-04 10:46] VITALS: BP 150/76
--- NOTE | 2024-04-04 10:56 | NUR ---
PATIENT REFUSING 11AM FEEDING. WILL CONT INUE TO MONITOR.
--- NOTE | 2024-04-04 11:49 | NUR ---
PATIENT LAYING IN BED. NO S/SX OF PAIN OR DISTRESS NOTED. WILL CONTINUE TO MONITOR.
[2024-04-04 15:39] VITALS: BP 117/57
--- NOTE | 2024-04-04 15:44 | NUR ---
PATIENT LAYING IN BED. NO S/SX OF PAIN OR DISTRESS NOTED. WILL CONTINUE TO MONITOR.
[2024-04-04 18:25] VITALS: BP 137/73
--- NOTE | 2024-04-04 20:00 | NUR ---
PT RESTING. ABLE TO ANSWER YES/NO QUESTIONS. 10 CC RESIDUAL FROM FEEDING TUBE. BOLUS FEEDING COMPLETED PER ORDERS. FLUSHED BEFORE AND AFTER PER ORDERS. PT DENIES PAIN. V/S STABLE. CALL LIGHT IN REACH
[2024-04-04 23:35] VITALS: BP 119/71
[2024-04-05] VITALS (9 sets, daily range): BP systolic 123–141; BP diastolic 69–82
--- NOTE | 2024-04-05 05:45 | NUR ---
PT HAD BM, LINENS CHANGED. PT HAS NO COMPLAINTS. V/S STABLE. CALL LIGHT IN REACH
[2024-04-05] MEDS ORDERED: INSULIN GLARGINE 100 UNITS/ML SC SCH (11:00)
--- NOTE | 2024-04-05 11:01 | NUR ---
PATIENT RESTING IN BED; ROOM AIR; BREATHING UNLABORED AND EVENL; DNEIED ANY PAIN; DENIED ANY N/D/V AT THIS TIME; TELE LEAD INTACT AND WORKING WITH NO ISSUES; NO S/S OF DISTRESS AT THIS TIME; NO COMPLAINTS; WOO WORKING WITH NO ISSUES; PEG TUBE CLAMPED WITH NO ISSUES; CALLLIGHT WITHIN REACH, VERBALIZED UNDERSTANDINGON HOW TO USE, PERSONAL ITENS WITHIN REACH, BEDIN LOWEST POSTION; SAFTEY MEASURES IN PLACE
--- NOTE | 2024-04-05 11:55 | NUR ---
PATIENT TOLERATED HER FEEDING WITH NO ISSUES
--- NOTE | 2024-04-05 12:30 | NUR ---
MOISÉS A/O X2; ROOM AIR; BREATHING UNLABORED; SITTING IN HIGH BRAVO POSTION AFTER FEEDING; NO COMPLAINTS; DENIED ANY N/D/V AT THIS TIME; DENIED ANY PAIN; IV SITE CLEAN AND INTACT SALINE LOCKED WITH NO ISSUES; FAMILY IN ROOM WITH PATIENT; CALL LIGHT WITHIN REACH, VERBALIZED UNDERSTANDING; PERSONAL ITEMS WITHIN REACH, BED IN LOWEST POSTION; SAFETY MEASURES IN PLACE
--- NOTE | 2024-04-05 16:23 | NUR ---
patient sitting high folwer postion; completed her feeding with no issues; denied any pain; denied any n/d/v at this time ;iv site clean and intact; tele leads in tact and working; stuart working with no issues; tele leads in tact and working; call light within reach, verbalized understanding on how to use, personal items within reach, bed in lowest postion ;saftey measures in place with no issues; no complaints
--- NOTE | 2024-04-05 20:00 | NUR ---
REVCEIVED REPORT FROM NURSE BEN, PATIENT ALERT ORIENTED. WHISPERS WHEN TALKING. SALINE LOCK NOTED ON RFA G 22 PATENT FLSUHES WELL, ON TELEMETYRY. LUNG SOUNDS CLEAR. DENIES DISCOMFORTS AT THIS TIME, PEG TUBE CHECKED FOR PLACEMENT AND PATENCY. 10CC RESIDUAL NOTED, BERKOWITZ CATH DRAINING PADMINI COLORED URINE, CALL LIGHT IN REACHED, BED ALARM IN REACHED.
[2024-04-06] VITALS (7 sets, daily range): BP systolic 95–144; BP diastolic 57–79
--- NOTE | 2024-04-06 | NUR ---
PATIENT RESTING IN BED, BREATHING EVEN UNLABORED CALL LIGHT WUITHIN REACHED.
--- NOTE | 2024-04-06 04:40 | NUR ---
PATIENT RESTING IN BED. NOT IN DISTRESS. BREATHING UNLABORED CALL LIGHT WITHIN REACHED, BED ALARM IN PLACED.
[2024-04-06 05:23] LABS: ALBUMIN 3.5 g/dL (3.2-5.0); BILIRUBIN, TOTAL 0.9 mg/dL (0.02-1.3); CREATININE 0.5 mg/dL (0.5-1.0); TOTAL PROTEIN 6.2 g/dL (6.3-8.2)
[2024-04-06 05:24] LABS: BASO% 0.9 % (0-3); EOS% 1.8 % (0-8); HEMOGLOBIN 13.3 g/dl (12.0-16.0); IMMATURE GRANULOCYTES 0.1 % (0.0-5.0); LYMPH% 34.6 % (15-41); MEAN CELL VOLUME 91.8 fL CALC (80.0-100.0); MEAN CORPUSCULAR HGB 31.3 pG CALC (26.0-32.0); MEAN CORPUSCULAR HGB CONC 34.1 g/dL CAL (32.0-36.0); MONO% 9.8 % (2-13); NEUT# 4.2 thou/uL (2.00-7.15); NEUT% 52.8 % (42-76); RED BLOOD COUNT 4.25 mill/uL (4.20-5.60); RED CELL DISTRI WIDTH 13.5 % (11.5-15.5)
--- NOTE | 2024-04-06 07:30 | NUR ---
PATIENT LYING IN BED AWAKE; A&OX3. BREATHING UNLABORED ON ROOM AIR. TELE INTACT. IV IN RFA SL;SITE CLEAN AND INTACT. PT DENIES ANY PAIN OR N/D/V AT THIS TIME. BERKOWITZ IN PLACE WITH NO KINKS. BED IN LOWEST POSITION. SAFETY PRECAUTIONS IN PLACE. NO OTHER NEEDS AT THIS TIME. POC ONGOING.
--- NOTE | 2024-04-06 08:15 | NUR ---
PATIENT REFUSED 8AM FEEDING.
--- NOTE | 2024-04-06 11:15 | NUR ---
11AM FEEDING GIVEN WITH NO ISSUES.
--- NOTE | 2024-04-06 12:20 | NUR ---
PATIENT LYING SEMI-FOWLERS IN BED AWAKE WATCHING TV. BREATHING UNLABORED ON ROOM AIR. IV IN RFA SL;SITE CLEAN AND INTACT. PT DENIES ANY PAIN OR N/D/V AT THIS TIME. BERKOWITZ IN PLACE WITH NO KINKS. BED IN LOWEST POSITION. CALL LIGHT WITHIN REACH. NO NEEDS AT THIS TIME.POC ONGOING.
--- NOTE | 2024-04-06 14:15 | NUR ---
PATIENT REFUSED 2PM FEEDING.
--- NOTE | 2024-04-06 20:00 | NUR ---
RECEIVED REPORT FROM NURSE MOISÉS RANDLE RESTING IN BED, LUNG SOUNDS CLEAR. BREATHING UNLABORED, PEG TUBE PATENT CHECKED FOR PLACEMENT. NO RESIDUAL NOTED, PEG TUBE DRESSING CHANGED. CALL LIGHT IN REACHED.
--- NOTE | 2024-04-07 00:28 | NUR ---
PATIENT RESTING IN BED. EYES CLOSED. BREATHING EVEN UNALABORED, BED ALARM IN PLACED.
[2024-04-07 03:36] VITALS: BP 138/81
--- NOTE | 2024-04-07 03:55 | NUR ---
PATIENT NOT IN DISTRESS, BREATHING UNLABORED. BED ALARM IN PLACED.
[2024-04-07 06:56] VITALS: BP 142/73
--- NOTE | 2024-04-07 07:17 | NUR ---
PATIENT LYING IN BED AWAKE WATCHING TV. BREATHING UNLABORED ON ROOM AIR. TELE INTACT. IV IN RFA SL;SITE CLEAN AND INTACT. PT DENIES ANY PAIN OR N/D/V AT THIS TIME. BED IN LOWEST POSITION. CALL LIGHT WITHIN REACH. NO NEEDS AT THIS TIME. ASSESSMENT COMPLETED. POC ONGOING.
--- NOTE | 2024-04-07 08:40 | NUR ---
PATIENT TOLERATED 8AM FEEDING WITH NO ISSUES.
[2024-04-07 14:35] VITALS: BP 125/76
--- NOTE | 2024-04-07 18:58 | NUR ---
ATTEMPED TO CALL AND GIVE REPORT ;[facility] AND SHE STATED SHE DID NOT KNOW THE PATIENT NOR WHERE SHE IS SUPPOSED TO BE GOING. NURSE KAMILLA PROVIDED ME WITH THE DIRECT NUMBER FOR THE [facility]TH[facility] DEPARTMENT. SPOKE WITH ANOTHER NURSE FROM THE [facility]THO DEPARTMENT THAT DID NOT KNOW THE PATIENT NOR WHERE SHE WAS SUPPOSED TO GO. NURSE STATED THEY COULDN'T GET [employer] OF THE POWDER CUTTING OPERATOR SO THEY WILL CALL ANOTHER TIME. INFORMED THEM IT'S SHIFT CHANGE AND I WILL NOT BE AVAILABLE.
--- NOTE | 2024-04-07 20:00 | NUR ---
RECEIVED REPORT FROM NURSE JER, PATIENT ALERT ORIENTED. INTERMITENT CONFUSION, PATIENTS MOM AT BEDSIDE, PATIENT ABLE TO FOLLOW COMMAND, CLOSE EYES , SQUEEZE HANDS. IV NOTED ON RFA G 22, DENIES PAIN AND NAUSEA AT THIS TIME. LUNG SOUNDS CLEAR ACTIVE BOWEL SOUNDS, PEG TUBE CHECKED FOR PLACEMENT AND PATENCY, NO RESIDUAL NOTED. BREATHING EVEN UNLABORED, BERKOWITZ CATH DRAINING PADMINI COLORED URINE, NOT IN DISTRESS, CALL LIGHT IN REACHED, BED ALARM IN PLACED.
[2024-04-07 20:14] VITALS: BP 147/97
[2024-04-07 23:15] VITALS: BP 141/70
[2024-04-08] VITALS (8 sets, daily range): BP systolic 109–149; BP diastolic 65–78
--- NOTE | 2024-04-08 00:05 | NUR ---
PATIENT RESTING WITH EYES CLOSED, NOT IN DISTRESS, CALL LIGHT WITHIN REACHED.BED ALARM IN PLACED.
--- NOTE | 2024-04-08 03:24 | NUR ---
PATIENT RESTING WITH EYES CLOSED, NO DISCOMFORTS NOETD AT THIS TIME, BREATHING EVEN UNLABORED CALL LIGHT WITHIN REACHED.
[2024-04-08 04:43] LABS: EOS% 1.9 % (0-8); HEMOGLOBIN 13.7 g/dl (12.0-16.0); IMMATURE GRANULOCYTES 0.1 % (0.0-5.0); LYMPH% 35.7 % (15-41); MEAN CELL VOLUME 91.1 fL CALC (80.0-100.0); MEAN CORPUSCULAR HGB 31.2 pG CALC (26.0-32.0); MEAN CORPUSCULAR HGB CONC 34.3 g/dL CAL (32.0-36.0); MONO% 10.6 % (2-13); NEUT# 4.37 thou/uL (2.00-7.15); NEUT% 50.7 % (42-76); RED BLOOD COUNT 4.39 mill/uL (4.20-5.60); RED CELL DISTRI WIDTH 13.5 % (11.5-15.5)
[2024-04-08 04:57] LABS: ALBUMIN 3.7 g/dL (3.2-5.0); BILIRUBIN, TOTAL 0.9 mg/dL (0.02-1.3); CREATININE 0.5 mg/dL (0.5-1.0); MAGNESIUM 2.1 mg/dL (1.6-2.3); TOTAL PROTEIN 6.4 g/dL (6.3-8.2)
--- NOTE | 2024-04-08 07:24 | NUR ---
PATIENT RSETING IN BED, DROWSY THSI MORNING BUT RESPONSIVE, ABLE TO SQUEEZE ON BOTH HANDS WEAK, IV PATENT FLUSHES WELL, TELEMETRY IN PLACED, WOO MARTINS PADMINI COLORED URINE, CALL LIGHT IN REACHED. BED ALARM IN PLACED.
--- NOTE | 2024-04-08 08:51 | NUR ---
PATIENT DROWSY, RESPONSIVE, REFUSED FEED AT THIS TIME.
--- NOTE | 2024-04-08 10:00 | NUR ---
Care of patient assumed. Patient lying in bed drowsy. Patient family at bedside. Patient refusing 1100 bolus tube feed.
--- NOTE | 2024-04-08 16:15 | NUR ---
Patient lying in bed with eyes closed with mother at bedside.
--- NOTE | 2024-04-08 21:30 | NUR ---
PT RESTING IN BED NO DISTRESS NOTED ON ASSESSMENT. NO PAIN REPORTED VS WNL ON RA LUNGS CLEAR. PT REPORTS NO NAUSEA. PEG TUBE RESIDUAL CHECKED 0CC. FEEDING PROVIDED THRU PEG TUBE 175CC WITH 200CC FLUSH. PT TOLERATED FEEDING. IV FLUSHED SL WORKING PROPERLY. BERKOWITZ CHECKED FOR KINKS WORKING PROPERLY CLEAR YELLOW URINE. CALL LIGHT WITHIN REACH. PLAN OF CARE ONGOING. HOB AT 45 DEGREES AT THIS TIME DUE TO FEEDING.
--- NOTE | 2024-04-09 00:50 | NUR ---
PT SLEEPING NO DISTRESS NOTED BREATHING EVEN. CALL LIGHT WITHIN REACH. PLAN OF CARE ONGOING.
--- NOTE | 2024-04-09 03:50 | NUR ---
PT SLEEPING BREATHING EVENLY NO DISTRESS NOTED. CALL LIGHT WITHIN REACH. PLAN OF CARE ONGOING.
[2024-04-09 06:45] VITALS: BP 112/69
[2024-04-09 19:02] VITALS: BP 114/76
--- NOTE | 2024-04-09 21:30 | NUR ---
BOLUS FEED GIVEN, NO COMPLICATIONS. FLUSHED BEFORE AND AFTER PER ORDERS. MEDS GIVEN VIA PEG TUBE. PT DENIES PAIN. PT REPOSITIONED IN BED. V/S STABLE. CALL LIGHT IN REACH
[2024-04-10 00:39] VITALS: BP 118/68
--- NOTE | 2024-04-10 06:33 | NUR ---
PT RESTFUL, HAS NO COMPLAINTS. V/S STABLE. PT REPOSITIONED W/ ASSIST FROM AIRPLANE CLEANER. CALL LIGHT IN REACH
[2024-04-10 07:27] VITALS: BP 149/78
--- NOTE | 2024-04-10 07:30 | NUR ---
PATIENT RESTING IN BED; ROOM AIR; BREATHING UNLABORED AND EVEN; DENIED ANY PAIN; DENEID ANY N/D/V AT THIS TIME; IV SITE CLEAN AND INTACT SALINE LOCKED; TELE LEADS IN TACT AND WORKING WITH NO ISSUES; PEG TUBE CLEAN AND INTACT AND CLAMPED; BERKOWITZ WORKING WITH NO ISSUES; NO S.S OF DISTRESS AT THIS TIME;CALL LIGHT WITHIN REACH, VERBALIZEDUNDERSTANDING ON HOW TO USE, PERSONAL ITEMS WITHIN REACH,BED IN LOWEST POSTION; SAFETY MEASURES IN PLACE
[2024-04-10 11:01] VITALS: BP 144/86
--- NOTE | 2024-04-10 15:45 | NUR ---
PATIENT VOMITED; CLEANNED PATINET AND MEDICATED PER EMAR
--- NOTE | 2024-04-10 16:10 | NUR ---
PATIENT IN BED; ROOM AIR; BREATHING UNLABORED AND EVEN; NO VOMITED SINCE LAST VOMIT; NO S.S OF DISTRESS; NO S.S OF DISTRESS AT THIS TIME; DENIED ANY PAIN; IV SITE CLEAN AND INTACT SALINE LOCKED; FAMILY AT BEDSIDE; CALL LIGHT WITHIN REACH, [facility]; SAFETY MEASURES IN PLACE; DOUBLE END CHUCKING MACHINE OPERATOR IN ROOM WITH PATIENT
[2024-04-10 16:56] VITALS: BP 148/81
[2024-04-10 18:56] VITALS: BP 122/72
--- NOTE | 2024-04-10 21:23 | NUR ---
ASSESSMENT COMPLETE. PT DENIES PAIN, NO N/V NOTED. BOLUS FEED GIVEN, FLUSH BEFORE AND AFTER PER PROVIDER ORDERS. TOLERATED WELL. MEDS GIVEN VIA FEED WELL. NO INSULIN COVERAGE NEEDED, GLUCOSE OF 127. PT HAS NO COMPLAINTS. V/S STABLE, CALL LIGHT WITHIN REACH
[2024-04-11 00:09] VITALS: BP 105/68
[2024-04-11 04:51] VITALS: BP 117/67
[2024-04-11 05:42] LABS: EOS% 2.1 % (0-8); HEMATOCRIT 40.3 % (37.0-47.0); IMMATURE GRANULOCYTES 0.1 % (0.0-5.0); LYMPH% 35.3 % (15-41); MEAN CELL VOLUME 92.4 fL CALC (80.0-100.0); MEAN CORPUSCULAR HGB 32.1 pG CALC (26.0-32.0); MEAN CORPUSCULAR HGB CONC 34.7 g/dL CAL (32.0-36.0); MONO% 10.2 % (2-13); NEUT# 4.61 thou/uL (2.00-7.15); NEUT% 51.3 % (42-76); RED BLOOD COUNT 4.36 mill/uL (4.20-5.60); RED CELL DISTRI WIDTH 13.5 % (11.5-15.5)
[2024-04-11 06:01] LABS: ALBUMIN 3.8 g/dL (3.2-5.0); BILIRUBIN, TOTAL 0.8 mg/dL (0.02-1.3); CREATININE 0.5 mg/dL (0.5-1.0); MAGNESIUM 2.1 mg/dL (1.6-2.3); POTASSIUM 3.9 mmol/l (3.5-5.1); TOTAL PROTEIN 6.6 g/dL (6.3-8.2)
[2024-04-11 06:48] VITALS: BP 125/74
--- NOTE | 2024-04-11 07:00 | NUR ---
SHIFT CHANGE REPORT, PT AWAKE AND ALSRT RESTING IN BED, DENIES PAIN, TELE MONITOR IN PLACE, BERKOWITZ VATHETER IN PLACE WITH DARK TEA-COLORED URINE, CALL GRIGGS IN REACH AND BED LOCKED IN LOWEST POSITION.
[2024-04-11 11:19] VITALS: BP 129/78
--- NOTE | 2024-04-11 11:30 | NUR ---
ASSISTED TO RECLINER AND SET UP FOR FEED, TOLERATED FEED WITOUT DIFFICULTY AND WAS PREMEDICATED TO PRVENT NAUSEA/VOMITTING. PT HAD REFUSED HER 0800 FEED.
--- NOTE | 2024-04-11 12:30 | NUR ---
ASSISTED BACK TO BED, ALL NEEDS ADDRESSED.
--- NOTE | 2024-04-11 14:00 | NUR ---
TOLERATED 1400 FEED AND FLUSH WELL, WANTED TO SIT UP IN BED FOR THIS FEED.
[2024-04-11 15:02] VITALS: BP 106/71
--- NOTE | 2024-04-11 17:00 | NUR ---
MISSED 1700 FEED IT WAS NOT AVAILABLE BUT PT ALSO REFUSED THIS FEED. CONDITION STABLE
[2024-04-11 19:18] VITALS: BP 115/69
[2024-04-12] VITALS (7 sets, daily range): BP systolic 108–137; BP diastolic 60–80
--- NOTE | 2024-04-12 04:30 | NUR ---
Patient in bed with eyes closed with no s/s of distress or discomfort.Respiration even and nonlabored. HOB elevated. Tolerated tube feeding well. Bed in low positon and call light within reach. Will continue to observe
--- NOTE | 2024-04-12 19:30 | NUR ---
REPORT RECEIVED FROM OFF-GOING NURSE. PT RESTING ON BED. FAMILY MEMBERS AT BEDSIDE. NO DISTRESS.
--- NOTE | 2024-04-12 23:00 | NUR ---
PT RESTING ON BED. TOLERATED MEDS AND FEED WELL. VSS. PT AWAKE AND ALERT. ORIENTED X3. SOFT SPOKEN.
--- NOTE | 2024-04-13 01:17 | NUR ---
PT REPOSITIONED WITH ASSIT. PT TURNS SELF WELL. ENCOURAGDED TO REPOSITION EVERY TWO HOURS. FOLEYCARE DONE. PT CLEANED OF SOFT, BROWN STOOL. TOLERATED WELL.
[2024-04-13 04:03] VITALS: BP 105/66
--- NOTE | 2024-04-13 05:00 | NUR ---
PT RESTING QUIETLY, NO CHANGE IN PT ASSESMENT OVER NIGHT. PT TURNS SELF AND ASSITED WITH TURNS TO ALLOW FULL TURNS TO SIDE LYING. PT ROLERATED WELL. REST PROMOTED.
[2024-04-13 07:42] VITALS: BP 137/69
[2024-04-13 16:06] VITALS: BP 142/81
--- NOTE | 2024-04-13 18:28 | NUR ---
PATIENT ALERT AND RESPONSIVE, NO S/S PAIN NO FACIAL GRIMACING, NO S/S RESPIRATORY DISTRESS, PATIENT SITTING UP 90 DEGREES IN BED. PATIENT PEG TUBE PLACEMENT CHECK WITH AUSCULTATION PATIENT WITH 60 ML OF RESIDUAL, 2PM BOLUS NOT GIVEN. PATIENT RESIDUAL CHECK AT 1730 NO RESIDUAL BOLUS GIVEN WITH PATIENT SITTING UP 90 DEGREES IN BED
[2024-04-13 19:18] VITALS: BP 136/65
--- NOTE | 2024-04-13 20:00 | NUR ---
RECEIVED REPORT FROM NURSE CATALINA, PATIENT RESTING IN BED, AROUSABLE TO SPEECH. PATIENT OBEYS COMMANDS, PATIENT SALINE LOCK NOTED ON RFA G 22 PATENT FLUSHES WELL, ON TELEMTRY LUNG SOUNDS CLEAR, DENIES PAIN AT THIS TIME, SPEECH SOFT AND WHISPERS WITH LOW VOICE, BREATHING UNLABORED, NO RESIDEULA NOTED ON PEG TUBE, CALL LIGHT WITHIN REACHED, BED ALARM IN PLACED.
--- NOTE | 2024-04-13 22:00 | NUR ---
NEW IV SITE REINSERTED ON LFA G 22 PATENT FLUSHES WELL.
[2024-04-13 23:41] VITALS: BP 149/76
[2024-04-14] VITALS (9 sets, daily range): BP systolic 113–151; BP diastolic 68–89
--- NOTE | 2024-04-14 00:28 | NUR ---
PATINET RESTING IN BED, EYES CLOSED, BREATHING EVEN UNALBORED CALL LIGHT WITHIN REACHED.
--- NOTE | 2024-04-14 04:11 | NUR ---
PATIENT RESTING IN BED, NOT IN DISTRESS, BREATHING EVENUNLABORED CALL LIGT IN RECAHED, BED ALARM IN PLACED.
--- NOTE | 2024-04-14 09:31 | NUR ---
PT TO RADIOLOGY FOR SWALLOW STUDY ACCOMPANIED BY STAFF
--- NOTE | 2024-04-14 10:10 | NUR ---
PT RETURNED FROM RADIOLOGY VIA WC, PT AMBULATED WITH 1 PERSON STAND BY ASSISTANCE FROM THE WC TO THE BED, PT TOLERATED WELL, VISITORS AT BEDSIDE, SAFETY MEASURES REINFORCED, CALL GRIGGS WITHIN REACH
--- NOTE | 2024-04-14 12:00 | NUR ---
PT SITTING UP IN BED FOR FEEDING, PT DROWSY BUT ORIENTED, VISITORS AT BEDSIDE, PT TOLERATED FEEDING WELL, SAFETY MEASURES REINFORCED, CALL GRIGGS WITHIN REACH
[2024-04-15] VITALS (10 sets, daily range): BP systolic 118–147; BP diastolic 56–73
[2024-04-15 05:02] LABS: BASO% 0.9 % (0-3); EOS% 2.3 % (0-8); HEMATOCRIT 37.8 % (37.0-47.0); HEMOGLOBIN 12.8 g/dl (12.0-16.0); IMMATURE GRANULOCYTES 0.1 % (0.0-5.0); LYMPH% 35.9 % (15-41); MEAN CELL VOLUME 91.1 fL CALC (80.0-100.0); MEAN CORPUSCULAR HGB 30.8 pG CALC (26.0-32.0); MEAN CORPUSCULAR HGB CONC 33.9 g/dL CAL (32.0-36.0); MONO% 8.9 % (2-13); NEUT# 3.98 thou/uL (2.00-7.15); NEUT% 51.9 % (42-76); RED BLOOD COUNT 4.15 mill/uL (4.20-5.60); RED CELL DISTRI WIDTH 13.5 % (11.5-15.5)
[2024-04-15 05:11] LABS: ALBUMIN 3.3 g/dL (3.2-5.0); BILIRUBIN, TOTAL 0.6 mg/dL (0.02-1.3); CREATININE 0.4 mg/dL (0.5-1.0); POTASSIUM 3.6 mmol/l (3.5-5.1); TOTAL PROTEIN 5.9 g/dL (6.3-8.2)
[2024-04-16 04:10] VITALS: BP 131/72
[2024-04-16 07:00] VITALS: BP 133/75
--- NOTE | 2024-04-16 07:25 | NUR ---
PT LAYING IN BED RESTING WITH EYES CLOSED, AROUSES EASILY TO VERBAL STIMULI, PUPILS PERRL, RESP. EVEN AND UNLABORED, LUNG SOUNDS ARE COARSE, ABD DISTENDED AND SOFT WITH ACTIVE BOWEL SOUNDS, PEG TUBE REMAINS IN PLACE WITH NO RESIDUAL, 22G LFA IV SL, STRONG RADIAL PULSES, WEAK PEDAL PULSES, SAFETY MEASURES REINFORCED, CALL GRIGGS WITHIN REACH
[2024-04-16] MEDS ORDERED: LOSARTAN Potassium 50 MG/TAB PO SCH (09:00)
[2024-04-16 10:58] VITALS: BP 152/72
--- NOTE | 2024-04-16 12:00 | NUR ---
PT HAS VISITORS AT BEDSIDE, PT IS RESTING WITH EYES CLOSED, NO S/S OF DISTRESS AT THIS TIME, CALL GRIGGS WITHIN REACH
[2024-04-16 14:53] VITALS: BP 140/78
--- NOTE | 2024-04-16 16:00 | NUR ---
PT SITTING UP IN THE BED VISITING WITH FAMILY WHO ARE AT BEDSIDE, PT SHOWS NO S/S OF DISTRESS AT THIS TIME, SAFETY MEASURES REINFORCED, CALL GRIGGS WITHIN REACH
[2024-04-16 18:35] VITALS: BP 126/69
--- NOTE | 2024-04-16 19:50 | NUR ---
PT LAYING DOWN ON BED. ALERT AND ORIENTED X3. VISITOR ON THE SIDE. GI TUBE NOTED. BERKOWITZ CATHETER IN PLACE WITH DARK-CLEAR YELLOW URINE. TELE IN PLACE. 22 G IV L FOREARM- SALINE LOCK NOTED. IV SITE LOOKS CLEAN AND FLUSHED WITH 5 CC. SAFETY SOCKS IN PLACE. BREATHING EVEN AND UNLABORED. NO SIGNS OF ANY DISTRESS AT THIS TIME. PALPABLE PEDAL PULSES +2. NO EDEMA NOTED. BOWEL SOUNDS ACTIVE IN ALL FOUR QUADRANTS. CALL LIGHT IN REACH AND SAFETY PRECAUTIONS IN PLACE.
--- NOTE | 2024-04-16 21:30 | NUR ---
PT SITTING UP IN HIGH BRAVO'S POSITION. GI TUBE CHECKED FOR PLACEMET WITH AIR. NO RESIDUAL CONTENT RECEIVED. PT FED WITH 8 OZ JEVETY. FLUSHED WITH 30 CC. PT ALSO WAS MEDICATED WITH HER SCHEDULED MEDICATIONS AT THIS TIME VIA GI TUBE, PT STILL IN HIGH BRAVO'S POSITION. CALL LIGHT WITHIN RECAH AND SAFEY PRECAUTIONS IN PLACE.
[2024-04-16 23:50] VITALS: BP 121/63
--- NOTE | 2024-04-16 23:54 | NUR ---
PT RESTING ON BED. RESPS ARE EVEN AND UNLABORED. TELE ON PLACE. CALL LIGHT WITHIN RECAH AND SAFETY PRECAUTIONS IN PLACE.
[2024-04-17 04:27] VITALS: BP 97/58
--- NOTE | 2024-04-17 04:29 | NUR ---
PT RESTING ON BED. RESPS EVEN AND UNLABORED. CALL LIGHT IN REACH AND SAFETY PRECAUTIONS IN PLACE.
[2024-04-17 05:46] VITALS: BP 115/67
[2024-04-17 07:00] VITALS: BP 147/73
--- NOTE | 2024-04-17 07:00 | NUR ---
SHIFT CHANGE REPORT, PT AWAKE AND ALERT RESTING IN BED, NO C/O DISCOMFORT, BEDBATH GIVEN BY PAYROLL DIRECTOR AND PT ASSISTED TO RECLINER AND SET UP FOR 0800 MEAL, CALL GRIGGS IN REACH.
--- NOTE | 2024-04-17 07:30 | NUR ---
patient assisted to recliner.
--- NOTE | 2024-04-17 08:20 | NUR ---
RESIDUAL OF 5 CC ASPIRATED FROM PEG TUBE, FED, TOLERATED WELL.
--- NOTE | 2024-04-17 10:25 | NUR ---
ASSISTED BACK TO BED AND SETTLED AT THIS TIME, BED IN LOWEST POSITION WITH CALL GRIGGS IN REACH.
[2024-04-17 10:42] VITALS: BP 139/70
--- NOTE | 2024-04-17 12:17 | NUR ---
SAT UP RECLINER TO BE FED, RESIDUAL GREATER THAN 60 CC, FLUSHED WITH 80 CC H2O, FEED HELD.
--- NOTE | 2024-04-17 13:31 | NUR ---
ASSISTED BACK TO BED, CALL GRIGGS IN REACH.
[2024-04-17 14:27] VITALS: BP 109/64
--- NOTE | 2024-04-17 14:30 | NUR ---
RESIDUAL OF 5ML ASPIRATED, FEED GIVEN AND TOLERATED WELL.
--- NOTE | 2024-04-17 18:38 | NUR ---
1700 FEED HELD, RESIDUAL . 60CC, H2O FLUSH DONE
[2024-04-17 19:27] VITALS: BP 122/64
--- NOTE | 2024-04-17 20:45 | NUR ---
PT RECIEVED IN STABLE CONDITION. ALERT AND AWAKE. NO S/S OF DISTRESS NOTED. SPEECH IS SLOWED, NOT ABLE TO COMPREHEND PATIENT WHEN SPOKEN TO, BUT PATIENT IS ABLE TO NOD HER HEAD TO YES OR NO QUESTIONS. TELE # [address] BERKOWITZ PATENT WITH YELLOW URINE. PEG TUBE IN PLACE. ADMINISTERED TUBE FEEDING JEVITY 1.5 ORDERED. MEDS GIVEN VIA PED TUBE. PATIENT TOLERATED FEEDING WELL AND SITTING UPRIGHT AT THIS TIME. SAFETY MEASURES IN PLACE. WILL CONTINUE TO MONITOR.
[2024-04-18] VITALS (10 sets, daily range): BP systolic 107–132; BP diastolic 61–74
--- NOTE | 2024-04-18 07:32 | NUR ---
SHIFT CHANGE REPORT, PT SLEEPING IN SUPING POSITION BUT AWAKENED A THIS TIME, ORIENTED, DENIES PAIN, ASSISTED TO RECLINER AND POSITIONED FOR MEAL, TELE MONITOR IN PLACE, BERKOWITZ CATHETER IN PLACE WITH CLEAR YELLOW URINE, CALL GRIGGS IN REACH.
--- NOTE | 2024-04-18 08:13 | NUR ---
0 RESIDUAL AT THIS TIME, 0800 FEED GIVEN.
--- NOTE | 2024-04-18 09:14 | NUR ---
ASSISTED BACK TO BED AT THIS TIME
--- NOTE | 2024-04-18 11:00 | NUR ---
PT TOLERATED 60CC HONEY THICKENED APPLE JUICE WITH HEAD TURNED TO RIGHT AND PT IN 90DEGREE ANGLE.
--- NOTE | 2024-04-18 11:00 | NUR ---
RESIDUAL = 60+ CC, FEED HELD, FLUSHES DONE.
--- NOTE | 2024-04-18 14:24 | NUR ---
RESIDUAL = 0, FEED GIVEN.
--- NOTE | 2024-04-18 17:00 | NUR ---
RESIDUAL GREATER THAN 60CC, FEED HELD, H2O FLUSH X 160CC GIVEN.
--- NOTE | 2024-04-18 19:25 | NUR ---
RESTING QUIETLY IN BED EYES CLOSED. BED IN LOW POSITION LOCKED; ALARM ACTIVATED. CALL LIGHT WITHIN REACH.
[2024-04-19] VITALS (13 sets, daily range): BP systolic 104–131; BP diastolic 57–70
[2024-04-19 05:21] LABS: BASO% 1.1 % (0-3); EOS% 2.7 % (0-8); HEMATOCRIT 39.6 % (37.0-47.0); HEMOGLOBIN 13.2 g/dl (12.0-16.0); IMMATURE GRANULOCYTES 0.1 % (0.0-5.0); LYMPH% 35.6 % (15-41); MEAN CELL VOLUME 94.1 fL CALC (80.0-100.0); MEAN CORPUSCULAR HGB 31.4 pG CALC (26.0-32.0); MEAN CORPUSCULAR HGB CONC 33.3 g/dL CAL (32.0-36.0); MONO% 10.9 % (2-13); NEUT# 3.54 thou/uL (2.00-7.15); NEUT% 49.6 % (42-76); RED BLOOD COUNT 4.21 mill/uL (4.20-5.60); RED CELL DISTRI WIDTH 13.6 % (11.5-15.5)
[2024-04-19 05:44] LABS: ALBUMIN 3.4 g/dL (3.2-5.0); BILIRUBIN, TOTAL 0.7 mg/dL (0.02-1.3); CREATININE 0.4 mg/dL (0.5-1.0); MAGNESIUM 2.1 mg/dL (1.6-2.3); TOTAL PROTEIN 5.9 g/dL (6.3-8.2)
--- NOTE | 2024-04-19 07:20 | NUR ---
PT LAYING IN BED RESTING WITH HER EYES CLOSED, AROUSES EASILY TO VERBAL STIMULI, PT IS A&O X3, PUPILS PERRL, NORMAL S1 S2 HEART SOUNDS, TELE MONITOR IN PLACE, ABD SOFT AND DISTENDED WITH ACTIVE BOWEL SOUNDS, PEG TUBE IN PLACE, STRONG RADIAL PULSES, WEAK PEDAL PULSES, 22G RFA IV SL, SAFETY MEASURES REINFORCED, CALL GRIGGS WITHIN REACH
--- NOTE | 2024-04-19 12:00 | NUR ---
PT SITTING UP IN THE BED WATCHING TV, PT A& O X3, TOLERATING FEEDINGS WELL, DENIES ANY NEEDS AT THIS TIME, PT REMINDED TO CALL FOR ASSISTANCE, CALL GRIGGS WITHIN REACH
--- NOTE | 2024-04-19 16:00 | NUR ---
PT LAYING IN BED RESTING WITH EYES CLOSED, AROUSES EASILY TO VERBAL STIMULI, NO S/S OF DISTRESS AT THIS TIME, CALL GRIGGS WITHIN REACH
[2024-04-20] VITALS (8 sets, daily range): BP systolic 97–130; BP diastolic 59–75
--- NOTE | 2024-04-20 07:10 | NUR ---
PT LAYING IN BED RESTING WITH EYE3S CLOSED, AROUSES EASILY TO VERBAL STIMULI, PT IS A&O X3, PT IS VERY SOFT SPOKEN, PUPILS PERRL, RESP. EVEN AND UNLABORED, LUNG SOUNDS COARSE, ABD SOFT AND DISTENDED WITH ACTIVE BOWEL SOUNDS, PEG TUBE IN PLACE, NORMAL S1 S2 HEART SOUNDS, STRONG RADIAL AND PEDAL PULSES, SAFETY MEASURES REINFORCED, CALL GRIGGS WITHIN REACH
--- NOTE | 2024-04-20 10:20 | NUR ---
PT HAS MULTIPLE VISITORS AT BEDSIDE, PT IS TOLERATING VISITORS WELL, NO S/S OF DISTRESS, SAFETY MEASURES REINFORCED, CALL GRIGGS WITHIN REACH
--- NOTE | 2024-04-20 12:00 | NUR ---
PT LAYING IN BED RESTING WITH EYES CLOSED, RESP. EVEN AND UNLABORED AT THIS TIME, VISITOR AT BEDSIDE, CALL GRIGGS WITHIN REACH
--- NOTE | 2024-04-20 20:00 | NUR ---
RECEIVED REPORT FROM NURSE MONICA, PATIENT RESTING IN BED, VISTORS IN ROOM, BREATHING EVEN UNALBORED IV ON RFA PATENT FLUSHES WELL.NO RESIDEULA NOTED ON PEG TUBE, CHECKED FOR PLACEMENT AND PATENCY, NEW BERKOWITZ INSERTED.
[2024-04-21] VITALS (8 sets, daily range): BP systolic 100–133; BP diastolic 64–72
--- NOTE | 2024-04-21 00:38 | NUR ---
PATIENT RESTING WITH EYES CLOSED, NOT IN DISTRESS, BRAETHING EVEN UNLABORED. BED ALARM IN PLACED.
--- NOTE | 2024-04-21 03:42 | NUR ---
PATIENT RESTING IN BED, EYES CLOSED, NO DISCOMFORTS NOTED AT THIS TIME, BREATHING UNLABORED, BED ALARM IN PLACED.
--- NOTE | 2024-04-21 07:25 | NUR ---
PT LAYING IN BED RESTING WITH EYES CLOSED, AROUSES EASILY TO VERBAL STIMULI, PT A&O X 3, PUPILS PERRL, NORMAL S1 S2 HEART SOUNDS, TELE MONITOR IN PLACE, RESP. EVEN AND UNLABORED, LUNG SOUNDS ARE CLEAR, ABD DISTENDED AND SOFT WITH ACTIVE BOWEL SOUNDS, STRONG RADIAL PULSES, WEAK PEDAL PULSES, 22G RFA IV SL, SAFETY MEASURES REINFORCED, CALL GRIGGS WITHIN REACH
--- NOTE | 2024-04-21 10:45 | NUR ---
VISITOR AT BEDSIDE, PT WATCHING TV, NO S/S OF DISTRESS, CALL GRIGGS WITHIN REACH
--- NOTE | 2024-04-21 10:45 | NUR ---
FAMILY AT BEDSIDE VISITING, NO S/S OF DISTRESS, CALL GRIGGS WITHIN REACH
--- NOTE | 2024-04-21 12:05 | NUR ---
PT SITTING UP IN THE BED WATCHING TV, NURSE GIVING BOLUS FEEDING, PT TOLERATING WELL, PT DENIES ANY NEEDS AT THIS TIME, PT REMINDED TO CALL FOR ASSISTANCE, CALL GRIGGS WITHIN REACH
--- NOTE | 2024-04-21 15:50 | NUR ---
PT SITTING UP IN THE BED WATCHING TV, PT IS IN GOOD SPIRITS TODAY, DENIES ANY NEEDS AT THIS TIME, CALL GRIGGS WITHIN REACH
--- NOTE | 2024-04-21 20:00 | NUR ---
RECEIVED REPORT FROM NURSE SAVI, PATIENT RESTING IN BED, BREATHING EVEN UNALBORED REMAINS ON TELEMETRY. DENIES PAIN AT THIS TIME, IV ON RFA INFILTRATE NEW IV REINSERTED LFA, BERKOWITZ DRAINING YELLOW COLORED URINE, BED ALARM IN PLACED.
--- NOTE | 2024-04-21 21:42 | NUR ---
REFUSED TUBED FEED AT THIS TIME, STATED FULL, PATIENT RESIDUAL AT 60CC.
[2024-04-22] VITALS (7 sets, daily range): BP systolic 107–146; BP diastolic 58–86
--- NOTE | 2024-04-22 00:27 | NUR ---
PATIENT RESTING IN BED, EYES CLOSED, BREATHING EVEN UNLABORED CALL LIGHT IN REACHED.
--- NOTE | 2024-04-22 04:38 | NUR ---
PATIENT RSETING WITH EYES CLOSED, BREATHING EVEN UNALABORED CALL LIGT WITHIN REACHED,BED ALARM IN PLACED.
[2024-04-22 05:16] LABS: BASO% 1.1 % (0-3); EOS% 2.5 % (0-8); HEMATOCRIT 39.3 % (37.0-47.0); HEMOGLOBIN 12.8 g/dl (12.0-16.0); IMMATURE GRANULOCYTES 0.1 % (0.0-5.0); LYMPH% 33.3 % (15-41); MEAN CELL VOLUME 94.2 fL CALC (80.0-100.0); MEAN CORPUSCULAR HGB 30.7 pG CALC (26.0-32.0); MEAN CORPUSCULAR HGB CONC 32.6 g/dL CAL (32.0-36.0); MONO% 8.9 % (2-13); NEUT# 4.64 thou/uL (2.00-7.15); NEUT% 54.1 % (42-76); RED BLOOD COUNT 4.17 mill/uL (4.20-5.60); RED CELL DISTRI WIDTH 13.6 % (11.5-15.5)
[2024-04-22 05:26] LABS: ALBUMIN 3.4 g/dL (3.2-5.0); BILIRUBIN, TOTAL 0.7 mg/dL (0.02-1.3); CREATININE 0.4 mg/dL (0.5-1.0); MAGNESIUM 2.1 mg/dL (1.6-2.3); POTASSIUM 4.5 mmol/l (3.5-5.1)
--- NOTE | 2024-04-22 07:26 | NUR ---
PATIENT LYING ON RIGHT SIDE IN BED WITH EYES CLOSED RESTING. BREATHING UNLABORED ON ROOM AIR. TELE INTACT. IV IN LFA SL;SITE CLEAN AND INTACT. NO SIGNS OF DISTRESS OR PAIN NOTED. BED IN LOWEST POSITION. CALL LIGHT WITHIN REACH. NO NEEDS AT THIS TIME. POC ONGOING.
--- NOTE | 2024-04-22 12:39 | NUR ---
PATIENT SITTING UP IN BED WATCHING TV. BREATHING UNLABORED ON ROOM AIR. TELE INTACT. IV IN LFA SL;SITE CLEAN AND INTACT. PT DENIES ANY PAIN OR N/D/V AT THIS TIME. BED IN LOWEST POSITION. CALL LIGHT WITHIN REACH. NO NEEDS AT THIS TIME. POC ONGOING.
--- NOTE | 2024-04-22 16:49 | NUR ---
PATIENT LYING IN BED WITH EYES CLOSED. BREATHING UNLABORED ON ROOM AIR. TELE INTACT. NO SIGNS OF DISTRESS NOTED. BED IN LOWEST POSITION. CALL LIGHT WITHIN REACH. NO NEEDS AT THIS TIME. POC ONGOING.
--- NOTE | 2024-04-22 20:00 | NUR ---
PT RESTING IN BED NO DISTRESS NOTED ON EXAM. VS WNL ON RA LUNGS CLEAR WITH A DRY COUGH. SKIN INTACT NO EDEMA NOTED ON EXAM. IV FLUSHED WORKING PROPERLY SL. BERKOWITZ WITH CLEAR YELLOW URINE NO KINKS. PT REPORTS NO PAIN AT THIS TIME. CALL LIGHT WITHIN REACH. PLAN OF CARE ONGOING.
--- NOTE | 2024-04-22 21:30 | NUR ---
PT RESTING NO DISTRESS NOTED. PEG TUBE MEDICATION GIVEN WORKING PROPERLY. ORAL CARE PROVIDED SLIGHTLY REDNESS NOTED WITH DRY SCABS ON LIPS MOISTURIZER APPLIED. ALL LIGHTS AND TV TURNED OFF SO THAT PT CAN SLEEP. CALL LIGHT WITHIN REACH. PLAN OF CARE ONGOING. PT REPORTED NO NAUSEA OR ABD DISCOMFORT.
--- NOTE | 2024-04-23 00:21 | NUR ---
PT SLEEPING BREATHING EVENLY NO DISTRESS NOTED. CALL LIGHT WITHIN REACH. FALL PRECAUTIONS IN PLACE.
--- NOTE | 2024-04-23 07:15 | NUR ---
REPORT RECEIVED FROM GELYRN
[2024-04-23 07:49] VITALS: BP 128/64
--- NOTE | 2024-04-23 09:20 | NUR ---
PT RESTING IN LEFT SIDE LAYING POSITION,A&O X3. HX OF CVA DELAYED RESPONSES WITH A SOFT VOICE OR HEAD NOD;PT DENIES ANY CURRENT PAIN OR DISCOMFORTS,PAIN SCALE AND REPORTING EDUCATED;ASSESSMENT COMPLETED;RESPIRATIONS EVEN AND UNLABORED ON RA,CLEAR LUNG SOUNDS;ABDOMEN SOFT ON PALPATION AND ACTIVE IN ALL 4 QUADRANTS;PEG TUBE NOTED TO LEFT UPPER QUADRANT WITH 0 RESIDUAL NOTED-PT DID REFUSE 0800 FEEDING THIS MORNING;BERKOWITZ CATHETER DRAINING CLEAR/YELLOW URINE TO GRAVITY WITH EASE;STRONG PEDAL PULSES;#22G TO LFA FLUSHED AND PATENT,SITE APPEARS HEALTHY;TELE MONITORING IN PLACE;MORNING ACCUCHECK WAS 182, SLIDING SCALE INSULIN PROVIDED PER ORDER. LANTUS HELD DUE TO REPEAT ACCUCHECK OF 106- AWARE;PT DENIES ANY ADDITIONAL NEEDS AND IS ENCOURAGED TO CALL FOR ASSISTANCE IF NEEDED;FALL PRECAUTIONS IN PLACE WITH BED IN THE LOWEST POSITION AND BED ALARM ON FOR SAFETY;CALL LIGHT IN REACH;FREQUENT ROUNDS MADE.
--- NOTE | 2024-04-23 11:35 | NUR ---
PT RESTING IN SEMI FOWLERS POSITION;RESPIRATIONS EVEN AND UNLABORED ON RA;PT DENIES ANY CURRENT PAIN OR DISCOMFORTS;TELE MONITORING IN PLACE;#22G TO LFA REMAINS PATENT;BERKOWITZ CATHETER DRAINING TO GRAVITY WITH EASE;ACCUCHECK 118, PT COVERED WITH SLIDING SCALE INSULIN PER ORDER;TUBE FEED PROVIDED AT THIS TIME WITH JEVITY 1.5. 0 RESDIUAL PRIOR TO FEED, PT TOLERATED WELL;ENCOURAGED TO CALL FOR ASSISTANCE IF NEEDED;CALL LIGHT IN REACH;FREQUENT ROUNDS MADE.
--- NOTE | 2024-04-23 14:00 | NUR ---
PT REFUSED 1400 FEED AT THIS TIME. PEG TUBE FLUSHED AND SCHEDULED LOPRESSOR GIVEN WITH EASE. FREQUENT ROUNDS MADE.
--- NOTE | 2024-04-23 15:20 | NUR ---
PT RESTING IN SEMI FOWLERS POSITION WATCHING TV;RESPIRATIONS EVEN AND UNLABORED ON RA;PT DENIES ANY CURRENT PAIN OR DISCOMFORTS;TELE MONITORING IN PLACE;BERKOWITZ CATHETER CONTINUES TO DRAIN TO GRAVITY WITH EASE;#22G TO LFA PATENT;ALL SAFETY PRECAUTIONS NOTED WITH BED IN THE LOWEST POSITION WITH BED ALARM ON PLACE;ENCOURAGED TO CALL FOR ASSISTANCE IF NEEDED;CALL LIGHT IN REACH;FREQUENT ROUNDS MADE.
[2024-04-23 16:55] VITALS: BP 122/62
--- NOTE | 2024-04-23 19:00 | NUR ---
PT RESTING NO DISTRESS NOTED WATCHING TV. CALL LIGHT WITHIN REACH. BED ALARM ON.
[2024-04-23 19:09] VITALS: BP 120/66
--- NOTE | 2024-04-23 21:00 | NUR ---
PT RESTING EASILY AROUSABLE. ASSESSMENT DONE VS WNL ON RA LUNGS CLEAR NO PAIN REPORTED. PEG TUBE RESIDUAL 0ML. NIGHT TIME MEDICATION AND FEED GIVEN THROUGH THE PEG TUBE. PT TOLERATED FEED AND DOES NOT REPORT ANY NAUSEA AT THIS TIME. IV FLUSHED WORKING PROPERLY SL. HOB AT 45%. BERKOWITZ CATHETER WITH NO KINKS WORKING PROPERLY CLEAR YELLOW URINE. CALL LIGHT WITHIN REACH. PLAN OF CARE ONGOING.
[2024-04-24 00:10] VITALS: BP 120/69
--- NOTE | 2024-04-24 00:35 | NUR ---
PT SLEEPING NO DISTRESS NOTED ON EXAM BREATHING EVENLY. BED ALARM ON. CALL LIGHT WITHIN REACH. PLAN OF CARE ONGOING.
[2024-04-24 03:54] VITALS: BP 129/64
--- NOTE | 2024-04-24 04:08 | NUR ---
PT SLEEPING BREATHING EVENLY NO DISTRESS NOTED ON EXAM. CALL LIGHT WITHIN REACH. BED ALARM. PLAN OF CARE ONGOING.
--- NOTE | 2024-04-24 05:45 | NUR ---
PT DIAPHORETIC AND NAUSEATED WITH DRY HEAVING. NURSE GAVE REGLAN IV AND PLACED PT ON HIGH BRAVO POSITION.
--- NOTE | 2024-04-24 06:29 | NUR ---
PT SLEEPING BUT EASILY AROUSABLE. PT STILL SLIGHTLY NAUSEATED BUT FEEL BETTER. PT REPOSITIONED AND HOB AT 45 DEGREES. CALL LIGHT WITHIN REACH. BED ALARM ON. PLAN OF CARE ONGOING.
[2024-04-24 07:08] VITALS: BP 154/72
--- NOTE | 2024-04-24 08:32 | NUR ---
patient a/o x2; rom air; breathing unlabored; patient sitting high semi felder in bed; denied any pain; denied any vomiting; refused feeding after educated on feedings; iv site clean and intact saline locked at this time;no s.s of distress at this time;medicated via PEG TUBE; stuart working with no issues; call light within reach,verbalize understanding on how to use, personal items within reach;bed in lowest postion;safety measures in place
--- NOTE | 2024-04-24 12:33 | NUR ---
patient sitting in high smei folwer postion in bed watching tv; room air; breathing unlabored and even; denied any pain; tolerated patient 1100 feeding only wanted hafl of feeding; iv site clean and in tact saline locked at this time; no s.s of distress atthi stime; call light light within reach, verbalized understanding on how to use, personal items within reach; bed in lowest postion;saftey measures in place
--- NOTE | 2024-04-24 14:30 | NUR ---
patient refused her 1400 feeding at this time
--- NOTE | 2024-04-24 16:00 | NUR ---
PATIENT RESTING IN BED WATCHING TV; ROOM AIR; BREATHING UNLABORED AND EVEN; DENIED ANY PAIN; DENIED ANY N/D/V AT THIS TIME; NO S.S OF DISTRESS AT THIS TIEM; IV SITE CLEAN AND INTACT SALINE LOCKED; GLUCOSE WAS WITHIN REACH, NO COVERAGED NEEDED; CALL LIGHT WITHIN REACH, VERBALIZED UNDERSTANDING ON HOW TO USE, PERSONAL ITEMS IWTHIN REACH, BED IN LOWEST POSTION; SAFTEY MEASURES IN [place]
--- NOTE | 2024-04-24 17:20 | NUR ---
PATIENT TOLERATED 75% OF FEEDING WITH NO ISSUES, NO COMPLAINTS
[2024-04-24 18:37] VITALS: BP 117/71
--- NOTE | 2024-04-24 19:30 | NUR ---
PATIENT IN ROOM RESTING IN BED WATCHING TV. A&O X3, HEAD NOD RESPONSES. BED SIDE ASSESSMENT COMPLETE. PEG TUBE IN PLACE. NO VISUAL SIGNS OF DISTRESS. FOLY CATHETER IN PLACE DRAINING CLEAR PADMINI URINE. PATIENT REFUSED FEED 1999. BED AT LOWEST POSITION. CALL LIGHT WITH IN REACH.
[2024-04-24 21:34] VITALS: BP 138/78
[2024-04-25] VITALS (7 sets, daily range): BP systolic 86–142; BP diastolic 51–79
--- NOTE | 2024-04-25 00:16 | NUR ---
PATIENT IN BED RESTING WITH EYES CLOSED. EQUAL UNLABORED RESP NO VISUAL SIGNS OF DISTRESS. FOLY CATH INTACT. BED AT LOWEST POSITION. CALL LIGHT WITH IN REACH.
--- NOTE | 2024-04-25 03:54 | NUR ---
PATIENT IN ROOM AWAKE. PATIENT RESPONDS TO VERBAL STIMULI WITH HEAD NOD. FOLY CATHETER IN PLACE NO KINKS WITH FLOWING URINE. PEG TUBE IN PLACE. BED AT LOWEST POSITION. CALL LIGHT WITH IN REACH.
[2024-04-25 05:40] LABS: BASO% 0.7 % (0-3); EOS% 1.5 % (0-8); HEMATOCRIT 36.5 % (37.0-47.0); HEMOGLOBIN 12.7 g/dl (12.0-16.0); IMMATURE GRANULOCYTES 0.1 % (0.0-5.0); LYMPH% 28.7 % (15-41); MEAN CELL VOLUME 90.8 fL CALC (80.0-100.0); MEAN CORPUSCULAR HGB 31.6 pG CALC (26.0-32.0); MEAN CORPUSCULAR HGB CONC 34.8 g/dL CAL (32.0-36.0); MONO% 9.8 % (2-13); NEUT# 5.05 thou/uL (2.00-7.15); NEUT% 59.2 % (42-76); RED BLOOD COUNT 4.02 mill/uL (4.20-5.60); RED CELL DISTRI WIDTH 13.4 % (11.5-15.5)
[2024-04-25 05:50] LABS: ALBUMIN 3.4 g/dL (3.2-5.0); BILIRUBIN, TOTAL 0.8 mg/dL (0.02-1.3); CREATININE 0.4 mg/dL (0.5-1.0); MAGNESIUM 1.9 mg/dL (1.6-2.3); POTASSIUM 3.9 mmol/l (3.5-5.1)
--- NOTE | 2024-04-25 07:50 | NUR ---
PT LAYING IN BED RESTING WITH EYES CLOSED, AROUSES EASILY TO VERBAL STIMULI, PT IS A&O X 3, PUPILS ARE PERRL, NORMAL S1 S2 HEART SOUNDS, TELE MONITOR IN PLACE, RESP. EVEN AND UNLABORED, LUNG SOUNDS CLEAR, ABD DISTENDED AND SOFT WITH ACTIVE BOWEL SOUNDS, PEG TUBE IN PLACE, STRONG READIAL PULSES. WEAK PEDAL PULSES, 22G RFA IV SL, SAFETY MEASURES REINFORCED,CALL GRIGGS WITHIN REACH
--- NOTE | 2024-04-25 12:00 | NUR ---
PT SITTING UP IN THE BED WATCHING TV, PT REFUSED FEEDING, SAFETY MEASURES REINFORCED, CALL GRIGGS WITHIN REACH
--- NOTE | 2024-04-25 16:00 | NUR ---
PT LAYING IN BED RESTING WITH EYES CLOSED, AROUSES EASILY TO VERBAL STIMULI, PT DENIES ANY NEEDS AT THIS TIME, CALL GRIGGS WITHIN REACH
--- NOTE | 2024-04-25 19:45 | NUR ---
PT SLEEPING EASILY AROUSABLE ASSESSMENT DONE. VS WNL ON RA LUNGS CLEAR NO PAIN REPORTED AT THIS TIME. SCATTERED BRUISING NO EDEMA NOTED. BERKOWITZ WITH NO KINKS CLEAR YELLOW URINE. BS ACTIVE WITH PEG TUBE IN PLACE CLEAN DRESSING. IV FLUSHED WORKING PROPERLY SL. CALL LIGHT WITHIN REACH. BED ALARM ON. PLAN OF CARE ONGOING.
--- NOTE | 2024-04-25 21:15 | NUR ---
PT WAS NAUSEATED NURSE PROVIDED IV REGLAN. AT THIS TIME REFUSED PEG TUBE FEED. MEDICATION GIVEN AFTER 15 MINUTES OF GIVEN REGLAN. HOB AT 45% PT INFORMED THAT SHE WILL BE LIKE THAT FOR AT LEAST 45 MIN. CALL LIGHT WITHIN REACH. PLAN OF CARE ONGOING. BED ALARM ON.
--- NOTE | 2024-04-25 23:37 | NUR ---
PT RESTING IN BED AWAKE NO DISTRESS NOTED. PT REPORTS NO NAUSEA AT THIS TIME OR PAIN. PT REQUEST TO KEEP A LIGHT ON IN HER ROOM NURSE KEPT A LIGHT THAT WAS NOT TOO CLOSE TO PT. CALL LIGHT WITHIN REACH. WOO WITH NO KINKS. PLAN OF CARE ONGOING. BED ALARM ON.
[2024-04-26] VITALS (9 sets, daily range): BP systolic 124–150; BP diastolic 67–90
--- NOTE | 2024-04-26 04:00 | NUR ---
PT RESTING NO DISTRESS NOTED. WHEN CHECKING ON PT SHE ASKED STAFF TO REPOSITION HER HIGHER IN BED. WOO CHECKED NO KINKS NOTED. CALL LIGHT WITHIN REACH. BED ALARM ON. PLAN OF CARE ONGOING.
--- NOTE | 2024-04-26 07:10 | NUR ---
PT LAYING IN BED RESTING WITH EYES CLOSED, AROUSES EASILY TO VERBAL STIMULI, PT IS A&O X 3, PT IS VERY SOFT SPOKEN, PUPILS ARE PERRL, NORMAL S1 S2 HEART SOUNDS, TELE MONITOR IN PLACE, RESP. EVEN AND UNLABORED, LUNG SOUNDS ARE DIMINISHED IN THE BASES, ABD DISTENDED AND SOFT WITH ACTIVE BOWEL SOUNDS, PEG TUBE IN PLACE, 22G LFA SL, STRONG RADIAL PULSES, WEAK PEDAL PULSES, SAFETY MEASURES REINFORCED, CALL GRIGGS WITHIN REACH
--- NOTE | 2024-04-26 12:00 | NUR ---
PT TOLERATED FEEDING WELL, PT SITTING UP IN THE BED WATCHING TV, DENIES ANY NEEDS AT THIS TIME, CALL GRIGGS WITHIN REACH
--- NOTE | 2024-04-26 15:42 | NUR ---
PT SITTING UP IN THE BED WATCHING TV, PT DENIES ANY NEEDS AT THIS TIME, NO S/S OF DISTRESS AT THIS TIME, CALL GRIGGS WITHIN REACH
--- NOTE | 2024-04-26 19:45 | NUR ---
PT RESTING IN BED NO DISTRESS NOTED ON ASSESSMENT. PT COMPLAINING OF LEFT FACE PAIN WHEN TOUCHING IT SLIGHTLY SWOLLEN NOT WARM TO THE TOUCH. HEART MONITOR SHOWING ST OTHER VS WNL ON RA LUNGS DIMINISHED. IV FLUSHED WORKING PROPERLY SL. PEG TUBE RESIDUAL CHECKED 0CC NO NAUSEA REPORTED AT THIS TIME. BERKOWITZ WORKING PROPERLY WITH NO KINKS PADMINI CLEAR URINE. SKIN INTACT NO EDEMA NOTED. CALL LIGHT WITHIN REACH. BED ALARM ON. PLAN OF CARE ONGOING.
--- NOTE | 2024-04-26 20:25 | NUR ---
PT WAS GIVEN REGLAN AFTER VOMITING EVEN THOUGH PT STATED NOT FEELING NAUSEATED AT THAT TIME SHE VOMITED. PT WAS REPOSITIONED WITH HOB AT 90 DEGREES.
--- NOTE | 2024-04-26 21:55 | NUR ---
PT WAS GIVEN NIGHT MED THRU PEG TUBE. PT STATED NOT FEELING NAUSEATED AND TOLERATED MEDICATION.
[2024-04-27] VITALS (9 sets, daily range): BP systolic 111–152; BP diastolic 67–79
--- NOTE | 2024-04-27 | NUR ---
PT RESTING NO DISTRESS NOTED BREATHING EVENLY. CALL LIGHT WITHIN REACH. PLAN OF CARE ONGOING.
--- NOTE | 2024-04-27 03:29 | NUR ---
PT BREATHING EVENLY NO DISTRESS NOTED ON EXAM. CALL LIGHT WITHIN REACH. BED ALARM ON.
--- NOTE | 2024-04-27 07:15 | NUR ---
PT LAYING IN BED RESTING WITH EYES CLOSED, AROUSES EASILY TO VERBAL STIMULI, PUPILS PERRL, RESP. EVEN AND UNLABORED, LUNG SOUNDS DIMINISHED IN THE BASES, ABD DISTENDED AND SOFT WITH ACTIVE BOWEL SOUNDS, PEG TUBE IN PLACE, NORMAL S1 S2 HEART SOUNDS, SAFETY MEASURES REINFORCED, CALL GRIGGS WITHIN REACH
--- NOTE | 2024-04-27 12:00 | NUR ---
PT WATCHING TV, DENIES ANY NAUSEA AT THIS TIME, PT REMINDED TO USE CALL LIGHT FOR ASSISTANCE, PT VERBALIZES UNDERSTANDING, CALL GRIGGS WITHIN REACH
[2024-04-27] MEDS ORDERED: traMADol HCL 50 MG/TAB PO PRN (12:40)
--- NOTE | 2024-04-27 15:30 | NUR ---
PT ASSISTED FROM THE BED TO THE WC AND TRANSPORTED TO RADIOLOGY, PT TOLERATED WELL
--- NOTE | 2024-04-27 15:50 | NUR ---
PT RETURNED TO UNIT VIA WC FROM CT, PT ASSISTED WITH AMBULATING TO THE BED FROM THE WC, PT AMBULATED WITH A SLOW STEADY GAIT, PT ASSISTED WITH REPOSITIONING, SAFETY MEASURES REINFORCED, CALL GRIGGS WITHIN REACH
[2024-04-27] MEDS ORDERED: AMPICILLIN & SULBACTAM SODIUM 1.5 GM in SODIUM CHLORIDE 0.9% 50 ML IV SCH (18:00)
--- NOTE | 2024-04-27 20:00 | NUR ---
PT RESTING IN BED NO DISTRESS NOTED ON ASSESSMENT. VS WNL ON RA LUNGS CLEAR. HEART MONITOR SHOWING ST. PT STATED NOT WANTING PEG TUBE FEED AT THIS TIME. IV FLUSHED WORKING PROPERLY SL. BERKOWITZ WITH NO KINKS PADMINI CLEAR URINE. NO SKIN ISSUES OR EDEMA NOTED. CALL LIGHT WITHIN REACH. PLAN OF CARE ONGOING.
--- NOTE | 2024-04-27 21:55 | NUR ---
NIGHT TIME MEDICATIONS GIVEN THRU PEG TUBE WITH 300CC OF WATER TOTAL. BEFORE GIVEN MEDICATION RESIDUAL CHECKED 0CC. PT STILL REFUSING PEG TUBE FEED.
[2024-04-28] VITALS (9 sets, daily range): BP systolic 118–134; BP diastolic 65–78
--- NOTE | 2024-04-28 | NUR ---
PT SLEEPING BREATHING EASILY NO DISTRESS NOTED. CALL LIGHT WITHIN REACH. PLAN OF CARE ONGOING. BED ALARM ON.
--- NOTE | 2024-04-28 04:00 | NUR ---
PT SLEEPING BREATHING EVENLY NO DISTRESS NOTED ON EXAM. CALL LIGHT WITHIN REACH. BED ALARM ON. PLAN OF CARE ONGOING.
[2024-04-28 05:22] LABS: BASO% 0.3 % (0-3); EOS% 0.3 % (0-8); HEMATOCRIT 38.6 % (37.0-47.0); HEMOGLOBIN 12.8 g/dl (12.0-16.0); IMMATURE GRANULOCYTES 0.2 % (0.0-5.0); LYMPH% 15.4 % (15-41); MEAN CELL VOLUME 93.2 fL CALC (80.0-100.0); MEAN CORPUSCULAR HGB 30.9 pG CALC (26.0-32.0); MEAN CORPUSCULAR HGB CONC 33.2 g/dL CAL (32.0-36.0); MONO% 9.2 % (2-13); NEUT# 11.63 thou/uL (2.00-7.15); NEUT% 74.6 % (42-76); RED BLOOD COUNT 4.14 mill/uL (4.20-5.60); RED CELL DISTRI WIDTH 13.4 % (11.5-15.5)
[2024-04-28 05:37] LABS: ALBUMIN 3.4 g/dL (3.2-5.0); BILIRUBIN, TOTAL 1.1 mg/dL (0.02-1.3); CREATININE 0.4 mg/dL (0.5-1.0); MAGNESIUM 1.9 mg/dL (1.6-2.3); POTASSIUM 3.7 mmol/l (3.5-5.1); TOTAL PROTEIN 6.1 g/dL (6.3-8.2)
--- NOTE | 2024-04-28 07:20 | NUR ---
PT LAYING IN BED RESTING WITH EYES CLOSES, AROUSES EASILY TO VERBAL STIMULI, PT A&O X3, RESP, EVEN AND UNLABORED, LUNG SOUNDS ARE CLEAR, ABD DISTENDED AND SOFT WITH ACTIVE BOWEL SOUNDS, 22G RFA IV SL, SAFETY MEASURES REINFORCED, CALL GRIGGS WITHIN REACH
[2024-04-28] MEDS ORDERED: AMPICILLIN & SULBACTAM SODIUM 3 GM in SODIUM CHLORIDE 0.9% 100 ML IV SCH (12:00)
--- NOTE | 2024-04-28 12:00 | NUR ---
PT SITTING UP IN THE BED WATCHING TV, VISITOR AT BEDSIDE, NO S/S OF DISTRESS AT THIS TIME, CALL GRIGGS WITHIN REACH
--- NOTE | 2024-04-28 16:00 | NUR ---
PT RESTING WITH EYES CLOSED, AROUSES EASILY TO VERBAL STIMULI, PT DENIES ANY NEEDS AT THIS TIME, CALL GRIGGS WITHIN REACH
--- NOTE | 2024-04-28 19:45 | NUR ---
PT SLEEPING EASILY AROUSABLE. PT STATED SHE IS NOT NAUSEATED AND WOULD TAKE HER EVENING FEEDING. PEG TUBE RESIDUAL CHECKED 0CC. IV FLUSHED WORKING PROPERLY. VS WNL ON RA LUNGS CLEAR. BERKOWITZ WITH PADMINI CLEAR URINE NO KINKS. SCATTERED BRUISING NO EDEMA NOTED ON SKIN. CALL LIGHT WITHIN REACH. PLAN OF CARE ONGOING.
--- NOTE | 2024-04-28 21:00 | NUR ---
PEG TUBE FEED GIVEN. ONLY HALF OF THE JEVITY 1.5 GIVEN WITH 300CC FLUSH TOTAL WITH MEDICATIONS. PT TOLERATED FEED. HOB AT 45 DEGREES DURING FEEDING.
[2024-04-29] VITALS (8 sets, daily range): BP systolic 100–151; BP diastolic 62–76
--- NOTE | 2024-04-29 | NUR ---
PT SLEEPING BREATHING EVENLY NO DISTRESS NOTED. CALL LIGHT WITHIN REACH. BED ALARM ON. PLAN OF CARE ONGOING.
--- NOTE | 2024-04-29 04:00 | NUR ---
PT SLEEPING NO DISTRESS NOTED ON EXAM. CALL LIGHT WITHIN REACH. PLAN OF CARE ONGOING.
[2024-04-29 05:41] LABS: BASO% 0.5 % (0-3); EOS% 0.9 % (0-8); HEMATOCRIT 37.3 % (37.0-47.0); HEMOGLOBIN 12.5 g/dl (12.0-16.0); IMMATURE GRANULOCYTES 0.9 % (0.0-5.0); LYMPH% 20.1 % (15-41); MEAN CELL VOLUME 92.6 fL CALC (80.0-100.0); MEAN CORPUSCULAR HGB CONC 33.5 g/dL CAL (32.0-36.0); MONO% 8.4 % (2-13); NEUT# 8.83 thou/uL (2.00-7.15); NEUT% 69.2 % (42-76); RED BLOOD COUNT 4.03 mill/uL (4.20-5.60); RED CELL DISTRI WIDTH 13.5 % (11.5-15.5)
[2024-04-29 05:58] LABS: ALBUMIN 3.3 g/dL (3.2-5.0); BILIRUBIN, TOTAL 1.1 mg/dL (0.02-1.3); CREATININE 0.4 mg/dL (0.5-1.0); MAGNESIUM 1.9 mg/dL (1.6-2.3); POTASSIUM 3.6 mmol/l (3.5-5.1)
--- NOTE | 2024-04-29 07:35 | NUR ---
PATIENT A&OX3. BREATHING UNLABORED ON ROOM AIR. TELE INTACT. IV IN RFA SL;SITE CLEAN AND INTACT. PT DENIES ANY PAIN OR N/D/V AT THIS TIME. BED IN LOWEST POSITION. CALL LIGHT WITHIN REACH. NO OTHER NEEDS AT THIS TIME. POC ONGOING.
--- NOTE | 2024-04-29 10:09 | NUR ---
PRODUCT MARKETING PROGRAMS MANAGER ATTEMPTED TREATMENT AT 0940. PT REFUSAL DESPITE VERBAL ENCOURAGEMENT. CONTINUE POC.
--- NOTE | 2024-04-29 12:27 | NUR ---
PATIENT SITTING UP IN RECLINER WATCHING TV. BREATHING UNLABORED ON ROOM AIR. TELE INTACT. IV IN RFA INFUSING FLUIDS PER EMAR;SITE CLEAN AND INTACT. PT DENIES ANY PAIN OR N/D/V AT THIS TIME. PT TOLERATED PUREE LUNCH WITH NO ISSUES. CALL LIGHT WITHIN REACH. NO NEEDS AT THIS TIME. POC ONGOING.
--- NOTE | 2024-04-29 16:33 | NUR ---
PATIENT IN BED WITH EYES CLOSED. BREATHING UNLABORED ON ROOM AIR. TELE INTACT, IV IN RFA SL;SITE CLEAN AND INTACT. NO SIGNS OF DISTRESS OR PAIN NOTED. BED IN LOWEST POSITION. CALL LIGHT WITHIN REACH. POC ONGOING.
--- NOTE | 2024-04-29 21:00 | NUR ---
PT RESTING NO DISTRESS NOTED. VS WNL ON RA LUNGS CLEAR. PEG WITH NO RESIDUAL NIGHT TIME MEDICATIONS PROVIDED TOLERATED WELL. REFUSED PEG TUBE FEED. BERKOWITZ CATHETER WITH YELLOW CLEAR URINE NO KINKS. IV FLUSHED WORKING PROPELRY. HOB AT 45 DEGREES. CALL LIGHT WITHIN REACH. PLAN OF CARE ONGOING. BED ALARM ON.
[2024-04-30 00:04] VITALS: BP 119/71
--- NOTE | 2024-04-30 00:13 | NUR ---
PT SLEEPING BREATHING EVEN NO DISTRESS NOTED ON EXAM. CALL LIGHT WITHIN REACH. BED ALARM ON.
--- NOTE | 2024-04-30 04:00 | NUR ---
PT SLEEPING BREATHING EVENLY NO DISTRESS NOTED. CALL LIGHT WITHIN REACH. BED ALARM ON. PLAN OF CARE ONGOING.
[2024-04-30 04:42] VITALS: BP 119/57
[2024-04-30 05:28] LABS: BASO% 0.7 % (0-3); EOS% 1.5 % (0-8); HEMATOCRIT 36.6 % (37.0-47.0); HEMOGLOBIN 12.1 g/dl (12.0-16.0); IMMATURE GRANULOCYTES 0.1 % (0.0-5.0); LYMPH% 24.3 % (15-41); MEAN CELL VOLUME 94.3 fL CALC (80.0-100.0); MEAN CORPUSCULAR HGB 31.2 pG CALC (26.0-32.0); MEAN CORPUSCULAR HGB CONC 33.1 g/dL CAL (32.0-36.0); MONO% 8.9 % (2-13); NEUT# 6.56 thou/uL (2.00-7.15); NEUT% 64.5 % (42-76); RED BLOOD COUNT 3.88 mill/uL (4.20-5.60); RED CELL DISTRI WIDTH 13.3 % (11.5-15.5)
[2024-04-30 05:37] LABS: ALBUMIN 3.2 g/dL (3.2-5.0); BILIRUBIN, TOTAL 0.9 mg/dL (0.02-1.3); CREATININE 0.4 mg/dL (0.5-1.0); POTASSIUM 3.2 mmol/l (3.5-5.1)
--- NOTE | 2024-04-30 08:05 | NUR ---
PT LAYING IN BED RESTING WITH EYES CLOSED, AROUSES EASILY TO VERBAL STIMULI, PT IS A&O X3, PUPILS PERRL, NORMAL S1 S2 HEART SOUNDS, TELE MONITOR IN PLACE, RESP. EVEN AND UNLABORED, LUNG SOUNDS ARE DIMINISHED IN THE BASES, ABD DISTENDED AND SOFT WITH ACTIVE BOWEL SOUNDS, STRONG RADIAL PULSES, WEAK PEDAL PULSES, 22G RW IV SL, SAFETY MEASURES REINFORCED, CALL GRIGGS WITHIN REACH
[2024-04-30 10:45] VITALS: BP 139/80
[2024-04-30] MEDS ORDERED: POTASSIUM CHLORIDE 20 MEQ/PKT POWDER PO SCH (12:00)
--- NOTE | 2024-04-30 12:00 | NUR ---
PT SITTING UP IN THE BED WATCHING TV, VISITOR AT BEDSIDE, PT DENIES ANY NEEDS AT THIS TIME, PT REMINDED TO CALL FOR ASSISTANCE, CALL GRIGGS WITHIN REACH
--- NOTE | 2024-04-30 14:01 | NUR ---
PT ASSISTED WITH GETTING WASHED UP, PT TOLERATING WELL, PT REMINDED TO CALL FOR ASSISTANCE, CALL GRIGGS WITHIN REACH
--- NOTE | 2024-04-30 16:00 | NUR ---
PT RESTING WITH EYES CLOSED, NO S/S OF DISTRESS, CALL GRIGGS WITHIN REACH
[2024-04-30 16:41] VITALS: BP 153/79
[2024-04-30 18:45] VITALS: BP 122/54
[2024-05-01] VITALS (7 sets, daily range): BP systolic 115–168; BP diastolic 56–81
[2024-05-01 05:18] LABS: EOS% 2.6 % (0-8); HEMATOCRIT 36.6 % (37.0-47.0); HEMOGLOBIN 12.1 g/dl (12.0-16.0); IMMATURE GRANULOCYTES 0.1 % (0.0-5.0); LYMPH% 29.4 % (15-41); MEAN CELL VOLUME 94.6 fL CALC (80.0-100.0); MEAN CORPUSCULAR HGB 31.3 pG CALC (26.0-32.0); MEAN CORPUSCULAR HGB CONC 33.1 g/dL CAL (32.0-36.0); MONO% 9.2 % (2-13); NEUT# 4.85 thou/uL (2.00-7.15); NEUT% 57.7 % (42-76); RED BLOOD COUNT 3.87 mill/uL (4.20-5.60); RED CELL DISTRI WIDTH 13.2 % (11.5-15.5)
[2024-05-01 05:33] LABS: BILIRUBIN, TOTAL 0.7 mg/dL (0.02-1.3); CREATININE 0.3 mg/dL (0.5-1.0); POTASSIUM 3.5 mmol/l (3.5-5.1); TOTAL PROTEIN 5.7 g/dL (6.3-8.2)
--- NOTE | 2024-05-01 07:37 | NUR ---
SHIFT CHANGE REPORT, PT SLEEPING, LYING ACCROSS BED WITH LEGS PARTIALLY HANGING OVER, REPOSITIONED AT THIS TIME, BERKOWITZ CATHETER IN PLACE WITH DARK PADMINI URINE, TELE MONITOR IN PLACE, CALL GRIGGS IN REACH AND BED LOCKED IN LOWEST POSITION.
--- NOTE | 2024-05-01 07:39 | NUR ---
URINE IN CATHETER BAG WAS BLOOD TINGED, CATHETER STRAP READJUSTED WHERE PULLING ON CATHETER WAS RESTRICTED, URINE BEGAN CLEARING UP DAY PROGRESSED.
--- NOTE | 2024-05-01 12:00 | NUR ---
ASSISTED OOB TO RECLINER FOR MEAL, FED AND TOLERATED MEAL WELL.
--- NOTE | 2024-05-01 18:12 | NUR ---
SITTING IN HIGH FOWLERS POSITION AT THIS TIME AND BEING FED, NEEDS CONSTANT REMINDERS TO KEEP HEAD TURNED TO EXTREME RIGHT WHEN SWALLOWING, COOPERATES WHEN REMINDED BUT REMINDING IS CONSTANT.
[2024-05-02] VITALS (7 sets, daily range): BP systolic 116–153; BP diastolic 62–79
[2024-05-02 05:41] LABS: BASO% 0.9 % (0-3); EOS% 1.9 % (0-8); HEMATOCRIT 36.9 % (37.0-47.0); HEMOGLOBIN 12.1 g/dl (12.0-16.0); IMMATURE GRANULOCYTES 0.2 % (0.0-5.0); LYMPH% 28.7 % (15-41); MEAN CELL VOLUME 93.2 fL CALC (80.0-100.0); MEAN CORPUSCULAR HGB 30.6 pG CALC (26.0-32.0); MEAN CORPUSCULAR HGB CONC 32.8 g/dL CAL (32.0-36.0); MONO% 10.1 % (2-13); NEUT# 5.52 thou/uL (2.00-7.15); NEUT% 58.2 % (42-76); RED BLOOD COUNT 3.96 mill/uL (4.20-5.60); RED CELL DISTRI WIDTH 13.2 % (11.5-15.5)
[2024-05-02 06:05] LABS: ALBUMIN 3.1 g/dL (3.2-5.0); BILIRUBIN, TOTAL 0.8 mg/dL (0.02-1.3); CREATININE 0.3 mg/dL (0.5-1.0); MAGNESIUM 2.1 mg/dL (1.6-2.3); POTASSIUM 3.9 mmol/l (3.5-5.1); TOTAL PROTEIN 5.8 g/dL (6.3-8.2)
--- NOTE | 2024-05-02 07:36 | NUR ---
SHIFT CHANGE REPORT, PT SLEEPING BUT AWAKENED TO TACTILE STIMULI, ASSISTED UP TO RECLINER AND SET UP FOR MEAL. TELE MONITOR IN PLACE, BERKOWITZ IN PLACE WITH YELLOW URINE IMPROVED FROM YESTERDAY WHEN THERE WAS BLOODY URINE, CALL GRIGGS IN REACH.
--- NOTE | 2024-05-02 12:00 | NUR ---
ASSISTED BACK TO BED PER PT'S REQUEST AND FED, TOLERATED FEED WELL.
--- NOTE | 2024-05-02 13:00 | NUR ---
BIOMEDICAL ELECTRONICS TECHNICIAN ADVISED NOT TO GIVE PT ANY ORAL LIQUID BUT TO CONTINUE WITH 200CC PEG TUBE FLUSHES 5 X DAILY @ 0800,1100,1400,1700 & 2100.
--- NOTE | 2024-05-02 16:00 | NUR ---
RELAXING IN BED WATCHING TV, ALL NEEDS ADDRESSED.
--- NOTE | 2024-05-02 21:00 | NUR ---
PT RESTING IN BED WITH HOB AT 45 DEGREES NO DISTRESS NOTED. PT STATED NOT HAVING ANY NAUSEA OR DISCOMFORT AT THIS TIME. VS WNL ON RA LUNGS CLEAR. BERKOWITZ CATHETER WITH CLEAR PADMINI URINE NO KINKS. IV FLUSHED WORKING PROPERLY SL. PEG TUBE RESIDUAL 0CC. PEG TUBE FLUSHED WITH 200CC OF WATER WITH MEDICATIONS. CALL LIGHT WITHIN REACH. BED ALARM ON. PLAN OF CARE ONGOING.
--- NOTE | 2024-05-02 23:52 | NUR ---
PT RESTING AND REPOSITIONED. PT REPORTS NO DISCOMFORT OR NAUSEA AT THIS TIME. CALL LIGHT WITHIN REACH. BED ALARM ON. PLAN OF CARE ONGOING. BERKOWITZ WITH NO KINKS.
[2024-05-03 03:36] VITALS: BP 128/70
--- NOTE | 2024-05-03 04:00 | NUR ---
PATIENT OBSERVED IN ROOM RESTING IN BED WITH EYES CLOSED. UNLABORED RESP, NO VISUAL SIGNS OF DISTRESS. BED AT LOWEST POSITION. CALL LIGHT WITH IN REACH.
[2024-05-03 07:02] VITALS: BP 147/78
--- NOTE | 2024-05-03 07:35 | NUR ---
PT LAYING IN BED AWAKE, TECHNICAL AID WASHING PT, PT TOLERATING WELL, PT IS A&O X3, PUPILS PERRL, RESP. EVEN AND UNLABORED, LUNG SOUNDS DIMINISHED, ABD DISTENDED AND SOFT WITH ACTIVE BOWEL SOUNDS, NORMAL S1 S2 HEART SOUNDS, TELE MONITOR IN PLACE, 22G RW IV SL, SAFETY MEASURES REINFORCED, CALL GRGIGS WITHIN REACH
--- NOTE | 2024-05-03 08:45 | NUR ---
DR CANDELARIO AND TOAN LEYVA AT BEDSIDE DISCUSSING PLAN OF CARE
[2024-05-03 10:56] VITALS: BP 115/65
--- NOTE | 2024-05-03 12:00 | NUR ---
PT LAYING IN BED RESTING WITH EYES CLOSED, AROUSES EASILY TO VERBAL STIMULI, PT FED BY NURSE, PT TOLERATING WELL, CALL GRIGGS WITHIN REACH
[2024-05-03 14:53] VITALS: BP 144/62
--- NOTE | 2024-05-03 16:00 | NUR ---
PT RESTING WITH EYES CLOSED, RESP. EVEN AND UNLABORED, NO S/S OF DISTRESS AT THIS TIME, CALL GRIGGS WITHIN REACH
[2024-05-03 19:04] VITALS: BP 144/61
--- NOTE | 2024-05-03 21:00 | NUR ---
PT RESTING NO DISTRESS NOTED ON ASSESSMENT. VS WNL ON RA LUNGS CLEAR NO PAIN REPORTED. IV FLUSHED WORKING PROPERLY SL. BERKOWITZ WITH PADMINI CLEAR URINE NO KINKS. PEG TUBE RESIDUAL 0CC. MEDICATION GIVEN THRU PEG TUBE WITH A TOTAL OF 300CC OF WATER. PT REPOSITIONED. CALL LIGHT WITHIN REACH. PLAN OF CARE ONGOING.
[2024-05-03 23:32] VITALS: BP 133/63
--- NOTE | 2024-05-04 00:18 | NUR ---
PT SLEEPING BREATHING EVENLY NO DISTRESS NOTED. CALL LIGHT WITHIN REACH. BED ALARM ON. WOO WITH NO KINKS. PLAN OF CARE ONGOING.
--- NOTE | 2024-05-04 03:43 | NUR ---
PT SLEEPING BREATHING EVENLY NO DISTRESS NOTED. CALL LIGHT WITHIN REACH. PLAN OF CARE ONGOING.
[2024-05-04 03:44] VITALS: BP 147/73
[2024-05-04 05:41] LABS: BASO% 1.2 % (0-3); EOS% 2.2 % (0-8); HEMATOCRIT 37.1 % (37.0-47.0); HEMOGLOBIN 12.3 g/dl (12.0-16.0); IMMATURE GRANULOCYTES 0.2 % (0.0-5.0); LYMPH% 38.4 % (15-41); MEAN CELL VOLUME 93.9 fL CALC (80.0-100.0); MEAN CORPUSCULAR HGB 31.1 pG CALC (26.0-32.0); MEAN CORPUSCULAR HGB CONC 33.2 g/dL CAL (32.0-36.0); MONO% 8.7 % (2-13); NEUT# 4.56 thou/uL (2.00-7.15); NEUT% 49.3 % (42-76); RED BLOOD COUNT 3.95 mill/uL (4.20-5.60); RED CELL DISTRI WIDTH 13.1 % (11.5-15.5)
[2024-05-04 05:53] LABS: ALBUMIN 3.1 g/dL (3.2-5.0); BILIRUBIN, TOTAL 0.6 mg/dL (0.02-1.3); CREATININE 0.5 mg/dL (0.5-1.0); POTASSIUM 3.7 mmol/l (3.5-5.1); TOTAL PROTEIN 5.9 g/dL (6.3-8.2)
--- NOTE | 2024-05-04 07:00 | NUR ---
PT LAYING IN BED RESTING WITH EYES CLOSED, AROUSES EASILY TO VERBAL STIMULI, PUPILS PERRL, NORMAL S1 S2 HEART SOUNDS, TELE MONITOR IN PLACE, RESP. EVEN AND UNLABORED, LUNG SOUNDS ARE CLEAR, STRONG RADIAL PULSES, WEAK PEDAL PULSES, 22G RFA IV SL, SAFETY MEASURES REINFORCED, CALL GRIGGS WITHIN REACH
[2024-05-04 07:18] VITALS: BP 137/72
--- NOTE | 2024-05-04 10:40 | NUR ---
VISITOR AT BEDSIDE
--- NOTE | 2024-05-04 11:00 | NUR ---
PT ASSISTED TO WC, PT AMBULATED WITH A SLOW UNSTEADY GAIT, PT'S FRIEND TOOK PT OUTSIDE, PT TOLERATED WELL, PT ASSISTED WITH GETTING BACK TO BED, PT AMBULATED FROM THE WC TO THE BED WITH 2 PERSON STAND BY ASSISTANCE, PT DID NOT WANT TO EAT AT THIS TIME, SAFETY MEASURES REINFORCED, CALL GRIGGS WITHIN REACH
--- NOTE | 2024-05-04 12:00 | NUR ---
PT LAYING IN BED RESTING WITH EYES CLOSED, RESP. EVEN AND UNLABORED, NO S/S OF DISTRESS AT THIS TIME, CALL GRIGGS WITHIN IN
--- NOTE | 2024-05-04 16:00 | NUR ---
PT SITTING UP IN BED WATCHING TV, NO S/S OF DISTRESS, CALL GRIGGS WITHIN REACH
[2024-05-04 18:30] VITALS: BP 143/66
--- NOTE | 2024-05-04 20:00 | NUR ---
RECEIVED REPORT FROMK NURSE SAVI, PATIENT RESTING IN BED, ALERT ORIENTED, IV ON RFA G 22 PATENT FLUSHES WELL, HOOKED ON TELEMETRY, OCCASIONAL COUGHING NOTED BUT CLEAR LUNG SOUNDS, BERKOWITZ EMPTIED, DRAINING PADMINI COLORED URINE, PEG TUBE CHECKED FOR PLACEMENT AND PATENCY, CALL LIGT WITHIN REACHED, BED ALARM IN PLACED.
[2024-05-04 23:10] VITALS: BP 143/63
[2024-05-05] VITALS (10 sets, daily range): BP systolic 115–160; BP diastolic 65–74
--- NOTE | 2024-05-05 00:48 | NUR ---
PATIENT RESTING IN BED, EYE CLOSED, BREATHING UNLABORED, CALL LIGHT IN REACHED, BED ALARM IN PLACED.
--- NOTE | 2024-05-05 04:00 | NUR ---
incontinent of bowel, patient pericare done, patient not in distress, breathing unlabored call light in reached, bed alarm in placed.
--- NOTE | 2024-05-05 07:00 | NUR ---
SHIFT CHANGE REPORT, PT SLEEPING BUT AWAKENED TO VERBAL STIMULI, ASSISTED TO RECLINER AND SET UP FOR MEAL, NO C/O DISCOMFORT, TELE MONITOR IN PLACE, CALL GRIGGS IN REACH.
--- NOTE | 2024-05-05 10:54 | NUR ---
APPEARS VERY UNCOMFORTABLE AND RESTLESS IN CHAIR AT THIS TIME, ASSISTED BACK TO BED, CALL GRIGGS IN REACH.
--- NOTE | 2024-05-05 14:33 | NUR ---
ATE MEAL, SAT UP FOR 1 HR THEN REPOSITIONED IN SEMI FOWLERS POSITION FOR AFTERNOON NAP.
--- NOTE | 2024-05-05 16:00 | NUR ---
SLEEPING, NO SIGN DISCOMFORT.
--- NOTE | 2024-05-05 20:00 | NUR ---
RECEIVED REPORT FROM NURSE MARIA LUISA, PATIENT RSETING IN BED, SEMIFOWLERS POSITION, IV PATENT FLUSHES WELL, DENIES PAIN, ON TELEMETRY, DENIES PAIN AT THIS TIME, CALL LIGHT IN REACHED. BED ALARM IN PLACED.
[2024-05-06] VITALS (7 sets, daily range): BP systolic 126–183; BP diastolic 60–79
--- NOTE | 2024-05-06 00:25 | NUR ---
MOISÉS RESTING IN BED, EYES CLOSE,D NO DISCOMFORTS NOTED AT THIS TIME,PATIENT REPOSITIONED, CALL LIGHT IN REACHED, SAFETY PRECAUTION IN PLACED.
--- NOTE | 2024-05-06 03:57 | NUR ---
PATIENT RESTING IN BED, EYES CLOSED, BREATHING EVEN UNLABORED CALL LIGHT WITHIN REACHED.
[2024-05-06 05:41] LABS: BASO% 1.2 % (0-3); HEMATOCRIT 37.4 % (37.0-47.0); HEMOGLOBIN 12.5 g/dl (12.0-16.0); IMMATURE GRANULOCYTES 0.2 % (0.0-5.0); LYMPH% 39.3 % (15-41); MEAN CORPUSCULAR HGB 31.4 pG CALC (26.0-32.0); MEAN CORPUSCULAR HGB CONC 33.4 g/dL CAL (32.0-36.0); MONO% 11.1 % (2-13); NEUT# 3.86 thou/uL (2.00-7.15); NEUT% 46.2 % (42-76); RED BLOOD COUNT 3.98 mill/uL (4.20-5.60); RED CELL DISTRI WIDTH 13.3 % (11.5-15.5)
[2024-05-06 05:51] LABS: ALBUMIN 3.1 g/dL (3.2-5.0); BILIRUBIN, TOTAL 0.7 mg/dL (0.02-1.3); CREATININE 0.4 mg/dL (0.5-1.0); MAGNESIUM 2.1 mg/dL (1.6-2.3); POTASSIUM 3.8 mmol/l (3.5-5.1); TOTAL PROTEIN 5.6 g/dL (6.3-8.2)
--- NOTE | 2024-05-06 17:24 | NUR ---
Patient in bed, VSS. no acute distress and no changes in POC at this time
--- NOTE | 2024-05-06 19:27 | NUR ---
PATIENT OBSERVED TO BE RESTING IN BED WITH EYES CLOSED. PATIENT NODS TO VERBAL STIMULI. EQUAL UNLABORED RESP, NO VISUAL SIGNS OF DISTRESS. FOLY CATH IN PLACE WITH CLEAR PADMINI URINE. PATIENT REFUSED FEED. BED AT LOWEST POSITION. CALL LIGHT WITH IN REACH.
--- NOTE | 2024-05-06 23:00 | NUR ---
PATIENT HAD A RUN OF VTACK FOR 6 SECONDS AT 2256.
--- NOTE | 2024-05-07 00:20 | NUR ---
PATIENT OBSERVED TO BE IN ROOM RESTING IN BED WITH EYES CLOSED. PATIENT HAS EQUAL UNLABORED RESP. NO VISUAL SIGNS OF DISTRESS. FOLY IN PLACE WITH CLEAR PADMINI URINE. BED AT LOWEST POSITION. CALL LIGHT WITH IN REACH.
--- NOTE | 2024-05-07 03:30 | NUR ---
PATIENT OBSERVED IN ROOM RESTING IN BED WITH EYES CLOSED. UNLABORED RESP NO VISUAL SIGNS OF DISTRESS. FOLY CATH IN PLACE, NO KINKS WITH PADMINI URINE IN BAG. BED AT LOWEST POSITION. CALL LIGHT WITH IN REACH.
[2024-05-07 06:15] VITALS: BP 108/62
--- NOTE | 2024-05-07 06:55 | NUR ---
REPORT RECEIVED FROM NIK VILCHIS
[2024-05-07 07:27] VITALS: BP 145/78
--- NOTE | 2024-05-07 08:00 | NUR ---
PT RESTING IN SEMI FOWLERS POSITION,A&O X3. HX OF STROKE-PT SPEAKS IN LOW SOFT VOICE WHEN SPOKEN TO;PT DENIES ANY CURRENT PAIN OR DISCOMFORTS,PAIN SCALE AND REPORTING EDUCATED;ASSESSMENT COMPLETED;RESPIRATIONS EVEN AND UNLABORED ON RA,CLEAR/DIMINISHED LUNG SOUNDS NOTED WITH NON-PRODUCTIVE COUGH;ABDOMEN SOFT ON PALPATION AND ACTIVE IN ALL 4 QUADRANTS;PEG TUBE NOTED- 0 RESIDUAL AT THIS TIME.FLUSHED WITH WATER BOLUS PER ORDER;BERKOWITZ CATHETER PATENT DRAINING TO GRAVITY WITH EASE-STAT LOCK NOTED TO RIGHT THIGH;STRONG PEDAL PULSES;SKIN INTACT;TELE MONITOR # [address];#22G TO RFA FLUSHED AND PATENT,SITE APPEARS HEALTHY;ACCUCHECK 104, NO COVERAGE NEEDED;THIS REGIONAL WILDLIFE AGENT REMAINED WITH PT DURING BREAKFAST. PT TOLERATED BREAKFAST WELL WHILE KEEPING HER HEAD TO THE RIGHT. 50% OF MEAL TRAY COMPLETED;PT DENIES ANY ADDITIONAL NEEDS AND IS ENCOURAGED TO CALL FOR ASSISTANCE IF NEEDED;FALL PRECAUTIONS REMAIN IN PLACE WITH BED IN THE LOWEST POSITION AND BED ALARM ON FOR SAFETY;CALL LIGHT IN REACH;FREQUENT ROUNDS MADE.
--- NOTE | 2024-05-07 09:30 | NUR ---
AT BEDSIDE DISCUSSING POC WITH PT.
[2024-05-07 11:05] VITALS: BP 132/77
--- NOTE | 2024-05-07 11:30 | NUR ---
PT RESTING IN SEMI FOWLERS POSITION WITH FAMILY AT BEDSIDE;PT RE-POSITIONED INTO HIGH FOWLERS POSITION FOR LUNCH;PT DENIES ANY CURRENT PAIN OR DISCOMFORTS;RESPIRATIONS REMAIN EVEN AND UNLABORED ON RA;TELE MONITORING IN PLACE;BERKOWITZ CATHETER DRAINING TO GRAVITY WITH EASE;ACCUCHECK 134, NO COVERAGE NEEDED;PT SET FOR LUNCH TRAY-PUREED DIET. PT WAS ABLE TO FEED HERSELF 100% ON TRAY WITH NODULIZER AT BEDSIDE;0 RESIDUAL NOTED TO PEG TUBE PRIOR TO WATER FLUSH;PT DENIES ANY ADDITIONAL NEEDS AND IS ENCOURAGED TO CALL FOR ASSISTANCE IF NEEDED;CALL LIGHT IN REACH;FREQUENT ROUNDS MADE.
[2024-05-07 14:09] VITALS: BP 102/55
[2024-05-07 14:45] VITALS: BP 126/79
--- NOTE | 2024-05-07 15:00 | NUR ---
PT RESTING IN SEMI FOWLERS POSITION;RESPIRATIONS EVEN AND UNLABORED ON RA;PT DENIES ANY CURRENT PAIN OR DISCOMFORTS;TELE MONITORING IN PLACE;IV SITE TO RFA PATENT;BERKOWITZ CATHETER CONTINUES TO DRAIN TO GRAVITY WITH EASE;PT DENIES ANY ADDITIONAL NEEDS AND IS ENCOURAGED TO CALL FOR ASSISTANCE IF NEEDED;CALL LIGHT IN REACH;FREQUENT ROUNDS MADE.
[2024-05-07 19:12] VITALS: BP 125/68
--- NOTE | 2024-05-07 19:56 | NUR ---
PATIENT OBSERVED TO BE RESTING IN BED WITH EYES CLOSED. BED SIDE ASSESSMENT COMPLETE. EQUAL UNLABORED RESP NO VISUAL SIGNS OF DISTRESS. FOLY CATH IN PLACE WITH NO KINKS. CLEAR PADMINI URINE IN BAG. BED AT LOWEST POSITION. CALL LIGHT WITH IN REACH.
--- NOTE | 2024-05-08 00:11 | NUR ---
PATIENT IN BED RESTING WITH EYES CLOSED. UNLABORED RESP NO VISUAL SIGNS OF DISTRESS. FOLY CATH IN PLACE WITH NO KINKS AND PADMINI URINE IN BAG. BED AT LOWEST POSITION. CALL LIGHT WITH IN REACH.
[2024-05-08 03:23] VITALS: BP 106/58
--- NOTE | 2024-05-08 04:02 | NUR ---
PATIENT OBSERVED TO BE IN BED RESTING WITH EYES CLOSED. EQUAL UNLABORED RESP. NO VISUAL SIGNS OF DISTRESSS. FOLY CATH IN PLACE WITH NO KINKS. BED AT LOWEST POSITION. CALL LIGHT WITH IN REACH.
[2024-05-08 05:28] LABS: BASO% 1.1 % (0-3); EOS% 1.7 % (0-8); HEMATOCRIT 39.3 % (37.0-47.0); HEMOGLOBIN 12.8 g/dl (12.0-16.0); IMMATURE GRANULOCYTES 0.2 % (0.0-5.0); MEAN CELL VOLUME 95.2 fL CALC (80.0-100.0); MEAN CORPUSCULAR HGB CONC 32.6 g/dL CAL (32.0-36.0); MONO% 11.5 % (2-13); NEUT# 4.19 thou/uL (2.00-7.15); NEUT% 51.5 % (42-76); RED BLOOD COUNT 4.13 mill/uL (4.20-5.60); RED CELL DISTRI WIDTH 13.5 % (11.5-15.5)
[2024-05-08 05:40] LABS: ALBUMIN 3.3 g/dL (3.2-5.0); BILIRUBIN, TOTAL 0.7 mg/dL (0.02-1.3); POTASSIUM 3.8 mmol/l (3.5-5.1); TOTAL PROTEIN 5.8 g/dL (6.3-8.2)
[2024-05-08 05:45] LABS: CREATININE 0.5 mg/dL (0.5-1.0)
[2024-05-08 07:15] VITALS: BP 130/67
--- NOTE | 2024-05-08 08:57 | NUR ---
PATIENT A/O X3; ROOMA IR; BREATING UNLABORED AND EVEN;DENIED ANY PAIN; DENIED AN N/D/V AT THIS TIME;PATEINT SITTING SEMI FOLWER POSTION; IVSITE CLEAN AND INTCAT SALINE LOCKED AT THIS TIME; TOLERATED BREAKFAST WITH NURSE HAD TO REDIRECT PATIENT TO STAY FACING ON RIGHT SIDE WHEN EATING; BERKOWITZ BAG WORKING WITH NO ISSUES; PEG TUBE FLUSHED WITH NO ISSUES AND CLAMPED;CALL LIGHTW ITHIN REACH;BED IN LOWEST POSTION;SAFET MEASURES IN PLACE; BED ALARM ACTIVATED
--- NOTE | 2024-05-08 12:00 | NUR ---
patient tolerated lunch with no issues; iv site clean and intact saline locked; no s.sof distress at this time; deneid any pain; denied any n/d/v at this time; no complaints; call iltw ithin reach, verbalized understanaing on how to use, personal items within reach; bedin lowest postion; safey meaures in place; davidson working with no issues; peg tube clamped with no issues
--- NOTE | 2024-05-08 16:22 | NUR ---
PATIENT RESTING IN BED; NO S.S OF DISTRESS AT THIS TIME; IV SITE CLEAN AND INTACT SALINE LOCKED; DNEIED ANY PAIN; DENIED ANY N/V/D AT THIS TIME; TELE LEADS INTACT; BERKOWITZ INTCAT AT THIS TIME;PEG TUBE CLAMPED; CALL LIGHT WITHIN REACH; BED IN LOWEST POSTION;SAFETY MEASURES IN PLACE; BED ALARM ACTIVATED
--- NOTE | 2024-05-08 18:17 | NUR ---
patient tolerated dinner with no issues; patient assited in feeding herself
--- NOTE | 2024-05-08 20:00 | NUR ---
RECEIVED REPORT FROM DAYSHIFT NURSE. PT NOTED SITTING UP FOLWERS IN BED, WATCHING TV. PT IS A/OX3, ABLE TO ANSWER YES AND NO QUESTIONS W/O DIFFICULTY. VERBAL RESPONSES AT A MINIMUN PT BASELINE AT THIS TIME. NURSING ASSESSMENT COMPLETED. PT DENIES ANY N/V/P. BERKOWITZ INTACT WITH PADMINI COLOR URINE AND SEDIMENT PRESENT. IV SITE APPEARS HEALTHY AND INTACT, FLUSHES W/O DIFFICULTY. VSS. NO S/S OF DISTRESS. CALL LIGHT WITHIN REACH AND SAFETY PRECAUTIONS IN PLACE.
--- NOTE | 2024-05-09 | NUR ---
PT LAYING IN BED SEMI FOLWERS, RESTING COMFORTABLY AT THIS TIME. VSS. NO S/S OF DISTRESS. CALL LIGHT WITHIN REACH AND SAFETY PRECAUTIONS IN PLACE.
[2024-05-09 04:33] VITALS: BP 136/75
--- NOTE | 2024-05-09 05:15 | NUR ---
ADMINISTERED SCHEDULED MED VIA PEG TUBE PER EMAR AND PROVIDED 200CC FLUSH. PEG TUBE FLUSHED W/O DIFFICULTY AND PT DENIES ANY N/V/P. PT SITTING UP FOWLERS IN BED PER PROTOCOL. VSS. NO S/S OF DISTRESS. CALL LIGHT WITHIN REACH AND SAFETY PRECAUTIONS IN PLACE.
[2024-05-09 05:41] LABS: EOS% 1.9 % (0-8); HEMATOCRIT 38.8 % (37.0-47.0); HEMOGLOBIN 12.5 g/dl (12.0-16.0); IMMATURE GRANULOCYTES 0.6 % (0.0-5.0); LYMPH% 33.2 % (15-41); MEAN CELL VOLUME 95.3 fL CALC (80.0-100.0); MEAN CORPUSCULAR HGB 30.7 pG CALC (26.0-32.0); MEAN CORPUSCULAR HGB CONC 32.2 g/dL CAL (32.0-36.0); MONO% 10.7 % (2-13); NEUT# 4.23 thou/uL (2.00-7.15); NEUT% 52.6 % (42-76); RED BLOOD COUNT 4.07 mill/uL (4.20-5.60); RED CELL DISTRI WIDTH 13.6 % (11.5-15.5)
[2024-05-09 05:53] LABS: ALBUMIN 3.2 g/dL (3.2-5.0); BILIRUBIN, TOTAL 0.7 mg/dL (0.02-1.3); CREATININE 0.4 mg/dL (0.5-1.0); TOTAL PROTEIN 5.8 g/dL (6.3-8.2)
[2024-05-09 07:06] VITALS: BP 137/74
--- NOTE | 2024-05-09 08:00 | NUR ---
REPORT RECEIVED FROM NIGHT NURSE. PATIENT AXO X3. S1S2 NOTED, HR REGULAR. LUNG SOUNDS CLEAR, NO COUGH OR SOB NOTED. ABDOMEN SOFT, NON DISTENDED, NON TENDER, WITH ACTIVE BOWEL SOUNDS. GT TUBE IN PLACE. UPPER PULSES STRONG, LOWER WEAK. BERKOWITZ IN PLACE. SKIN WDI. CALL LIGHT IN REACH.
--- NOTE | 2024-05-09 12:00 | NUR ---
PATIENT SITTING UP IN BED WATCHING TV. ALL NEEDS MET. CALL LIGHT IN REACH.
[2024-05-09 14:03] VITALS: BP 152/69
--- NOTE | 2024-05-09 16:00 | NUR ---
PATIENT LAYING DOWN RESTING WITH EYES CLOSED. ALL NEEDS MET. CALL LIGHT IN REACH.
[2024-05-09 18:15] VITALS: BP 103/60
[2024-05-09 18:50] VITALS: BP 103/60
--- NOTE | 2024-05-09 20:00 | NUR ---
PATIENT SITTING UP IN BED WATCHING TV. ALL NEEDS MET. CALL LIGHT IN REACH.
--- NOTE | 2024-05-09 23:00 | NUR ---
PATIENT LAYING DOWN IN BED ALSEEP. ALL NEEDS MET. CALL LIGHT IN REACH.
[2024-05-10] VITALS (8 sets, daily range): BP systolic 110–131; BP diastolic 62–79
--- NOTE | 2024-05-10 00:40 | NUR ---
REPORT RECEIEVED FROM EMILIO, JERMAINE
--- NOTE | 2024-05-10 00:47 | NUR ---
PATIENT SITTING UP IN BED WATCHING TV. DENIES CONCERNS AT THIS TIME. NO APPARENT DISTRESS NOTED. WILL CONTINUE WITH PLAN OF CARE.
--- NOTE | 2024-05-10 04:00 | NUR ---
PATIENT APPEARS TO BE RESTING WITH EYES CLOSED. NO APPARENT DISTRESS NOTED. WILL CONTINUE WITH PLAN OF CARE.
--- NOTE | 2024-05-10 07:20 | NUR ---
PT LAYING IN BED RESTING WITH EYES CLOSED, AROUSES EASILY TO VERBAL STIMULI, PT IS A&O X3, PUPILS PERRL, RESP. EVEN AND UNLABORED, LUNGS SOUNDS ARE CLEAR, NORMAL S1 S2 HEART SOUNDS, TELE MONITOR IN PLACE, ABD DISTENDED AND SOFT WITH ACTIVE BOWEL SOUNDS, STRONG RADIAL PULSES, WEAK PEDAL PULSES, 22G RFA IV SL, PEG TUBE IN PLACE AND FREE FROM SIGNS OF INFECTION, BERKOWITZ CATH IN PLACE, SAFETY MEASURES REINFORCED, CALL GRIGGS WITHIN REACH
--- NOTE | 2024-05-10 12:00 | NUR ---
PT REPOSITIONED IN THE BED FOR EATING, PT ASSISTED WITH EATING, PT TOELRATED WELL, NO S/S OF DISTRESS, PT REMINDED TO CALL FOR ASSISTANCE, PT VERBALIZED UNDERSTANDING, CALL GRIGGS WITHIN REACH
--- NOTE | 2024-05-10 16:00 | NUR ---
PT SITTING UP IN THE BED WATCHING TV, PT DENIES ANY NEEDS AT THIS TIME, CALL GRIGGS WITHIN REACH
--- NOTE | 2024-05-10 20:00 | NUR ---
RECEIVED REPORT FROM DAYSVAFT NURSE. PT NOTED SITTING UP FOWLERS IN BED WATCHING TV. PT STATUS UNCHANGED. A/OX3, SOFT SPOKEN, RM AIR. DENIES ANY N/V/P. NURSING ASSESSMENT COMPLETED AND IV SITE APPEARS HEALTHY AND INTACT, FLUSHES W/O DIFFICULTY. BERKOWITZ NOTED WITH PADMINI COLOR URINE. PEG TUBE PLACEMENT CHECKED AND FLLUSHED WITH 60CC. VSS. NO S/S OF DISTRESS. CALL LIGHT WITHIN REACH AND SAFETY PRECAUTIONS IN PLACE.
[2024-05-11 00:03] VITALS: BP 104/66
[2024-05-11 00:36] VITALS: BP 104/66
--- NOTE | 2024-05-11 07:15 | NUR ---
PT LAYING IN BED RESTING WITH EYES CLOSED, PT AROUSES, EASILY TO VERBAL STIMULI, PT IS A&O X3, PUPILS PERRL, RESP. EVEN AND UNLABORED, LUNG SOUNDS ARE CLEAR, ABD DISTENDED AND SOFT WITH ACTIVE BOWEL SOUNDS, STRONG RADIAL PULSES, WEAK PEDAL PULSES, 22G RGA IV SL, NORMAL S1 S2 HEART SOUNDS, TELE MONITOR IN PLACE, SAFETY MEASURES REINFORCED, CALL GRIGGS WITHIN REACH
[2024-05-11 08:47] VITALS: BP 104/50
[2024-05-11 11:04] VITALS: BP 126/67
--- NOTE | 2024-05-11 12:00 | NUR ---
PT SITTING UP IN BED WATCHING TV, NURSE AT BEDSIDE FEEDING PT, PT TOLERATING WELL, NO S/S OF DISTRESS, PT REMINDED TO CALL FOR ASSISTANCE, PT VERBALIZED UNDERSTANDING, CALL GRIGGS WITHIN REACH
--- NOTE | 2024-05-11 16:00 | NUR ---
PT LAYING IN BED RESTING WITH EYES CLOSED, RESP. EVEN AND UNLABORED, NO S/S OF DISTRESS, CALL GRIGGS WITHIN REACH
[2024-05-11 16:06] VITALS: BP 102/59
--- NOTE | 2024-05-11 20:00 | NUR ---
RECEIVED REPORT FROM NURSE SAVI, PATIENT RESTING IN BED, PATIENT DENIES NAUSEA, NO DISCOMFORTS NOTED AT THIS TIME, IV SITE DUE TO BE CHANGE,PATIENT ALERT ORIENTED ON TELEMETRY. SR 84, INDWELLING BERKOWITZ DRAINING YELLOW COLRED URINE, BREATHING EVEN UNALORED CALL LIGHT WITHIN REACHED.
--- NOTE | 2024-05-11 22:00 | NUR ---
NEW IV SITE INSERTED ON LFA G 22, PATENT FLUSHES WELL.
[2024-05-11 22:16] VITALS: BP 114/65
[2024-05-12] VITALS (7 sets, daily range): BP systolic 111–143; BP diastolic 61–74
--- NOTE | 2024-05-12 | NUR ---
PATIENTS RESTING IN BED EYES CLOSED, BREATHING EVEN UNLABORED CALL LIGHT WITHIN REACHED, BED ALARM IN PLACED.
--- NOTE | 2024-05-12 04:00 | NUR ---
PATIENT RESTING IN BED, RT SIDE LYING POSITION, BREATHING EVEN UNALBORED, NO DISCOMFORTS NOTED AT THIS TIME.CALL LIGHT IN REACHED, BED ALARM IN PLACED.
--- NOTE | 2024-05-12 07:20 | NUR ---
PT LAYING IN BED RESTING WITH EYES CLOSED, AROUSES EASILY TO VERBAL STIMULI, PUPILS ARE PERRL, RESP. EVEN AND UNLABORED, LUNG SOUNDS ARE CLEAR, ABD DISTENDED AND SOFT WITH ACTIVE BOWEL SOUNDS, 22G LFA IV SL, STRONG RADIAL PULSES, WEAK PEDAL PULSES, NORMAL S1 S2 HEART SOUNDS, TELE MONITOR IN PLACE, SAFETY MEASURES REINFORCED, CALL GRIGGS WITHIN REACH
--- NOTE | 2024-05-12 12:00 | NUR ---
PT SITTING UP IN THE BED WATCHING TV AND NURSE ASSISTING PT WITH EATING, PT TOLERATING WELL, NO S/S OF DISTRESS, PT REMINDED TO USE CALL GRIGGS FOR ASSISTANCE, CALL GRIGGS WITHIN REACH
--- NOTE | 2024-05-12 13:15 | NUR ---
BERKOWITZ CATH REMOVED PER PROVIDER ORDER FOR VOID TRIAL
--- NOTE | 2024-05-12 14:00 | NUR ---
SON AT BEDSIDE VISITING
--- NOTE | 2024-05-12 16:00 | NUR ---
PT RESTING WITH EYES CLOSED, NO S/S OF DISTRESS, CALL GRIGGS WITHIN REACH
--- NOTE | 2024-05-12 18:35 | NUR ---
SCANNED PT'S BLADDER GREATER THAN 700, BERKOWITZ INSERTED, PT TOLERATED WELL
--- NOTE | 2024-05-12 19:30 | NUR ---
PT RESTING NO DISTRESS NOTED. CALL LIGHT WITHIN REACH. PT REPORTS NO PAIN AT THIS TIME.
--- NOTE | 2024-05-12 21:00 | NUR ---
PT RESTING REPORTS NO NAUSEA. ASSESSMENT DONE VS WNL ON RA LUNGS CLEAR. IV FLUSHED WORKING PROPERLY. BERKOWITZ WITH NO KINKS CLEAR PADMINI URINE. PEG TUBE RESIDUAL AT 0CC. PEG TUBE FLUSHED AND NIGHT TIME MEDICATION GIVEN WITH A TOTAL OF 260ML OF WATER. PT HOB AT 45 DEGREES DURING PEG TUBE ADMINISTRAION OF MEDS WILL KEEP IT FOR AT LEAST 45 MINUTES. CALL LIGHT WITHIN REACH. PLAN OF CARE ONGOING.
--- NOTE | 2024-05-13 01:03 | NUR ---
PT SLEEPING NO DISTRESS NOTED FROM THE DOOR. CALL LIGHT WITHIN REACH. PLAN OF CARE ONGOING. BED ALARM ON.
--- NOTE | 2024-05-13 05:00 | NUR ---
PT SLEEPING NO DISTRESS NOTED FROM THE DOOR. CALL LIGHT WITHIN REACH. PLAN OF CARE ONGOING.
[2024-05-13 05:21] LABS: BASO% 1.3 % (0-3); EOS% 2.4 % (0-8); HEMOGLOBIN 13.1 g/dl (12.0-16.0); IMMATURE GRANULOCYTES 0.1 % (0.0-5.0); LYMPH% 40.8 % (15-41); MEAN CELL VOLUME 95.1 fL CALC (80.0-100.0); MEAN CORPUSCULAR HGB CONC 33.6 g/dL CAL (32.0-36.0); MONO% 9.4 % (2-13); NEUT# 3.86 thou/uL (2.00-7.15); RED BLOOD COUNT 4.1 mill/uL (4.20-5.60); RED CELL DISTRI WIDTH 13.7 % (11.5-15.5)
[2024-05-13 05:23] LABS: ALBUMIN 3.3 g/dL (3.2-5.0); BILIRUBIN, TOTAL 0.7 mg/dL (0.02-1.3); CREATININE 0.5 mg/dL (0.5-1.0); MAGNESIUM 1.9 mg/dL (1.6-2.3); POTASSIUM 4.3 mmol/l (3.5-5.1); TOTAL PROTEIN 5.9 g/dL (6.3-8.2)
[2024-05-13 07:28] VITALS: BP 116/72
[2024-05-13 15:08] VITALS: BP 145/78
--- NOTE | 2024-05-13 17:01 | NUR ---
Patint alert and oriented, a little slow and sleepy in the morning while trying to eat breakfast but more alert for lunch and dinner, definelty a slow eater due to her dysphagia patient requires extra time.
[2024-05-13 18:15] VITALS: BP 131/79
--- NOTE | 2024-05-13 18:53 | NUR ---
Peg tube flushed with 200 cc of water 4 times during my shift. 0800, 1100, 1400, 1700. Patient tolerated well.
[2024-05-13 20:00] VITALS: BP 131/79
--- NOTE | 2024-05-13 21:00 | NUR ---
PT RESTING IN BED WITH HOB AT 45 DEGREES ASSESSMENT DONE. PEG TUBE RESIDUAL 0. PEG TUBE FLUSHED WITH MEDICATION GIVEN. PT TOLERATED IT WELL NO NAUSEA OR VOMITING. CALL LIGHT WITHIN REACH. BERKOWITZ WORKING PROPERLY WITH NO KINKS CLEAR YELLOW URINE. IV FLUSHED SL. PLAN OF CARE ONGOING.
--- NOTE | 2024-05-14 00:30 | NUR ---
PT SLEEPING NO DISTRESS NOTED FROM THE DOOR. CALL LIGHT WITHIN REACH.
--- NOTE | 2024-05-14 04:16 | NUR ---
FROM DOOR WAY PT IS SEEN SLEEPING BREATHING EVENLY NO DISTRESS NOTED. CALL LIGHT WITHIN REACH.
--- NOTE | 2024-05-14 06:48 | NUR ---
PATIENT LAYING IN BED. PATIENT A&OX3 AND ABLE TO MAKE NEEDS KNOWN. PATIENT DENIES ANY NEEDS AT THIS TIME.
[2024-05-14 07:04] VITALS: BP 143/83
--- NOTE | 2024-05-14 07:50 | NUR ---
FLUSH PATIENT PEG TUBE WITH 200CC OF FLUIDS, PATIENT TOLERATED WELL.
[2024-05-14 10:34] VITALS: BP 117/67
--- NOTE | 2024-05-14 11:50 | NUR ---
PATIENT ATE 100% OF LUNCH. PATIENT PEG TUBE FLUSHED WITH 200CC OF FLUIDS, PATIENT TOLERATED WELL.
--- NOTE | 2024-05-14 14:15 | NUR ---
FLUSHED PATIENT PEG TUBE WITH 200CC OF FLUIDS, PATIENT TOLERATED WELL.
--- NOTE | 2024-05-14 15:50 | NUR ---
PATIENT LAYING IS BED, WATCHING TV. PATIENT DENIES ANY NEEDS AT THIS TIME.
[2024-05-14 18:01] VITALS: BP 100/73
--- NOTE | 2024-05-14 19:40 | NUR ---
PT RESTING ON BED. ALERT AND ORIENTED X3. COMPLAINING OF PAIN IN LOWER EXTREMITIES 8/10 ON PAIN SCALE. CLEAR LUNGS SOUNDS TO AUCULTATION. NO SIGNS OF DISTRESS NOTED. PEG TUBE NOTED WITHOUT ANY ABNORMALITIES AT THIS TIME. BERKOWITZ ON PLACE- NO KINKS NOTED. ACTIVE BOWEL SPUNDS IN ALL QUADRANTS. DENIES ANY NAUSEA AND VOMITING. CALL LIGHT IN REACH AND SAFETY PRECAUTIONS ON PLACE.
--- NOTE | 2024-05-14 20:00 | NUR ---
PT REQUESTED TYLENOL FOR PAIN IN HER LOWER EXTREMITIES 8/10 ON PAIN SCALE-MEDICATED WITH TYLENOL 650 MG PO. CALL LIGHT IN REACH
--- NOTE | 2024-05-14 21:05 | NUR ---
PY PEF TUBE CHECKED FOR PLACEMENT WITH A STETHOSCOPE. FLUSHED WITH 200 CC OF FLUID AT THIS TIME. TOLERATED WELL.
--- NOTE | 2024-05-14 21:30 | NUR ---
PT DENIES ANY PAIN AT THIS TIME.
[2024-05-14 21:58] VITALS: BP 125/70
--- NOTE | 2024-05-15 | NUR ---
PT RESTING ON BED WITH EYES CLOSED. RESPS ARE EVEN AND UNLABORED. MO SIGNS OF DISTRESS. TELE MONITOR ON PLACE SHOSING SR-75 AT THIS TIME. CALL LIGHT IN REACH AND SAFETY PRECAUTIONS ON PLACE
--- NOTE | 2024-05-15 04:00 | NUR ---
PATIENT RESTING IN SEMI BRAVO'S POSITION AT THIS TIME. BREATHING IS EVEN AND UNLABORED/ BERKOWITZ REMAINS IN PLACE WITH NO KINKS. TELE MONITOR SHOWING SR-61 AT THIS TIME. CALL LIGHT IN REACH AND SAFETY PRECAUTIONS ON PLACE
[2024-05-15 05:48] VITALS: BP 130/65
[2024-05-15 06:25] VITALS: BP 127/60
--- NOTE | 2024-05-15 07:01 | NUR ---
patient was in bed resting no C/O pain. Eyes open alert and able to make her need known.
--- NOTE | 2024-05-15 08:24 | NUR ---
PATIENT WAS FLUSHED WITH 200ML WAS TOLERATED WELL
[2024-05-15 10:54] VITALS: BP 115/68
--- NOTE | 2024-05-15 11:19 | NUR ---
FLUSHED PEG-TUBE W/200cc. Patient tolerated / well
--- NOTE | 2024-05-15 12:00 | NUR ---
pATIENT IN BED ATE 100% OF HER FOOD. nO c/o PAIN.
--- NOTE | 2024-05-15 15:48 | NUR ---
PATIENT SITTING UP IN BED, WATING TV. NO SIGNS OR SYMPTOMS OF PAIN OR DISTRESS NOTED.
--- NOTE | 2024-05-15 19:30 | NUR ---
PT RESTING ON BED IN SEMI BRAVO'S POSITION WATCHING TV AT THIS TIME. ALERT AND ORIENTED X3. BREATHING IS EVEN AND UNLABORED. NO SIGNS OF DISTRESS. LUNGS CLEAR TO AUSCULTATION. ACTIVE BOWEL SOUNDS IN ALL QUEADRANTS. PEG TUBE REMAINS ON THE ABDOMEN. SKIN IS WARWMTH, DRY AND INTACT-NO SIGNS OF ABNORMALITIES. 22 G IV LEFT FOREARM FLUSHED WITH 5 CC. BERKOWITZ CATHETER WITH NO KINKS/. ENCOURAGED TO CALL FOR ASSISTANCE IF NEEDED. CALL LIGHT IN REACH. BED IN LOWEST POSITION AND SAFETY PRECAUTIONS ON PLACE.
--- NOTE | 2024-05-15 21:00 | NUR ---
PATIENT'S PEG TUBE CHECKED FOR PLACEMENT-FLUSHED WITH 200 CC AT THIS TIME. CALL LIGHT IN REACH AND SAEFTY PRECAUTIONS ON PLACE
[2024-05-15 21:12] VITALS: BP 124/73
[2024-05-16] VITALS (8 sets, daily range): BP systolic 112–148; BP diastolic 51–78
--- NOTE | 2024-05-16 | NUR ---
PT RESTING ON BED WITH EYES CLOSED. NO DISTRESS NOTED. CALL LIGHT IN REACH AND SAEFTY PRECAUTIONS ON PLACE.
--- NOTE | 2024-05-16 04:08 | NUR ---
AL RESTING ON BED. NO SIGNS OF DISTRESS. TELE MONITOR ON PLACE. CALL LIGHT IN REACH
--- NOTE | 2024-05-16 07:31 | NUR ---
SHIFT CHANGE REPORT, PT SLEEPING SOUNDLY IN SUPINE POSITION BUT AWAKENED BY NURSING STAFF AND ASSISTED TO RECLINER AND SET UP FOR MEAL, DENIED PAIN, TELE MONITOR IN PLACE, CALL GRIGGS IN REACH.
--- NOTE | 2024-05-16 10:26 | NUR ---
VOMITTED COPIOUS AMOUNT UNDIGESTED FOOD AND FLUID AT THIS TIME, ASSISTED TO BSC, CLEANED UP THEN ASSISTED BACK TO BED, CALL GRIGGS IN REACH.
[2024-05-16 11:17] LABS: ALBUMIN 3.7 g/dL (3.2-5.0); BILIRUBIN, TOTAL 0.9 mg/dL (0.02-1.3); CREATININE 0.5 mg/dL (0.5-1.0); POTASSIUM 4.8 mmol/l (3.5-5.1); TOTAL PROTEIN 6.7 g/dL (6.3-8.2)
--- NOTE | 2024-05-16 12:00 | NUR ---
SLEEPING COMFORTABLY, CALL GRIGGS IN REACH.
--- NOTE | 2024-05-16 16:00 | NUR ---
AWAKE AND ALERT, INCONTINENT OF BM, CESAR CARE GIVEN.
--- NOTE | 2024-05-16 19:48 | NUR ---
Pt is alert and orient. Pt is laying on her side with her eyes open. Pt speech is a whisper but able to follow command. No complaint of pain or discomfort at this time. Pt has right sided weakness. Peg tube in place to be flushed only. [place] catheter in place and patent. Bed in low position with call light within reach.
[2024-05-17] VITALS (13 sets, daily range): BP systolic 105–140; BP diastolic 55–75
--- NOTE | 2024-05-17 00:10 | NUR ---
Pt is laying in bed with her head slightly elevated. Pt is laying with her eyes closed. No distress noted at this time. No complaint of pain or discomfort. Bed in low position with call light within reach.
--- NOTE | 2024-05-17 04:01 | NUR ---
Pt is resting in bed with her eyes closed. No distress or complaint of pain at this time. Pt breathing remains even and non-labored. Bed in low position with call light within reach.
--- NOTE | 2024-05-17 07:05 | NUR ---
REPORT RECEIVED FROM JERMAINE DOUGLASS
--- NOTE | 2024-05-17 08:15 | NUR ---
PT RESTING IN HIGH FOWLERS POSITION, A&O X3, SOFT SPOKEN SPEECH DUE TO CVA HX;PT DENIES ANY CURRENT PAIN OR DISCOMFORTS,PAIN SCALE AND REPORTING EDUCATED;ASSESSMENT COMPLETED;RESPIRATIONS EVEN AND UNLABORED ON RA,CLEAR/DIMINISHED LUNG SOUNDS NOTED;ABDOMEN SOFT ON PALPATION AND ACTIVE IN ALL 4 QUADRANTS;PEG TUBE NOTED WITH 0 RESIDUAL AT THIS TIME, FLUSHED WITH 200CC OF WATER PER ORDER;BERKOWITZ CATHETER DRAINING TO GRAVITY WITH EASE;STRONG PEDAL PULSES;SKIN INTACT;TELE MONITORING [address];#22G TO LFA FLUSHED AND PATENT,SITE APPEARS HEALTHY;ACCUCHECK 130, NO COVERAGE NEEDED;PT FEED SELF 100% OF BREAKFAST WITH CLERK GENERAL AT BEDSIDE-TOLERATED WELL;PT DENIES ANY ADDITIONAL NEEDS AND IS ENCOURAGED TO CALL FOR ASSISTANCE IF NEEDED;FALL PRECAUTIONS IN PLACE WITH BED IN THE LOWEST POSITION AND BED ALARM ON FOR SAFETY;CALL LIGHT IN REACH;FREQUENT ROUNDS MADE.
--- NOTE | 2024-05-17 11:30 | NUR ---
PT RESTING IN HIGH FOWLERS POSITION;RESPIRATIONS EVEN AND UNLABORED ON RA;PT DENIES ANY CURRENT PAIN OR DISCOMFORTS;TELE MONITORING IN PLACE;IV SITE TO LFA PATENT;BERKOWITZ CATHETER DRAINING TO GRAVITY WITH EASE;PT ATE 100% OF HER MEAL INDEPENDENTLY WITH ACCOUNTS RECEIVABLE MANAGER AT BEDSIDE AND PEG TUBE FLUSHED OF 200CC OF WATER PER ORDER.PT DENIES ANY ADDITIONAL NEEDS;FALL PRECAUTIONS IN PLACE WITH CALL LIGHT IN REACH;FREQUENT ROUNDS MADE.
--- NOTE | 2024-05-17 16:00 | NUR ---
PT RESTING IN SEMI FOWLERS POSITION WATCHING TV;RESPIRATIONS EVEN AND UNLABORED ON RA;PT DENIES AN CURRENT PAIN OR NEEDS;IV SITE TO LFA REMAINS PATENT;TELE MONITORING IN PLACE;BERKOWITZ CATHETER DRAINING WITH EASE;ALL SAFETY PRECAUTIONS IN PLACE WITH BED IN THE LWOEST POSITION AND BED ALARM ON FOR SAFETY;CALL LIGHT IN REACH;FREQUENT ROUNDS MADE.
--- NOTE | 2024-05-17 19:39 | NUR ---
Pt is resting in bed with her head elevated and her eyes closed. No distress noetd. No s/s of pain or discomfort. Pt is breathing even and non-labored on room air. Bed in low position with call light within reach.
--- NOTE | 2024-05-17 23:40 | NUR ---
Pt is resting in bed with her eyes closed. No complaint of pain or discomfort at this time. Peg tube remain in place and patent, flushed with 200cc of water. [place] patent. No distress noted at this time. Breathing remains even and non-labored on room air. Bed remains in low postion with call light within reach.
[2024-05-18 00:05] VITALS: BP 118/62
[2024-05-18 00:16] VITALS: BP 99/55
[2024-05-18 03:57] VITALS: BP 143/69
--- NOTE | 2024-05-18 04:37 | NUR ---
Pt is resting in bed comfortably with her eyes closed. No distress noted. Pt is showing no s/s of pain or discomfort. Breathing remains even and non-labored on room air.
[2024-05-18 06:45] VITALS: BP 132/66
--- NOTE | 2024-05-18 08:00 | NUR ---
PT LAYING IN BED RESTING WITH EYES CLOSED, AROUSES EASILY TO VERBAL STIMULI, PUPILS PERRL, RESP. EVEN AND UNLABORED, LUNG SOUNDS DIMINISHED IN THE BASES, ABD DISTENDED AND SOFT WITH ACTIVE BOWEL SOUNDS, PEG TUBE IN PLACE, NORMAL S1 S2 HEART SOUNDS, TELE MONITOR IN PLACE, STRONG RADIAL AND PEDAL PULSES, SAFETY MEASURES REINFORCED, CALL GRIGGS WITHIN REACH
[2024-05-18 10:39] VITALS: BP 121/68
--- NOTE | 2024-05-18 12:00 | NUR ---
PT SITTING UP IN THE BED FEEDING HERSELF, NURSE AT BEDSIDE, PT TOLERATING WELL, SAFETY MEASURES REINFORCED, CALL GRIGGS WITHIN REACH
--- NOTE | 2024-05-18 16:00 | NUR ---
PT RESTING WITH EYES CLOSED, AROUSES EASILY TO VERBAL STIMULI, CALL LIGHT WITHIN REACH
[2024-05-18 18:42] VITALS: BP 145/74
--- NOTE | 2024-05-18 20:15 | NUR ---
PATIENT OBSERVED TO BE RESTING IN BED WITH EYES CLOSED. PATIENT AROUSES TO VERBAL STIMULI, SOFT SPOKEN. BED SIDE ASSESSMENT COMPLETE. UNLABORED RESP NO VISUAL SIGNS OF DISTRESS. PEG TUBE IN PLACE, 0 RESIDUAL. FLUSHED WITH 200 CC OF WATER PER ORDER. FOLY CATHETER IN PLACE, DRAINING CLEAR PADMINI URINE. SAFTY PRECAUTIONS IN PLACE. BED AT LOWEST POSITION. CALL LIGHT WITH IN REACH.
[2024-05-19] VITALS (8 sets, daily range): BP systolic 110–155; BP diastolic 63–75
--- NOTE | 2024-05-19 00:24 | NUR ---
PATIENT OBSERVED TO BE RESTING IN BED WITH EYES CLOSED. PATIENT HAS EQUAL UNLABORED RESP. NO VISUAL SIGNS OF DISTRESS. FOLY CATH IN PLACE WITH CLEAR PADMINI URINE. BED AT LOWEST POSITION. CALL LIGHT WITH IN REACH.
--- NOTE | 2024-05-19 04:57 | NUR ---
PATIENT OBSERVED TO BE IN ROOM RESTING IN BED WITH EYES CLOSED. UNLABORED RESP. NO VISUAL SIGNS OF DISTRESS. FOLY CATH IN PLACE DRAINING CLEAR PADMINI URINE. BED AT LOWEST POSITION. CALL LIGHT WITH IN REACH.
--- NOTE | 2024-05-19 08:00 | NUR ---
REPORT RECEIVED FROM NIGHT NURSE. PT IS ASLEEP IN BED AT THIS TIME.
--- NOTE | 2024-05-19 08:45 | NUR ---
PT AWOKEN FOR BREAKFAST. REPOSITIONED IN BED AND MOONITERED WHILE EATING. PT DENIES ANY NEEDS. COMMUNICATION LIMITED DUE TO SPEECH DIFFICULTIES POST CVA. MEDICATIONS ADMINISTERED VIA PEG TUBE. BS ACTIVE.
--- NOTE | 2024-05-19 12:00 | NUR ---
no changes to pt status. pt just cleaned and linens changed by parcel post order clerk. pt repositioned in bed and given lunch tray. pt monitored during feed and tolerated well. call light in reach.
--- NOTE | 2024-05-19 14:45 | NUR ---
BEDSIDE REPORT FROM ADRIANNA DEAN. PT RESTING IN BED AT THIS TIME. NO APPARENT DISTRESS NOTED. ASSUMED PT CARE. CALL LIGHT WITHIN REACH. WILL CONTINUE TO MONITOR.
--- NOTE | 2024-05-19 19:25 | NUR ---
Pt is sitting up in bed watching tv. Assessment complete. Pt is showing no s/s of pain or discomfort. No distress noted. Pt is breathing even and non-labored on room air. Bed in low postioin with call light within reach.
[2024-05-20] VITALS (11 sets, daily range): BP systolic 120–161; BP diastolic 66–76
--- NOTE | 2024-05-20 00:03 | NUR ---
Pt resting in bed comfortably with her head elevated. No distress noted. No complaint of pain or discomfort. Breathing is even and non-labored. Bed in low position with call light within reach.
--- NOTE | 2024-05-20 04:09 | NUR ---
Pt resting with her eyes closed and her head elevated. No distress noted. No complaint of pain or discomfort. Bed in low position with call light within reach.
[2024-05-20 05:38] LABS: BASO% 1.4 % (0-3); EOS% 1.7 % (0-8); HEMATOCRIT 37.4 % (37.0-47.0); HEMOGLOBIN 12.5 g/dl (12.0-16.0); IMMATURE GRANULOCYTES 0.2 % (0.0-5.0); LYMPH% 40.3 % (15-41); MEAN CELL VOLUME 92.1 fL CALC (80.0-100.0); MEAN CORPUSCULAR HGB 30.8 pG CALC (26.0-32.0); MEAN CORPUSCULAR HGB CONC 33.4 g/dL CAL (32.0-36.0); MONO% 9.9 % (2-13); NEUT# 3.75 thou/uL (2.00-7.15); NEUT% 46.5 % (42-76); RED BLOOD COUNT 4.06 mill/uL (4.20-5.60); RED CELL DISTRI WIDTH 13.7 % (11.5-15.5)
[2024-05-20 05:43] LABS: ALBUMIN 3.4 g/dL (3.2-5.0); BILIRUBIN, TOTAL 0.8 mg/dL (0.02-1.3); CREATININE 0.4 mg/dL (0.5-1.0); MAGNESIUM 1.8 mg/dL (1.6-2.3); POTASSIUM 3.9 mmol/l (3.5-5.1)
--- NOTE | 2024-05-20 17:26 | NUR ---
ATTEMPTED TO FEED PT NURSE REQUESTED. PT STARTED COUGHING. NURSE NOTIFIED AND SAID TO CONTINUE FEED BUT [employer] MANAGER STOPPED FEED DUE TO NOT FEELING COMFORTABLE. NURSE NOTIFIED.
--- NOTE | 2024-05-20 20:00 | NUR ---
RECEIVED REPORT FROM DAYSHIFT NURSE. PT NOTED SITTING UP HIGH FOWLERS IN BED, RM AIR. PT IS A/OX3, VERBAL RESPONSES ARE WHISPERED OR PT NODS HEAD TO YES OR NO. PT DENIES ANY N/V/P. NURSING ASSESSMENT COMPLETED, PEG TUBE PLACEMENT CHECKED AND FLUSHED PER ORDER. VSS. EDUCATED ON PLAN OF CARE AND MED SCHEDULE. CALL LIGHT WITHIN REACH AND SAFETY PRECAUTIONS IN PLACE.
--- NOTE | 2024-05-21 | NUR ---
PT LAYING IN BED SEMI FOWLERS, RESTING COMFORTBALY WITH EYES CLOSED. NO S.S OF DISTRESS. CALL LIGHT WITHIN REACH AND SAFETY PRECAUTIONS IN PLACE.
--- NOTE | 2024-05-21 04:53 | NUR ---
PT LAYING IN BED FOWLERS, SLEEPING. VSS. NO S/S OF DISTRESS. CALL LIGHT WITHIN REACH AND SAFETY PRECAUTIONS IN PLACE.
[2024-05-21 07:26] VITALS: BP 122/75
--- NOTE | 2024-05-21 07:28 | NUR ---
PATIENT IN BED RESTING. ALERT , NO C/O PAIN ABLE TO MAKE NEEDS KNOWN.
--- NOTE | 2024-05-21 14:00 | NUR ---
PATIENT RESTING ALERT . ATE WELL AND TOLERATED FLUSH 200CC WELL. NO C/O PAIN
--- NOTE | 2024-05-21 15:53 | NUR ---
PATIENT SITTING UP IN BED. PATIENT DENIES ANY NEEDS AT THIS TIME.
[2024-05-21 18:31] VITALS: BP 112/59
--- NOTE | 2024-05-21 21:00 | NUR ---
PT RESTING IN BED ASSESSMENT DONE. PEG TUBE FLUSHED WITH 200CC OF WATER WORKING PROPERLY. BERKOWITZ CATHETER WITH PADMINI URINE NO KINKS. IV FLUSHED SL. CALL LIGHT WITHIN REACH. PLAN OF CARE ONGOING.
[2024-05-22] VITALS (7 sets, daily range): BP systolic 110–145; BP diastolic 67–76
--- NOTE | 2024-05-22 | NUR ---
PT SLEEPING BREATHING EVENLY. CALL LIGHT WITHIN REACH. PLAN OF CARE ONGOING.
--- NOTE | 2024-05-22 00:30 | NUR ---
PT SLEEPING NO DISTRESS NOTED ON EXAM. CALL LIGHT WITHIN REACH. PLAN OF CARE ONGOING.
--- NOTE | 2024-05-22 05:00 | NUR ---
PT SLEEPING NO DISTRESS NOTED. CALL LIGHT WITHIN REACH. BED ALARM ON. PLAN OF CARE ONGOING.
--- NOTE | 2024-05-22 07:30 | NUR ---
PATIENT ALERT X3. PLEASENT AND ABLE TO MAKE NEEDS KNOWN. NO C/O PAIN
--- NOTE | 2024-05-22 08:00 | NUR ---
pt exhibiting good eating habits with spoon while story writer was present in room. pt was turning head to the right to swallow without being told without difficulty. pt ate about 75 percent of her meal and then took a few sips of her water that is thickened.pt tolerated feeding herself very well. staff there to make sure all safety measures were met.
--- NOTE | 2024-05-22 10:07 | NUR ---
flushed IV WELL TOLERATED and gave IV PAIN MED .PO PERCT INCREASED. EDUCATED PATIENT ON PAIN MANAGEMENT
--- NOTE | 2024-05-22 12:00 | NUR ---
pt tolereated her feeding well with no assistance by staff. pt turning head to the right to swallow like instructed before. account underwriter was just in room to monitor pt during feeding time. all safety procedures met.
--- NOTE | 2024-05-22 12:00 | NUR ---
PATIENT EATE WELL , TOLERATED 200CC PEG-TUBE FLUSH WELL. NO C/O PAIN.
--- NOTE | 2024-05-22 16:20 | NUR ---
PATIENT RESTING NO C/O PAIN . PEG-TUBE FLUSHED / WELL TOLERATED
--- NOTE | 2024-05-22 20:16 | NUR ---
RECEVIED REPORT FROM DAYSHIFT NURSE. PT NOTED SITTING UP HIGH FOLWERS, RM AIR. A/OX3. PT DENIES ANY N/V/P. NURSING ASSESSMENT COMPLETED AND PEG TUBE FLUSHED WITH 200CC W/O DIFFICULTY. PT TOELRATED WELL. EDUCATED ON PLAN OF CARE AND MED SCHEDULE. VSS. NO S/S OF DISTRESS. CALL LIGHT WITHIN REACH AND SAFETY PRECAUTIONS IN PLACE.
--- NOTE | 2024-05-23 | NUR ---
PT LAYING IN BED FOWLERS, SLEEPING. VSS. NO S/S OF DISTRESS. CALL LIGHT WITHIN REACH AND SAFETY PRECAUTIONS IN PLACE.
--- NOTE | 2024-05-23 05:28 | NUR ---
ADMINSTERED MORNING MEDICATION PER EMAR WITH APPLE SAUCE. PT TOLERATED WELL. DENIES ANY N/V/P. VSS. NO S/S OF DISTRESS. CALL LIGHT WITHIN REACH AND SAFETY PRECAUTIONS IN PLACE.
[2024-05-23 05:36] VITALS: BP 145/76
[2024-05-23 06:05] VITALS: BP 145/76
--- NOTE | 2024-05-23 06:59 | NUR ---
PATIENT LAYING IN BED WITH EYES CLOSED BUT EASILY AROUSABLE. PATIENT A&OX3 AND ABLE TO MAKE NEEDS KNOWN. PATIENT DENIES ANY NEEDS AT THIS TIME.
[2024-05-23 07:11] VITALS: BP 142/73
--- NOTE | 2024-05-23 11:42 | NUR ---
PATIENT SITTING UP IN BED, WATCHING TV. PATIENT DENIES ANY NEEDS AT THIS TIME.
--- NOTE | 2024-05-23 16:22 | NUR ---
PATIENT LAYING IN BED. NO SIGNS OF SYMPTOMS OF PAIN OR DISTRESS NOTED.
--- NOTE | 2024-05-23 19:15 | NUR ---
PT RESTING ON BED WATCHING TV IN SEMI BRAVO'S POSITION AT THIS TIME. ALERT AND ORIENTED X3. LUNGS CLEAR TO AUSCULTATION. PT REMAINS WITH THE PEG TUBE ON THE ABDOMEN. ACTIVE BOWEL SOUNDS AND ABD SOFT. SKIN IS WARM AND DRY. 22 G IV LEFT WRIST-SALINE LOCK FLSUHED WITH 5 CC. BERKOWITZ CATHETER AND TELE MONITOR ON PLACE. CALL LIGHT IN RECAH AND SAFETY PRECAUTIONS ON PLACE.
[2024-05-23 19:25] VITALS: BP 174/79
--- NOTE | 2024-05-23 21:11 | NUR ---
PT PEG TUBE FLUSHED WITH 200 CC. PLACEMENT CHECKED-TOLERATED WELL.
[2024-05-23 21:27] VITALS: BP 108/63
[2024-05-23 23:59] VITALS: BP 113/64
--- NOTE | 2024-05-24 01:03 | NUR ---
PT RESTING ON BED WITH EYES CLOSED. BRETAHING IS EVEN AND UNLABORED. NO SIGNS OF DISTRESS NOTED. PT NOW IS OFF TELE. Zodio WITH NO KINKS. CALL LIGHT IN REACH AND SAFETY PRECAUTIONS ON PLACE
[2024-05-24 04:25] VITALS: BP 114/63
--- NOTE | 2024-05-24 04:34 | NUR ---
PT RESTING ON BED WITH EYES CLOSED. RESPS ARE EVN AND UNLABORED. TELE MONITOR WAS DISCONTINUED. CALL LIGHT IN REACH
[2024-05-24 05:36] VITALS: BP 125/66
[2024-05-24 06:45] VITALS: BP 135/68
--- NOTE | 2024-05-24 07:15 | NUR ---
PT LAYING IN BED RESTING WITH EYES CLOSED, AROUSES EASILY TO VERBAL STIMULI, PT A&O X3, PUPILS PERRL, NORMAL S1 S2 HEART RATE, RESP. EVEN AND UNLABORED, LUNG SOUNDS CLEAR, ABD DISTENDED AND SOFT WITH ACTIVE BOWEL SOUNDS, 22G L HAND SL, STRONG RADIAL PULSES, WEAK PEDAL PULSES, SAFETY MEASURES REINFORCED, CALL GRIGGS WITHIN REACH
--- NOTE | 2024-05-24 08:00 | NUR ---
pt tolerated feeding well. pt was able to feed herself without any difficulty. pt sat up at in bed. pt refused to get into chair today by staff.
--- NOTE | 2024-05-24 12:00 | NUR ---
pt tolerated feeding well. pt able to feed herself after being sat up properly.
--- NOTE | 2024-05-24 12:00 | NUR ---
PT SITTING UP IN BED, SETUP ASSISTANCE PROVIDED WITH LUNCH TRAY, PT FEEDING HERSELF, STAFF AT BEDSIDE WHILE PT IS EATING, PT REMINDED TO CALL FOR ASSISTANCE, PT VERBALIZED UNDERSTANDING, CALL LIGHT WITHIN REACH
[2024-05-24 15:29] VITALS: BP 121/61
--- NOTE | 2024-05-24 16:00 | NUR ---
PT RESTING WITH EYES CLOSED, NO S/S OF DISTRESS AT THIS TIME, CALL GRIGGS WITHIN REACH
[2024-05-24] MEDS ORDERED: traMADol HCL 50 MG/TAB PO PRN (16:35)
[2024-05-24 18:37] VITALS: BP 116/67
--- NOTE | 2024-05-24 20:00 | NUR ---
PATIENT SITTING UP IN BED. AWAKE AND ALERT WATCHING TV. PATIENT WITH NO COMPLAINTS AT THIS TIME. PATIENT WITH BERKOWITZ CATH PATENT AND DRAINING PADMINI URINE. PEG TUBE IN PLACE. SALINE LOCK TO LEFT HAND INTACT. BED ALARM IN PLACE FOR PATIENT SAFETY. CALL LIGHT IN REACH. WILL CONT TO MONITOR.
--- NOTE | 2024-05-24 21:30 | NUR ---
PATIENT RESTING IN BED AND WATHCING TV-HOB ELEVATED TO HIGH FOWLERS POSITION. PATIENT MEDICATED WITH HS MEDS CRUSHED IN APPLESAUCE. PATIENT SWALLOWING WITHOUT ANY DIFFICULTY AND FINISHED THE ENTIRE CONTAINER OF APPLESAUCE. PEG TUBE WAS FLUSHED WITH 200CC OF H20 ORDERED. FLUSHES FEELY WITHOUT ANY DIFFICULTY. PATIENT WITH NO RESIDUAL WHEN CHECKED PRIOR TO FLUSH. BED ALARM IN PLACE FOR PATIENT SAFTY. CALL LIGHT IN REACH. WILL CONT TO MONITOR.
--- NOTE | 2024-05-24 22:15 | NUR ---
PATIENT VOMITTED MODERATE AMT OF EMESIS. PATIENT UPSET AND CRYING. PATIENT PROVIDED WITH PERSONAL CARE AND LINENS WERE CHANGED. PATIENT WAS SITTING UP AFTER HAVING HER HS MEDS IN APPLESACE AND PEG TUBE FLUSH. TURNED AND REPOSITIONED. PATIENT MEDICATED WITH REGLAN FOR NAUISEA AND VOMITTING VIA LEFT HAND IV SITE. SITTING UP AT THIS TIME. BED ALRM IN [facility] FOR PATIENT SAFETY. CALL LIGHT IN REACH. WILL CONT TO MONITOR.
--- NOTE | 2024-05-25 01:00 | NUR ---
PATIENT RESTING IN BED WITH HOB ELEVATED. APPEARS SLEEPING WITH EYES CLOSED AND RESPS EVEN AND UNLABORED. BERKOWITZ CATH PATENT AND DERAINING PADMINI URINE. PEG TUBE INTACT. BED ALARM IN PLACE FOR PATIENT SAFETY.CALL LIGHT IN REACH. WILL CONT TO MONITOR.
--- NOTE | 2024-05-25 05:00 | NUR ---
PATIENT RESTING IN BED AT THIS TIME WITH HOB ELEVATED. EYES ARE CLOSED. RESPS ARE EVEN AND UNLABORED. BERKOWITZ CATH AND DRAINING PADMINI URINE AT THIS TIME. CALL LIGHT IN REACH. WILL CONT TO MONITOR.
[2024-05-25 05:11] VITALS: BP 122/75
--- NOTE | 2024-05-25 07:00 | NUR ---
REPORT RECEIVED FROM JERMAINE DIXON
[2024-05-25 08:00] VITALS: BP 137/78
--- NOTE | 2024-05-25 09:10 | NUR ---
PT RESTING IN HIGH FOWLERS POSITION,A&O X3 WITH SOFT SPEECH NOTED-CVA HX;PT DENIES ANY CURRENT PAIN OR DISCOMFORTS,PAIN SCALE AND REPORTING EDUCATED;ASSESSMENT COMPLETED;RESPIRATIONS EVEN AND UNLABORED ON RA,CLEAR LUNG SOUNDS;ABDOMEN SOFT ON PALPATION AND ACTIVE IN ALL 4 QUADRANTS-PEG TUBE TO LEFT UPPER QUAD. 0 RESIDUAL NOTED, FLUSHED WITH 200CC OF WATER PER ORDER;BERKOWITZ CATHETER DRAINING CLEAR/YELLOW URINE TO GRAVITY WITH EASE;WEAK PEDAL PULSES;SKIN INTACT;#22G TO LW FLUSHED AND PATENT,SITE APPEARS HEALTHY;ACCUCHECK 117, NO COVERAGE NEEDED;PT DENIES ANY ADDITIONAL NEEDS AND IS ENCOURAGED TO CALL FOR ASSISTANCE IF NEEDED;FALL PRECAUTIONS REMAIN IN PLACE WITH BED IN THE LOWEST POSITION AND BED ALARM ON FOR SAFETY;CALL LIGHT IN REACH;FREQUENT ROUNDS MADE.
--- NOTE | 2024-05-25 10:22 | NUR ---
AT BEDSIDE DISCUSSING POC WITH PT.
--- NOTE | 2024-05-25 11:50 | NUR ---
PT RESTING IN BED CRYING. PT REPORTS RIGHT THIGH PAIN AND IS MEDICATED WITH PRN ULTRAM 50MG PO AND ICE PACK APPLIED FOR COMFORT;RESPIRATIONS EVEN AND UNLABORED ON RA;IV SITE TO LFA REMAINS PATENT;BERKOWITZ CATHETER DRAINING TO GRAVITY WITH EASE;ACCUCHECK 156, PT COVERED WITH SLIDING SCALE INSULIN PER ORDER;PT DENIES ANY ADDITIONAL NEEDS AND IS ENCOURAGED TO CALL FOR ASSISTANCE IF NEEDED;FALL PRECAUTIONS REMAIN IN PLACE WITH BED IN THE LOWEST POSITION AND BED ALARM ON FOR SAFETY;CALL LIGHT IN REACH;FREQUENT ROUNDS MADE
--- NOTE | 2024-05-25 13:53 | NUR ---
#22G TO LH REMOVED DUE TO EXPIRATION. NEW #22G STARTED TO RH ON 1 ST ATTEMPT BY THIS FRAME OPENER. PT TOLERATED WELL. FREQUENT ROUNDS MADE.
[2024-05-25 14:17] VITALS: BP 110/62
--- NOTE | 2024-05-25 15:35 | NUR ---
PT RESTING IN SEMI FOWLERS POSITION WATCHING TV;RESPIRATIONS EVEN AND UNLABORED ON RA;PT DENIES ANY CURRENT PAIN OR NEEDS;PEG TUBE PATENT;BERKOWITZ CATHETER DRAINING TO GRAVIT WITH EASE;#22G TO RH INTACT;PT DENIES ANY ADDITIONAL NEEDS AT THIS TIME AND IS ENCOURAGED TO CALL FOR ASSISTANCE IF NEEDED;FALL PRECAUTIONS REMAIN IN PLACE WITH BED IN THE LOWEST POSITION AND BED ALARM ON FOR SAFETY;CALL LIGHT IN REACH;FREQUENT ROUNDS MADE.
[2024-05-25 16:53] VITALS: BP 116/66
[2024-05-25 19:37] VITALS: BP 113/57
--- NOTE | 2024-05-26 | NUR ---
FIELD SERVICER INFORMED CERTIFIED NURSES AIDE PT HAD NORMAL FORMED BM. PT WAS CLEANED UP AND REPOSITIONED IN BED. DENIES ANY N/V/P AT THIS TIME. NO S/S OF DISTRESS. CALL LIGHT WITHIN REACH AND SAFETY PRECAUTIONS IN PLACE.
--- NOTE | 2024-05-26 04:03 | NUR ---
PT LAYING IN BED SEMI FOWLERS, SLEEPING AT THIS TIME. NO S/S OF DISTRESS. CALL LIGHT WITHIN REACH AND SAFETY PRECAUTIONS IN PLACE.
--- NOTE | 2024-05-26 07:35 | NUR ---
PT RESTING IN BED WITH EYES OPEN RESPONDS TO NAME. ASSESSMENT COMPLETED. SALINE LOCK INTACT IN RIGHT HAND. NO RESP DISTRESS NOTED. CALL LIGHT WITHIN REACH. BED IN LOWEST POSITION. INSTRUCT TO USE CALL GRIGGS FOR ANYTHING SHE NEEDS.
[2024-05-26 08:07] VITALS: BP 126/65
--- NOTE | 2024-05-26 10:00 | NUR ---
PEG TUBE FLUSHED WITH 200 CC OF WATER FOR MEDICATION ADMINISTRATION. PEG TUBE PATENT. PT TOLERATED PROCEDURE WITHOUT COMPLAINTS VOICED.
--- NOTE | 2024-05-26 12:20 | NUR ---
NO CHANGE IN ASSESSMENT. CALL LIGHT WITHIN REACH. BED REMAIN IN THE LOWEST POSITION.
--- NOTE | 2024-05-26 14:35 | NUR ---
PEG TUBE FLUSHED WITH 200 CC TAP WATER FOR MEDICATION ADMINISTRATION. PEG TUBE PATENT. PT TOLERATED PROCEDURE WITHOUT COMPLAINTS VOICED.
--- NOTE | 2024-05-26 16:57 | NUR ---
NO CHANGE IN ASSESSMENT. PT RESTING IN BED WITHOUT COMPLAINTS VOICED. PT HAS VISITORS AT BEDSIDE. CALL LIGHT WITHIN REACH.
[2024-05-26 18:43] VITALS: BP 107/60
--- NOTE | 2024-05-26 20:00 | NUR ---
RECEIVED REPORT FROM DAYSMNFT NURSE. PT NOTED SITTING UP HIGH FOWLERS IN BED, ON RM AIR. BERKOWITZ NOTED WITH YELLOW URINE. PEG TUBE TO PLACEMENT CHECKED AND FLUSHED WITH 200CC. PT TOLERATED WELL. NURSING ASSESSMENT COMPLETED. IV SITE APPEARS HEALTHY AND INTACT, FLUSHES W/O DIFFICULTY. PT C/O PAIN IN RT HIP AND THIGH. EDUCATED ON PLAN OF CARE AND MED SCHEDULE. WILL FOLLOW UP WITH PAIN MEDICATION PER EMAR. VSS. NO S/S OF DISTRESS. CALL LIGHT WITHIN REACH AND SAFETY PRECAUTIONS IN PLACE. BED ALARM ON.
--- NOTE | 2024-05-27 00:30 | NUR ---
PT LAYING IN BED FOWLRS, SLEEPING AT THIS TIME. BED ALARM ON. NO S/S OF DISTRESS. CALL LIGHT WITHIN REACH AND SAFETY PRECAUTIONS IN PLACE.
[2024-05-27 06:36] LABS: ALBUMIN 3.5 g/dL (3.2-5.0); BILIRUBIN, TOTAL 0.7 mg/dL (0.02-1.3); CREATININE 0.5 mg/dL (0.5-1.0); TOTAL PROTEIN 6.1 g/dL (6.3-8.2)
[2024-05-27 07:10] VITALS: BP 108/55
[2024-05-27 18:30] VITALS: BP 138/70
[2024-05-27 19:05] VITALS: BP 138/70
--- NOTE | 2024-05-27 20:00 | NUR ---
RECEIVED REPORT NURSE RAHAT, PATIENT RESTING IN BED, ALERT ORIENTED, WHISPERS WHEN TALKING,IV ON RT HAND G 22 PATENT FLUSHES WELL, DENIES PAIN, PEG TUBE PLACEMENT CHECKED, PATIENT BREATHING UNLABORED CALL LIGHT WITHIN REACHED, BED ALARM IN PLACED.
[2024-05-28] VITALS (7 sets, daily range): BP systolic 107–138; BP diastolic 54–71
--- NOTE | 2024-05-28 | NUR ---
PATIENT RESTING IN BED, EYES CLOSED, BREATHING EVEN UNLABORED, BED ALARM IN PLACED.
--- NOTE | 2024-05-28 03:50 | NUR ---
PATIENT RESTING IN BED, STATED FEELS COLD, EXTRA BLANKET GIVEN.
--- NOTE | 2024-05-28 07:06 | NUR ---
PATIENT LAYING IN BED. PATIENT A&OX3 AND ABLE TO MAKE NEEDS KNOWN. NO S/SX OF PAIN OR DISTRESS NOTED.
--- NOTE | 2024-05-28 11:36 | NUR ---
PATIENT LAYING IN BED. NO S/SX OF PAIN OR DISTRESS NOTED.
--- NOTE | 2024-05-28 15:58 | NUR ---
PATIENT LAYING IN BED, WATCHING TV. NO S/SX OF PAIN OR DISTRESS NOTED.
--- NOTE | 2024-05-28 19:41 | NUR ---
RECEIVED REPORT FROM NURSE ELIU, PATIENT RESTING IN BED, WATCHING TV, IV ON RT HAND PATENT FLUSHES WELL, DENIES PAIN AT THIS TIME, BREATHING EVEN UNLABORED, INDWELLING CATHETER DRAINING YELLOW PADMINI COLORED URINE, SEDIMENT NOTED CALL LIGHT IN REACHED. BED ALARM IN PLACED.
--- NOTE | 2024-05-29 00:50 | NUR ---
PATIENT RESTING IN BED, EYES CLOSED, NOT IN DISTRESS, CALL LIGHT IN REACHED. ED ALARM IN PLACED.
--- NOTE | 2024-05-29 05:03 | NUR ---
PATIENT RESTIN IN BED, BREATHING EVEN UNLABORED NO DISCOMFORTS NOTED AT THIS TIME. BED ALARM IN PLACED.
[2024-05-29 06:06] VITALS: BP 119/67
--- NOTE | 2024-05-29 06:58 | NUR ---
PATIENT LAYING IN BED, EASILY AROUSABLE. PATIENT A&OX3 AND ABLE TO MAKE NEEDS KNOWN. PATIENT DENIES ANY NEEDS AT THIS TIME.
[2024-05-29 07:30] VITALS: BP 118/65
[2024-05-29 07:51] VITALS: BP 118/65
--- NOTE | 2024-05-29 11:39 | NUR ---
PATIENT LAYING IN BED. PATIENT DENIES ANY NEEDS AT THIS TIME.
--- NOTE | 2024-05-29 16:11 | NUR ---
PATIENT LAYING IN BED. PATIENT DENIES ANY NEEDS AT THIS TIME.
[2024-05-29 16:19] VITALS: BP 111/67
[2024-05-29 18:33] VITALS: BP 120/74
--- NOTE | 2024-05-29 20:00 | NUR ---
RECEIVED REPORT FROM NURSE ELIU, PATIENT RESTING IN BED, ALERT ORIENTED, WHISPER WHEN TALKING, IV ON RFA G 22 PATENT FLUSHES WELL, PEG TUBE CHECKED FOR PLACEMENT FLUSHED WITH 200CC WATER, PATIENT HAD A MEDIUM BM INCONTINET CARE PROVIDED, PATIENT HAS AN INDWELLING BERKOWITZ CATH DRAINING YELLOW COLORED URINE, SEDIMENT NOTED, PATIENT C/O PAIN ON RT THIGH NO BRUISING OR DISCOLORATION NOTED ON THIGH. THIGH REPOSITIONED, WEILL MEDICATE, CALL LIGHT IN REACHED. BED ALARM IN PLACED.
[2024-05-29 20:20] VITALS: BP 143/78
--- NOTE | 2024-05-29 23:57 | NUR ---
PATIENT RESTING WITH EYES CLOSED, CALL LIGHT IN REACHED. BED ALARM IN PLACED.
--- NOTE | 2024-05-30 04:52 | NUR ---
PATIENT RESTING IN BED, BREATHING EVEN UNLABORED, BED ALRM IN PLACED.
[2024-05-30 06:07] VITALS: BP 116/72
--- NOTE | 2024-05-30 07:21 | NUR ---
PATIENT LAYING IN BED, EASILY AROUSED. PATIENT A&OX3 AND ABLE TO MAKE NEEDS KNOWN. NO S/SX OF PAIN OR DISTRESS NOTED.
[2024-05-30 10:48] LABS: BASO% 0.8 % (0-3); EOS% 1.1 % (0-8); HEMOGLOBIN 12.4 g/dl (12.0-16.0); IMMATURE GRANULOCYTES 0.2 % (0.0-5.0); LYMPH% 20.9 % (15-41); MEAN CORPUSCULAR HGB 31.2 pG CALC (26.0-32.0); MEAN CORPUSCULAR HGB CONC 33.5 g/dL CAL (32.0-36.0); MONO% 7.8 % (2-13); NEUT# 6.06 thou/uL (2.00-7.15); NEUT% 69.2 % (42-76); RED BLOOD COUNT 3.98 mill/uL (4.20-5.60); RED CELL DISTRI WIDTH 13.5 % (11.5-15.5)
--- NOTE | 2024-05-30 11:00 | NUR ---
NEW BERKOWITZ PLACED AND PATIENT TOLERATED WELL.
[2024-05-30 11:01] LABS: ALBUMIN 3.3 g/dL (3.2-5.0); BILIRUBIN, TOTAL 0.8 mg/dL (0.02-1.3); CREATININE 0.4 mg/dL (0.5-1.0)
--- NOTE | 2024-05-30 11:38 | NUR ---
PATIENT LAYING IN BED. VISITOR AT BEDSIDE. PATIENT DENIES ANY NEEDS AT THIS TIME.
[2024-05-30 11:56] LABS: URINE BILIRUBIN - DIPSTICK Negative (NEGATIVE); URINE BLOOD DIPSTICK Large (NEGATIVE); URINE GLUCOSE - DIPSTICK Negative (NEGATIVE); URINE KETONE Negative (NEGATIVE); URINE NITRITE - DIPSTICK Negative (Negative); URINE PROTEIN - DIPSTICK 100 mg/dL (NEG-TRACE); URINE SPECIFIC GRAVITY 1.015; URINE UROBILINOGEN - DIPSTICK 0.2 E.U./dL (0.2)
[2024-05-30 11:58] LABS: URINE COLOR Yellow; URINE LEUK ESTERASE Moderate (NEGATIVE)
[2024-05-30 12:04] LABS: URINE BACTERIA FEW hpf; URINE SQUAMOUS EPITHELIAL CELL FEW EPI/hpf (0-FEW); URINE WBC 20-50 WBC/hpf (0-5)
[2024-05-30 14:37] VITALS: BP 99/57
[2024-05-30 15:23] VITALS: BP 99/57
--- NOTE | 2024-05-30 15:33 | NUR ---
PATIENT LAYING IN BED. NO S/SX OF PAIN OR DISTRESS NOTED AT THIS TIME.
[2024-05-30 18:28] VITALS: BP 123/68
--- NOTE | 2024-05-30 21:15 | NUR ---
PT RESTING NO DISTRESS NOTED. PEG TUBE FLUSHED WITH MEDICATION GIVEN WORKING PROPERLY DRESSING INTACT AND CLEAN. IV FLUSHED SL. PT REPORTS NO PAIN AT THIS TIME. CALL LIGHT WITHIN REACH. BED ALARM ON. PLAN OF CARE ONGOING.
[2024-05-30 22:43] VITALS: BP 123/68
--- NOTE | 2024-05-31 00:54 | NUR ---
PT RESTING NO DISTRESS NOTED FROM THE DOORWAY. CALL LIGHT WITHIN REACH. BED ALARM ON. PLAN OF CARE ONGOING.
[2024-05-31 05:25] VITALS: BP 114/73
--- NOTE | 2024-05-31 06:00 | NUR ---
PT SLEEPING NO DISTRESS NOTED ON EXAM. CALL LIGHT WITHIN REACH. BED ALARM ON. BERKOWITZ CATHETER WITH NO KINKS.
[2024-05-31 06:53] VITALS: BP 135/73
--- NOTE | 2024-05-31 07:15 | NUR ---
patient a/o x3; room air; breathing unlabred; no s/s of distress; patient sitting in bed semi folwer with no issues; denied any pain; denied any n/d/v at thistiem; iv site clean and intact saline locked; peg tube clamped at this time;davidson working with no issues; call light within reachl; bed in lowest postion; bed alarm actiavted; no complaints
--- NOTE | 2024-05-31 12:34 | NUR ---
PATIENT RESTING IN BED; WOO IS WORKING WITH NO ISSUES; FAMILY AT BEDSIDE; NO S/S OF DISTRESS; GLUCOSE WAS 122, NO COVERAGE WAS NEEDED; IV SITE CLEAN AND INTACT SALINE LOCKED; CALL LIGHT WITHIN REACH,VERBALIZED UNDERSTANDIN; PERSONAL ITEMS WITHIN REACH; BED IN LOWEST POSTION; BED ALARM ACTIVATED
--- NOTE | 2024-05-31 14:16 | NUR ---
flushed peg tube with no issues
--- NOTE | 2024-05-31 16:56 | NUR ---
patient is sitting semi felder in bed; room air; states some discomfort in right leg/knee repostioned leg; denied any n/d/v at this time; no s.s of distress; iv site clean and intact saline locked; peg tube clamped with no issues; stuart working with no issues; call light within reach,verbalized understanding on how to use, personal items within reach; bedin lowest postion; bed alarm activated; safety meaures in place
[2024-05-31 18:30] VITALS: BP 107/63
[2024-05-31 18:36] VITALS: BP 107/63
--- NOTE | 2024-05-31 21:15 | NUR ---
PT RESTING IN BED NO DISTRESS NOTED ON ASSESSMENT. IV FLUSHED WORKING PROPERLY SL. BERKOWITZ CATHETER WITH NO KINKS HANGING PROPERLY. PEG TUBE FLUSH GIVEN WITH MEDS. CALL LIGHT WITHIN REACH. PLAN OF CARE ONGOING.
--- NOTE | 2024-06-01 00:30 | NUR ---
PT SLEEPING NO DISTRESS NOTED ON EXAM. CALL LIGHT WITHIN REACH. PLAN OF CARE ONGOING.
--- NOTE | 2024-06-01 04:13 | NUR ---
PT SLEEPING NO DISTRESS NOTED ON EXAM. CALL LIGHT WITHIN REACH. PLAN OF CARE ONGOING.
[2024-06-01 08:30] VITALS: BP 116/66
[2024-06-01] MEDS ORDERED: traMADol HCL 50 MG/TAB VT PRN (11:07)
[2024-06-01] MEDS ORDERED: ACETAMINOPHEN 325 MG/TAB VT PRN (11:20)
[2024-06-01 17:05] VITALS: BP 131/71
--- NOTE | 2024-06-01 18:37 | NUR ---
PATIENT CONTINUES ON ATB THERAPY FOR UTI WITH NO ADVERSE REACTIONS NOTED. DENIES PAIN. ADMINISTERED FLUSHES VIA PEG TUBE PER ORDERS.
[2024-06-01] MEDS ORDERED: APIXABAN BASE 5 MG TAB VT SCH (21:00)
--- NOTE | 2024-06-01 21:00 | NUR ---
RECEIVED REPORT FROM NURSE RAHAT, PATIENT RESTING IN BED, ALERT ORIENTED, DENIES PAIN OR NAUSEA AT THSI TIME, IV PATENT FLSUHES WELL ON LFA, PEG TUBE CHECKED FOR PLACEMENT AND PATENCY, FLUSHED WITH 200 CC WATER PER ORDER, NOT IN DSITRESS, BERKOWITZ CATG DRAINING YELLOW URINE, CALL LIGHT IN REACHED. BED ALARM IN PLACED.
--- NOTE | 2024-06-02 | NUR ---
PATIENT RESTING IN BED, EYES CLOSED, BREATHING EVEN UNLABORED, CALL LIGHT WITHIN REACHED, BED ALARM IN PLACED.
--- NOTE | 2024-06-02 05:00 | NUR ---
PATIETN RESTING IN BED, BREATHING EVEN UNALBORED, BED ALARM IN PLACED.
[2024-06-02 06:00] VITALS: BP 121/69
[2024-06-02 07:00] VITALS: BP 124/70
--- NOTE | 2024-06-02 08:00 | NUR ---
PT LAYING IN BED AWAKE WATCHING TV, PT A&O X3, PUPILS PERRL, RESP. EVEN AND UNLABORED, LUNG SOUNDS ARE CLEAR, ABD DISTENDED AND SOFT WITH ACTIVE BOWEL SOUNDS, PEG TUBE IN PLACE, 22G LFA IV SL, STRONG RADIAL PULSES, WEAK PEDAL PULSES, SAFETY MEASURES REINFORCED, CALL GRIGGS WITHIN REACH
--- NOTE | 2024-06-02 08:23 | NUR ---
DR CANDELARIO AND TOAN LEYVA AT BEDSIDE DISCUSSING PLAN OF CARE
[2024-06-02] MEDS ORDERED: LOSARTAN Potassium 50 MG/TAB VT SCH (09:00)
[2024-06-02] MEDS ORDERED: SERTRALINE HCL 50 MG/TAB VT SCH (09:00)
--- NOTE | 2024-06-02 12:01 | NUR ---
PT SITTING UP IN THE BED WATCHING TV, NO S/S OF DISTRESS AT THIS TIME, CALL GIRGGS WITHIN REACH
[2024-06-02 15:52] VITALS: BP 150/75
--- NOTE | 2024-06-02 16:00 | NUR ---
PT LAYING IN BED CRYING, PT DENIES ANY NEEDS STATING "I WANT TO GO HOME", PT EXCUSED NURSE FROM THE ROOM, CALL GRIGGS WITHIN REACH
[2024-06-02 19:15] VITALS: BP 122/67
--- NOTE | 2024-06-02 20:00 | NUR ---
RECEIVED REPORT FROM NURSE KAT, PATIENT RESTING IN BED, WATCHING TCV, IN ON LFA PATENT FLUSHES WELL, PEG TUBE CHECKED FOR PLACEMENT AND PATENCY, BERKOWITZ CATH DRAINING YELLOW COLORED URINE, PATIENT C/O PAIN ON RT THIGH, REPOSITIONED, WILL MEDICATE CALL LIGHT IN REACHED, BED ALARM IN PLACED.
[2024-06-02 21:22] VITALS: BP 124/73
--- NOTE | 2024-06-03 00:42 | NUR ---
PATIENT RESTING IN BED, WITH EYES CLOSED, BREATHING EVEN UNLABORED, NO DISCOMFORTS NOTED AT THIS TIME, BED ALARM IN PLACED.
--- NOTE | 2024-06-03 05:05 | NUR ---
MOISÉS RESTING IN BED. EYES CLOSED BREATHING EVEN UNALBORED CALL LIGHT WITHIN REACHED.
[2024-06-03 05:48] LABS: BASO% 1.5 % (0-3); EOS% 2.5 % (0-8); HEMATOCRIT 38.3 % (37.0-47.0); HEMOGLOBIN 12.9 g/dl (12.0-16.0); IMMATURE GRANULOCYTES 0.1 % (0.0-5.0); LYMPH% 46.3 % (15-41); MEAN CELL VOLUME 92.3 fL CALC (80.0-100.0); MEAN CORPUSCULAR HGB 31.1 pG CALC (26.0-32.0); MEAN CORPUSCULAR HGB CONC 33.7 g/dL CAL (32.0-36.0); MONO% 11.1 % (2-13); NEUT# 2.63 thou/uL (2.00-7.15); NEUT% 38.5 % (42-76); RED BLOOD COUNT 4.15 mill/uL (4.20-5.60); RED CELL DISTRI WIDTH 13.8 % (11.5-15.5)
[2024-06-03 06:02] LABS: ALBUMIN 3.4 g/dL (3.2-5.0); BILIRUBIN, TOTAL 0.6 mg/dL (0.02-1.3); CREATININE 0.4 mg/dL (0.5-1.0); MAGNESIUM 1.9 mg/dL (1.6-2.3); TOTAL PROTEIN 5.8 g/dL (6.3-8.2)
[2024-06-03 06:05] LABS: POTASSIUM 3.9 mmol/l (3.5-5.1)
[2024-06-03 07:21] VITALS: BP 114/65
--- NOTE | 2024-06-03 18:42 | NUR ---
Patient tolerates meals without aspiration. Peg tube flushed as ordered. Continues on ATB for UTI with no adverse reactions. [place] in place. Waiting for SNF
[2024-06-03 19:22] VITALS: BP 128/79
--- NOTE | 2024-06-03 20:00 | NUR ---
PT RESTING ON BED WATCHING TV AT THIS TIME. ALERT AND ORIENTED X3. PT COMPLAINING OF PAIN ON HER RIGHT THING 6/10 ON PAIN SCALE. PEG TUBE ON PLACE WITHOUT ANY ABNORMALITIES. BERKOWITZ STILL ON PLACE WITHOUT ANY KINKS WITH CLEAR URINE. RESPS ARE EVEN AND UNLABORED WITH NO SIGNS OF DISTRESS. CALL LIGHT IN REACH AND SAFETY PRECAUTIONS ON PLACE.
--- NOTE | 2024-06-03 21:30 | NUR ---
PEG TUBE CHECKED FOR PLACEMENT WITH STETHOSCOPE. NO RESIDUAL. FLUSHED WITH 400 CC OF WATER. CALL LIGHT IN REACH
[2024-06-03 21:37] VITALS: BP 115/73
--- NOTE | 2024-06-04 | NUR ---
PT RESTING ON BED WITH EYES CLOSED. RESPS ARE EVEN AND UNLABORED AT THIS MOMENT. NO SIGNS OF ANY ABNORMALITIES. BED ALARM ON, BED IN LOWEST POSITION. CALL LIGHT ON REACH
--- NOTE | 2024-06-04 04:05 | NUR ---
PT RESTING QUIETLY ON BED WITH THE HEAD OF THE BED SLIGHTLY ELEVATED. RESPS ARE EVEN AND UNLABORED. CALL LIGHT IN REACH
[2024-06-04 05:40] VITALS: BP 119/62
[2024-06-04 07:12] VITALS: BP 102/64
--- NOTE | 2024-06-04 07:27 | NUR ---
PT SLEEPING, RESPIRATIONS ARE EVEN AND UNLABORED ON ROOM AIR.
--- NOTE | 2024-06-04 08:00 | NUR ---
PT IS AO, RESPIRATIONS ARE EVEN AND UNLABORED ON ROOM AIR, LUNGS ARE CLEAR THROUGHOUT, BOWEL SOUNDS ARE ACTIVE, PEDAL PULSES ARE PALPABLE TO TOUCH, PT DOES REPORT FEET ARE "BURNING" APPLIED LOTION TO PT'S FEET, REPORTS FEET ARE STILL "BURNING" NOTIFIED MD.
--- NOTE | 2024-06-04 09:32 | NUR ---
PT REFUSING TO GET OUT OF BED INTO CHAIR. DISCUSSED IMPORTANCE OF GETTING OUT OF BED WITH PT. PT IS AGREEABLE TO GETTING UP OUT OF BED AND INTO CHAIR THIS AFTERNOON.
--- NOTE | 2024-06-04 10:45 | NUR ---
ASSISTED PT UP OUT OF BED AND INTO CHAIR WITH ASSIST OF TECH. PT NOW GETTING HAIR WASHED BY THE TECH.
--- NOTE | 2024-06-04 13:11 | NUR ---
FAMILY AT BEDSIDE VISITING WITH PT, PT APPEARS IN GOOD SPIRITS.
[2024-06-04 13:55] VITALS: BP 105/59
--- NOTE | 2024-06-04 16:18 | NUR ---
PT ATEMPTING TO TAKE A NAP, HAS BEEN AWAKE ALL DAY TODAY. PT DOES AGREE WITH GETTING UP OUT OF BED FOR DINNER.
[2024-06-04 16:46] VITALS: BP 115/64
--- NOTE | 2024-06-04 16:52 | NUR ---
ASSISTED PT UP OUT OF BED INTO CHAIR FOR DINNER. PT TOLERATED WITH NO COMPLAINTS.
[2024-06-04 19:10] VITALS: BP 115/58
--- NOTE | 2024-06-04 19:50 | NUR ---
PT RESTING ON BED WITH EYES CLOSED IN SEMI BRAVO'S POSITION. RESPS ARE EVEN AND UNLABORED. CALL LIGHT IN REACH AND SAFETY PRECAUTIONS IN PLACE.
[2024-06-04 21:21] VITALS: BP 112/66
--- NOTE | 2024-06-04 21:25 | NUR ---
PT RESTING IN BED. AWAKE AND ALERT AT THIS TIME. NO DISTRESS NOTED ON ASSESSMENT. DENIES ANY PAIN AT THIS MOMENT. SCHEDULED MEDS GIVEN AT THIS TIME VIA PEG TUBE. PEG TUBE CHEKED FOR PLACEMENT AND FLUSHED WITH 400 CC OF WATER. PT TOLERATED WELL. DENIES ANY NAUSEA. LUNGS CLEAR ALL THROUGHOUT. BOWEL SOUNDS ARE ACTIVE. BERKOWITZ STILL IN PLACE WITH NO KINKS WITH ORANGE- CLEAR URINE. 22 IV LEFT FOREARM FLSUHED WITH 5 CC- NO SIGNS OF SWELLING. HEAD OF THE BED ELEVATED AT THIS TIME. CALL LIGHT IN REACH AND SAFETY PRECAUTIONS ON PLACE
[2024-06-05] VITALS (8 sets, daily range): BP systolic 113–125; BP diastolic 62–70
--- NOTE | 2024-06-05 | NUR ---
PT RSTING ON BED WITH EYES CLOSED IN SUPINE POSITION. NO DISTRESS NOTED. IV SITE INTACT. CALL LIGHT IN REACH
--- NOTE | 2024-06-05 04:00 | NUR ---
PT RESTING IN BED WITH EYES CLOSED. NO SIGNS OF DISTRESS. BREATHING IS EVEN AND UNLABORED. CALL LIGHT IN REACH
--- NOTE | 2024-06-05 07:47 | NUR ---
PT IS AOX4, RESPIRATIONS ARE EVEN AND UNLABORED ON ROOM AIR, LUNGS ARE CLEAR, BOWEL SOUNDS ARE ACTIVE, PEDAL PULSES ARE PALPABLE TO TOUCH, PT REPORTS PAIN IN LEFT UPPER LEG "A LITTLE BIT"
--- NOTE | 2024-06-05 10:00 | NUR ---
ASSISTED PT BACK TO BED, PROVIDED PRN TYLENOL FOR RIGHT UPPER LEG PAIN.
--- NOTE | 2024-06-05 13:06 | NUR ---
PT WANTS TO "SLEEP" TAKE A NAP, REMINDED PT THE IMPORTANCE OF GETTING UP OUT OF BED FOR MEALS, PT AGREES TO GETTING OUT OF BED FOR DINNER.
--- NOTE | 2024-06-05 17:53 | NUR ---
ASSISTED PT BACK TO BED.
--- NOTE | 2024-06-05 21:00 | NUR ---
PT RESTING IN BED NO DISTRESS NOTED ON EXAM. IV FLUSHED WORKING PROPERLY SL. PEG TUBE FLUSHED WITH MEDS 400CC. [place] WITH NO KINKS. CALL LIGHT WITHIN REACH. PLAN OF CARE ONGOING.
--- NOTE | 2024-06-06 00:26 | NUR ---
PT SLEEPING NO DISTRESS NOTED ON EXAM. CALL LIGHT WITHIN REACH. BED ALARM ON.
[2024-06-06 04:20] VITALS: BP 142/71
--- NOTE | 2024-06-06 04:47 | NUR ---
PT RESTING NO DISTRESS NOTED ON EXAM. CALL LIGHT WITHIN REACH. NO KINKS ON BERK[place]Z. PLAN OF CARE ONGOING.
--- NOTE | 2024-06-06 07:00 | NUR ---
SHIFT CHANGE REPORT, PT SLEEPING IN SUPINE POSITION BUT AWAKENS TO LIGHT TACTILE AND VERBAL STIULI, NO C/O DISCOMFORT AT THIS TIME, CALL GRIGGS IN REACH AND BED LOCKED IN LOWEST POSITION
[2024-06-06 07:21] VITALS: BP 114/69
--- NOTE | 2024-06-06 08:00 | NUR ---
ASSISTED TO RECLINER AND SET UP FOR MEAL. VOMITTED UNDIGESTED FOOD AFTER MEAL, CLEANED GIVING SPONGE BATH AND ASSISTED BACK TO BED.
--- NOTE | 2024-06-06 12:00 | NUR ---
ATE LUNCH MEAL AND TOLERATED WELL.
--- NOTE | 2024-06-06 16:00 | NUR ---
INCONTINENT OF BOWEL, CESAR-CARE GIVEN AND LINEN CHANGED
[2024-06-06 16:48] VITALS: BP 113/64
[2024-06-06 19:04] VITALS: BP 106/54
--- NOTE | 2024-06-06 21:10 | NUR ---
PT RESTING NO DISTRESS NOTED ON ASSESSMENT. VS WNL ON RA LUNGS CLEAR. IV FLUSHED WORKING PROPERLY. [place]Z WITH CLEAR YELLOW URINE NO KINKS. PT REPORTS NO PAIN AT THIS TIME. MED GIVEN THRU PEG TUBE WITH A TOTAL OF 400CC FLUSH. PT REPOSITIONED. CALL LIGHT WITHIN REACH. PLAN OF CARE ONGOING. BED ALARM ON.
--- NOTE | 2024-06-06 23:50 | NUR ---
FROM THE DOOR PT IS SLEEPING NO DISTRESS NOTED. CALL LIGHT WITHIN REACH. BED ALARM ON.
[2024-06-07] VITALS (7 sets, daily range): BP systolic 105–126; BP diastolic 56–74
--- NOTE | 2024-06-07 04:45 | NUR ---
PT RESTING NO DISTRESS NOTED. PT REPOSITIONED. CALL LIGHT WITHIN REACH. PLAN OF CARE ONGOING.
--- NOTE | 2024-06-07 07:30 | NUR ---
PT IS AO BUT UPSET THIS MORNING, PT CRYING WHEN I ENTERED THE ROOM ASKING WHERE HER "KIDS ARE" TOLD PT WE WILL CALL THEM TODAY BUT THAT IT IS 0725 IN THE MORNING, PT DID BECOME CALMER, LUNGS ARE CLEAR, BOWEL SOUNDS ACTIVE, PEDAL PULSES PALPABLE TO TOUCH, PT REPORTS A "BURNING" PAIN IN THE FEET, WILL BRING PT PRN PAIN MEDS WITH MORNING MEDICATIONS.
--- NOTE | 2024-06-07 11:03 | NUR ---
ASSISTED PT UP OUT OF BED INTO CHAIR, PT TOLERATED BETTER TODAY.
--- NOTE | 2024-06-07 21:00 | NUR ---
PT RESTING IN BED NURSE REPOSITION PT. PEG TUBE FLUSHED WITH 400CC WITH MEDS. IV FLUSHED WORKING PROPERLY SL. BERKOWITZ WITH CLEAR YELLOW URINE NO KINKS. NO PAIN REPORTED AT THIS TIME. CALL LIGHT WITHIN REACH. FALL PRECAUTIONS IN PLACE. PLAN OF CARE ONGOING.
--- NOTE | 2024-06-08 04:12 | NUR ---
PT SLEEPING NO DISTRESS NOTED FROM THE DOORWAY. CALL LIGHT WITHIN REACH. BED ALARM ON.
[2024-06-08 07:22] VITALS: BP 124/69
--- NOTE | 2024-06-08 07:45 | NUR ---
ASKED PT IF SHE WOULD LIKE TO GET UP OUT OF BED INTO CHAIR FOR BREAKFAST. PT REPLIES "YES" ASSISTED PT INTO CHAIR, PT TOLERATED WITH NO COMPLAINTS.
--- NOTE | 2024-06-08 08:15 | NUR ---
PT IS A&O X2-3. LUNG SOUNDS ARE CLEAR; NO COUGH. PERRLA. BOWEL SOUNDS ARE ACTIVE; PEG TUBE PRESENT. PPP; NO EDEMA. PT MAKES HER NEEDS KNOWN; NO FURTHER QUESTIONS AT THIS TIME. ALL NATIONAL PATIENT SAFETY PRECAUTIONS ARE IN PLACE
--- NOTE | 2024-06-08 09:00 | NUR ---
ASSISTED PT BACK TO BED, PT TOLERATED WITH NO COMPLAINTS.
--- NOTE | 2024-06-08 12:15 | NUR ---
PT'S CONDITION HAS REMAINED THE SAME. PT IS A&O X3 AND STABLE. ALL NATIONAL PATIENT SAFETY PROTOCOLS IN PLACE.
[2024-06-08 15:44] VITALS: BP 137/68
--- NOTE | 2024-06-08 16:15 | NUR ---
PT'S CONDITION HAS REMAINED THE SAME. PT IS A&O X4; PT IS STABLE. ALL NATIONAL PATIENT SAFETY PRECAUTIONS IN PLACE
--- NOTE | 2024-06-08 18:15 | NUR ---
PT EMOATIONAL, WORRIED ABOUT SOMEONE COMING IN TONIGHT TO TAKE HER TO REHAB, WANTS TO KNOW WHO WILL BE HER RIDE. EXPLAINED TO PT THAT SHE WILL KNOW WHAT AHEAD OF TIME ALONG WITH HER FAMILY. PT APPEARS TO BE LESS EMOATIONAL.
[2024-06-08 18:30] VITALS: BP 134/72
[2024-06-08 18:59] VITALS: BP 134/72
--- NOTE | 2024-06-09 02:15 | NUR ---
400 ml of water given to patient via PEG at 2100
[2024-06-09 07:41] VITALS: BP 145/77
[2024-06-09 07:57] VITALS: BP 145/77
--- NOTE | 2024-06-09 09:50 | NUR ---
PT IS ALERT TIMES 3. PT ADMITTING DX IS CVA. PT HAS A PEG TUBE AND RECIEVE HER MEDICATION VIA PEG TUBE WITH FLUSHES THROUGH OUT THE DAY. PT BERKOWITZ REMIAN IN DRAINAGE WELL. PT IS ON A PUREE DIET AND IS A FEED ASSIST. PT SKIN IS INTACT WAITH NO ISSUES NOTED AT THIS TIME. SAFETY MEASURES IN PLACE. NURSING WILL CONTINUE TO MONITOR.
--- NOTE | 2024-06-09 13:13 | NUR ---
PT IS ALERT. PT ATE 75% OF HER LUNCH AND 400/CC OF FLUIDS FLUSHED VIA PEG TUBE BY GRAVITY INFUSED WITH NO ISSUES. PT WAS ASSISTED WITH A BED BATH AND TOILETING. ALL SAFETY MEASURES IN PLACE CALL GRIGGS WITH IN REACH.
[2024-06-09 15:21] VITALS: BP 122/69
--- NOTE | 2024-06-09 17:24 | NUR ---
PT IS RESTING IN BED COMFORTABLE. PT IV SITE CLEAN, DRY AND FLUSHING WELL. PT EAT 75% OF HER MEAL WITH FEED ASSIST. ALL SAFETY MEASURES IN PLACE CALL GRIGGS AT REACH. NURSING WILL CONTINUE TO MONITOR.
[2024-06-09 19:37] VITALS: BP 108/65
[2024-06-09 20:26] VITALS: BP 108/65
--- NOTE | 2024-06-09 20:30 | NUR ---
PATIENT OBSERVED TO BE RESTING IN BED ON RIGHT SIDE. BED SIDE ASSESSMENT COMPLETE. EQUAL UNLABORED RESP, NO VISUAL SIGNS OF DISTRESS. FOLY CATH IN PLACE WITH CLEAR PADMINI URINE. PEG TUBE IN PLACE, FLUSHED WITH 400CC OF FLUID. SAFETY PRECAUTION PLACE. BED AT LOWEST POSITION. CALL LIGHT WITH IN REACH.
--- NOTE | 2024-06-10 00:11 | NUR ---
PATIENT IN ROOM RESTING IN BED WIT EYES CLOSED. UNLABORED RESP. NO VISUAL SIGNS OF DISTRESS. FOLY CATH IN PLACE, PADMINI URINE OBSERVED. BED AT LOWEST POSITON. CALL LIGHT WITH IN REACH.
--- NOTE | 2024-06-10 04:11 | NUR ---
PATIENT OBSERVED TO BE RESTING IN BED WITH EYES CLOSED. EQUAL UNLABORED RESP. NO VISUAL SIGNS OF DISTRESS. FOLY IN PLACE WITH NO KINKS. BED AT LOWEST POSITION. CALLLIGHT WITH IN REACH.
[2024-06-10 05:15] LABS: BASO% 1.4 % (0-3); EOS% 2.3 % (0-8); HEMATOCRIT 36.1 % (37.0-47.0); HEMOGLOBIN 12.4 g/dl (12.0-16.0); IMMATURE GRANULOCYTES 0.1 % (0.0-5.0); LYMPH% 43.1 % (15-41); MEAN CELL VOLUME 91.4 fL CALC (80.0-100.0); MEAN CORPUSCULAR HGB 31.4 pG CALC (26.0-32.0); MEAN CORPUSCULAR HGB CONC 34.3 g/dL CAL (32.0-36.0); MONO% 8.1 % (2-13); NEUT# 4.02 thou/uL (2.00-7.15); RED BLOOD COUNT 3.95 mill/uL (4.20-5.60); RED CELL DISTRI WIDTH 14.1 % (11.5-15.5)
[2024-06-10 05:38] VITALS: BP 120/57
[2024-06-10 05:47] LABS: ALBUMIN 3.1 g/dL (3.2-5.0); BILIRUBIN, TOTAL 0.5 mg/dL (0.02-1.3); CREATININE 0.4 mg/dL (0.5-1.0); POTASSIUM 4.1 mmol/l (3.5-5.1); TOTAL PROTEIN 5.8 g/dL (6.3-8.2)
[2024-06-10 06:13] VITALS: BP 115/62
--- NOTE | 2024-06-10 07:12 | NUR ---
PATIENT LYING IN BED WITH EYES CLOSE RESTING. BREATHING UNLABORED ON ROOM AIR. IV IN LFA SL;SITE CLEAN AND INTACT. NO SIGNS OF DISTRESS OR PAIN NOTED. BED IN LOWEST POSITION. BERKOWITZ IN PLACE WITH NO KINKS. CALL LIGHT WITHIN REACH. POC ONGOING.
--- NOTE | 2024-06-10 12:31 | NUR ---
PATIENT LYING IN BED WATCHING TV. BREATHING UNLABORED ON ROOM AIR. IV IN LFA SL;SITE CLEAN AND INTACT. PT DENIES ANY PAIN OR N/D/V AT THIS TIME. PERSONAL ITEMS WELL CALL LIGHT WITHIN REACH. BED IN LOWEST POSITION. BERKOWITZ IN PLACE WITH NO KINKS. NO NEEDS AT THIS TIME. POC ONGOING.
--- NOTE | 2024-06-10 16:15 | NUR ---
PATIENT LYING IN BED WATCHING TV. BREATHING UNLABORED ON ROOM AIR. IV IN LFA SL;SITE CLEAN AND INTACT. BERKOWITZ IN PLACE WITH NO KINKS. BED IN LOWEST POSITION. PERSONAL ITEMS WELL CALL LIGHT WITHIN REACH. PT DENIES ANY PAIN OR N/D/V AT THIS TIME. NO NEEDS AT THIS TIME. POC ONGOING.
[2024-06-10 16:27] VITALS: BP 115/67
[2024-06-10 18:23] VITALS: BP 108/63
--- NOTE | 2024-06-10 20:52 | NUR ---
PT RESTING IN BED NO DISTRESS NOTED ON ASSESSMENT. VS WNL ON RA LUNGS CLEAR. PT REPORTS NO PAIN AT THIS TIME. BERKOWITZ CATHETER WORKING PROPERLY WITH CLEAR YELLOW URINE NO KINKS. IV FLUSHED SL. CALL LIGHT WITHIN REACH. PLAN OF CARE ONGOING.
--- NOTE | 2024-06-10 21:10 | NUR ---
PEG TUBE FLUSHED WITH MEDICATION A TOTAL OF 400CC GIVEN.
--- NOTE | 2024-06-11 | NUR ---
PT SLEEPING NO DISTRESS NOTED. CALL LIGHT WITHIN REACH. BED ALARM ON.
--- NOTE | 2024-06-11 04:15 | NUR ---
PT SLEEPING BREATHING EVENLY NO DISTRESS NOTED. CALL LIGHT WITHIN REACH. PLAN OF CARE ONGOING.
[2024-06-11 07:00] VITALS: BP 108/62
--- NOTE | 2024-06-11 07:16 | NUR ---
PATIENT UP GETTING SHOWER. BREATHING UNLABORED ON ROOM AIR. IV IN LFA SL;SITE CLEAN AND INTACT. BERKOWITZ IN PLACE. PT DENIES ANY PAIN OR N/D/V AT THIS TIME. BED IN LOWEST POSITION. ASSESSMENT COMPLETED. PERSONAL ITEMS WELL CALL LIGHT NEAR. NO NEEDS AT THIS TIME. POC ONGOING.
--- NOTE | 2024-06-11 12:19 | NUR ---
PATIENT SITTING UP IN BED. BREATHING UNLABORED ON ROOM AIR. IV IN LFA SL;SITE CLEAN AND INTACT. BERKOWITZ IN PLACE WITH NO KINKS. PT DENIES ANY PAIN OR N/D/V AT THIS TIME. BED IN LOWEST POSITION. PERSONAL ITEMS WELL CALL LIGHT WITHIN REACH. POC ONGOING. FRIEND AT BEDSIDE.
[2024-06-11 14:44] VITALS: BP 116/65
--- NOTE | 2024-06-11 16:07 | NUR ---
PATIENT LYING IN BED WITH SON AND GRANDKIDS AT BEDSIDE. BREATHING UNLABORED ON ROOM AIR. IV IN LFA SL;SITE CLEAN AND INTACT. PT DENIES ANY PAIN OR N/D/V AT THIS TIME. BED IN LOWEST POSITION. PERSONAL ITEMS WELL CALL LIGHT WITHIN REACH. POC ONGOING.
[2024-06-11 17:57] VITALS: BP 110/69
[2024-06-11 18:42] VITALS: BP 110/69
--- NOTE | 2024-06-11 19:40 | NUR ---
PT RESTING ON BED IN SEMI BRAVO'S POSITION. RESPS ARE EVEN AND UNLABORED. NO SIGNS OF DISTRESS NOTED. LUNGS CLEAR TO AUSCULTATION. 22 G LEFT FOREARM FLSUHED WITH 5 CC. PEG TUBE REMAINS IN PLACE. BOWEL SOUNDS ACTIVE IN ALL FOUR QUADRANTS AND ABD IS SOFT BERKOWITZ IN PLACE WITHOUT ANY KINKS. CALL LIGHT WITHIN REACH AND SAFETY PRECAUTIONS IN PLACE.
[2024-06-11 21:38] VITALS: BP 119/61
--- NOTE | 2024-06-11 21:45 | NUR ---
PT SITTED IN HIGH BRAVO'S POSITION. PEG TUBE CHECKED FOR PLACEMENT WITH STETHOSCOPE AND FLUSHED WITH 400 CC AT THIS TIME. CALL LIGHT IN REACH.
--- NOTE | 2024-06-12 | NUR ---
PT RESTING IN SUPINE POSITION ON BED WITH EYES CLOSED. NO DSITRESS NOTED. CALL LIGHT IN REACH
--- NOTE | 2024-06-12 04:00 | NUR ---
PT RESTING IN SUPINE POSITION WITH EYES CLOSED. NO SIGNS OF DISTRESS. CALL LIGHT IN REACH
[2024-06-12 04:08] VITALS: BP 133/66
[2024-06-12 04:59] VITALS: BP 133/66
[2024-06-12 05:39] LABS: HEMATOCRIT 38.8 % (37.0-47.0); HEMOGLOBIN 13.2 g/dl (12.0-16.0); MEAN CELL VOLUME 91.1 fL CALC (80.0-100.0); RED BLOOD COUNT 4.26 mill/uL (4.20-5.60); RED CELL DISTRI WIDTH 13.7 % (11.5-15.5)
[2024-06-12 05:55] LABS: ALBUMIN 3.5 g/dL (3.2-5.0); BILIRUBIN, TOTAL 0.8 mg/dL (0.02-1.3); CREATININE 0.5 mg/dL (0.5-1.0); POTASSIUM 4.1 mmol/l (3.5-5.1); TOTAL PROTEIN 6.2 g/dL (6.3-8.2)
[2024-06-12 05:58] VITALS: BP 133/65
--- NOTE | 2024-06-12 07:09 | NUR ---
PATIENT LYING IN BED WITH EYES CLOSED RESTING. BREATHING UNLABORED ON ROOM AIR. IV IN LFA SL;SITE CLEAN AND INTACT. BERKOWITZ IN PLACE WITH NO KINKS. NO SIGNS OF DISTRESS NOTED. BED IN LOWEST POSITION. PERSONAL ITEMS WELL CALL LIGHT WITHIN REACH. NO NEEDS AT THIS TIME. POC ONGOING.
[2024-06-12 07:18] VITALS: BP 121/63
--- NOTE | 2024-06-12 12:32 | NUR ---
PATIENT SITTING UP IN BED. BREATHING UNLABORED ON ROOM AIR. IV IN LFA SL;SITE CLEAN AND INTACT. PT STATES TO STILL HAVE SOME PAIN IN THE LEFT LEG NOW;MEDICATION REVIEWED. DENIES ANY N/D/V AT THIS TIME. BERKOWITZ IN PLACE WITH NO KINKS. PERSONAL ITEMS WELL CALL LIGHT WITHIN REACH. BED IN LOWEST POSITION. NO OTHER NEEDS AT THIS TIME. POC ONGOING.
[2024-06-12 15:44] VITALS: BP 116/63
--- NOTE | 2024-06-12 16:06 | NUR ---
PATIENT LYING IN BED WITH EYES CLOSED RESTING. BREATHING UNLABORED ON ROOM AIR. IV IN LFA SL;SITE CLEAN AND INTACT. NO SIGNS OF DISTRESS OR PAIN NOTED. CALL LIGHT WITHIN REACH. BED IN LOWEST POSITION. POC ONGOING.
[2024-06-12 18:44] VITALS: BP 113/62
--- NOTE | 2024-06-12 19:30 | NUR ---
PATIENT OBSERVED TO BE RESTING IN BED WITH EYES CLOSED. PATIENT RESPONDS TO VERBAL STIMULI. EQUAL UNLABORED RESP, NO VISUAL SIGNS OF DISTRESS. FOLY IN PLACE WITH NO KINKS. CLEAR PADMINI URINE IN BAG. SAFTY PRECAUTIONS IN PLACE. BED AT LOWEST POSITION. CALL LIGHT WITH IN REACH.
--- NOTE | 2024-06-13 00:38 | NUR ---
PATIENT OBSERVED TO BE RESTING IN BED WITH EYES CLOSED. UNLABORED RESP. NO VISUAL SIGNS OF DISTRESS. FOLY IN PLACE WITH NO KINKS. SAFTY PRECATIONS IN PLACE. BED AT LOWEST POSITION. CALL LIGHT WITH IN REACH.
--- NOTE | 2024-06-13 04:29 | NUR ---
PATIENT OBSERVED IN ROOM RESTING IN BED WITH EYES CLOSED. EQUAL UNLABORED RESP, NO VISUAL SIGNS OF DIATRESS. FOLY IN PLACE WITH NO KINKS. SAFETY PRECAUTIONS IN PLACE BED AT LOWEST POSITION. CALL LIGHT WITH IN REACH.
[2024-06-13 06:43] VITALS: BP 118/59
--- NOTE | 2024-06-13 07:38 | NUR ---
REPORT RECEIVED FROM BENIGNO AND PT CHECKED RESTING IN BED WITH BED ALARM INPLACE. PT WITHOUT COMPLAINTS. CALL LIGHT IN REACH.
--- NOTE | 2024-06-13 12:20 | NUR ---
PT RESTING IN BED WATCHING TV WITHOUT COMPLAINTS. PT TOLERATED TUBE FLUSH WELL WITHOUT RESIDUALS. BERKOWITZ CATHETER CHANGED PER ORDERES AND PT REDD WELL. #16 FR BERKOWITZ INSERTED WITH STERILE TECHNIQUE. WILL MONITOR. CALL LIGHT IN REACH AAND BED ALARM MAINTAINED.
[2024-06-13 18:17] VITALS: BP 109/63
[2024-06-13 18:30] VITALS: BP 109/63
--- NOTE | 2024-06-13 18:30 | NUR ---
PT TEARFUL C/O PAIN TO RIGHT THIGH. NO RELIEF AFTRE TRAMADOL AND HOT PACKS GIVEN. RIGHT INNER THIGH TIGHT IF IN SPASM. MASSAGE GIVEN WITH SOME RELIEF. DR. WHITTAKER CALLED AND PT THEN MEDICATED WITH MORPHINE X 1. REPORT THEN TO [place] TO FOLLOW UP ON RELIEF. PT TOLERATED WATER FLUSHES WELL AND PUREED DIET. BED ALARM IN PLACE ALL SHIFT AND NM REPOSITIONED SELF.
[2024-06-13] MEDS ORDERED: MORPHINE SULFATE 4 MG/ML VIAL IV SCH (19:00)
[2024-06-14 06:29] VITALS: BP 109/66
--- NOTE | 2024-06-14 07:05 | NUR ---
REPORT RECEIVED FROM REBECARN
--- NOTE | 2024-06-14 08:20 | NUR ---
AT BEDSIDE DISCUSSING POC WITH PT.
--- NOTE | 2024-06-14 09:10 | NUR ---
PT RESTING IN HIGH FOWLERS POSITION, A&O X3;CVA HX- PT SPEAKS WITH A SOFT VOICE;PT DENIES ANY CURRENT PAIN OR DISCOMFORTS, PAIN SCALE AND REPORTING EDUCATED;RESPIRATIONS EVEN AND UNLABORED ON RA,CLEAR LUNG SOUNDS;ABDOMEN SOFT ON PALPATION AND ACTIVE IN ALL 4 QUADRANTS- PEG TUBE NOTED WITH 0 RESIDUAL AT THIS TIME. SITE FLUSHED WITH 400CC OF WATER PER ORDER;BERKOWITZ CATHETER DRAINING TO GRAVITY WITH EASE;STRONG PEDAL PULSES;#22G TO RW FLUSHED AND PATENT,SITE APPEARS HEALTHY;PT DENIES ANY ADDITIONAL NEEDS AND IS ENCOURAGED TO CALL FOR ASSISTANCE IF NEEDED;FALL PRECAUTIONS REMAIN IN PLACE WITH BED IN THE LOWEST POSITION AND BED ALARM ON FOR SAFETY;CALL LIGHT IN REACH;FREQUENT ROUNDS MADE.
--- NOTE | 2024-06-14 11:50 | NUR ---
PT OOB RESTING IN RECLINER;RESPIRATIONS EVEN AND UNLABORED ON RA;PT DENIES ANY CURRENT PAIN OR DISCOMFORTS;IV SITE TO RW CDI. BERKOWITZ CATHETER CONTINUES TO DRAIN WITH EASE;ACCUCHECK 138, NO COVERAGE NEEDED;PT ENCOURAGED TO CALL FOR ASSISTANCE IF NEEDED;CALL LIGHT IN REACH;FREQUENT ROUNDS MADE.
[2024-06-14 14:17] VITALS: BP 115/60
--- NOTE | 2024-06-14 15:50 | NUR ---
PT RESTING IN HIGH FOWLERS POSITION WATCHING TV;RESPIRATIONS EVEN AND UNLABORED ON RA;PT DENIES ANY CURRENT PAIN OR DISCOMFORTS;IV SITE TO RW PATENT;BERKOWITZ CATHETER DRAINING WITH EASE;PT RE-POSITIONED FOR COMFORT;ENCOURAGED TO CALL FOR ASSISTANCE IF NEEDED;BED IN THE LOWEST POSITION WITH BED ALARM ON FOR SAFETY;CALL LIGHT IN REACH;FREQUENT ROUNDS MADE.
[2024-06-14 18:30] VITALS: BP 138/72
[2024-06-14 18:33] VITALS: BP 138/72
--- NOTE | 2024-06-14 19:20 | NUR ---
PT RESTING ON BED WATCHING TV AT THIS TIME. DENIES ANY PAIN AT THIS MOMENT. LUNGS ARE CLEAR TO AUSCULTATION. PEG TUBE WITH GAUZE INTACT TO ABDOMEN. RESPS ARE EVEN AND UNLABORED. PALPABLE PERIPHERAL PULSE 22 G IV RIGHT WRIST INTACT AND WITHOUT ANY SWELLING FLUSHED WITH [address] WITHOUT ANY KINKS. CALL LIGHT IN REACH AND SAFETY PRECAUTIONS IN PLACE.
[2024-06-14 21:29] VITALS: BP 97/50
--- NOTE | 2024-06-14 21:44 | NUR ---
PEG TUBE FLUSHED WITH 400 CC WITH WATER. PLACEMENT CHECKED WITH STHETOSCOPE. MOUTH CARE PROVIDED TO PT AT THIS TIME.
--- NOTE | 2024-06-15 | NUR ---
PT RESTING IN BED WITH EYES CLOSED. RESPS ARE EVEN AND UNLABORED. NO DISTRESS NOTED. BED ALARM ON. CALL LIGTH IN REACH
--- NOTE | 2024-06-15 04:00 | NUR ---
PT RESTING IN BED WITH EYES CLOSED. RESPS ARE EVEN AND UNLABORED. CALL LIGHT IN REACH
[2024-06-15 05:40] VITALS: BP 125/72
[2024-06-15 06:34] VITALS: BP 119/54
--- NOTE | 2024-06-15 08:00 | NUR ---
PT RESTING IN BED AND REPOSITIONED. PT REFUSED TO GET OUT OF BED TO EAT BREAKFAST STATING SHE WAS STILL TIRED. ASSESSMENT DONE. IV FLUSHED WORKING PROPERLY SL. PEG TUBE FLUSHED WITH MEDICATION A TOTAL OF 400CC GIVEN. SCOPOLAMINE PATCH APPLIED BEHIND LEFT EAR OLD ONE REMOVED FROM RIGHT EAR. BERKOWITZ CATHETER WITH NO KINKS CLEAR YELLOW URINE. CALL LIGHT WITHIN REACH. INFORM PT THAT STAFF WILL BE BACK TO GET HER UP TO CHAIR.
--- NOTE | 2024-06-15 10:27 | NUR ---
PT HELPED UP TO CHAIR WITH MAX ASSISTANCE. CALL LIGHT WITHIN REACH. BERKOWITZ EMPTIED.
--- NOTE | 2024-06-15 11:00 | NUR ---
PT REPORTED HAVING NAUSEA AND CRYING WANTING TO GET BACK TO BED. NURSE HELPED PT BACK TO BED.
--- NOTE | 2024-06-15 11:45 | NUR ---
NURSE PLACED A NEW IV AND GAVE PT NAUSEA MEDICATION IV.
[2024-06-15 18:30] VITALS: BP 104/60
[2024-06-16 06:18] VITALS: BP 126/58
--- NOTE | 2024-06-16 08:20 | NUR ---
PT RESTING IN BED REFUSING TO GET OUT OF BED. PT EDUCATED ON THE IMPORTANCE OF GETTING OUT OF BED. WILL ENCOURAGE AGAIN AT LUNCH TIME. PEG TUBE FLUSHED WITH MEDS 400CC TOTAL FLUID. IV FLUSHED WORKING PROPERLY. BERKOWITZ CATHETER WITH NO KINKS CLEAR YELLOW URINE. CALL LIGHT WITHIN REACH. NO PAIN REPORTED AT THIS TIME OR NAUSEA. PLAN OF CARE ONGOING.
--- NOTE | 2024-06-16 11:45 | NUR ---
PT RESTING IN BED STILL REFUSING TO GET OUT OF BED. NURSE FLUSHED PEG TUBE. CALL LIGHT WITHIN REACH. PLAN OF CARE ONGOING.
--- NOTE | 2024-06-16 14:45 | NUR ---
PEG TUBE FLUSHED WITH MED A TOTAL OF 400CC GIVEN. CALL LIGHT WITHIN REACH. PLAN OF CARE ONGOING.
--- NOTE | 2024-06-16 17:02 | NUR ---
PT WANTED TO GET OUT OF BED TO CHAIR FOR DINNER, PT WAS ASSISTED TO CHAIR. PT THEN WANTED TO HAVE A BM PT ASSITED TO COMMODE AND HAD A SMALL PASTY BM. PT WAS GIVEN CESAR CARE AND NEW BRIEF AND PUT BACK IN CHAIR FOR DINNNER.
--- NOTE | 2024-06-16 17:48 | NUR ---
PT HELPED BACK TO BED. CALL LIGHT WITHIN REACH.
[2024-06-16 18:52] VITALS: BP 117/58
--- NOTE | 2024-06-16 19:50 | NUR ---
PATIENT LYING IN BED. ASSESSMENT COMPLETED. PATIENT ALERT AND ORIENTED X 3. PATIENT C/O LOWER EXT PAIN OF A 4, REPOSITIONING EFFECTIVE. LUNGS CLEAR TO ASCULTATION. BREATHING EVEN AND UNLABORED ON ROOM AIR. BERKOWITZ PATENT AND FLOWING TO GRAVITY WITH 600 mL OF CLEAR, YELLOW URINE NOTED. DENIES ADDITIONAL CONCERNS AT THIS TIME. SAFETY MEASURES IN PLACE INCLUDING BED LOCKED AND IN LOW POSITION WITH ALARM ON AND CALL LIGHT RESTING NEXT TO R ARM. NO APPARENT DISTRESS NOTED. WILL CONTINUE WITH PLAN OF CARE.
--- NOTE | 2024-06-17 00:20 | NUR ---
PATIENT OBSERVED TO BE RESTING IN BED WITH EYES CLOSED. EQUAL UNLABORED RESP, NO VISUAL SIGNS OF DISTRESS. FOLY CATH IN PLACE WITH NO KINKS. PADMINI URINE IN BAG. BED AT LOWEST POSITION. CALL LIGHT WITH IN REACH.
[2024-06-17 04:04] VITALS: BP 108/62
--- NOTE | 2024-06-17 04:18 | NUR ---
PATIENT OBSERVED IN ROOM RESTING IN BED WITH EYES CLOSED. UNLABORED RESP. NO VISUAL SIGNS OF DISTRESS. FOLY CATH IN PLACE. NO KINKS WIT CLEAR PADMINI URINE IN BAG. BED AT LOWEST POSITION. CALL LIGHT WITH IN REACH.
--- NOTE | 2024-06-17 05:38 | NUR ---
patient's output was 1400ml
[2024-06-17 06:05] LABS: ALBUMIN 3.5 g/dL (3.2-5.0); BASO% 1.3 % (0-3); BILIRUBIN, TOTAL 0.8 mg/dL (0.02-1.3); CREATININE 0.5 mg/dL (0.5-1.0); EOS% 2.4 % (0-8); HEMATOCRIT 38.9 % (37.0-47.0); HEMOGLOBIN 13.1 g/dl (12.0-16.0); MEAN CELL VOLUME 92.6 fL CALC (80.0-100.0); MEAN CORPUSCULAR HGB 31.2 pG CALC (26.0-32.0); MEAN CORPUSCULAR HGB CONC 33.7 g/dL CAL (32.0-36.0); MONO% 10.9 % (2-13); NEUT# 3.3 thou/uL (2.00-7.15); NEUT% 44.4 % (42-76); POTASSIUM 3.7 mmol/l (3.5-5.1); RED BLOOD COUNT 4.2 mill/uL (4.20-5.60); RED CELL DISTRI WIDTH 13.6 % (11.5-15.5); TOTAL PROTEIN 6.2 g/dL (6.3-8.2)
[2024-06-17 06:47] VITALS: BP 148/73
--- NOTE | 2024-06-17 07:49 | NUR ---
PT IS FOUND RESTING COMFORTABLY IN BED. PT IS A&O X2; PT SHOWS NO SIGN OF DISTRESS. PT CAN MAKE HER NEEDS KNOWN. PLAN OF CARE WAS REVIEWED WITH THE PT; PT STATES NO FURTHER QUESTIONS AT THIS TIME. ALL NATIONAL PATIENT SAFETY PRECAUTIONS ARE IN PLACE.
--- NOTE | 2024-06-17 12:17 | NUR ---
PT'S CONDITION HAS REMAINED THE SAME. THE PT IS SOMEWHAT LETHARGIC. PT IS ABLE TO ANSWER ALL OF MY QUESTIONS. TOMÁS JOYA IS AWARE. I WILL CONTINUE TO MONITOR CLOSELY. ALL NATIONAL PATIENT SAFETY PRECAUTIONS IN PLACE.
--- NOTE | 2024-06-17 15:30 | NUR ---
PT'S CONDITION REMAINS THE SAME. PT IS RESTING COMFORTABLY IN BED. ALL NATIONAL PATIENT SAFETY PRECAUTIONS IN PLACE.
[2024-06-17 19:06] VITALS: BP 125/71
--- NOTE | 2024-06-17 19:30 | NUR ---
PATIENT OBSERVED TO BE RESTING IN BED WITH EYES CLOSED. BEDSIDE ASSESSMENT COMPLETE. PEG TUBE IN IN PLACE FLUSHED WITH 400CC PER ORDERS. UNLABORED RESP. NO VISUAL SIGNS OF DISTRESS. FOLY CATH IN PLACE, NO KINKS. BED AT LOWEST POSITON. CALL LIGHT WITH IN REACH.
--- NOTE | 2024-06-18 00:27 | NUR ---
PATIENT OBSERVED TO BE RESTING IN BED WITH EYES CLOSED. UNLABORED RESP. NNO VISUAL SIGNS OF DISTRESS. FOLY CATH IN PLACE, WITH NO KINKS, CLEAR PADMINI URINE OBSERVED IN FOLY BAG. BED AT LOWEST POSITION. CALL LIGHT WITH IN REACH.
--- NOTE | 2024-06-18 04:27 | NUR ---
PATIENT OBSERVED TO BE RESTING IN BED WITH EYES CLOSED. UNLABORED RESP NO VISUAL SIGNS OF DISTRESS. FOLY CATH IN PLACE WITH NO KINKS, PADMINI YELLOW URINE IN FOLY BAG OBSERVED. BED AT LOWEST POSITION. CALL LIGHT WITH IN REACH.
[2024-06-18 07:06] VITALS: BP 136/73
[2024-06-18 07:18] VITALS: BP 136/73
--- NOTE | 2024-06-18 07:30 | NUR ---
PT IS FOUND RESTING COMFORTABLY IN BED. PT IS A&O X2; PT IS STABLE. PLAN OF CARE WAS REVIEWED WITH THE PT AND WILL BE REINFORCED. ALL NATIONAL PT SAFETY PRECAUTIONS IN PLACE.
--- NOTE | 2024-06-18 11:58 | NUR ---
PT'S CONDITION REMAINS UNCHANGED. PT IS A&O X2-3. PT STATED SHE HAD A HEADACHE; PT WAS MEDICATED WITH A PRN. 400CC FLUSH WAS ADMINISTERED, ALL NATIONAL PT SAFETY PRECAUTIONS IN PLACE.
[2024-06-18 15:59] VITALS: BP 98/64
[2024-06-18 16:49] VITALS: BP 98/64
--- NOTE | 2024-06-18 16:52 | NUR ---
PT'S CONDITION HAS REMAINED THE SAME. NO COMPLAINTS PAIN- HEADACHE IS GONE. PT IS TOLERATING THE FLUID BOLUSES. PT IS STABLE. ALL NATIONAL PT SAFETY PRECAUTIONS IN PLACE.
[2024-06-18 18:39] VITALS: BP 100/59
[2024-06-19 06:43] VITALS: BP 122/70
[2024-06-19 07:02] VITALS: BP 122/70
--- NOTE | 2024-06-19 07:49 | NUR ---
SHIFT CHANGE REPORT, PT AWAKE AND RESTLESS IN BED, INCONTINT OF BM AT THIS TIME, CESAR CARE GIVEN, BERKOWITZ IN PLACE WITH PADMINI URINE. ASSISTED PT TO RECLINER WITH MAX ASSIST, CALL GRIGGS IN REACH.
[2024-06-19 14:42] VITALS: BP 81/49
[2024-06-19 14:46] VITALS: BP 98/60
[2024-06-19 16:27] VITALS: BP 98/60
--- NOTE | 2024-06-19 17:17 | NUR ---
CRYING AT THIS TIME WITH LOUD SOBS STATING SHE WANTS TO GO HOME,THERAPEUTIC INTEARVNTION OF LISTENING AND ENCOURAGING WORDS GIVEN.
--- NOTE | 2024-06-19 18:35 | NUR ---
CRYING LOUDLY, ON ASSESSMENT SHE WANTS TO USE THE COMMODE, ASSISTED WITH MAX ASSIST, CESAR CARE GIVEN, ASSISTED BACK TO BED, EXPRESSES APPRECIATION AND IS COMFORTABLY SETTLED IN BED, CALL GRIGGS IN REACH.
[2024-06-19 19:20] VITALS: BP 100/57
[2024-06-20] VITALS (8 sets, daily range): BP systolic 96–140; BP diastolic 52–78
--- NOTE | 2024-06-20 13:41 | NUR ---
PT ABLE TO FEED SELF WITH SETUP PT ON PUREED DIET. NO COUGHING/CHOKING OBSERVED. PT TURNS HEAD TO RIGHT FOR MEAL. FEEDING TUBE INTACT POSITIVE AUSCULTATION. FLUIDS ORDERED 400 ML VIA FEEDING TUBE. BERKOWITZ CATH PATENT TO BSDB. DRAINING YELLOW URINE. PT ABLE TO CONVERSE AND MAKE NEEDS KNOWN BY GESTURE WELL.
--- NOTE | 2024-06-20 19:55 | NUR ---
PATIENT RESTING IN BED. RESPS ARE EVEN AND UNLABORED. NO DISTRESS NOTED. LUNGS CLEAR TO AUCULTATION. ABDOMEN IS SOFT AND NONDISTENDED. PEG TUBE WITH DRESSING INTACT. ACTIVE BOWEL SOUNDS IN ALL QUADRANTS. BERKOWITZ IN PLACE DRAINING YELLOW BURINE AND WORKING WELL. 22 G IV LEFT HAND FLUSHED WITH 5 CC WORKING WELL WITHOUT ANY ABNORMALITIES. CALL LIGHT IN REACH AND SAFETY PRECAUTIONS IN PLACE.
--- NOTE | 2024-06-20 21:30 | NUR ---
PEG TUBE FLUSHED WITH 400 CC. NO COMPLAINTS. PEG TUBE CHECKED FOR PLACEMENT WITH STHETOSCOPE.
--- NOTE | 2024-06-21 | NUR ---
PT RESTING IN BED WITH EYES CLOSED. RESPS ARE EVEN AND UNLABORED. NO DSITRESS NOTED. CALL LIGHT IN REACH AND SAFETY PRECAUTIONS IN PLACE
--- NOTE | 2024-06-21 04:00 | NUR ---
PT RESTING IN SUPINE POSITION WITH EYES CLOSED. RESPS ARE EVEN AND UNLABORED. CALL LIGHT IS IN REACH AND SAFETY PRECAUTIONS IN PLACE.
[2024-06-21 06:09] VITALS: BP 128/72
[2024-06-21 07:24] VITALS: BP 135/75
--- NOTE | 2024-06-21 07:40 | NUR ---
REPORT RECIEVED. A/OX3, SOFT SPOKEN. ASSESSMENT COMPLETED. RR UNLABORED ON ROOM AIR. IV PATIENT. GLUCOSE MONITORING. 400 ML FLUSH TO PEG TUBE. PT DENIES OF ANY NEEDS. SAFETY PRECAUTIONS IN PLACE. CALL IGHT IN REACH.
--- NOTE | 2024-06-21 16:17 | NUR ---
PT RESTING SEMI FOWLERS POSITION. RR UNLABORED. PEG TUBE. BERKOWITZ DRAINING PER GRAVITY. PT DENIES OF ANY NEEDS. SAFETY PRECAUTIONS. SAFETY PRECAUTIONS.
[2024-06-21 19:17] VITALS: BP 122/67
--- NOTE | 2024-06-21 19:50 | NUR ---
PT RESTING IN BED WITH EYES CLOSED. RESPS ARE EVEN AND UNLABORED. DENIES ANY PAIN. LUNGS WEEW CLEAR TO AUSCULTATION. ABDOMEN IS SOFT WITH ACTIVE BOWEL SOUNDS. PEG TUBE INTACT. 22 G IV SITE CLEAN AND INCTACT WITHOUT ANY ABNORMALITIES FLUSHES AND WORKS WELL. BERKOWITZ IN PLACE DRIANING CLEAR YELLOW URINE- NO KINKS NOTED AT THIS MOMENT. SKIN IS WARM, DRY AND INTACT. CALL LIGHT IS IN REACH, BED ALARM ON AND SAFETY PRECAUTIONS IN PLACE SAFETY PRECAUTIONS IN PLACE.
[2024-06-21 21:23] VITALS: BP 123/70
--- NOTE | 2024-06-21 21:30 | NUR ---
PEG TUBE CHECKED FOR PLACEMENT WITH STHETOSCOPE. HEAD OF THE BED ELEVATED-PEG TUBE FLUSHED WITH 400 CC. MOUTHE CARE PROVIDED TO PT AT THIS TIME WELL.
--- NOTE | 2024-06-22 | NUR ---
PT RESTING IN BED WITH EYES CLOSED. NO SIGNS OF DSITRESS. IV SITE INTACT. CALL LIGHT IN REACH
--- NOTE | 2024-06-22 04:00 | NUR ---
PT RESTING IN SUPINE POSITION WITH EYES CLOSED. NO DISTRESS NOTED. CALL LIGHT IS IN REACH AND SAFETY PRECAUTIONS IN PLACE.
[2024-06-22 05:59] VITALS: BP 122/69
[2024-06-22 06:33] VITALS: BP 137/70
--- NOTE | 2024-06-22 07:15 | NUR ---
PT SITTING UP IN BED WATCHING TV, PT ASSISTED WITH REPOSITIONING, PT A&O X3, PUPILS PERRL, RESP. EVEN AND UNLABORED, LUNG SOUNDS ARE DIMINISHED IN THE BASES, ABD DISTENDED AND SOFT WITH ACTIVE BOWEL SOUNDS, STRONG RADIAL AND PEDAL PULSES, SAFETY MEASURES REINFORCED, CALL GRIGGS WITHIN REACH
--- NOTE | 2024-06-22 08:31 | NUR ---
PT WAS SAT UP IN CHAIR FOR BREAKFAST BY [employer]PORATE CONCIERGE. PT BACK IN BED AFTER SITTING UP AFTER EATING PER HER REQUEST
--- NOTE | 2024-06-22 12:00 | NUR ---
PT ASSISTED TO THE RECLINER, PT AMBULATED WITH A SLOW UNSTEADY GAIT TO THE RECLINER WITH 2 PERSON STAND BY ASSISTANCE, PT TOELRATED WELL, PT ASSISTED WITH GETTING SETUP FOR LUNCH, PT REMINDED TO CALL FOR ASSITANCE, PT VRBALIZED UNDERSTANDING, CALL GRIGGS WITHIN REACH
--- NOTE | 2024-06-22 16:00 | NUR ---
PT SITTING UP IN BED WATCHING TV, PT DENIES ANY NEEDS AT THIS TIME, CALL GRIGGS WITHIN REACH
[2024-06-22 18:30] VITALS: BP 105/67
[2024-06-22 18:31] VITALS: BP 105/67
--- NOTE | 2024-06-22 19:57 | NUR ---
Resident in bed with eyes closed with no complications noted. Report recieved and no complications noted.
[2024-06-23 04:54] VITALS: BP 115/61
--- NOTE | 2024-06-23 05:12 | NUR ---
patient in bed with eyes closed. incontinence care provided and tolerated well. peg tube flushing with no complications noted. will continue to observe
[2024-06-23 06:26] VITALS: BP 120/77
--- NOTE | 2024-06-23 07:15 | NUR ---
PT LAYING IN BED RESTING WITH EYES CLOSED, AROUSES EASILY TO VERBAL STIMULI, PT A&O X3, PUPILS PERRL, RESP. EVEN AND UNLABORED, LUNG SOUNDS ARE CLEAR, ABD DISTENDED AND SOFT WITH ACTIVE BOWEL SOUNDS, PEG TUBE REMAINS IN PLACE, STRONG RADIAL AND PEDAL PULSES, SAFETY MEASURES REINFORCED, CALL GRIGGS WITHIN REACH
--- NOTE | 2024-06-23 09:45 | NUR ---
PT'S SON AT BEDSIDE VISITING
--- NOTE | 2024-06-23 12:00 | NUR ---
PT SITTING UP IN THE RECLINER EATING LUNCH, PT TOLERATING WELL, VERBALIZES NO COMPLAINTS AT THIS TIME, CALL GRIGGS WITHIN REACH
--- NOTE | 2024-06-23 16:00 | NUR ---
PT SITTING UP IN BED WATCHING TV, NO S/S OF DISTRESS, CALL GRIGGS WITHIN REACH
--- NOTE | 2024-06-23 19:40 | NUR ---
PATIENT OBSERVED TO BE RESTING IN BED WATCHING TV. BEDSIDE ASSESSMENT COMPLETE. PATIENT RESPONDS WITH SLIGHT WHISPER YES AND NO TO QUESTIONS. PEG TUBE IN PLACE FLUSHED PER ORDERS 400CC. UNLABORED RESP. NO VISUAL SIGNS OF DISTRESS. FOLY CATH IN PLACE WITH NO KINKS, CLEAR PADMINI URINE IN FOLY BAG OBSERVED. BED AT LOWEST POSITION. CALL LIGHT WITH IN REACH.
--- NOTE | 2024-06-24 00:20 | NUR ---
PATIENT OBSERVED TO BE IN ROOM RESTING IN BED WITH EYES CLOSED. EQUAL UNLABORED RESP. NO VISUAL SIGNS OF DISTRESS. FOLY CATH IN PLACE WITH NO KINKS. BED AT LOWEST POSITION. CALL LIGHT WITH IN REACH.
--- NOTE | 2024-06-24 04:07 | NUR ---
PATIENT IN ROOM RESTING IN BED. EQUAL UNLABORED RESP. NO VISUAL SIGNS OF DISTRESS. FOLY CATH IN PLACE, NO KINKS. BED AT LOWEST POSITION. CALL LIGHT WITH IN REACH.
[2024-06-24 05:37] LABS: EOS% 2.7 % (0-8); HEMATOCRIT 36.8 % (37.0-47.0); HEMOGLOBIN 12.6 g/dl (12.0-16.0); IMMATURE GRANULOCYTES 0.1 % (0.0-5.0); LYMPH% 34.8 % (15-41); MEAN CELL VOLUME 90.9 fL CALC (80.0-100.0); MEAN CORPUSCULAR HGB 31.1 pG CALC (26.0-32.0); MEAN CORPUSCULAR HGB CONC 34.2 g/dL CAL (32.0-36.0); MONO% 8.7 % (2-13); NEUT# 4.52 thou/uL (2.00-7.15); NEUT% 52.7 % (42-76); RED BLOOD COUNT 4.05 mill/uL (4.20-5.60); RED CELL DISTRI WIDTH 13.3 % (11.5-15.5)
[2024-06-24 05:50] LABS: ALBUMIN 3.3 g/dL (3.2-5.0); BILIRUBIN, TOTAL 0.6 mg/dL (0.02-1.3); CREATININE 0.4 mg/dL (0.5-1.0); MAGNESIUM 1.9 mg/dL (1.6-2.3); POTASSIUM 4.1 mmol/l (3.5-5.1); TOTAL PROTEIN 5.9 g/dL (6.3-8.2)
--- NOTE | 2024-06-24 07:28 | NUR ---
PATIENT LYING IN BED WITH EYES CLOSED RESTING. BREATHNG UNLABORED ON ROOM AIR. NO SIGNS OF DISTRESS OR PAIN NOTED. BERKOWITZ IN PLACE WITH NO KINKS. BED IN LOWEST POSITION. POC ONGOING. NO NEEDS AT THIS TIME.
[2024-06-24 07:49] VITALS: BP 98/56
--- NOTE | 2024-06-24 12:16 | NUR ---
PATIENT REPOSITIONED AND PROVIDED SETUP FOR LUNCH. BREATHING UNLABORED ON ROOM AIR. BERKOWITZ IN PLACE WITH NO KINKS. PT DENIES ANY PAIN OR N/D/V AT THIS TIME. BED IN LOWEST POSITION. CALL LIGHT WITHIN REACH. POC ONGOING. NO OTHER NEEDS AT THIS TIME.
--- NOTE | 2024-06-24 16:34 | NUR ---
PATIENT SITTING UP IN BED WATCHING TV. BREATHING UNLABORED ON ROOM AIR. PT DENIES ANY PAIN OR N/D/V AT THIS TIME. BERKOWITZ IN PLACE WITH NO KINKS. BED IN LOWEST POSITION. PERSONAL ITEMS WELL CALL LIGHT WITHIN REACH. NO OTHER NEEDS AT THIS TIME. POC ONGOING.
[2024-06-24 18:24] VITALS: BP 122/68
--- NOTE | 2024-06-24 19:14 | NUR ---
PATIENT OBSERVED IN ROOM RESTING IN BED WITH EYES CLOSED. BEDSIDE ASSESSMENT COMPLETE. RESP EVEN AND UNLABORED. NO VISUAL SIGNS OF DISTRESS. PEG TUBE IN PLACE, FLUSHED WITH 400CC OF FLUID PER ORDER. FOLY CATH IN PLACE NO KINKS URINE IN FOLY BAG WITH CLEAR URINE. BED AT LOWEST POSITION. CALL LIGHT WITH IN REACH.
--- NOTE | 2024-06-25 00:24 | NUR ---
PATIENT OBSERVED TO BE RESTING IN BED ON RIGHT SIDE. UNLABORED RESP. NO VISUAL SIGNS OF DISTRESS. FOLY CATH IN PLACE WITH NO KINKS. BED AT LOWEST POSITION. CALL LIGHT WITH IN REACH.
--- NOTE | 2024-06-25 04:33 | NUR ---
PATIETN OBSERVED TO BE RESTING IN BED WITH EYES CLOSED. FOLY CATH IN PLACE. LEG STRAP OBSERVED TO BE OFF. DARK PINK URINE IN FOLY BAG. ADJUSTED STRAP TO UPPER THIGH. BED AT LOWEST POSITION. CALL LIGHT WITH IN REACH.
[2024-06-25 07:30] VITALS: BP 102/68
--- NOTE | 2024-06-25 07:30 | NUR ---
PATIENT LYING IN BED WITH EYES CLOSED RESTING. BREATHING UNLABORED ON ROOM AIR. BERKOWITZ IN PLACE WITH NO KINKS;PT'S URINE OUTPUT BRIGHT RED.INFORMED IN REPORT BY BENIGNO ZARAGOZA PT MAY HAVE SNAGGED IT THROUGHOUT THE NIGHT. BERKOWITZ EMPTIED AND NOW OUTPUTING YELLOW URINE. NO SIGNS OF DISTRESS OR PAIN NOTED. BED IN LOWEST POSITION. POC ONGOING.
--- NOTE | 2024-06-25 12:30 | NUR ---
PATIENT PROVIDED WITH SETUP FOR LUNCH. BREATHING UNLABORED ON ROOM AIR. BERKOWITZ IN PLACE WITH NO KINKS;URINE CLEAR. PT DENIES ANY PAIN OR N/D/V AT THIS TIME. BED IN LOWEST POSITION. CALL LIGHT WITHIN REACH. POC ONGOING. NO OTHER NEEDS AT THIS TIME.
--- NOTE | 2024-06-25 16:19 | NUR ---
PATIENT SITTING UP IN BED WATCHING TV. BREATHING UNLABORED ON ROOM AIR. PT DENIES ANY PAIN OR N/D/V AT THIS TIME. BED IN LOWEST POSITION. BED ALARM ACTIVE. CALL LIGHT WITHIN REACH. BERKOWITZ IN PLACE WITH NO KINKS. POC ONGOING. NO NEEDS AT THIS TIME.
[2024-06-25 18:45] VITALS: BP 100/56
--- NOTE | 2024-06-25 20:00 | NUR ---
PATIENT LYING IN BED RESTING. ASSESSMENT COMPLETED (SEE INTERVENTIONS). PATIENT ALERT AND ORIENTED X 3. DENIES PAIN. LUNGS CLEAR TO ASCULTATION. BREATHING EVEN AND UNLABORED ON ROOM AIR. PATIENT STATES SHE WANTS TO SHOWER, BUT IN THE MORNING. NO ADDITIONAL CONCERNS AT THIS TIME. SAFETY MEASURES IN PLACE INCLUDING BED LOCKED AND IN LOW POSITION. NO APPARENT DISTRESS NOTED. WILL CONTINUE WITH PLAN OF CARE. BERKOWITZ PATENT AND FLOWING TO GRAVITY WITH 200 mL OF YELLOW URINE NOTED.
--- NOTE | 2024-06-25 23:41 | NUR ---
PATIENT SITTING UP IN BED WATCHING TV. NO APPARENT DISTRESS NOTED. WILL CONTINUE WITH PLAN OF CARE.
[2024-06-26 07:00] VITALS: BP 122/74
--- NOTE | 2024-06-26 07:04 | NUR ---
PATIENT LYING ON RIGHT SIDE IN BED WATCHING TV. BREATHING UNLABORED ON ROOM AIR. BERKOWITZ IN PLACE WITH NO KINKS. PT DENIES ANY PAIN OR N/D/V AT THIS TIME. PERSONAL ITEMS WELL CALL LIGHT WITHIN REACH. BED IN LOWEST PISITION. NO NEEDS AT THIS TIME. POC ONGOING.
--- NOTE | 2024-06-26 12:21 | NUR ---
PATIENT REPOSITIONED AND SAT UP FOR LUNCH. BREATHING UNLABORED ON ROOM AIR. PT DENIES ANY PAIN OR N/D/V AT THIS TIME. ELECTRONIC WARFARE OPERATOR AT BEDSIDE. BERKOWITZ IN PLACE WITH NO KINKS. BED IN LOWEST POSITION. PERSONAL ITEMS WELL CALL LIGHT WITHIN REACH. NO OTHER NEEDS AT THIS TIME. POC ONGOING.
[2024-06-26 15:00] VITALS: BP 105/67
--- NOTE | 2024-06-26 16:00 | NUR ---
PATIENT LYING IN BED WATCHING TV. BREATHING UNLABORED ON ROOM AIR. PT DENIES ANY PAIN OR N/D/V AT THIS TIME. BERKOWITZ IN PLACE WITH NO KINKS. BED IN LOWEST POSITION. PERSONAL ITEMS WELL CALL LIGHT WITHIN REACH. NO OTHER NEEDS AT THIS TIME. POC ONGOING.
--- NOTE | 2024-06-26 18:10 | NUR ---
PATIENT SEEN CRYING IN BED. ASKED PT WHAT WAS WRONG PT STATED SHE WANTS TO GO HOME AND TALK TO HER SON. INFORMED PT WE WILL TRY TO GET IN CONTACT WITH HIM FOR HER.
[2024-06-26 19:20] VITALS: BP 123/60
--- NOTE | 2024-06-26 20:06 | NUR ---
PATIENT LYING IN BED. NOTED TO BE SOILED, PATIENT CLEANED AND PROVIDED NEW LINEN AND BRIEF. ASSESSMENT COMPLETED. PATIENT ALERT AND ORIENTED X 3. DENIES PAIN. LUNGS CLEAR TO ASCULTATION. BREATHING EVEN AND UNLABORED ON ROOM AIR. DENIES ADDITIONAL CONCERNS AT THIS TIME. NO APPARENT DISTRESS NOTED. WILL CONTINUE WITH PLAN OF CARE.
--- NOTE | 2024-06-27 04:00 | NUR ---
PATIENT APPEARS TO BE RESTING WITH EYES CLOSED. RISE AND FALL OF CHEST NOTED. NO APPARENT DISTRESS NOTED. WILL CONTINUE WITH PLAN OF CARE.
[2024-06-27 04:02] VITALS: BP 117/62
[2024-06-27 07:00] VITALS: BP 120/73
--- NOTE | 2024-06-27 07:47 | NUR ---
PT STROKE ALERT INITIATED. PT LAST KNOW WELL WAS AT 0715. VANI COLE WS IN THE ROOM WITH PT. PT FAMILY MEMBER ALERTED STAFF OF PT NOT RESPONDING. UPON ENTERING THE ROOM THE PT WAS IN BED, AWAKE AND NOT FOLLOWING COMMANDS. NOT RESPONDING TO COMMUNICATION WITH NO EYE CONTACT. PT WAS BROUGHT DOWN TO CT. ONCE CT WAS COMPLETED AND THE PT WAS RETURNED TO THEIR BED, PT WAS FOUND TO BE BACK AT HER BASELINE ASSESSMENT DURING NEUROLOGY CALL.
--- NOTE | 2024-06-27 08:24 | NUR ---
PT IS BACK IN ROOM FROM CT, FAMILY MEMBER AT THE BEDSIDE.
--- NOTE | 2024-06-27 12:00 | NUR ---
FRIEND AT BEDSIDE. PT IS AWAKE IN BED. CALL LIGHT IN REACH. PT IS AT BASELINE.
[2024-06-27 12:05] LABS: EOS% 1.4 % (0-8); HEMATOCRIT 39.7 % (37.0-47.0); HEMOGLOBIN 13.2 g/dl (12.0-16.0); IMMATURE GRANULOCYTES 0.1 % (0.0-5.0); LYMPH% 34.8 % (15-41); MEAN CELL VOLUME 90.2 fL CALC (80.0-100.0); MEAN CORPUSCULAR HGB CONC 33.2 g/dL CAL (32.0-36.0); MONO% 6.8 % (2-13); NEUT# 4.43 thou/uL (2.00-7.15); NEUT% 55.9 % (42-76); RED BLOOD COUNT 4.4 mill/uL (4.20-5.60); RED CELL DISTRI WIDTH 13.3 % (11.5-15.5)
[2024-06-27 12:20] LABS: CALCULATED LDLCHOLESTEROL 41 mg/dL (62-129 (CALC)); CHOLESTEROL HDL RATIO 2.2 (<4.4 (CALC)); HDL CHOLESTEROL 53 mg/dL (39.0-59.0); TOTAL CHOLESTEROL 114 mg/dl (0-199); TOTAL TRIGLYCERIDES 101 mg/dl (0-149); VLDL CHOLESTROL 20 mg/dl (1-41 (CALC))
[2024-06-27 12:22] LABS: ALBUMIN 3.8 g/dL (3.2-5.0); CREATININE 0.5 mg/dL (0.5-1.0); POTASSIUM 4.3 mmol/l (3.5-5.1); TOTAL PROTEIN 6.5 g/dL (6.3-8.2)
[2024-06-27 12:33] LABS: BILIRUBIN, TOTAL 0.9 mg/dL (0.02-1.3)
[2024-06-27 12:52] LABS: TSH, 3RD GENERATION 0.02 uIU/mL (0.47 - 4.68)
--- NOTE | 2024-06-27 12:53 | NUR ---
PT BACK FROM MRI
--- NOTE | 2024-06-27 12:55 | NUR ---
SON YARI NOTIFIED ABOUT PT CURRENT CONDITION AND THIS MORNINGS EVENTS.
--- NOTE | 2024-06-27 16:00 | NUR ---
PT IS RESTING IN BED, EASILY AROUSABLE. CALL LIGHT IN REACH WITH EVEN AND UNLABORERED RESPIRATIONS.
[2024-06-27 18:30] VITALS: BP 114/71
[2024-06-27 18:46] VITALS: BP 114/71
--- NOTE | 2024-06-27 19:55 | NUR ---
PT REPOSITIONED AND BERKOWITZ CATHETER CHANGED USING STERILE TECHNIQUE.
--- NOTE | 2024-06-27 21:10 | NUR ---
PEG TUBE FLUSHED WITH A TOTAL OF 500CC WITH MEDS. URINE SAMPLE COLLECTED AND SENT TO LAB. CALL LIGHT WITHIN REACH. PLAN OF CARE ONGOING.
[2024-06-27 21:39] LABS: URINE BILIRUBIN - DIPSTICK Negative (NEGATIVE); URINE BLOOD DIPSTICK Trace-intact (NEGATIVE); URINE GLUCOSE - DIPSTICK Negative (NEGATIVE); URINE KETONE Negative (NEGATIVE); URINE NITRITE - DIPSTICK Negative (Negative); URINE PROTEIN - DIPSTICK 100 mg/dL (NEG-TRACE); URINE SPECIFIC GRAVITY 1.025; URINE UROBILINOGEN - DIPSTICK 0.2 E.U./dL (0.2)
[2024-06-27 21:40] LABS: URINE COLOR Yellow; URINE LEUK ESTERASE Moderate (NEGATIVE)
[2024-06-27 21:46] LABS: URINE RBC 0-2 RBC/hpf (0-5)
[2024-06-27 21:48] LABS: URINE SQUAMOUS EPITHELIAL CELL FEW EPI/hpf (0-FEW); URINE WBC 50-100 WBC/hpf (0-5)
[2024-06-27 21:49] LABS: URINE BACTERIA FEW hpf; URINE CALCIUM OXALATE CRYSTALS MODERATE lpf; URINE HYALINE CAST FEW lpf (NONE-RARE); URINE MUCUS FEW hpf (NONE-FEW); URINE TRANSITIONAL EPI. CELLS MODERATE hpf
--- NOTE | 2024-06-28 | NUR ---
PT SLEEPING NO DISTRESS NOTED ON EXAM. CALL LIGHT WITHIN REACH. BED ALARM ON.
--- NOTE | 2024-06-28 04:59 | NUR ---
PT SLEEPING NO DISTRESS NOTED ON EXAM. CALL LIGHT WITHIN REACH. PLAN OF CARE ONGOING. BED ALARM ON.
[2024-06-28 06:53] VITALS: BP 133/72
[2024-06-28 07:09] VITALS: BP 133/72
--- NOTE | 2024-06-28 07:15 | NUR ---
PT LAYING IN BED RESTING WITH EYES CLOSED, AROUSES EASILY TO VERBAL STIMULI, PT IS A&O X3, PUPILS ARE PERRL, RESP. EVEN AND UNLABORED, LUNG SOUNDS ARE CLEAR, ABD DISTENDED AND SOFT WITH ACTIVE BOWEL SOUNDS, STRONG RADIAL AND PEDAL PULSES, SAFETY MEASURES REINFORCED, CALL GRIGGS WITHIN REACH
--- NOTE | 2024-06-28 12:00 | NUR ---
PT SITTING UP IN THE BED EATING LUNCH, VISITOR AT BEDSIDE, PT DENIES ANY NEEDS AT THIS TIME, CALL GRIGGS WITHIN REACH
[2024-06-28 15:16] VITALS: BP 101/57
[2024-06-28 15:23] VITALS: BP 101/57
--- NOTE | 2024-06-28 16:00 | NUR ---
PT LAYING IN BED RESTING WITH EYES CLOSED, NO S/S OF DISTRESS AT THIS TIME, CALL GRIGGS WITHIN REACH
[2024-06-28 18:04] VITALS: BP 117/62
[2024-06-28 18:30] VITALS: BP 117/62
--- NOTE | 2024-06-28 19:45 | NUR ---
PT REPOSITIONED UP IN BED NO DISTRESS NOTED ON EXAM. PT REPORTS NO PAIN. CALL LIGHT WITHIN REACH. BED ALARM ON. PLAN OF CARE ONGOING.
--- NOTE | 2024-06-28 21:15 | NUR ---
PT RESTING NO DISTRESS NOTED ON ASSESSMENT. PEG TUBE FLUSHED WITH MEDS A TOTAL OF 500CC GIVEN. PT TOLERATED PEG TUBE FLUSHED NO NAUSEA REPORTED. HOB AT 45 DEGREES. BERKOWITZ CATHETER PROPERLY PLACED WITH LEG STRAP REPOSITION NO KINKS NOTED CLEAR YELLOW URINE. CALL LIGHT WITHIN REACH. BED ALARM ON. PLAN OF CARE ONGOING.
--- NOTE | 2024-06-29 00:02 | NUR ---
PT SLEEPING NO DISTRESS NOTED ON EXAM. CALL LIGHT WITHIN REACH. BED ALARM ON. PLAN OF CARE ONGOING.
--- NOTE | 2024-06-29 04:38 | NUR ---
PT SLEEPING NO DISTRESS NOTED ON EXAM. CALL LIGHT WITHIN REACH. PLAN OF CARE ONGOING. BED ALARM ON.
[2024-06-29 06:16] VITALS: BP 119/68
--- NOTE | 2024-06-29 07:15 | NUR ---
PT LAYING IN BED RESTING WITH EYES CLOSED, AROUSES EASILY TO VERBAL STIMULI, PT IS A&O X3, PUPILS PERRL, NORMAL S1 S2 HEART SOUNDS, RESP. EVEN AND UNLABORED, LUNG SOUNDS ARE CLEAR, ABD SOFT AND DISTENDED WITH ACTIVE BOWEL SOUNDS, STRONG RADIAL PULSES, WEAK PEDAL PULSES, SAFETY MEASURES REINFORCED, CALL GRIGGS WITHIN REACH
--- NOTE | 2024-06-29 16:00 | NUR ---
PT RESTING IN BED WITH EYES CLOSED, AROUSES EASILY TO VERBAL STIMULI, PT DENIES ANY NEEDS AT THIS TIME, CALL GRIGGS WITHIN REACH
[2024-06-29 18:30] VITALS: BP 97/56
[2024-06-29 18:35] VITALS: BP 97/56
--- NOTE | 2024-06-29 19:48 | NUR ---
PATIENT OBSERVED TO BE RESTING IN BED AWAKE. PATIENT RESPONDS WITH WHISPERS AND NODS TO QUESTIONS. EQUAL UNLABORED RESP. PEG TUBE FLUSHED WITH 400CC PER ORDERS. FOLY CATH IN PLACE. NO KINKS. CLEAR PADMINI URINE OBSERVED. BED AT LOWEST POSITION. CALL LIGHT WITH IN REACH.
--- NOTE | 2024-06-30 00:17 | NUR ---
PATIENT OBSERVED TO BE RESTING IN BED. UNLABORED RESP. NO VISUAL SIGNS OF DISTRESS. BRE CATH IN PLACE. WITH NO KINKS. PADMINI CLEAR URINE OBSERVED. BED AT LOWEST POSITION. CALL LIGHT WITH IN REACH.
--- NOTE | 2024-06-30 04:44 | NUR ---
PATIENT OBSERVED TO BE RESTING IN BED WITH EYES CLOSED ON LEFT SIDE. UNLABORED RESP. NO VISUAL SIGNS OF DISTRESS. FOLY CATH IN PLACE, NO KINKS. BED AT LOWEST POSITION. CALL LIGHT WITH IN REACH.
[2024-06-30 06:22] VITALS: BP 134/69
--- NOTE | 2024-06-30 07:10 | NUR ---
PT LAYING IN BED RESTING WITH EYES CLOSED, AROUSES EASILY TO VERBAL STIMULI, PT IS A&O X3, PUPILS PERRL, RESP. EVEN AND UNLABORED, LUNG SOUNDS ARE CLEAR, ABD DISTENDED AND SOFT WITH ACTIVE BOWEL SOUNDS, STRONG RADIAL AND PEDAL PULSES, BERKOWITZ IN PLACE DRAINING CLEAR YELLOW URINE, PT ENCOURAGED TO GET OUT OF BED AND TO THE CHAIR FOR EVERY MEAL, SAFETY MEASURES REINFORCED, CALL GRIGGS WITHIN REACH
--- NOTE | 2024-06-30 09:40 | NUR ---
PT WAS ASSISTED INTO CHAIR FOR BREAKFAST, PT SAT UP FOR AN HOUR AFTER EATING AND REQUESTED TO GET BACK IN BED TO NAP
--- NOTE | 2024-06-30 12:00 | NUR ---
PT SITTING UP IN THE RECLINER EATING LUNCH WITH A BRIM ROUNDER AT BEDSIDE, PT TOLERATING WELL, CALL GRIGGS WITHIN REACH
--- NOTE | 2024-06-30 16:00 | NUR ---
PT LAYING IN BED WATCHING TV, PT DENIES ANY PAIN AT THIS TIME, PT AWARE SHE WILL BE GETTING UP TO THE RECLINER FOR DINNER, SAFETY MEASURES REINFORCED, CALL GRIGGS WITHIN REACH
[2024-06-30 18:46] VITALS: BP 116/64
--- NOTE | 2024-06-30 19:19 | NUR ---
PATIENT IN ROOM RESTING IN BED ON RIGHT SIDE. PATIENT RESPONDS TO VERBAL STIMULI. WHISPERS YES TO QUESTIONS. BEDSIDE ASSESSMENT COMPLETE. UNNLABORED RESP. NO COMPLAINTS OF PAIN AT THIS TIME. PEG TUBE IN PLACE. FLUSHED WITH 400CC PER ORDERS. FOLY CATH. IN PLACE NO KINKS. OBSERVED TO HAVE CLEAR YELLOW URINE. BED AT LOWEST POSITION. CALL LIGHT WITH IN REACH.
--- NOTE | 2024-07-01 00:20 | NUR ---
PATIENT IN ROOM RESTING IN BED WITH EYES CLOSED. UNLABORED RESP.NO VISUAL SIGNS OF DISTRESS. FOLY CATH IN PLACE BED AT LOWEST POSITION. CALL LIGHT WITH IN REACH.
--- NOTE | 2024-07-01 04:45 | NUR ---
PATIENT OBSERVED IN ROOM RESTING IN BED WITH EYES CLOSED. EQUAL UNLABORED RESP. NO VISUAL SIGNS OF DISTRESS. BED AT LOWEST POSITION. CALL LIGHT WITH IN REACH.
[2024-07-01 06:06] LABS: ALBUMIN 3.3 g/dL (3.2-5.0); BILIRUBIN, TOTAL 0.7 mg/dL (0.02-1.3); CREATININE 0.4 mg/dL (0.5-1.0); POTASSIUM 3.7 mmol/l (3.5-5.1); TOTAL PROTEIN 5.8 g/dL (6.3-8.2)
[2024-07-01 06:12] LABS: BASO% 0.7 % (0-3); EOS% 1.6 % (0-8); HEMATOCRIT 35.9 % (37.0-47.0); HEMOGLOBIN 12.2 g/dl (12.0-16.0); IMMATURE GRANULOCYTES 0.1 % (0.0-5.0); LYMPH% 42.4 % (15-41); MEAN CELL VOLUME 91.8 fL CALC (80.0-100.0); MEAN CORPUSCULAR HGB 31.2 pG CALC (26.0-32.0); MONO% 7.9 % (2-13); NEUT# 4.41 thou/uL (2.00-7.15); NEUT% 47.3 % (42-76); RED BLOOD COUNT 3.91 mill/uL (4.20-5.60); RED CELL DISTRI WIDTH 13.3 % (11.5-15.5)
[2024-07-01 06:44] VITALS: BP 141/63
--- NOTE | 2024-07-01 08:01 | NUR ---
pt given a bath and sat up in chair for breakfast, friend in visiting with her
--- NOTE | 2024-07-01 08:30 | NUR ---
PT IS FOUND LAYING IN BED. PT IS A&O AND STABLE. PT STATES SHE IS HAVING PAIN AND POINTED TO HER THIGH. PT IS ABLE TO MOVE ALL EXTREMITES BUT IS WEAK. PLAN OF CARE WAS REVIEWED WITH THE PT, NO FURTHER QUESTIONS AT THIS TIME. BED ALARM IS ON; CALL LIGHT IS WITHIN REACH.
--- NOTE | 2024-07-01 12:15 | NUR ---
PT'S CONDITION REMAINS THE SAME. PT REPORTS LEG PAIN HAS IMPROVED. NO FURTHER NEEDS AT THIS TI,E. BED ALARM IS ON; CALL LIGHT IS WITHIN REACH.
[2024-07-01 19:36] VITALS: BP 100/52
--- NOTE | 2024-07-01 19:49 | NUR ---
PATIENT OBSERVED TO BE RESTING IN BED AWAKE. PATIENT RESPONDS WITH WHISPERS. NO COMPLAINTS OF PAIN AT THIS TIME. BED SIDE ASSESSMENT COMPLETE. UNLABORED RESP. NO COMPLAINTS OF PAIN AT THIS TIME. PEG TUBE IN PLACE, FLUSHED WITH 400CC PER ORDERS. FOLY CATH IN PLACE WITH NO KINKS. CLEAR YELLOW URINE IN FOLY BAG. BED AT LOWEST POSITION. CALL LIGHT WITH IN REACH.
[2024-07-02] VITALS (7 sets, daily range): BP systolic 103–125; BP diastolic 58–70
--- NOTE | 2024-07-02 00:12 | NUR ---
PATIENT OBSERVED TO BE RESTING IN BED WITH EYES CLOSED. UNLABORED RESP. NO VISUAL SIGNS OF DISTRESS. FOLY CATH IN PLACE, NO KINKS. BED AT LOWEST POSITION. CALL LIGHT WITH IN REACH.
--- NOTE | 2024-07-02 04:33 | NUR ---
PATIENT OBSERVED TO BE RESTING IN BED. UNLABORED RESP. NO VISUAL SIGNS OF DISTRESS. FOLY CATH IN PLACE WITH CLEAR PADMINI URINE. BED AT LOWEST POSITION. CALL LIGHT WITH IN REACH.
--- NOTE | 2024-07-02 07:50 | NUR ---
PT WAS OBSERVED THIS MORING RESTING IN BED. PT WAS ASSISTED TO HER RECLINER CHAIR TO EAT BREAKFAST WITH ASSISTANCE FORM NURSING STAFF. PT HAS NO C/O AT THIS TIME OF PAIN OR DISCOMFORT. BODY ASSESMENT DONE SKIN IS INTACT. PT CALL IS AT REACH AND ALL SAFEY MEASURES IN PLACE AT THIS TIME. NURSING WILL CONTINUE TO MONITOR.
[2024-07-02] MEDS ORDERED: traMADol HCL 50 MG/TAB PO PRN (08:50)
--- NOTE | 2024-07-02 15:58 | NUR ---
PT IS ALERT TIMES 3. PT IS RESTING IN BED AT THIS TIME. PT IS ASSIST INTO HER RECLINER FOR EVERY MEAL FOR FEED ASSIST. PT PEGTUB SITE WAS CLEANED AND NEW T SPONG IN PLACE. PT BERKOWITZ IS DRAINING WELL WITH NO ISSUES. PT C/O PAIN IN HER LEFT KNEE PAIN MEDICATION GIVEN WITH POSITIVE EFFECT. PT HAD A COMPLETE BED BATH DONE BY NURSING STAFF. PT SKIN REMAIN INTACT. PT CALL GRIGGS IS AT REACH AND ALL SAFETY MEASURES IN PLACE. PT DAUGHTER AT BEDSIDE THIS AFTERNOON. NURSING WILL CONTINUE TO MONITOR.
--- NOTE | 2024-07-02 20:00 | NUR ---
PATIENT IS RESTING IN BED WATCHING TV AT THIS MOMENT. NO COMPLAINTS OF PAIN, NAUSEA OR VOMITING. RESPS ARE EVEN AND UNLABORED. PEG TUBE WITH DRESSING INTAC. BERKOWITZ DRAINING CLEAR, YELLOW URIRE WITHOUT NO KINKS. NO IV SITE NOTED. ASSESSMENT COMPLETED-SKIN IS INTACT. CALL LIGHT IS WITHIN REACH AND SAFETY PRECAUTIONS INTACT.
[2024-07-03] VITALS (7 sets, daily range): BP systolic 93–135; BP diastolic 47–73
--- NOTE | 2024-07-03 | NUR ---
PATIENT RESTING IN SUPINE POSITION WITH EYES CLOSED. RESPS ARE EVEN AND UNLABORED. NO DSITRESS NOTED. BED ALARM IN PLACED. CALL LIGHT IS IN REACH AND SAFETY PRECAUTIONS IN PLACE.
--- NOTE | 2024-07-03 04:00 | NUR ---
PATIENT RESTING IN SUPINE POSITION. RESPS ARE EVEN AND UNLABORED. NO DSITRESS NOTED. CALL LIGHT IS WITHIN REACH AND SAFETY PRECAUTIONS IN PLACE,
--- NOTE | 2024-07-03 07:19 | NUR ---
SHIFT CHANGE REPORT, PT SLEEPING IN SUPINE POSITION BUT AWAKENS TO VERBAL AND TACTILE STIMULI, NO C/O DISCOMFORT, BERKOWITZ CATHETER IN PLACE WITH PADMINI URINE, CALL GRIGGS IN REACH AND BED LOCKED IN LOWEST POSITION WITH ALARM ACTIVATED.
--- NOTE | 2024-07-03 13:04 | NUR ---
MAKENNA COLMENARES IS VISITING AT THIS TIME AND TAKING PT VIA W/C OUTSIDE TO SPEND OUTDOOR THERAPY TIME. STAFF ASSISTED PT TO W/C.
--- NOTE | 2024-07-03 13:50 | NUR ---
BACK TO ROOM THEN ASSISTED TO BED BY STAFF, SON LEAVES AFTER PT ASSISTED BACK TO BED.
--- NOTE | 2024-07-03 16:00 | NUR ---
RESTING IN BED WATCHING BALL GAME, NO C/O DISCOMFORT
--- NOTE | 2024-07-03 21:15 | NUR ---
PT RESTING NO DISTRESS NOTED. PT STATED RIGHT ARM PAIN NURSE PROVIDED PAIN MEDICATION. BERKOWITZ WITH PADMINI CLEAR URINE NO KINKS. PT REPOSITIONED AND PEG TUBE FLUSHED WITH MEDS AT TOTAL OF 500CC GIVEN. CALL LIGHT WITHIN REACH. BED ALARM ON. PLAN OF CARE ONGOING.
--- NOTE | 2024-07-04 01:20 | NUR ---
PT SLEEPING NO DISTRESS NOTED ON EXAM. CALL LIGHT WITHIN REACH. BED ALARM ON.
--- NOTE | 2024-07-04 04:42 | NUR ---
PT SLEEPING NO DISTRESS NOTED ON EXAM. CALL LIGHT WITHIN REACH.
[2024-07-04 05:42] LABS: ALBUMIN 3.2 g/dL (3.2-5.0); BILIRUBIN, TOTAL 0.6 mg/dL (0.02-1.3); CREATININE 0.4 mg/dL (0.5-1.0); POTASSIUM 4.3 mmol/l (3.5-5.1); TOTAL PROTEIN 5.8 g/dL (6.3-8.2)
[2024-07-04 05:49] LABS: BASO% 0.8 % (0-3); EOS% 2.7 % (0-8); HEMATOCRIT 37.6 % (37.0-47.0); HEMOGLOBIN 11.4 g/dl (12.0-16.0); IMMATURE GRANULOCYTES 0.2 % (0.0-5.0); LYMPH% 43.2 % (15-41); MEAN CELL VOLUME 100.3 fL CALC (80.0-100.0); MEAN CORPUSCULAR HGB 30.4 pG CALC (26.0-32.0); MEAN CORPUSCULAR HGB CONC 30.3 g/dL CAL (32.0-36.0); MONO% 8.7 % (2-13); NEUT# 4.21 thou/uL (2.00-7.15); NEUT% 44.4 % (42-76); RED BLOOD COUNT 3.75 mill/uL (4.20-5.60); RED CELL DISTRI WIDTH 13.5 % (11.5-15.5)
[2024-07-04 07:30] VITALS: BP 116/61
[2024-07-04] MEDS ORDERED: METOCLOPRAMIDE HCL 10 MG/TAB PO PRN (07:35)
[2024-07-04] MEDS ORDERED: LACTULOSE 20 GM/30 ML UDC VT PRN (07:35)
[2024-07-04] MEDS ORDERED: BISACODYL 10 MG SUPP RE PRN (07:40)
--- NOTE | 2024-07-04 08:43 | NUR ---
SHIFT CHANGE REPORT, PT SLEEPING BUT AWAKENS TO VERBAL STIMULI, NO C/O DISCOMFORT AT THIS TIME, ASSISTED UP TO RECLINER AND SET UP FOR MEAL. BERKOWITZ CATHETER IN PLACE WITH CLEAR YELLOW URINE. CALL GRIGGS PLACED WITHIN REACH.
--- NOTE | 2024-07-04 08:55 | NUR ---
OT HERE AT THIS TIME WORKING WITH PT.
--- NOTE | 2024-07-04 12:46 | NUR ---
ATE MEAL WITH PACU RN'S ASSISTANCE, IN HIGH FOWLERS POSITION IN BED, CALL GRIGGS IN REACH.
--- NOTE | 2024-07-04 12:47 | NUR ---
C/O ABDOMINAL PAIN STATING SHE HAS MUCH GAS AT THIS TIME, ALSO C/O RIGHT HIP PAIN BUT REFUSED PAIN BED, REPOSITIONED TO LEFT SIDE BY STAFF.
[2024-07-04 14:35] VITALS: BP 98/64
--- NOTE | 2024-07-04 16:22 | NUR ---
C/O OF RIGHT SHOULDER PAIN, ANALGESIC GIVEN, PT REPORT RELIEF, RESTING IN BED AT THIS TIME, CALL GRIGGS IN REACH.
--- NOTE | 2024-07-04 18:13 | NUR ---
REFUSED HER 1700 H2O FLUSH STATING IT HURTS HER ABD BADLY WHENEVER SHE GETS IT.
[2024-07-04 18:32] VITALS: BP 111/57
[2024-07-04 18:39] VITALS: BP 138/72
[2024-07-04 18:43] VITALS: BP 111/57
[2024-07-05 04:06] VITALS: BP 136/67
[2024-07-05 04:29] VITALS: BP 136/67
[2024-07-05 06:45] VITALS: BP 105/60
--- NOTE | 2024-07-05 07:53 | NUR ---
PT IS AOX3, RESPIRATIONS ARE EVEN AND UNLABORED ON ROOM AIR, LUNGS ARE CLEAR, BOWEL SOUNDS ARE ACTIVE, PEDAL PULSES ARE PALPABLE TO TOUCH, PT DENIES PAIN AT THIS TIME. LEFT FOOT HEEL BLISTER INTACT AND ELEVATED.
--- NOTE | 2024-07-05 09:39 | NUR ---
ADRIENNE HERNANDEZ SENT TO LAB.
--- NOTE | 2024-07-05 11:32 | NUR ---
PT REFUSING TO GET OUT OF BED FOR LUNCH, EDUCATED PT ON IMPORTANCE OF GETTING UP OUT OF BED.
--- NOTE | 2024-07-05 11:48 | NUR ---
ASSISTED PT UP OUT OF BED, INTO CHAIR. PT TOLERATED VERY WELL, IN GOOD SPIRITS AT THIS TIME.
--- NOTE | 2024-07-05 12:32 | NUR ---
PT SITTING UP IN CHAIR, REPORTS PAIN IN RIGHT UPPER LEG. NURSE REPOSITIONED PT, PROVIDED PT WITH HEAT PACK, FRIEND DISTRACTED PT WITH NAIL KYRGYZ.
--- NOTE | 2024-07-05 15:12 | NUR ---
PT SITTING UP IN CHAIR, REPORTS PAIN IN RIGHT UPPER LEG. NURSE REPOSITIONED PT, PTOVIDED PT WITH HEAT PACK, FRIEND AT BEDSIDE TO DISTRACT PT WITH NAILPOLISH.
--- NOTE | 2024-07-05 15:23 | NUR ---
ASSISTED PT BACK TO BED.
[2024-07-05 15:34] VITALS: BP 110/65
--- NOTE | 2024-07-05 17:22 | NUR ---
PROVIDED PT WITH ORAL CARE, REPOSITIONED, OFFLOADED FOOT FOR COMFORT.
[2024-07-05 18:19] VITALS: BP 99/55
--- NOTE | 2024-07-05 19:15 | NUR ---
RECEVIED REPORT FROM DAYSHIFT NURSE. PT NOTED LAYING IN BED FOWLERS, EYES CLOSED RESTING COMFORTABLY AT THIS TIME. NO S/S OF DISTRESS. CALL LIGHT WITHIN REACH AND SAFETY PRECAUTIONS IN PLACE.
--- NOTE | 2024-07-05 22:00 | NUR ---
ADMINISTERED SCHEDULED MEDS PER EMAR, CRUSHED AND GIVEN THROUGH PEG TUBE. FLUSHED PEG TUBE WITH 400CC PER ORDER. PT TOLERATED WELL. BERKOWITZ NOTED WITH YELLOW CLEAR URINE. ADMINSITERED PAIN MEDICATION PER EMAR DUE TO PT C/O PAIN IN RT LEG. WILL LEAVE PT POSITIONED IN BED FOWLERS PER PROTOCOL. DID HOLD BP MED PER EMAR DUE TO PT BP BELOW PERAMETERS. CALL LIGHT WITHIN REACH AND SAFETY PRECAUTIONS IN PLACE.
[2024-07-06 04:46] VITALS: BP 120/63
[2024-07-06 04:51] VITALS: BP 120/63
--- NOTE | 2024-07-06 07:51 | NUR ---
PT IS ALERT, ORIENTED X3, RESPIRATIONS ARE EVEN AND UNLABORED ON ROOM AIR, LUNGS ARE CLEAR THROUGHOUT, BOWEL SOUNDS ARE ACTIVE THROUGHOUT, PEDAL PULSES ARE PALPABLE TOUCH, OFFLOADED HEALS ON A PILLOW, PT DENIES PAIN AT THIS TIME. BERKOWITZ INTACT.
--- NOTE | 2024-07-06 12:32 | NUR ---
assisted pt back to bed.
[2024-07-06 14:14] VITALS: BP 102/59
[2024-07-06 14:23] VITALS: BP 102/59
--- NOTE | 2024-07-06 14:53 | NUR ---
PT SLEEPING, RESPIRATIONS ARE EVEN AND UNLABORED ON ROOM AIR.
[2024-07-06 18:22] VITALS: BP 111/66
[2024-07-06 18:30] VITALS: BP 111/66
--- NOTE | 2024-07-06 19:25 | NUR ---
PATIENT OBSERVED TO BE RESTING IN BED AWAKE. A&O X3. PATIENT CAN MAKE NEEDS KNOWN, NONE NEEDED AT THIS TIME. PEG TUBE IN PLACE, FLUSHED WITH 400CC PER ORDERS. FOLY CATH IN PLACE. NO KINKS. BED AT LOWEST POSITION. CALL LIGHT WITH IN REACH.
--- NOTE | 2024-07-07 00:23 | NUR ---
PATIENT OBSERVED TO BE RESTING IN BED WITH EYES CLOSED. UNLABORED RESP, NO VISUAL SIGNS OF DISTRESS. FOLY CATH IN PLACE. NO KINKS. BED AT LOWEST POSITION. CALL LIGHT WITH IN REACH.
--- NOTE | 2024-07-07 04:50 | NUR ---
PATIENT OBSERVED TO BE RESTING IN BED ASLEEP. EQUAL UNLABORED RESP. NO VISUAL SIGNS OF DISTRESS. FOLY CATH IN PLACE WITH NO KINKS. YELLOW URINE OBSERVED. BED AT LOWEST POSITION. CALL LIGHT WITH IN REACH.
--- NOTE | 2024-07-07 07:17 | NUR ---
SHIFT CHANGE REPORT, PT RESTING IN SUPINE POSITION, AWAKE, NO C/O DISCOMFORT AT THIS TIME, BERKOWITZ CATHETER IN PLACE WITH CLEAR YELLOW URINE, CALL GRIGGS IN REACH AND BED LOCKED IN LOWEST POSITION WITH ALARM ACTIVATED.
[2024-07-07 07:57] VITALS: BP 114/62
--- NOTE | 2024-07-07 08:32 | NUR ---
ASSISTED UP TO RECLINER AND SET UP FOR MEAL, FED SELF WITH TOTAL SUPERVISION, CALL GRIGGS IN REACH, FRIEND VISITING
--- NOTE | 2024-07-07 14:10 | NUR ---
BP = 85/51, HR = 77 AT THIS TIME, WORKERS COMPENSATION SPECIALIST NOTIFIED AND ADVISED TO GET PT BACK TO BED, HOLD MED AT THIS TIME.
[2024-07-07 16:21] VITALS: BP 110/57
--- NOTE | 2024-07-07 16:24 | NUR ---
RESTING IN BED AT THIS TIME, BP IMPROVED FROM 85/51 TO 110/57. CONDITION STABLE.
--- NOTE | 2024-07-07 19:41 | NUR ---
PATIENT OBSERVED TO BE RESTING IN BED WITH EYES CLOSED. PATIENT RESPONDS TO VERBAL STIMULI. BEDSIDE REPORT COMPLETE. EQUAL UNLABORED RESP. NO VISUAL SIGNS OF DISTRESS. NO COMPLAINTS OF PAIN AT THIS TIME. PEG TUBE IN PLACE FLUSHED WITH 400CC PER ORDERS. FOLY CATH IN PLACE WITH NO KINKS. YELLOW CLEAR URINE OBSERVED. BED AT LOWEST POSITION. CALL LIGHT WITH IN REACH.
--- NOTE | 2024-07-08 00:15 | NUR ---
PATIENT OBSERVED TO BE RESTING IN BED WITH EYES CLOSED. EQUAL UNLABORED RESP. NO VISUAL SIGNS OF DISTRESS. FOLY CATH IN PLACE, NO KINKS. BED AT LOWEST POSITION. CALL LIGHT WITH IN REACH.
--- NOTE | 2024-07-08 04:50 | NUR ---
PATIENT OBSERVED TO BE IN BED WITH EYES CLOSED. EQUAL UNLABORED RESP. NO VISUAL SIGNS OF DISTRESS. FOLY CATH IN PLACE. NO KINKS, CLEAR YELLOW URINE OBSERVED IN FOLY BAG. BED AT LOWEST POSITION. CALL LIGHT WITH IN REACH.
[2024-07-08 05:39] LABS: BASO% 1.2 % (0-3); EOS% 2.6 % (0-8); HEMATOCRIT 36.4 % (37.0-47.0); HEMOGLOBIN 12.3 g/dl (12.0-16.0); IMMATURE GRANULOCYTES 0.1 % (0.0-5.0); LYMPH% 42.9 % (15-41); MEAN CORPUSCULAR HGB 30.9 pG CALC (26.0-32.0); MEAN CORPUSCULAR HGB CONC 33.8 g/dL CAL (32.0-36.0); MONO% 9.6 % (2-13); NEUT# 3.31 thou/uL (2.00-7.15); NEUT% 43.6 % (42-76); RED BLOOD COUNT 3.98 mill/uL (4.20-5.60); RED CELL DISTRI WIDTH 13.4 % (11.5-15.5)
[2024-07-08 05:48] LABS: ALBUMIN 3.2 g/dL (3.2-5.0); BILIRUBIN, TOTAL 0.5 mg/dL (0.02-1.3); CREATININE 0.4 mg/dL (0.5-1.0); POTASSIUM 4.2 mmol/l (3.5-5.1); TOTAL PROTEIN 5.9 g/dL (6.3-8.2)
[2024-07-08 05:58] LABS: MEAN CELL VOLUME 91.5 fL CALC (80.0-100.0)
[2024-07-08 07:00] VITALS: BP 130/73
--- NOTE | 2024-07-08 08:00 | NUR ---
BOLUS FLUSH DONE
--- NOTE | 2024-07-08 08:00 | NUR ---
PT IS SITTING UP IN BED, WATCHING TV. CALL LIGHT IN REACH.
--- NOTE | 2024-07-08 11:00 | NUR ---
BOLUS FLUSH DONE
--- NOTE | 2024-07-08 12:06 | NUR ---
PT IS SITTING UP IN BED EATING LUNCH. DRAFTER MARINE AT BEDSIDE.
[2024-07-08 15:58] VITALS: BP 145/75
--- NOTE | 2024-07-08 15:59 | NUR ---
PT IS IN BED, PT HAS CALL LIGHT IN REACH.
[2024-07-08 16:45] VITALS: BP 145/75
[2024-07-08 18:44] VITALS: BP 141/82
--- NOTE | 2024-07-08 20:00 | NUR ---
PATIENT LYING IN BED RESTING WITH EYES CLOSED. ASSESSMENT COMPLETE (SEE INTERVENTIONS). DENIES CONCERNS AT THIS TIME. NO APPARENT DISTRESS NOTED. WILL CONTINUE WITH PLAN OF CARE.
--- NOTE | 2024-07-09 | NUR ---
PATIENT APPEARS TO BE RESTING WITH EYES CLOSED. RISE AND FALL OF CHEST NOTE.D NO APPARENT DISTRESS. WILL CONTINUE WITH PLAN OF CARE.
--- NOTE | 2024-07-09 04:00 | NUR ---
PATIENT APPEARS TO BE RESTING WITH EYES CLOSED. RISE AND FALL OF CHEST NOTED. NO APPARENT DISTRESS. WILL CONTINUE WITH PLAN OF CARE.
[2024-07-09 06:20] VITALS: BP 112/72
--- NOTE | 2024-07-09 07:55 | NUR ---
PATIENT IN BED NO C/O PAIN OR STRESS. RESTING COMFORTABLE PEG TUBE & SKIN INTACT
--- NOTE | 2024-07-09 13:15 | NUR ---
PATIENT LAYING IN BED RESTING WITH FAMILY BY HER SIDE NO C/O PAIN OR DISTRESS AT THIS TIME
--- NOTE | 2024-07-09 13:43 | NUR ---
PATIENT IS FLUSHED 400CC AT 8AM, 11AM, 1400, AND AT 1700 TOLERATED WELL
--- NOTE | 2024-07-09 16:00 | NUR ---
PATIENT HAS TOLERATED FLUSHES WELL. HAD NO C/O OF PAIN . HAD FRIEND BY BEDSIDE MOST OF THE DAY .
--- NOTE | 2024-07-09 20:00 | NUR ---
PT RESTIG IN SUPINE POSITION WACTHING TV AT THIS MOMENT. DENIES ANY PAIN, NAUSEA OR VOMITING. RESPS ARE EVEN AND UNLABORED. LUNGS ARE CLEAR ALL THROUGHOUT. NO IV NOTED. PEG TUBE INTACT. [place]Z DRAINIGN CLEAR YELLOW URINE WITH NO KINKS NOTED. SKIN IS DRY, CLEAN AND INTACT. BED AT LOWEST POSITION, CALL LIGHT WITHIN REACH AND SAFETY PRECAUTIONS IN PLACE,
[2024-07-09 20:30] VITALS: BP 105/55
[2024-07-09 21:30] VITALS: BP 118/68
--- NOTE | 2024-07-09 21:40 | NUR ---
PEG TUBE CHECKED FOR PLACEMENT WITH STETHOSCOPE. TUBE FLUSHED WITH 400 CC ORDERED. CALL LIGHT IS IN REACH AND SAFETY PRECAUTIONS IN PLACE.
--- NOTE | 2024-07-10 | NUR ---
PT RESTING IN BED WITH EYES CLOSED. BRETAHING IS EVEN AND UNLABORED. NO DSITRESS NOTED. [place] DRAINING CLEAR URINE. CALL LIGHT IS IN REACH AND SAFETY PRECAUTIONS IN PLACE.
--- NOTE | 2024-07-10 04:14 | NUR ---
PT RESTING IN BED. BREATHING IS EVEN AND UNLABORED. NO DSITRESS NOTED. CALL LIGHT IN REACH AND PLAN OF CARE ONGOING.
[2024-07-10 04:27] VITALS: BP 100/49
[2024-07-10 05:36] VITALS: BP 122/65
[2024-07-10 07:18] VITALS: BP 110/62
--- NOTE | 2024-07-10 08:08 | NUR ---
PATIENT RESTING IN BED . REPOSITION PT AND CHECK PEG SITE INTACT / ALSO CHECKED PLACEMENT. PT TOLERATED FLUSH WELL CALL LIGHT IN REACH . NO SIGNS OF DISTRESS OR PAIN
--- NOTE | 2024-07-10 12:00 | NUR ---
PATIENT RESTING IN BED TOLERATED FLUSH WELL. HAS NO C/O PAIN OR DISCOMFORT AT THIS TIME WAITING FOR PALCEMENT
--- NOTE | 2024-07-10 16:00 | NUR ---
PATIENT IN BED RESTING . TOLERATED ALL FLUSHES WELL . NO C/O PAIN . SPENT TIME OUT SIDE WITH FAMILY TODAY
[2024-07-10 19:24] VITALS: BP 110/64
--- NOTE | 2024-07-10 20:00 | NUR ---
PATIENT RESTING IN BED AT THIS TIME POSITIONED ON SIDE WITH EYES CLOSED. RESPS ARE EVEN AND UNLABORED. BERKOWITZ PATENT AND DRAINING YELLOW URINE. PEG TUBE TO LEFT ABD INTACT-DRESSING IS CDI AROUND TUBE. BED ALARM IN PLACE FOR PATIENT SAFETY. CALL LIGHT IN REACH. WILL CONT TO MONITOR.
--- NOTE | 2024-07-10 21:15 | NUR ---
PATIENT RESTING IN BED AT THIS TIME POSITIONED ON SIDE. PATIENT IS EMOTIONAL AND TEARFUL BUT HAVING SOME DIFFICULTY EXPRESSING HER FEELINGS. APPEARS TO BE EMOTIONAL ABOUT POSSIBLE UPCOMING MOVE TO ANOTHER FACILITY. REASURRANCE WAS OFFERED AND PATIENT DID CALM DOWN SOME. PATIENT WAS INCONT OF SMALL AMT OF SOFT BROWN STOOL. PROVIDED WITH CESAR AND BERKOWITZ CATH CARE USING SOAP AND WATER. TURNED AND REPOSITIONED IN BED AND LINENS WERE CHANGED. PATIENT IS FOLLOWING SIMPLE INSTRUCTIONS REGUARDING TURNING AND REPOSITIONING. ASSISTED TO [facility] FOR TUBE FEEDING FLUSH AND MEDS. SAFETY PRECAUTIONS REINFORCED. BED ALARM IN PLACE OF PATIENT SAFETY. CALL LIGHT IN REACH. WILL CONT TO MONITOR.
[2024-07-10 21:31] VITALS: BP 125/56
--- NOTE | 2024-07-10 21:34 | NUR ---
PT RESTING IN BED CRYING AND ANXIOUS. REPORTS PAIN TO HER ABDOMEN 5/10 ON PAIN SCALE. RESPS ARE EVEN AND UNLABORED. BERKOWITZ CATHETER IN PLACE DRAINING YELLOW URINE WITH NO KINKS. PEG TUBE WITH DRESSING INTACT AND FLUSHED WITH 400 CC. PLACEMENT CHECKED WITH STETHOSCOPE. PT REMAINS IN HIGH BRAVO'S POSITION AT THIS TIME. CALL LIGHT IS WITHIN REACH AND SAFETY PRECAUTIONS IN PLACE.
--- NOTE | 2024-07-11 | NUR ---
PT RESTING IN BED WITH EYES CLOSED. RESPS ARE EVEN AND UNLABORED. NO DSITRESS NOTED. BED ALARM IN PLACED. CALL LIGHT IN REACH AND SAFETY PRECAUTIONS IN PLACE.
--- NOTE | 2024-07-11 04:00 | NUR ---
PT RESTING IN BED WITH EYES CLOSED. NO SIGNS OF DISTRESS. RESPS ARE EVEN AND UNLABORED. CALL LIGHT IS IN REACH AND SAFETY PRECAUTIONS IN PLACE.
[2024-07-11 05:42] VITALS: BP 109/63
[2024-07-11 07:24] VITALS: BP 119/66
--- NOTE | 2024-07-11 07:26 | NUR ---
PATIENT LAYING IN BED WITH EYES CLOSED BUT EASILY AROUSED. PATIENT A&OX3 AND ABLE TO MAKE NEEDS KNOWN. PATIENT DENIES ANY NEEDS AT THIS TIME.
--- NOTE | 2024-07-11 11:51 | NUR ---
PATIENT SITTING UP IN BED, HAVING LUNCH. NURSE AT BEDSIDE. PATIENT DENIES ANY NEEDS AT THIS TIME.
--- NOTE | 2024-07-11 15:52 | NUR ---
PATIENT LAYING IN BED. PATIENT DENIES ANY NEEDS AT THIS TIME.
[2024-07-11 18:31] VITALS: BP 127/63
[2024-07-11 18:36] VITALS: BP 142/63
[2024-07-11 18:50] VITALS: BP 127/63
--- NOTE | 2024-07-11 20:00 | NUR ---
PATIENT LAYING WITH THE HEAD OF THE BED ELEVATED. PATIENT IS ALERT AND ORIENTED X3. PT DENIES ANY PAIN, NAUSEA OR VOMITING. RESPS ARE EVEN AND UNLABORED. NO DISTRESS NOTED. BODY ASSESSMENT COMPLETED. BERKOWITZ CATHETER INTACT DRAINING CLEAR YELLOW URINE WITHOUT ANY KINKS. PEG TUBE TO ABDOMEN INATC-DRESSING IS IN PLACE. BED ALARM IN PLACE FOR PT SAFETY. CALL LIGHT IS IN REACH AND SAFETY PRECAUTIONS IN PLACE.
[2024-07-11 21:50] VITALS: BP 132/71
--- NOTE | 2024-07-11 22:00 | NUR ---
PEG TUBE CHECKED FOR PLACEMENT WITH STETHOSCOPE AND FLUSHED WITH 400 CC. HEAD OF THE BED REMAINS ELEVATED. CALL LIGHT IS IN REACH AND SAFETY PRECAUTIONS IN PLACE.
--- NOTE | 2024-07-12 | NUR ---
PT RESTING IN SUPINE POSITION WITH EYES CLOSED. RESPS ARE EVEN AND UNLABORED. BERK[place]Z CATHETEER IN PLACE DRAINING CLEAR YELLOW URINE. BED ALARM PLACED FOR PATIENT SAFETY. CALL LIGHT IS WITHIN REACH AND SAFETY PRECAUTIONS IN PLACE.
[2024-07-12 03:57] VITALS: BP 133/68
--- NOTE | 2024-07-12 04:00 | NUR ---
PATIENT IS ALYING IN SUPINE POSITION WITH EYES CLOSED. NO DISTRESS NOTED AT THIS TIME. CALL LIGHT IS WITHIN REACH AND SAFETY PRECAUTIONS IN PLACE AND BED ALARM IN PLACE WELL.
[2024-07-12 04:50] VITALS: BP 133/68
[2024-07-12 05:32] VITALS: BP 122/63
[2024-07-12 07:18] VITALS: BP 117/67
--- NOTE | 2024-07-12 07:28 | NUR ---
PT IS ALERT AND CAN MAKE HER NEEDS KNOWN. DURING SAFETY ROUNDS PT WAS OBSERVED ASLEEP IN BED. PT HAS NO IV SITE AND SKIN IS INTACT. PT HAS A BERKOWITZ WHICHI DRAINING WELL URINE IS CLEAR AND YELLOW. PT IS A FEED ASSIST WITH NURSING STAFF. PT HAS NO C/O PAIN AT THIS TIME. PT CALL GRIGGS IS AT REACH. ALL SAFETY MEASURES IN PLACE. NURSING WILL CONTIUE TO MONITOR.
[2024-07-12 07:35] VITALS: BP 117/67
[2024-07-12] MEDS ORDERED: ATORVASTATIN CA40 MG VT (09:04)
[2024-07-12] MEDS ORDERED: ELIQUIS5 MG VT (09:04)
[2024-07-12] MEDS ORDERED: LOPRESSOR25 MG VT (09:04)
[2024-07-12] MEDS ORDERED: LOSARTAN POTASS50 MG VT (09:04)
[2024-07-12] MEDS ORDERED: TRAMADOL HYDROC50 M1 PO (09:05)
[2024-07-12] MEDS ORDERED: SERTRALINE50 MG VT (09:06)
[2024-07-12] MEDS ORDERED: TRANSDERM-1 MG/3 DAY TD (09:06)
[2024-07-12] MEDS ORDERED: LANTUS100 UNIT SC (09:07)
--- NOTE | 2024-07-12 12:41 | NUR ---
PT IS IN HER BED WITH HER FRIEND AT BEDSIDE. PT HAD A FULL BEDBATH AND BERKOWITZ AND CESAR CARE WAS RENDERED. PT REMAINS A FEED ASSIST WITH NURSING STAFF. PT CALL GRIGGS WITH IN REACH ALL SAFETY MEASURES IN PLACE. NURSING WILL CONTINUE TO MONITOR.
[2024-07-12 15:41] VITALS: BP 117/59
--- NOTE | 2024-07-12 16:09 | NUR ---
PT IS IN HER BED COMFORTABLY WAITING FOR HER TRANSPORTATION FOR D/C TO A SNF. PT BERKOWITZ CATHETER REMAN IN PLACE. PAIN MEDICATION GIVEN WITH POSITIVE EFFECT. PT CALL GRIGGS IS AT REACH ALL SAFEY MEAURES IN PLACE. NURSING STAFF AND HER PT FRIEND PACKED UP LL HER PERSONAL BELONGING TO BE READY FOR DISCHARGE. NURSING WILL CONTINUE TO MONITOR.
--- NOTE | 2024-07-12 17:06 | NUR ---
Discharge instructions given. Patient verbalizes understanding of same. [facility] with *Other. All belongings sent with pt.
== END 2024-07-12 17:06 | DRG 64 ==
LOC: ICU 16:53 → MS2 16:53
PROVIDERS: Internal Medicine; Nurse Practitioner Family; ADMIT Student in an Organized Health Care Education/Training Program; ATTEND Internal Medicine
PROC: 0T9B70Z Drainage of Bladder with Drainage Device, Via Natural or Artificial Opening (ICD-10-PCS; principal; 2024-01-26)
PROC: 0T9B70Z Drainage of Bladder with Drainage Device, Via Natural or Artificial Opening (ICD-10-PCS; 2024-02-03)
PROC: 0T9B70Z Drainage of Bladder with Drainage Device, Via Natural or Artificial Opening (ICD-10-PCS; 2024-02-20)
PROC: 0T2BX0Z Change Drainage Device in Bladder, External Approach (ICD-10-PCS; 2024-03-03)
PROC: 0T2BX0Z Change Drainage Device in Bladder, External Approach (ICD-10-PCS; 2024-03-26)
PROC: 0T2BX0Z Change Drainage Device in Bladder, External Approach (ICD-10-PCS; 2024-04-21)
PROC: 0T9B70Z Drainage of Bladder with Drainage Device, Via Natural or Artificial Opening (ICD-10-PCS; 2024-05-12)
PROC: 0T2BX0Z Change Drainage Device in Bladder, External Approach (ICD-10-PCS; 2024-05-30)
PROC: 0T2BX0Z Change Drainage Device in Bladder, External Approach (ICD-10-PCS; 2024-06-13)
DX: I63.81 Other cerebral infarction due to occlusion or stenosis of small artery (principal); G93.6 Cerebral edema; I63.19 Cerebral infarction due to embolism of other precerebral artery; N30.00 Acute cystitis without hematuria; B37.41 Candidal cystitis and urethritis; E87.1 Hypo-osmolality and hyponatremia; K94.23 Gastrostomy malfunction; R78.81 Bacteremia; I69.351 Hemiplegia and hemiparesis following cerebral infarction affecting right dominant side; I63.443 Cerebral infarction due to embolism of bilateral cerebellar arteries; I63.411 Cerebral infarction due to embolism of right middle cerebral artery; R27.8 Other lack of coordination; R47.01 Aphasia; R53.83 Other fatigue; R13.10 Dysphagia, unspecified; R47.1 Dysarthria and anarthria; R29.717 NIHSS score 17; I10 Essential (primary) hypertension; E11.9 Type 2 diabetes mellitus without complications; F32.A Depression, unspecified; I48.0 Paroxysmal atrial fibrillation; N83.9 Noninflammatory disorder of ovary, fallopian tube and broad ligament, unspecified; G93.89 Other specified disorders of brain; B96.89 Other specified bacterial agents as the cause of diseases classified elsewhere; R33.9 Retention of urine, unspecified; R09.02 Hypoxemia; R11.2 Nausea with vomiting, unspecified; R61 Generalized hyperhidrosis; B96.4 Proteus (mirabilis) (morganii) as the cause of diseases classified elsewhere; B96.1 Klebsiella pneumoniae [K. pneumoniae] as the cause of diseases classified elsewhere; K11.20 Sialoadenitis, unspecified; E05.20 Thyrotoxicosis with toxic multinodular goiter without thyrotoxic crisis or storm; R05.8 Other specified cough; T46.4X5A Adverse effect of angiotensin-converting-enzyme inhibitors, initial encounter; F17.210 Nicotine dependence, cigarettes, uncomplicated; Y83.3 Surgical operation with formation of external stoma as the cause of abnormal reaction of the patient, or of later complication, without mention of misadventure at the time of the procedure; Z86.19 Personal history of other infectious and parasitic diseases; Z79.01 Long term (current) use of anticoagulants; Z59.71 Insufficient health insurance coverage; Z79.4 Long term (current) use of insulin; Z88.8 Allergy status to other drugs, medicaments and biological substances; Z66 Do not resuscitate
CPT/HCPCS: A9579; J0295; J0692; J0696; J1650; J1815; J2765